=== PATIENT | female | born 1930 | race Caucasian/White ===

== ENCOUNTER 2016-10-01 11:22 | Emergency (ER) | payer MEDICARE, BC ==
[2016-10-01 11:36] VITALS: RESP 16; TEMP 98.3
--- NOTE | 2016-10-01 11:52 | ED ---
General Adult HPI - General Chief complaint: Urogenital Stated complaint: UTI Time Seen by Provider: 10/01/16 11:38 Source: patient, EMS, RN notes reviewed Mode of arrival: EMS Limitations: no limitations - History of Present Illness Initial comments: Patient's an 86-year-old female who presents by EMS from home with a chief complaint of possible UTI. Patient was advised by her family doctor to come to the emergency room for evaluation. Home nurse was at her house earlier this morning. Patient does admit to frequent UTIs. Patient currently denies any complaints or symptoms. History coming from EMS stating that home nurse called the family doctor worried about possible urinary tract infection. They're advised to come to the hospital for evaluation. Patient currently denies any complaints or symptoms.. The patient did have a Valentine catheter that she did pull out 2 days ago. She currently denies any complaints or symptoms. Patient denies any recent fever, chills, shortness of breath, chest pain, back pain, abdominal pain, nausea or vomiting, numbness or tingling, dysuria or hematuria, constipation or diarrhea, headaches or visual changes, or any other complaints. - Related Data Home Medications Medication Instructions Recorded Confirmed Docusate [Colace] 100 mg PO DAILY PRN 02/05/15 03/03/16 Multivitamins, Thera [Multivitamin] 1 tab PO DAILY 02/05/15 03/03/16 Thiamine [Vitamin B-1] 100 mg PO DAILY 02/05/15 03/03/16 Lisinopril-Hctz 10-12.5 mg 1 tab PO BID 03/03/16 03/03/16 [Zestoretic 10-12.5] Nystatin 100,000Unit/gm Cream 1 applic TOPICAL BID 03/03/16 03/03/16 [Mycostatin Cream] Vitamin B Complex 1 cap PO DAILY 03/03/16 03/03/16 Previous Rx's Medication Instructions Recorded Aspirin EC [Ecotrin Low Dose] 81 mg PO DAILY tablet. 12/20/14 Citalopram Hydrobromide [CeleXA] 10 mg PO DAILY #30 tab 02/06/15 Metoprolol Tartrate [Lopressor] 50 mg PO BID #60 tab 02/06/15 Cefdinir 300 mg PO Q12HR #14 cap 03/06/16 Sulfamethox-Tmp 800-160Mg [Bactrim 1 tab PO Q12HR #20 tab 10/01/16 DS 800-160 mg] Allergies Allergy/AdvReac Type Severity Reaction Status Date / Time No Known Allergies Allergy Verified 10/01/16 11:36 Review of Systems ROS Statement: Those systems with pertinent positive or pertinent negative responses have been documented in the HPI. ROS Other: All systems not noted in ROS Statement are negative. Past Medical History Past Medical History: Cancer, Chest Pain / Angina, Dementia, Diabetes Mellitus, Hyperlipidemia, Hypertension, Memory Impairment, Myocardial Infarction ([place]) Additional Past Medical History / Comment(s): ANEMIA BACK ISSUES, 12-16-14 UTI POSITIVE FOR MRSA/SEPSIS. SKIN CA, CHRONIC IDC D/T FRQ UTI'S/SKIN BREAKDOWN, PAST FALLS. Last Myocardial Infarction Date:: 1999 History of Any Multi-Drug Resistant Organisms: MRSA Date of last positivie culture/infection: 12/16/2014 MDRO Source:: Urine Past Surgical History: Appendectomy, Coronary Bypass/CABG, Hysterectomy Additional Past Surgical History / Comment(s): Lumbar, LAMINECTOMY, quadruple bypass done at [facility] by Dr. Garner, resection of skin cancer from her right ear and face Past Anesthesia/Blood Transfusion Reactions: No Reported Reaction Past Psychological History: Anxiety, Depression Smoking Status: Former smoker Past Alcohol Use History: None Reported Additional Past Alcohol Use History / Comment(s): Patient was a smoker and quit many years ago. Patient denies any medical marijuana marijuana or street drug use. No alcohol use. Patient moved from [place] in 3 with her . 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 CURRENTLY LIVING AT [facility] She usually uses a walker for ambulation. Patient lost one son when he was 24 years old from a motorcycle accident and the anniversary. date is on . Patient is also lost a grandchild who was hit by a motor vehicle accident 12 years of age. Past Drug Use History: None Reported - Past Family History Daughter(s) Family Medical History: Cancer Additional Family Medical History / Comment(s): Daughter is under treatment for ovarian cancer Brother(s) Family Medical History: Cancer General Exam - General Exam Comments Initial Comments: General: The patient is awake and alert, in no distress, and does not appear acutely ill. Eye: Pupils are equal, round and reactive to light, extra-ocular movements are intact. No nystagmus. There is normal conjunctiva bilaterally. No signs of icterus. Ears, nose, mouth and throat: There are moist mucous membranes and no oral lesions. Neck: The neck is supple, there is no tenderness or JVD. Cardiovascular: There is a regular rate and rhythm. No murmur, rub or gallop is appreciated. Respiratory: Lungs are clear to auscultation, respirations are non-labored, breath sounds are equal. No wheezes, stridor, rales, or rhonchi. Gastrointestinal: Soft, non-distended, non-tender abdomen without masses or organomegaly noted. There is no rebound or guarding present. No CVA tenderness. Bowel sounds are unremarkable. Musculoskeletal: Normal ROM, no tenderness. Strength 5/5. Sensation intact. Pulses equal bilaterally 2+. Neurological: A&O x 3. CN II-XII intact, There are no obvious motor or sensory deficits. Coordination appears grossly intact. Speech is normal. Skin: Skin is warm and dry and no rashes or lesions are noted. Psychiatric: Cooperative, appropriate mood & affect, normal judgment. Limitations: no limitations Course Vital Signs 10/01/16 11:33 Temperature 98.3 F Pulse Rate 68 Respiratory 16 Rate Blood Pressure 145/66 O2 Sat by Pulse 96 Oximetry Medical Decision Making - Medical Decision Making Patient's urinalysis reviewed and does show evidence for urinary tract infection. Patient will be treated for UTI. Patient vitals are stable. No fever. No sign of sepsis. Patient is alert and oriented 3. Rivet Heater at bedside stating the patient is acting like herself. States she had no further information to know why she was sent here to the hospital today. At this time patient will be discharged home treated for urinary tract infection with antibiotics advised follow-up the family doctor over the next 2 days to have repeat urinalysis. Advised return to emergency room if any symptoms increase or worsen or fail concerns. - Lab Data Lab Results 10/01/16 Range/Units 12:15 Urine Color Dark Yellow Urine Appearance Turbid H (Clear) Urine pH 5.5 (5.0-8.0) Ur Specific [place] 1.030 (1.001-1.035) Urine Protein 2+ H (Negative) Urine Glucose (UA) Negative (Negative) Urine Ketones Negative (Negative) Urine Blood Moderate H (Negative) Urine Nitrate Positive H (Negative) Urine Bilirubin Negative (Negative) Urine Urobilinogen <2.0 (<2.0) mg/dL Ur Leukocyte Esterase Large H (Negative) Urine RBC 38 H (0-5) /hpf Urine WBC >182 H (0-5) /hpf Urine WBC Clumps Many H (None) /hpf Urine Bacteria Moderate H (None) /hpf Disposition Clinical Impression: UTI (urinary tract infection) Disposition: HOME SELF-CARE Condition: Good Instructions: Urinary Tract Infection in Women (ED) Additional Instructions: Please follow the family doctor over the next 2 days to have repeat urinalysis as discussed. Please use antibiotics as prescribed. Please try to emergency room if any symptoms increase worsen or for any other concerns. Prescriptions: Sulfamethox-Tmp 800-160Mg [Bactrim DS 800-160 mg] 1 tab PO Q12HR #20 tab Time of Disposition: 13:25
[2016-10-01 13:10] LABS: Appearance,Urine Turbid (Clear); Bacteria,Urine Moderate /hpf; Bilirubin,Urine Negative (Negative); Glucose,Urine (UA) Negative (Negative); Ketones,Urine Negative (Negative); Leukocyte Esterase,Urine Large (Negative); Nitrite,Urine Positive (Negative); PH, Urine 5.5 (5.0-8.0); Particle Count 41009; Protein,Urine 2+ (Negative); RBC,Urine 38 /hpf (0-5); UA Billing (MACRO vs. MICRO) MICRO; Urobilinogen,Urine <2.0 mg/dL (<2.0); WBC,Urine >182 /hpf (0-5)
[2016-10-01 14:09] VITALS: BP 173/74; PULSE 72
== END 2016-10-01 14:09 | disposition home or self-care (01) ==
LOC: EC 11:22
DX: N39.0 Urinary tract infection, site not specified (principal); Z79.899 Other long term (current) drug therapy; I10 Essential (primary) hypertension; Z79.82 Long term (current) use of aspirin; I25.2 Old myocardial infarction; Z86.14 Personal history of Methicillin resistant Staphylococcus aureus infection; Z95.1 Presence of aortocoronary bypass graft; Z87.891 Personal history of nicotine dependence; Z87.440 Personal history of urinary (tract) infections; F41.9 Anxiety disorder, unspecified; F32.9 Major depressive disorder, single episode, unspecified
CPT/HCPCS: 51798; 81001; 87077; 87086; 87186; 99284

== ENCOUNTER 2016-10-11 09:58 | Inpatient (IN) | payer MEDICARE, BC ==
[2016-10-11] MEDS ORDERED: ACETAMINOPHEN TAB 325 MG TAB PO STA (10:48)
[2016-10-11] MEDS ORDERED: ONDANSETRON 4 MG/2 ML VIAL IVP STA (10:53)
--- NOTE | 2016-10-11 10:53 | ED ---
General Adult HPI - General Chief complaint: Nausea/Vomiting/Diarrhea Stated complaint: Vomiting Time Seen by Provider: 10/11/16 10:42 Source: patient (And garment manufacturer), RN notes reviewed Mode of arrival: EMS Limitations: no limitations - History of Present Illness Initial comments: Patient is a pleasant 86-year-old female presenting to the emergency department with nausea and dry heaves. Onset was during the night. Patient has had several episodes. Patient feels somewhat lightheaded. Patient states nausea is minimal at this time. No abdominal pain. Parking Garage Manager states patient was sweaty during the episodes. She feels the patient may have had a fever however did not check the temperature. Patient recently had antibiotics changed for urinary tract infection. - Related Data Home Medications Medication Instructions Recorded Confirmed Multivitamins, Thera [Multivitamin] 1 tab PO DAILY 02/05/15 10/11/16 Lisinopril-Hctz 10-12.5 mg 1 tab PO BID 03/03/16 10/11/16 [Zestoretic 10-12.5] Vitamin B Complex 1 cap PO DAILY 03/03/16 10/11/16 Ferrous Sulfate [Feosol] 325 mg PO DAILY 10/11/16 10/11/16 Menthol/Zinc Oxide [Calmoseptine 1 applic TOPICAL BID PRN 10/11/16 10/11/16 Ointment] Nitrofurantoin Macrocrystal 100 mg PO DAILY 10/11/16 10/11/16 [Macrodantin] Previous Rx's Medication Instructions Recorded Citalopram Hydrobromide [CeleXA] 10 mg PO DAILY #30 tab 02/06/15 Metoprolol Tartrate [Lopressor] 50 mg PO BID #60 tab 02/06/15 Allergies Allergy/AdvReac Type Severity Reaction Status Date / Time No Known Allergies Allergy Verified 10/11/16 13:06 Review of Systems ROS Statement: Those systems with pertinent positive or pertinent negative responses have been documented in the HPI. ROS Other: All systems not noted in ROS Statement are negative. Constitutional: Reports: fever (Subjective) Eyes: Denies: eye pain ENT: Denies: ear pain Respiratory: Denies: cough Cardiovascular: Denies: chest pain Endocrine: Reports: fatigue Gastrointestinal: Denies: abdominal pain Genitourinary: Denies: dysuria Musculoskeletal: Denies: back pain Skin: Denies: rash Neurological: Denies: headache Past Medical History Past Medical History: Cancer, Chest Pain / Angina, Dementia, Diabetes Mellitus, Hyperlipidemia, Hypertension, Memory Impairment, Myocardial Infarction ([place]) Additional Past Medical History / Comment(s): ANEMIA BACK ISSUES, 12-16-14 UTI POSITIVE FOR MRSA/SEPSIS. SKIN CA, CHRONIC IDC D/T FRQ UTI'S/SKIN BREAKDOWN, PAST FALLS. Last Myocardial Infarction Date:: 1999 History of Any Multi-Drug Resistant Organisms: MRSA Date of last positivie culture/infection: 12/16/2014 MDRO Source:: Urine Past Surgical History: Appendectomy, Coronary Bypass/CABG, Hysterectomy Additional Past Surgical History / Comment(s): Lumbar, LAMINECTOMY, quadruple bypass done at [facility] by Dr. Garner, resection of skin cancer from her right ear and face Past Anesthesia/Blood Transfusion Reactions: No Reported Reaction Past Psychological History: Anxiety, Depression Smoking Status: Former smoker Past Alcohol Use History: None Reported Additional Past Alcohol Use History / Comment(s): Patient was a smoker and quit many years ago. Patient denies any medical marijuana marijuana or street drug use. No alcohol use. Patient moved from [place] in 1952 with her . 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 CURRENTLY LIVING AT [facility] She usually uses a walker for ambulation. Patient lost one son when he was 24 years old from a motorcycle accident and the anniversary. date is on . Patient is also lost a grandchild who was hit by a motor vehicle accident 12 years of age. Past Drug Use History: None Reported - Past Family History Daughter(s) Family Medical History: Cancer Additional Family Medical History / Comment(s): Daughter is under treatment for ovarian cancer Brother(s) Family Medical History: Cancer General Exam Limitations: no limitations General appearance: alert, in no apparent distress Head exam: Present: atraumatic Eye exam: Present: normal appearance, PERRL ENT exam: Present: mucous membranes dry Neck exam: Present: normal inspection Respiratory exam: Present: normal lung sounds bilaterally Cardiovascular Exam: Present: regular rate, normal rhythm GI/Abdominal exam: Present: soft. Absent: distended, tenderness, guarding, rebound, rigid Extremities exam: Present: normal inspection Neurological exam: Present: alert, CN II-XII intact. Absent: motor sensory deficit Psychiatric exam: Present: normal affect, normal mood Skin exam: Absent: rash Course Vital Signs 10/11/16 10:07 Temperature 97.5 F L Pulse Rate 99 Respiratory 18 Rate Blood Pressure 138/65 O2 Sat by Pulse 92 L Oximetry - Reevaluation(s) Reevaluation #1: 10/11/16 10:49 Temperature checked myself 99.8. EKG Findings - EKG Comments: EKG Findings:: Normal sinus rhythm at 86. RI 190. QRS 14. QT 402. QTC 481. Left axis. Left anterior fascicular block. No acute ST change. Medical Decision Making - Medical Decision Making Patient reevaluated and resting comfortably in bed. Patient and garment manufacturer updated on results and plan. Case was discussed in detail with Dr. Hull, who is familiar with this patient and will admit for IV fluids and antibiotics. Recent urine culture reviewed from 10/01 showing E. coli and Citrobacter freundii - Lab Data Result diagrams: 10/11/16 11:00 10/11/16 11:00 Lab Results 10/11/16 10/11/16 10/11/16 Range/Units 11:00 11:00 11:00 WBC 14.7 H (3.8-10.6) k/uL RBC 3.02 L (3.80-5.40) m/uL Hgb 10.3 L (11.4-16.0) gm/dL Hct 31.0 L (34.0-46.0) % MCV 102.7 H (80.0-100.0) fL MCH 34.1 (25.0-35.0) pg MCHC 33.2 (31.0-37.0) g/dL RDW 18.4 H (11.5-15.5) % Plt Count 203 (150-450) k/uL Neutrophils % 92 % Lymphocytes % 4 % Monocytes % 3 % Eosinophils % 1 % Basophils % 0 % Neutrophils # 13.4 H (1.3-7.7) k/uL Lymphocytes # 0.5 L (1.0-4.8) k/uL Monocytes # 0.5 (0-1.0) k/uL Eosinophils # 0.1 (0-0.7) k/uL Basophils # 0.0 (0-0.2) k/uL Anisocytosis Slight Macrocytosis Moderate PT (9.0-12.0) sec INR (<1.1) APTT (22.0-30.0) sec Sodium 141 (137-145) mmol/L Potassium 5.5 H (3.5-5.1) mmol/L Chloride 107 (98-107) mmol/L Carbon Dioxide 20 L (22-30) mmol/L Anion Gap 14 mmol/L BUN 59 H (7-17) mg/dL Creatinine 2.30 H (0.52-1.04) mg/dL Est GFR (MDRD) Af Amer 24 (>60 ml/min/1.73 sqM) Est GFR (MDRD) Non-Af 20 (>60 ml/min/1.73 sqM) Glucose 168 H (74-99) mg/dL Plasma Lactic Acid Cruz 1.3 (0.7-2.0) mmol/L Calcium 9.6 (8.4-10.2) mg/dL Total Bilirubin 0.9 (0.2-1.3) mg/dL AST 26 (14-36) U/L ALT 21 (9-52) U/L Alkaline Phosphatase 66 (38-126) U/L Total Creatine Kinase (30-135) U/L CK-MB (CK-2) (0.0-2.4) ng/mL CK-MB (CK-2) Rel Index Troponin I (0.000-0.034) ng/mL Total Protein 7.6 (6.3-8.2) g/dL Albumin 4.1 (3.5-5.0) g/dL Cortisol 32 ug/dL Urine Color Urine Appearance (Clear) Urine pH (5.0-8.0) Ur Specific [place] (1.001-1.035) Urine Protein (Negative) Urine Glucose (UA) (Negative) Urine Ketones (Negative) Urine Blood (Negative) Urine Nitrate (Negative) Urine Bilirubin (Negative) Urine Urobilinogen (<2.0) mg/dL Ur Leukocyte Esterase (Negative) Urine RBC (0-5) /hpf Urine WBC (0-5) /hpf Ur Squamous Epith Cells (0-4) /hpf Urine Bacteria (None) /hpf Hyaline Casts (0-2) /lpf Urine Mucus (None) /hpf Influenza Type A RNA (Not Detectd) Influenza Type B (PCR) (Not Detectd) 10/11/16 10/11/16 10/11/16 Range/Units 11:00 11:00 11:41 WBC (3.8-10.6) k/uL RBC (3.80-5.40) m/uL Hgb (11.4-16.0) gm/dL Hct (34.0-46.0) % MCV (80.0-100.0) fL MCH (25.0-35.0) pg MCHC (31.0-37.0) g/dL RDW (11.5-15.5) % Plt Count (150-450) k/uL Neutrophils % % Lymphocytes % % Monocytes % % Eosinophils % % Basophils % % Neutrophils # (1.3-7.7) k/uL Lymphocytes # (1.0-4.8) k/uL Monocytes # (0-1.0) k/uL Eosinophils # (0-0.7) k/uL Basophils # (0-0.2) k/uL Anisocytosis Macrocytosis PT 10.9 (9.0-12.0) sec INR 1.1 (<1.1) APTT 18.0 L (22.0-30.0) sec Sodium (137-145) mmol/L Potassium (3.5-5.1) mmol/L Chloride (98-107) mmol/L Carbon Dioxide (22-30) mmol/L Anion Gap mmol/L BUN (7-17) mg/dL Creatinine (0.52-1.04) mg/dL Est GFR (MDRD) Af Amer (>60 ml/min/1.73 sqM) Est GFR (MDRD) Non-Af (>60 ml/min/1.73 sqM) Glucose (74-99) mg/dL Plasma Lactic Acid Cruz (0.7-2.0) mmol/L Calcium (8.4-10.2) mg/dL Total Bilirubin (0.2-1.3) mg/dL AST (14-36) U/L ALT (9-52) U/L Alkaline Phosphatase (38-126) U/L Total Creatine Kinase 28 L (30-135) U/L CK-MB (CK-2) 0.2 (0.0-2.4) ng/mL CK-MB (CK-2) Rel Index 0.7 Troponin I <0.012 (0.000-0.034) ng/mL Total Protein (6.3-8.2) g/dL Albumin (3.5-5.0) g/dL Cortisol ug/dL Urine Color Urine Appearance (Clear) Urine pH (5.0-8.0) Ur Specific [place] (1.001-1.035) Urine Protein (Negative) Urine Glucose (UA) (Negative) Urine Ketones (Negative) Urine Blood (Negative) Urine Nitrate (Negative) Urine Bilirubin (Negative) Urine Urobilinogen (<2.0) mg/dL Ur Leukocyte Esterase (Negative) Urine RBC (0-5) /hpf Urine WBC (0-5) /hpf Ur Squamous Epith Cells (0-4) /hpf Urine Bacteria (None) /hpf Hyaline Casts (0-2) /lpf Urine Mucus (None) /hpf Influenza Type A RNA Not Detected (Not Detectd) Influenza Type B (PCR) Not Detected (Not Detectd) 10/11/16 Range/Units 12:20 WBC (3.8-10.6) k/uL RBC (3.80-5.40) m/uL Hgb (11.4-16.0) gm/dL Hct (34.0-46.0) % MCV (80.0-100.0) fL MCH (25.0-35.0) pg MCHC (31.0-37.0) g/dL RDW (11.5-15.5) % Plt Count (150-450) k/uL Neutrophils % % Lymphocytes % % Monocytes % % Eosinophils % % Basophils % % Neutrophils # (1.3-7.7) k/uL Lymphocytes # (1.0-4.8) k/uL Monocytes # (0-1.0) k/uL Eosinophils # (0-0.7) k/uL Basophils # (0-0.2) k/uL Anisocytosis Macrocytosis PT (9.0-12.0) sec INR (<1.1) APTT (22.0-30.0) sec Sodium (137-145) mmol/L Potassium (3.5-5.1) mmol/L Chloride (98-107) mmol/L Carbon Dioxide (22-30) mmol/L Anion Gap mmol/L BUN (7-17) mg/dL Creatinine (0.52-1.04) mg/dL Est GFR (MDRD) Af Amer (>60 ml/min/1.73 sqM) Est GFR (MDRD) Non-Af (>60 ml/min/1.73 sqM) Glucose (74-99) mg/dL Plasma Lactic Acid [place] (0.7-2.0) mmol/L Calcium (8.4-10.2) mg/dL Total Bilirubin (0.2-1.3) mg/dL AST (14-36) U/L ALT (9-52) U/L Alkaline Phosphatase (38-126) U/L Total Creatine Kinase (30-135) U/L CK-MB (CK-2) (0.0-2.4) ng/mL CK-MB (CK-2) Rel Index Troponin I (0.000-0.034) ng/mL Total Protein (6.3-8.2) g/dL Albumin (3.5-5.0) g/dL Cortisol ug/dL Urine Color Yellow Urine Appearance Clear (Clear) Urine pH 5.5 (5.0-8.0) Ur Specific [place] 1.012 (1.001-1.035) Urine Protein Negative (Negative) Urine Glucose (UA) Negative (Negative) Urine Ketones Negative (Negative) Urine Blood Negative (Negative) Urine Nitrate Negative (Negative) Urine Bilirubin Negative (Negative) Urine Urobilinogen <2.0 (<2.0) mg/dL Ur Leukocyte Esterase Small H (Negative) Urine RBC 1 (0-5) /hpf Urine WBC 6 H (0-5) /hpf Ur Squamous Epith Cells <1 (0-4) /hpf Urine Bacteria Moderate H (None) /hpf Hyaline Casts 5 H (0-2) /lpf Urine Mucus Rare H (None) /hpf Influenza Type A RNA (Not Detectd) Influenza Type B (PCR) (Not Detectd) - Radiology Data Radiology results: image reviewed (Chest x-ray shows some atelectasis.) Disposition Clinical Impression: UTI (urinary tract infection), Dehydration Disposition: ADMITTED IP TO THIS HOSP
[2016-10-11 11:23] LABS: Anisocytosis Slight; Basophils % (A) 0 %; CH 33.7; CHCM 32.9; Eosinophils # (A) 0.1 k/uL (0-0.7); Eosinophils % (A) 1 %; HDW 3.23; HGB 10.3 gm/dL (11.4-16.0); Luc # (Auto) 0.09; Luc % (Auto) 1; Lymphocytes # (A) 0.5 k/uL (1.0-4.8); Lymphocytes % (A) 4 %; MCH 34.1 pg (25.0-35.0); MCHC 33.2 g/dL (31.0-37.0); MCV 102.7 fL (80.0-100.0); Macrocytosis Moderate; Mean Platelet Volume 8.2; Monocytes # (A) 0.5 k/uL (0-1.0); Monocytes % (A) 3 %; Neutrophils # (A) 13.4 k/uL (1.3-7.7); Neutrophils % (A) 92 %; RBC 3.02 m/uL (3.80-5.40); RDW 18.4 % (11.5-15.5); WBC 14.7 k/uL (3.8-10.6); WBC (Perox) 14.86
--- NOTE | 2016-10-11 11:29 | XR ---
EXAMINATION TYPE: XR chest 2V DATE OF EXAM: 10/11/2016 11:24 AM COMPARISON: 03/03/2016 INDICATION: Fever, cough TECHNIQUE: Frontal and lateral views of the chest are obtained. FINDINGS: The heart size is normal. The pulmonary vasculature is normal. Plate atelectasis within the mid left lung. Some minimal atelectasis may be present in the right diap hragm. Sternotomy wires are in the midline. IMPRESSION: 1. Bilateral platelike atelectasis.
[2016-10-11] MEDS: SODIUM CHLORIDE 0.9% 500 ML IV SCH ×2 (11:37→13:49)
[2016-10-11 11:42] LABS: Calcium 9.6 mg/dL (8.4-10.2); Potassium 5.5 mmol/L (3.5-5.1); Total Bilirubin 0.9 mg/dL (0.2-1.3); Total Protein 7.6 g/dL (6.3-8.2)
[2016-10-11 11:58] LABS: Troponin I <0.012 ng/mL (0.000-0.034)
[2016-10-11 12:04] LABS: INR 1.1 (<1.1); Prothrombin Time 10.9 sec (9.0-12.0)
[2016-10-11 12:11] LABS: Creatine Kinase 28 U/L (30-135)
[2016-10-11 12:12] LABS: Creatine Kinase MB 0.2 ng/mL (0.0-2.4)
[2016-10-11 12:31] LABS: Appearance,Urine Clear (Clear); Bacteria,Urine Moderate /hpf; Bilirubin,Urine Negative (Negative); Glucose,Urine (UA) Negative (Negative); Ketones,Urine Negative (Negative); Leukocyte Esterase,Urine Small (Negative); Mucus,Urine Rare /hpf; Nitrite,Urine Negative (Negative); PH, Urine 5.5 (5.0-8.0); Particle Count 5942; Protein,Urine Negative (Negative); RBC,Urine 1 /hpf (0-5); Specific Gravity,Urine 1.012 (1.001-1.035); Squamous Epithelial Cell,Urine <1 /hpf (0-4); UA Billing (MACRO vs. MICRO) MICRO; Urobilinogen,Urine <2.0 mg/dL (<2.0); WBC,Urine 6 /hpf (0-5)
[2016-10-11] MEDS ORDERED: ACETAMINOPHEN TAB 325 MG TAB PO PRN (13:12)
[2016-10-11] MEDS ORDERED: NALOXONE 0.4 MG/ML 1 ML VIAL IV PRN (13:12)
[2016-10-11] MEDS ORDERED: ONDANSETRON 4 MG/2 ML VIAL IVP PRN (13:12)
[2016-10-11] MEDS ORDERED: PIPERACILLIN-TAZOBACTAM 3.375 GM in DEXTROSE/WATER 1 50ML.BAG IVPB STA (13:14)
[2016-10-11] MEDS: SODIUM CHLORIDE 0.9% 1,000 ML IV SCH ×2 (14:31→20:54)
[2016-10-11 15:11] VITALS: BMI 32.1
[2016-10-11 18:00] LABS: Creatine Kinase MB 0.4 ng/mL (0.0-2.4); Troponin I 0.019 ng/mL (0.000-0.034)
[2016-10-11] MEDS: METOPROLOL TARTRATE 50 MG TAB PO SCH (20:53)
[2016-10-11] MEDS ORDERED: FAMOTIDINE 20 MG TAB PO SCH ×2 (21:00)
[2016-10-12] MEDS ORDERED: PIPERACILLIN-TAZOBACTAM 3.375 GM in DEXTROSE/WATER 1 50ML.BAG IVPB SCH
[2016-10-12 00:20] LABS: Creatine Kinase MB 0.5 ng/mL (0.0-2.4); Troponin I 0.022 ng/mL (0.000-0.034)
[2016-10-12] MEDS: PIPERACILLIN-TAZOBACTAM 3.375 GM in DEXTROSE/WATER 1 50ML.BAG IVPB SCH ×2 (05:02→17:15)
[2016-10-12 07:30] LABS: Anisocytosis Slight; Basophils % (A) 0 %; CH 33.5; CHCM 32.1; Eosinophils # (A) 0.3 k/uL (0-0.7); Eosinophils % (A) 3 %; HCT 25.7 % (34.0-46.0); HDW 3.02; Hypochromasia Slight; Luc # (Auto) 0.06; Luc % (Auto) 1; Lymphocytes # (A) 1.4 k/uL (1.0-4.8); Lymphocytes % (A) 16 %; MCHC 31.5 g/dL (31.0-37.0); MCV 104.7 fL (80.0-100.0); Macrocytosis Moderate; Mean Platelet Volume 8.6; Monocytes # (A) 0.3 k/uL (0-1.0); Monocytes % (A) 4 %; Neutrophils # (A) 6.4 k/uL (1.3-7.7); Neutrophils % (A) 76 %; RBC 2.46 m/uL (3.80-5.40); RDW 18.4 % (11.5-15.5); WBC 8.3 k/uL (3.8-10.6); WBC (Perox) 8.56
[2016-10-12 07:45] LABS: HGB 8.1 gm/dL (11.4-16.0)
[2016-10-12 08:01] LABS: Calcium 8.5 mg/dL (8.4-10.2); Potassium 5.1 mmol/L (3.5-5.1)
[2016-10-12] MEDS: CITALOPRAM HYDROBROMIDE 10 MG TAB PO SCH (08:45)
[2016-10-12] MEDS: METOPROLOL TARTRATE 50 MG TAB PO SCH ×2 (08:45→20:19)
--- NOTE | 2016-10-12 12:03 | P.HPIM ---
History of Present Illness H&P Date: 10/12/16 Chief Complaint: Dehydration Janeth is a pleasant 86-year-old white female well-known to the practice. She has been treated for a bladder infection over the past several weeks. She been on Cipro and a repeat urine culture, which she did not improve considerably, showed resistance. She was placed on Macrobid 1-2 days before admission, began experiencing nausea and retching. In the emergency room she was found to have significantly elevated BUN/creatinine, but minimal for any UTI. She is now resting comfortably and is being treated for her dehydration and resistant UTI. Incidental findings on her labs show suppressed TSH rechecked indicates she taken thyroid medications in the remote past, but not been on anything lately. Her CBC also shows significant macrocytosis and anemia. Review of Systems All systems: negative Constitutional: Reports anorexia, Reports lethargy Breasts: right: pain Gastrointestinal: Reports as per HPI Past Medical History Past Medical History: Chest Pain / Angina, Dementia, Hyperlipidemia, Hypertension, Memory Impairment, Myocardial Infarction (OR) Additional Past Medical History / Comment(s): ANEMIA BACK ISSUES, 12-16-14 UTI POSITIVE FOR MRSA/SEPSIS. SKIN CA, CHRONIC IDC D/T FRQ UTI'S/SKIN BREAKDOWN, PAST FALLS. Last Myocardial Infarction Date:: 1999 History of Any Multi-Drug Resistant Organisms: MRSA Date of last positivie culture/infection: 12/16/2014 MDRO Source:: Urine Past Surgical History: Appendectomy, Coronary Bypass/CABG, Hysterectomy Additional Past Surgical History / Comment(s): Lumbar, LAMINECTOMY, quadruple bypass done at [facility] by Dr. Garner, resection of skin cancer from her right ear and face Past Anesthesia/Blood Transfusion Reactions: No Reported Reaction Past Psychological History: Anxiety, Depression Smoking Status: Never smoker Past Alcohol Use History: None Reported Additional Past Alcohol Use History / Comment(s): Patient was a smoker and quit many years ago. Patient denies any medical marijuana marijuana or street drug use. No alcohol use. Patient moved from [place] in 1953 with her . 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 CURRENTLY L[facility]ING AT [facility] She usually uses a walker for ambulation. Patient lost one son when he was 24 years old from a motorcycle accident and the anniversary. date is on . Patient is also lost a grandchild who was hit by a motor vehicle accident 12 years of age. Past Drug Use History: None Reported - Past Family History Daughter(s) Family Medical History: Cancer Additional Family Medical History / Comment(s): Daughter is under treatment for ovarian cancer Brother(s) Family Medical History: Cancer Medications and Allergies Home Medications Medication Instructions Recorded Confirmed Type Multivitamins, Thera [Multivitamin] 1 tab PO DAILY 02/05/15 10/11/16 History Lisinopril-Hctz 10-12.5 mg 1 tab PO BID 03/03/16 10/11/16 History [Zestoretic 10-12.5] Vitamin B Complex 1 cap PO DAILY 03/03/16 10/11/16 History Ferrous Sulfate [Feosol] 325 mg PO DAILY 10/11/16 10/11/16 History Menthol/Zinc Oxide [Calmoseptine 1 applic TOPICAL BID PRN 10/11/16 10/11/16 History Ointment] Nitrofurantoin Macrocrystal 100 mg PO DAILY 10/11/16 10/11/16 History [Macrodantin] Allergies Allergy/AdvReac Type Severity Reaction Status Date / Time No Known Allergies Allergy Verified 10/11/16 13:06 Physical Exam Vitals: Vital Signs Temp Pulse Pulse Pulse Resp BP BP 10/12/16 07:56 75 73 15 10/12/16 07:00 98.4 F 75 15 152/59 10/12/16 03:17 16 10/12/16 02:07 98.2 F 73 16 118/56 10/12/16 00:00 16 10/11/16 20:00 98.0 F 83 16 124/53 10/11/16 16:05 10/11/16 14:00 18 10/11/16 13:32 98.8 F 81 18 118/57 Pulse Ox 10/12/16 07:56 10/12/16 07:00 93 L 10/12/16 03:17 10/12/16 02:07 93 L 10/12/16 00:00 10/11/16 20:00 93 L 10/11/16 16:05 93 L 10/11/16 14:00 10/11/16 13:32 93 L Intake and Output 10/11/16 10/12/16 10/12/16 22:59 06:59 14:59 Intake Total 360 Balance 360 Intake: Oral 360 Other: Voiding Method Diaper Diaper Diaper Incontinent Incontinent Incontinent # Voids 1 1 GENERAL: Fatigued, well-nourished and in no acute distress. HEAD: Atraumatic, normocephalic. EYES: Pupils equal round and reactive to light, extraocular movements intact, sclera anicteric, conjunctiva are normal. ENT:nares patent, oropharynx clear without exudates. Moist mucous membranes. NECK: Normal range of motion, supple without lymphadenopathy or JVD, no thyromegaly LUNGS: Breath sounds coarse to auscultation bilaterally and equal. No wheezes rales or rhonchi. HEART: Regular rate and rhythm without murmurs, rubs or gallops.S1S2 Normal ABDOMEN: Soft, nontender, normoactive bowel sounds. No guarding, no rebound. No masses appreciated. EXTREMITIES: Normal range of motion, no pitting or edema. No clubbing or cyanosis. SCDs are in place. NEUROLOGICAL: Cranial nerves II through XII grossly intact. Normal speech, normal gait. She is awake alert and oriented 2 PSYCH: Normal mood, normal affect. SKIN: Warm, Dry, decreased turgor, no rashes or lesions noted. Results CBC & Chem 7: 10/12/16 06:52 10/12/16 06:52 Labs: Abnormal Lab Results - Last 24 Hours (Table) 10/12/16 10/12/16 Range/Units 06:52 06:52 RBC 2.46 L (3.80-5.40) m/uL Hgb 8.1 L D (11.4-16.0) gm/dL Hct 25.7 L (34.0-46.0) % MCV 104.7 H (80.0-100.0) fL RDW 18.4 H (11.5-15.5) % Chloride 112 H (98-107) mmol/L BUN 48 H (7-17) mg/dL Creatinine 1.81 H (0.52-1.04) mg/dL TSH 0.084 L (0.465-4.680) mIU/L Chest x-ray: report reviewed Thrombosis Risk Factor Assmnt - DVT/VTE Prophylaxis DVT/VTE Prophylaxis: Mechanical Prophylaxis ordered - Choose All That Apply Each Factor Represents 1 point: Acute OR, Age 41-60 years Each Risk Factor Represents 2 Points: Age 61-74 years, Malignancy Each Risk Factor Represents 3 Points: Age 75 years or older, Positive Lupus Anticoagulant Thrombosis Risk Factor Assessment Total Risk Factor Score: 12 Thrombosis Risk Factor Assessment Level: High Risk Assessment and Plan Plan: Urinary tract infection, with partial failure of outpatient treatment: She'll remain on Zosyn at this time. Her repeat ER urine looks improved. Suppressed TSH: We'll repeat laboratory studies and evaluate for occult reasons for hyperthyroidism. Macrocytic anemia: I'll repeat the hemoglobin and check B12 folate and iron studies. We'll start her on a B complex multivitamin. Acute on chronic renal failure, present on admission, improved: We'll continue her gentle IV hydration, I'll decrease the IV fluids from 100 mL an hour to 75 mL an hour. Borderline type 2 diabetes: I'll repeat hemoglobin A1c, the last record of February 2016 showed it to be 6.2: We'll do Accu-Cheks and NovoLog scale. Hypertension: I have held her lisinopril/HCTZ due to her kidney functions. She' ll continue on her metoprolol. I will consider adding amlodipine if needed GI prophylaxis: I will start her on Pepcid at this time. DVT prophylaxis: She remains on SCDs. Medical debility: Believe she uses a walker at home, I'll have physical therapy evaluate her. She'll be reevaluated in the next 24 hours Time with Patient: Greater than 30
[2016-10-12 12:37] LABS: Iron 27 ug/dL (37-170); Phosphorous 3.1 mg/dL (2.5-4.5)
[2016-10-12 12:47] LABS: % Iron Saturation 10.1 % (20-50); Total Iron Binding Capacity 268 ug/dL (265-497)
[2016-10-12 13:02] LABS: Glucose,Whole Blood 99 mg/dL (75-99)
[2016-10-12] MEDS: INSULIN LISPRO (humaLOG) 300 UNIT/3 ML VIAL SQ SCH ×3 (13:06→20:22)
[2016-10-12 13:40] LABS: Hemoglobin A1C 5.8 % (4.2-6.1)
[2016-10-12 13:44] LABS: Vitamin B12 487 pg/mL
[2016-10-12] MEDS: SODIUM CHLORIDE 0.9% 1,000 ML IV SCH ×3 (14:59→20:22)
[2016-10-12] MEDS ORDERED: MENTHOL-ZINC OXIDE OINT 113 GM TUBE TOPICAL PRN (15:01)
[2016-10-12 17:01] LABS: Glucose,Whole Blood 101 mg/dL (75-99)
[2016-10-12] MEDS: FAMOTIDINE 20 MG TAB PO SCH (17:15)
[2016-10-12 18:39] LABS: Anisocytosis Slight; Basophils % (A) 1 %; CH 33.7; Eosinophils # (A) 0.3 k/uL (0-0.7); Eosinophils % (A) 5 %; HDW 3.07; HGB 8.2 gm/dL (11.4-16.0); Hypochromasia Slight; Luc # (Auto) 0.04; Luc % (Auto) 1; Lymphocytes # (A) 1.3 k/uL (1.0-4.8); Lymphocytes % (A) 22 %; MCH 33.1 pg (25.0-35.0); MCHC 31.3 g/dL (31.0-37.0); MCV 105.7 fL (80.0-100.0); Macrocytosis Marked; Mean Platelet Volume 9.1; Monocytes # (A) 0.3 k/uL (0-1.0); Monocytes % (A) 4 %; Neutrophils % (A) 67 %; RBC 2.46 m/uL (3.80-5.40); RDW 18.2 % (11.5-15.5); WBC 5.9 k/uL (3.8-10.6); WBC (Perox) 5.93
[2016-10-12 19:52] LABS: Manual Review Performed
[2016-10-12 19:53] LABS: Large Platelets Present; Ovalocytes Present; Tear Drop Cells Present
[2016-10-12 20:24] LABS: Glucose,Whole Blood 164 mg/dL (75-99)
[2016-10-13] MEDS: PIPERACILLIN-TAZOBACTAM 3.375 GM in DEXTROSE/WATER 1 50ML.BAG IVPB SCH (05:10)
[2016-10-13 06:49] LABS: Glucose,Whole Blood 102 mg/dL (75-99)
[2016-10-13 07:23] LABS: Anisocytosis Slight; Basophils % (A) 1 %; CH 33.1; CHCM 30.6; Eosinophils # (A) 0.3 k/uL (0-0.7); Eosinophils % (A) 5 %; HCT 30.2 % (34.0-46.0); HDW 3.07; HGB 9.3 gm/dL (11.4-16.0); Hypochromasia Moderate; Luc % (Auto) 2; Lymphocytes # (A) 1.3 k/uL (1.0-4.8); Lymphocytes % (A) 24 %; MCH 33.4 pg (25.0-35.0); MCHC 30.9 g/dL (31.0-37.0); MCV 108.4 fL (80.0-100.0); Macrocytosis Marked; Mean Platelet Volume 7.6; Monocytes # (A) 0.2 k/uL (0-1.0); Monocytes % (A) 4 %; Neutrophils # (A) 3.4 k/uL (1.3-7.7); Neutrophils % (A) 65 %; RBC 2.78 m/uL (3.80-5.40); WBC 5.3 k/uL (3.8-10.6); WBC (Perox) 5.39
[2016-10-13] MEDS: INSULIN LISPRO (humaLOG) 300 UNIT/3 ML VIAL SQ SCH ×4 (07:36→20:11)
[2016-10-13] MEDS: CITALOPRAM HYDROBROMIDE 10 MG TAB PO SCH (07:37)
[2016-10-13] MEDS: METOPROLOL TARTRATE 50 MG TAB PO SCH ×2 (07:37→20:09)
[2016-10-13] MEDS: FAMOTIDINE 20 MG TAB PO SCH (07:37)
[2016-10-13] MEDS: B COMPLEX-VIT C-VIT E-ZINC 1 EACH TAB PO SCH (07:38)
[2016-10-13 07:45] LABS: Calcium 8.7 mg/dL (8.4-10.2); Magnesium 2.2 mg/dL (1.6-2.3); Potassium 4.8 mmol/L (3.5-5.1)
[2016-10-13 11:10] LABS: Ovalocytes Present
[2016-10-13 11:12] LABS: Spherocytes Present
[2016-10-13 11:17] LABS: Target Cells Present
[2016-10-13 11:45] LABS: Glucose,Whole Blood 136 mg/dL (75-99)
--- NOTE | 2016-10-13 11:52 | CDI ---
In responding to this query, please exercise your independent professional judgment. The [facility] Coding Staff and Clinical Documentation Specialists appreciate your assistance in clarifying documentation, maintaining compliance with coding guidelines, accurately documenting patients condition and capturing severity of illness. The fact that a question is asked does not imply that any particular answer is desired or expected. Communication forms are a method of clarifying documentation and are not made part of the Legal Health Record. Thank you in advance for your clarification. Last Revision, July 2015 [address] [facility] [place] [address] Documentation Clarification Form Date: 10/13/2016 11:39:00 AM From: Sharan Prince, RN, BSN, CDI Admit Date: 10/11/2016 1:15:00 PM Patient Name: Agata Maya Visit Number: [id number] Dr. Juan Hull: Patient presents with a BUN/CR/GFR of: 59/2.30/20 History/Risk Factors: 86 yo female with a history of CKD, Diabetes and HTN being treated for acute renal failure, UTI and dehydration Patients baseline BUN/CR/GFR: unknown Clinical Indicators: K: 5.5 (on admission), current BUN/Cr: 36/1.36, Hgb: 10.3- 8.1 Treatment: IVF: IVF @100cc/hr (currently @75cc/hr) Other: 1L fluid bolus, Zosyn In order to capture the severity of condition, please clarify if the condition signifies: Acute renal failure Please specify (if known): Cortical, Medullary, or Tubular Necrosis? Acute on chronic renal failure Chronic renal failure, please stage Chronic kidney disease (CKD) and please stage Stage 1 GFR >90 Stage 2 GFR 60-89 Stage 3 GFR 30-59 Stage 4 GFR 15-29 Unable to determine Other, specify Please document in your progress notes and discharge summary in order to capture severity of illness and risk of mortality. Include clinical findings that support your diagnosis. FYI: Press F11 to launch patient chart. ___X__ Place X here if this finding has no clinical significance, is not applicable or if you are not able to provide any additional documentation. MTDD
--- NOTE | 2016-10-13 12:08 | US ---
EXAMINATION TYPE: US thyroid st tissue head/neck DATE OF EXAM: 10/13/2016 11:55 AM COMPARISON: NONE CLINICAL HISTORY: hyperthyroid suspected . GLAND SIZE: Right Lobe: 3.4 x 1.7 x 1.3 cm Overall Parenchyma: heterogenous Left Lobe: 4.8 x 2.1 x 1.8 cm Overall Parenchyma: heterogeneous Isthmus Thickness: 0.8 cm NODULES RIGHT: # of nodules measured on right: 0 LEFT: # of nodules measured on left: 0 ISTHMUS: # of nodules measured in the isthmus: 0 TECHNOLOGIST IMPRESSION: Thyroid sits very inferior, difficult to see inferior portion due to clavic le. IMPRESSION: Thyroid heterogeneity without evidence for distinct nodule at this time.
--- NOTE | 2016-10-13 14:25 | P.PN ---
Subjective Principal diagnosis: Urinary tract infection Janeth is a pleasant 86-year-old white female, patient of Dr. Hull in the outpatient setting. Patient presented to the emergency department with complains of nausea, vomiting, lightheadedness. Patient had recently been treated for urinary tract infection with Cipro, which was changed to Macrobid secondary to urine culture showing resistance to Cipro. Patient was found to have evidence of dehydration, hypothyroidism, anemia, macrocytosis, and acute renal failure. Ultrasound of thyroid with no evidence of right, left, or isthmus nodules. Upon examination, patient is sitting at the side of the bed working with physical therapist. Patient is feeling better. Denies chills, nausea, vomiting , shortness of breath, chest pain, abdominal pain, dysuria, hematuria. Patient complains of urgency. Patient is tolerating diet. Afebrile. WBC 5.3. Hemoglobin 9.3. MCV 108.4. Creatinine improved to 1.36. Final urine culture with evidence of E. coli. Preliminary blood culture with no growth after 48 hours. Objective - Vital Signs Vital signs: Vital Signs Temp 97.9 F 10/13/16 07:00 Pulse 69 10/13/16 07:00 Resp 18 10/13/16 07:00 BP 158/70 10/13/16 07:00 Pulse Ox 92 L 10/13/16 07:00 Intake & Output 10/12/16 10/13/16 10/13/16 18:59 06:59 18:59 Intake Total 500 120 Balance 500 120 Weight 82.1 kg Intake: IV 500 Sodium Chloride 0.9% 1, 500 000 ml @ 100 mls/hr IV . [facility] Rx#:[id number] Oral 120 Other: Voiding Method Diaper Diaper Diaper Incontinent Incontinent Incontinent # Voids 1 - Exam GENERAL: Pt awake and alert, well-appearing, well-nourished, and in no acute distress. HEAD: Atraumatic, normocephalic. EYES: Pupils equal, round, and reactive to light, extraocular movements intact, sclera anicteric, conjunctiva are normal. ENT: Oropharynx clear without exudates. Moist mucous membranes. Tongue smooth, pink, no lesions, protrudes in midline. NECK:Normal range of motion, supple without lymphadenopathy or JVD. No carotid bruits. Thyroid midline, small and firm without palpable masses. LUNGS: Breath sounds clear to auscultation bilaterally. No wheezes, rales, or rhonchi. HEART: Heart S1, S2, no S3 or S4. No murmurs, rubs or gallops. ABDOMEN: Soft, nontender, nondistended, normoactive bowel sounds. No guarding, no rebound. No masses or organomegaly appreciated. EXTREMITIES: 2+ peripheral pulses. No edema, clubbing or cyanosis. No calf tenderness. NEUROLOGICAL: Pt oriented x 3. Cranial nerves II through XII grossly intact. Strength and sensation grossly intact. PSYCH: Normal mood, normal affect. SKIN: Warm, dry, intact. Normal turgor. No rashes or lesions. - Labs CBC & Chem 7: 10/13/16 06:55 10/13/16 06:55 Labs: Abnormal Lab Results - Last 24 Hours (Table) 10/12/16 10/12/16 10/12/16 Range/Units 06:52 16:34 18:27 RBC 2.46 L (3.80-5.40) m/uL Hgb 8.2 L (11.4-16.0) gm/dL Hct 26.0 L (34.0-46.0) % MCV 105.7 H (80.0-100.0) fL MCHC (31.0-37.0) g/dL RDW 18.2 H (11.5-15.5) % Chloride (98-107) mmol/L BUN (7-17) mg/dL Creatinine (0.52-1.04) mg/dL Glucose (74-99) mg/dL POC Glucose (mg/dL) 101 H (75-99) mg/dL Iron 27 L (37-170) ug/dL % Saturation 10.1 L (20-50) % Free T3 pg/mL 2.3 L (2.8-5.3) pg/ml 10/12/16 10/13/16 10/13/16 Range/Units 20:21 06:48 06:55 RBC 2.78 L (3.80-5.40) m/uL Hgb 9.3 L (11.4-16.0) gm/dL Hct 30.2 L (34.0-46.0) % MCV 108.4 H (80.0-100.0) fL MCHC 30.9 L (31.0-37.0) g/dL RDW 18.0 H (11.5-15.5) % Chloride (98-107) mmol/L BUN (7-17) mg/dL Creatinine (0.52-1.04) mg/dL Glucose (74-99) mg/dL POC Glucose (mg/dL) 164 H 102 H (75-99) mg/dL Iron (37-170) ug/dL % Saturation (20-50) % Free T3 pg/mL (2.8-5.3) pg/ml 10/13/16 10/13/16 Range/Units 06:55 11:39 RBC (3.80-5.40) m/uL Hgb (11.4-16.0) gm/dL Hct (34.0-46.0) % MCV (80.0-100.0) fL MCHC (31.0-37.0) g/dL RDW (11.5-15.5) % Chloride 112 H (98-107) mmol/L BUN 36 H (7-17) mg/dL Creatinine 1.36 H (0.52-1.04) mg/dL Glucose 100 H (74-99) mg/dL POC Glucose (mg/dL) 136 H (75-99) mg/dL Iron (37-170) ug/dL % Saturation (20-50) % Free T3 pg/mL (2.8-5.3) pg/ml Assessment and Plan Plan: Impression and plan: 1. Urinary tract infection, with partial failure of outpatient treatment, urine culture positive for E. coli resistant to Bactrim, Levaquin, and Cipro. Will transition patient to Augmentin which is susceptible. 2. Suppressed TSH: Ultrasound of thyroid without evidence of nodules. 3. Macrocytic anemia. Folate and B12 studies within normal limits. Serum ferritin greater than 100. 4. Acute renal failure suspect prerenal in nature dehydration and decreased intravascular volume. Creatinine improved to 1.36 from 1.81 yesterday. Continue IV hydration at 75 mL an hour. 5. Chronic renal failure, stage III. 6. Borderline type 2 diabetes: Hemoglobin A1c 5.8. Continue Accu-Cheks and NovoLog sliding scale. 7. Hypertension: I have held her lisinopril/HCTZ due to her kidney functions. She'll continue on her metoprolol. I will consider adding amlodipine if needed 8. GI prophylaxis: Continue Pepcid. 9. DVT prophylaxis: She remains on SCDs. 10. Medical debility: Believe she uses a walker at home, continue physical therapy. Discharge planning in progress hopefully within next 24-48 hours. We'll repeat blood work in a.m. The above impression and plan have been discussed and directed by Dr. Fields. Sherif JERRY acting as scribe for Dr. Fields.
[2016-10-13 16:29] VITALS: RESP 16
[2016-10-13 17:26] LABS: Glucose,Whole Blood 117 mg/dL (75-99)
[2016-10-13] MEDS: SODIUM CHLORIDE 0.9% 1,000 ML IV SCH ×2 (19:12→20:09)
[2016-10-13] MEDS: AMOXIC-POT CLAV 875-125MG 1 EACH TAB PO SCH (20:09)
[2016-10-13 20:31] LABS: Glucose,Whole Blood 135 mg/dL (75-99)
[2016-10-14 07:25] LABS: Glucose,Whole Blood 116 mg/dL (75-99)
[2016-10-14] MEDS: METOPROLOL TARTRATE 50 MG TAB PO SCH (07:28)
[2016-10-14] MEDS: CITALOPRAM HYDROBROMIDE 10 MG TAB PO SCH (07:28)
[2016-10-14] MEDS: FAMOTIDINE 20 MG TAB PO SCH (07:28)
[2016-10-14] MEDS: AMOXIC-POT CLAV 875-125MG 1 EACH TAB PO SCH (07:28)
[2016-10-14] MEDS: INSULIN LISPRO (humaLOG) 300 UNIT/3 ML VIAL SQ SCH ×2 (07:29→11:52)
[2016-10-14 07:57] VITALS: BP 174/72; PULSE 90; TEMP 98.3
[2016-10-14 09:06] LABS: Calcium 8.4 mg/dL (8.4-10.2); Potassium 4.6 mmol/L (3.5-5.1)
[2016-10-14 09:10] LABS: Anisocytosis Slight; Basophils % (A) 0 %; CH 33.8; CHCM 32.6; Eosinophils # (A) 0.2 k/uL (0-0.7); Eosinophils % (A) 3 %; HCT 27.3 % (34.0-46.0); HDW 3.26; HGB 8.9 gm/dL (11.4-16.0); Hypochromasia Slight; Luc # (Auto) 0.09; Luc % (Auto) 1; Lymphocytes # (A) 1.4 k/uL (1.0-4.8); Lymphocytes % (A) 19 %; MCH 33.8 pg (25.0-35.0); MCHC 32.5 g/dL (31.0-37.0); Macrocytosis Moderate; Mean Platelet Volume 8.5; Monocytes # (A) 0.6 k/uL (0-1.0); Monocytes % (A) 9 %; Neutrophils # (A) 4.7 k/uL (1.3-7.7); Neutrophils % (A) 67 %; RBC 2.63 m/uL (3.80-5.40); WBC (Perox) 7.72
[2016-10-14 09:23] LABS: Large Platelets Present; Manual Review Performed
[2016-10-14] MEDS: B COMPLEX-VIT C-VIT E-ZINC 1 EACH TAB PO SCH (11:49)
[2016-10-14 11:53] LABS: Glucose,Whole Blood 178 mg/dL (75-99)
--- NOTE | 2016-10-14 14:58 | P.DS ---
Providers Date of admission: 10/11/16 13:15 Expected date of discharge: 10/14/16 Attending physician: Juan Hull Primary care physician: [facility] Course: Janeth is a pleasant 86-year-old white female, patient of Dr. Hull in the outpatient setting. Patient presented to the emergency department with complains of nausea, vomiting, lightheadedness. Patient had recently been treated for urinary tract infection with Cipro, which was changed to Macrobid secondary to urine culture showing resistance to Cipro. Patient was found to have evidence of urinary tract infection with urine cultures positive for E. coli dehydration, hyperthyroidism, anemia, macrocytosis, and acute renal failure. Ultrasound of thyroid with no evidence of right, left, or isthmus nodules. Patient improved with IV antibiotics, IV hydration, supportive treatment and pain management. Patient was discharged home on 7 days of Augmentin. Hyperthyroidism and macrocytic anemia to be further worked up in the outpatient setting. Patient was discharged to home with home care. Discharge diagnoses: 1. Urinary tract infection, failed outpatient treatment, urine culture positive for E. coli resistant to Bactrim, Levaquin, and Cipro. Will transition patient to Augmentin which is susceptible. 2. Suppressed TSH: Ultrasound of thyroid without evidence of nodules. 3. Macrocytic anemia. Folate and B12 studies within normal limits. Serum ferritin greater than 100. Further workup in the outpatient setting. 4. Acute renal failure suspect prerenal in nature dehydration and decreased intravascular volume, improved. 5. Chronic renal failure, stage III. 6. Borderline type 2 diabetes: Hemoglobin A1c 5.8. 7. Hypertension 8. Medical debility The above impression and plan have been discussed and directed by Dr. Fields. Sherif JERRY acting as scribe for Dr. Fields. Pertinent Studies: Chest x-ray; EKG; head/neck ultrasound Patient Condition at Discharge: Good Plan - Discharge Summary New Discharge Prescriptions: Amoxic-Pot Clav 875-125Mg [Augmentin 875-125] 1 each PO Q12HR #14 tab Discharge Medication List Multivitamins, Thera [Multivitamin] 1 tab PO DAILY 02/05/15 [History] Citalopram Hydrobromide [CeleXA] 10 mg PO DAILY #30 tab 02/06/15 [Rx] Metoprolol Tartrate [Lopressor] 50 mg PO BID #60 tab 02/06/15 [Rx] Lisinopril-Hctz 10-12.5 mg [Zestoretic 10-12.5] 1 tab PO BID 03/03/16 [History] Vitamin B Complex 1 cap PO DAILY 03/03/16 [History] Ferrous Sulfate [Iron (65 MG Elemental)] 325 mg PO DAILY 10/11/16 [History] Menthol/Zinc Oxide [Calmoseptine Ointment] 1 applic TOPICAL BID PRN 10/11/16 [ History] Amoxic-Pot Clav 875-125Mg [Augmentin 875-125] 1 each PO Q12HR #14 tab 10/14/16 [ Rx] Follow up Appointment(s)/Referral(s): [facility], [NON-STAFF] - Juan Hull MD [Primary Care Provider] - 10/15/16 2:00 pm Patient Instructions/Handouts: Urinary Tract Infection in Women (DC) Discharge Disposition: HOME WITH HOME HEALTH SERVICES
== END 2016-10-14 15:15 | disposition home health service (06) | DRG 683 ==
LOC: EC 09:58 → 3SUR 13:15
PROVIDERS: ADMIT Family Medicine; ATTEND Family Medicine
DX: N17.9 Acute kidney failure, unspecified (principal); N39.0 Urinary tract infection, site not specified; E11.22 Type 2 diabetes mellitus with diabetic chronic kidney disease; F03.90 Unspecified dementia, unspecified severity, without behavioral disturbance, psychotic disturbance, mood disturbance, and anxiety; D53.9 Nutritional anemia, unspecified; E86.0 Dehydration; E05.90 Thyrotoxicosis, unspecified without thyrotoxic crisis or storm; N18.3 Chronic kidney disease, stage 3 (moderate); I12.9 Hypertensive chronic kidney disease with stage 1 through stage 4 chronic kidney disease, or unspecified chronic kidney disease; E78.5 Hyperlipidemia, unspecified; I25.2 Old myocardial infarction; F41.9 Anxiety disorder, unspecified; F32.9 Major depressive disorder, single episode, unspecified; B96.20 Unspecified Escherichia coli [E. coli] as the cause of diseases classified elsewhere; Z16.29 Resistance to other single specified antibiotic; Z16.19 Resistance to other specified beta lactam antibiotics; Z16.23 Resistance to quinolones and fluoroquinolones; Z86.14 Personal history of Methicillin resistant Staphylococcus aureus infection; Z95.1 Presence of aortocoronary bypass graft; Z90.710 Acquired absence of both cervix and uterus; Z85.828 Personal history of other malignant neoplasm of skin; Z87.891 Personal history of nicotine dependence; Z79.899 Other long term (current) drug therapy
CPT/HCPCS: 36415; 71020; 76536; 80048; 80053; 81001; 82533; 82550; 82553; 82607; 82728; 82746; 83036; 83540; 83550; 83605; 83735; 84100; 84439; 84443; 84445; 84481; 84484; 85025; 85610; 85730; 87040; 87077; 87086; 87186; 87502; 93005; 96361; 96374; 99285

== ENCOUNTER 2017-12-11 09:46 | Emergency (ER) | payer MEDICARE, BC ==
[2017-12-11 09:58] VITALS: TEMP 98.4
[2017-12-11] MEDS ORDERED: SODIUM CHLORIDE 0.9% 500 ML IV STA (10:01)
--- NOTE | 2017-12-11 10:04 | ED ---
General Adult HPI - General Chief complaint: Weakness Stated complaint: weakness Time Seen by Provider: 12/11/17 09:46 Source: patient, EMS, RN notes reviewed Mode of arrival: EMS Limitations: no limitations - History of Present Illness Initial comments: This is an 87-year-old female presents emergency department by EMS because she was tired weak and dizzy. According to the patient she is no longer dizzy and she is just tired. Patient denies any pain. Patient denies any headache patient denies any visual disturbance patient denies any chest pain palpitations difficulty breathing or shortness of breath. Patient's history is somewhat suspect because she does have dementia. Patient denies any abdominal pain patient denies nausea vomiting diarrhea. There is no history of any trauma. There is no history of any fever. Currently patient states she feels tired and would like to sleep a little but besides that she feels fine - Related Data Home Medications Medication Instructions Recorded Confirmed Aspirin 81 mg PO DAILY 10/26/17 12/11/17 Bisacodyl 5 mg PO DAILY PRN 10/26/17 12/11/17 Lisinopril-Hctz 10-12.5 mg 1 tab PO BID 10/26/17 12/11/17 [Zestoretic 10-12.5] Multivit-Min/FA/Lycopen/Lutein 1 tab PO DAILY 10/26/17 12/11/17 [Centrum Silver Tablet] Super B Complex 1 cap PO DAILY 10/26/17 12/11/17 Acetaminophen [Tylenol] 650 mg PO Q6H PRN 12/11/17 12/11/17 Menthol/Zinc Oxide [Calmoseptine 1 applic TOPICAL DAILY 12/11/17 12/11/17 Ointment] Miconazole/Cleanser 17 On Wipe 2 suppositor VAGINAL HS 12/11/17 12/11/17 [Miconazole 3 Kit] Mupirocin [Mupirocin 2%] 1 applic TOPICAL TID 12/11/17 12/11/17 Nystatin 100,000Unit/gm Cream 1 applic TOPICAL BID 12/11/17 12/11/17 [Mycostatin Cream] Previous Rx's Medication Instructions Recorded Citalopram Hydrobromide [CeleXA] 10 mg PO DAILY #30 tab 02/06/15 Metoprolol Tartrate [Lopressor] 50 mg PO BID #60 tab 02/06/15 Nitrofurantoin Monohyd/M-Cryst 100 mg PO Q12HR #14 cap 12/11/17 [Macrobid] Allergies Allergy/AdvReac Type Severity Reaction Status Date / Time No Known Allergies Allergy Verified 12/11/17 10:44 Review of Systems ROS Statement: Those systems with pertinent positive or pertinent negative responses have been documented in the HPI. ROS Other: All systems not noted in ROS Statement are negative. Past Medical History Past Medical History: Cancer, Chest Pain / Angina, CVA/TIA, Dementia, Eye Disorder, Hearing Disorder / Deafness, Hyperlipidemia, Hypertension, Memory Impairment, Myocardial Infarction ([place]), Renal Disease, Syncope Additional Past Medical History / Comment(s): Dementia with memory impairment, 2012 TIA, chronic kidney disease stage III, vertigo at times, UTI, occasional back pain. Last Myocardial Infarction Date:: 1999 History of Any Multi-Drug Resistant Organisms: MRSA Date of last positivie culture/infection: 12/16/2014 MDRO Source:: Urine Past Surgical History: Appendectomy, Coronary Bypass/CABG, Heart Catheterization , Hysterectomy Additional Past Surgical History / Comment(s): 1999 CABG 4 vessel, lumbar laminectomy, skin cancer removals, bilateral cataract removals. Past Anesthesia/Blood Transfusion Reactions: No Reported Reaction Past Psychological History: Anxiety, Depression Smoking Status: Former smoker Past Alcohol Use History: None Reported Past Drug Use History: None Reported - Past Family History Father Family Medical History: Diabetes Mellitus Daughter(s) Family Medical History: Cancer Additional Family Medical History / Comment(s): Daughter is under treatment for ovarian cancer Brother(s) Family Medical History: Cancer General Exam - General Exam Comments Initial Comments: GENERAL: Patient is well-developed and well-nourished. Patient is nontoxic and well- hydrated and is in no acute distress. ENT: Neck is soft and supple. No significant lymphadenopathy is noted. Oropharynx is clear. Moist mucous membranes. Neck has full range of motion without eliciting any pain. EYES: The sclera were anicteric and conjunctiva were pink and moist. Extraocular movements were intact and pupils were equal round and reactive to light. Eyelids were unremarkable. PULMONARY: Unlabored respirations. Good breath sounds bilaterally. No audible rales rhonchi or wheezing was noted. CARDIOVASCULAR: There is a regular rate and rhythm without any murmurs gallops or rubs. ABDOMEN: Soft and nontender with normal bowel sounds. No palpable organomegaly was noted. There is no palpable pulsatile mass. SKIN: Skin is clear with no lesions or rashes and otherwise unremarkable. NEUROLOGIC: Patient is alert and oriented 2. Cranial nerves II through XII are grossly intact. Motor and sensory are also intact. Normal speech, volume and content. Symmetrical smile. MUSCULOSKELETAL: Normal extremities with adequate strength and full range of motion. LYMPHATICS: No significant lymphadenopathy is noted PSYCHIATRIC: Normal psychiatric evaluation. Limitations: no limitations Course Vital Signs 12/11/17 12/11/17 09:49 11:21 Temperature 98.4 F Pulse Rate 61 62 Respiratory 18 16 Rate Blood Pressure 189/81 173/74 O2 Sat by Pulse 97 98 Oximetry Medical Decision Making - Medical Decision Making EKG shows a sinus rhythm with an occasional PAC at 61 bpm MT interval is 174 QRS is 102 QT interval 472 QTC is 475. Patient's EKG shows no ST segment elevation or depression or T wave abnormalities are noted. I spoke with Dr. madi Hull felt that the patient could go home and he could follow-up in the office. I spoke with the caregiver and she was in agreement to take the patient home. Patient had no complaints at this time. - Lab Data Result diagrams: 12/11/17 10:15 12/11/17 10:15 Lab Results 12/11/17 12/11/17 12/11/17 Range/Units 10:15 10:15 10:15 WBC 5.5 (3.8-10.6) k/uL RBC 2.99 L (3.80-5.40) m/uL Hgb 9.6 L (11.4-16.0) gm/dL Hct 28.9 L (34.0-46.0) % MCV 96.7 D (80.0-100.0) fL MCH 32.2 (25.0-35.0) pg MCHC 33.3 (31.0-37.0) g/dL RDW 18.1 H (11.5-15.5) % Plt Count 211 (150-450) k/uL Neutrophils % 54 % Lymphocytes % 33 % Monocytes % 7 % Eosinophils % 3 % Basophils % 1 % Neutrophils # 2.9 (1.3-7.7) k/uL Lymphocytes # 1.8 (1.0-4.8) k/uL Monocytes # 0.4 (0-1.0) k/uL Eosinophils # 0.2 (0-0.7) k/uL Basophils # 0.0 (0-0.2) k/uL Anisocytosis Slight Macrocytosis Slight Sodium 146 H (137-145) mmol/L Potassium 4.6 (3.5-5.1) mmol/L Chloride 104 (98-107) mmol/L Carbon Dioxide 28 (22-30) mmol/L Anion Gap 14 mmol/L BUN 34 H (7-17) mg/dL Creatinine 1.12 H (0.52-1.04) mg/dL Est GFR (CKD-EPI)AfAm 51 (>60 ml/min/1.73 sqM) Est GFR (CKD-EPI)NonAf 45 (>60 ml/min/1.73 sqM) Glucose 89 (74-99) mg/dL Calcium 9.7 (8.4-10.2) mg/dL Magnesium 2.1 (1.6-2.3) mg/dL Total Bilirubin 0.6 (0.2-1.3) mg/dL AST 17 (14-36) U/L ALT 24 (9-52) U/L Alkaline Phosphatase 65 (38-126) U/L Total Creatine Kinase <20 L (30-135) U/L CK-MB (CK-2) <0.2 (0.0-2.4) ng/mL CK-MB (CK-2) Rel Index Troponin I 0.017 (0.000-0.034) ng/mL Total Protein 7.2 (6.3-8.2) g/dL Albumin 4.0 (3.5-5.0) g/dL Urine Color Urine Appearance (Clear) Urine pH (5.0-8.0) Ur Specific [place] (1.001-1.035) Urine Protein (Negative) Urine Glucose (UA) (Negative) Urine Ketones (Negative) Urine Blood (Negative) Urine Nitrite (Negative) Urine Bilirubin (Negative) Urine Urobilinogen (<2.0) mg/dL Ur Leukocyte Esterase (Negative) Urine RBC (0-5) /hpf Urine WBC (0-5) /hpf Urine Bacteria (None) /hpf Urine Mucus (None) /hpf 03/23/18 Range/Units 10:40 WBC (3.8-10.6) k/uL RBC (3.80-5.40) m/uL Hgb (11.4-16.0) gm/dL Hct (34.0-46.0) % MCV (80.0-100.0) fL MCH (25.0-35.0) pg MCHC (31.0-37.0) g/dL RDW (11.5-15.5) % Plt Count (150-450) k/uL Neutrophils % % Lymphocytes % % Monocytes % % Eosinophils % % Basophils % % Neutrophils # (1.3-7.7) k/uL Lymphocytes # (1.0-4.8) k/uL Monocytes # (0-1.0) k/uL Eosinophils # (0-0.7) k/uL Basophils # (0-0.2) k/uL Anisocytosis Macrocytosis Sodium (137-145) mmol/L Potassium (3.5-5.1) mmol/L Chloride (98-107) mmol/L Carbon Dioxide (22-30) mmol/L Anion Gap mmol/L BUN (7-17) mg/dL Creatinine (0.52-1.04) mg/dL Est GFR (CKD-EPI)AfAm (>60 ml/min/1.73 sqM) Est GFR (CKD-EPI)NonAf (>60 ml/min/1.73 sqM) Glucose (74-99) mg/dL Calcium (8.4-10.2) mg/dL Magnesium (1.6-2.3) mg/dL Total Bilirubin (0.2-1.3) mg/dL AST (14-36) U/L ALT (9-52) U/L Alkaline Phosphatase (38-126) U/L Total Creatine Kinase (30-135) U/L CK-MB (CK-2) (0.0-2.4) ng/mL CK-MB (CK-2) Rel Index Troponin I (0.000-0.034) ng/mL Total Protein (6.3-8.2) g/dL Albumin (3.5-5.0) g/dL Urine Color Yellow Urine Appearance Cloudy H (Clear) Urine pH 7.5 (5.0-8.0) Ur Specific [place] 1.012 (1.001-1.035) Urine Protein Trace H (Negative) Urine Glucose (UA) Negative (Negative) Urine Ketones Negative (Negative) Urine Blood Negative (Negative) Urine Nitrite Positive H (Negative) Urine Bilirubin Negative (Negative) Urine Urobilinogen <2.0 (<2.0) mg/dL Ur Leukocyte Esterase Large H (Negative) Urine RBC 1 (0-5) /hpf Urine WBC 57 H (0-5) /hpf Urine Bacteria Occasional H (None) /hpf Urine Mucus Rare H (None) /hpf Disposition Clinical Impression: Urinary tract infection Disposition: HOME SELF-CARE Condition: Good Instructions: Urinary Tract Infection in Women (ED) Prescriptions: Nitrofurantoin Monohyd/M-Cryst [Macrobid] 100 mg PO Q12HR #14 cap Referrals: Lalo Fields Jr, DO [Primary Care Provider] - 1-2 days Time of Disposition: 14:08
[2017-12-11 10:47] LABS: Anisocytosis Slight; Basophils % (A) 1 %; Eosinophils # (A) 0.2 k/uL (0-0.7); Eosinophils % (A) 3 %; HCT 28.9 % (34.0-46.0); HGB 9.6 gm/dL (11.4-16.0); Lymphocytes # (A) 1.8 k/uL (1.0-4.8); Lymphocytes % (A) 33 %; MCH 32.2 pg (25.0-35.0); MCHC 33.3 g/dL (31.0-37.0); Macrocytosis Slight; Mean Platelet Volume 8.7; Monocytes # (A) 0.4 k/uL (0-1.0); Monocytes % (A) 7 %; Neutrophils # (A) 2.9 k/uL (1.3-7.7); Neutrophils % (A) 54 %; Platelet Count 211 k/uL (150-450); RBC 2.99 m/uL (3.80-5.40); RDW 18.1 % (11.5-15.5); WBC 5.5 k/uL (3.8-10.6)
[2017-12-11 10:49] LABS: MCV 96.7 fL (80.0-100.0)
[2017-12-11 10:52] LABS: Creatine Kinase <20 U/L (30-135)
[2017-12-11 10:54] LABS: Appearance,Urine Cloudy (Clear); Bacteria,Urine Occasional /hpf; Bilirubin,Urine Negative (Negative); Blood,Urine Negative (Negative); Color,Urine Yellow; Glucose,Urine (UA) Negative (Negative); Ketones,Urine Negative (Negative); Leukocyte Esterase,Urine Large (Negative); Mucus,Urine Rare /hpf; Nitrite,Urine Positive (Negative); PH, Urine 7.5 (5.0-8.0); Protein,Urine Trace (Negative); RBC,Urine 1 /hpf (0-5); Specific Gravity,Urine 1.012 (1.001-1.035); Urobilinogen,Urine <2.0 mg/dL (<2.0); WBC,Urine 57 /hpf (0-5)
[2017-12-11 10:56] LABS: Calcium 9.7 mg/dL (8.4-10.2); Magnesium 2.1 mg/dL (1.6-2.3); Potassium 4.6 mmol/L (3.5-5.1); Total Bilirubin 0.6 mg/dL (0.2-1.3); Total Protein 7.2 g/dL (6.3-8.2)
[2017-12-11 11:04] LABS: Creatine Kinase MB <0.2 ng/mL (0.0-2.4); Troponin I 0.017 ng/mL (0.000-0.034)
[2017-12-11 11:22] VITALS: RESP 16
--- NOTE | 2017-12-11 13:09 | XR ---
EXAMINATION TYPE: XR chest 2V DATE OF EXAM: 12/11/2017 COMPARISON: October 26, 2018 HISTORY: Shortness of breath TECHNIQUE: Frontal and lateral views of the chest are obtained. FINDINGS: Scattered senescent parenchymal changes noted. Hyperinflation compatible with COPD. No evidence for infiltrate. No evidence for atelectasis. Heart size is stable. Mediastinal structures are stable and grossly unremarkable. No evidence for hilar prominence. Degenerative changes dorsal spine. IMPRESSION: 1. No evidence for acute pulmonary disease.
[2017-12-11] MEDS ORDERED: cefTRIAXone IN SWFI 1,000 MG/10 ML SYRINGE IVP STA (13:32)
[2017-12-11 14:25] VITALS: BP 174/79; PULSE 64
[2017-12-12] MEDS ORDERED: cefTRIAXone IN SWFI 1,000 MG/10 ML SYRINGE IVP SCH (09:00)
== END 2017-12-11 15:10 | disposition home or self-care (01) ==
LOC: EC 09:46
DX: N39.0 Urinary tract infection, site not specified (principal); R53.1 Weakness; R42 Dizziness and giddiness; I25.2 Old myocardial infarction; I12.9 Hypertensive chronic kidney disease with stage 1 through stage 4 chronic kidney disease, or unspecified chronic kidney disease; N18.3 Chronic kidney disease, stage 3 (moderate); E78.5 Hyperlipidemia, unspecified; H91.90 Unspecified hearing loss, unspecified ear; Z85.9 Personal history of malignant neoplasm, unspecified; Z86.73 Personal history of transient ischemic attack (TIA), and cerebral infarction without residual deficits; Z86.14 Personal history of Methicillin resistant Staphylococcus aureus infection; Z87.891 Personal history of nicotine dependence; Z79.82 Long term (current) use of aspirin; Z79.899 Other long term (current) drug therapy
CPT/HCPCS: 36415; 93005; 80053; 82550; 82553; 83735; 84484; 85025; 81001; 71046; 99285; 96374; 51702; J0696

== ENCOUNTER 2018-02-17 10:07 | Observation (INO) | payer MEDICARE, BC ==
[2018-02-17] MEDS ORDERED: SODIUM CHLORIDE 0.9% 1,000 ML IV ONE (10:20)
--- NOTE | 2018-02-17 11:34 | CT ---
EXAMINATION TYPE: CT brain mandi carrillo DATE OF EXAM: 02/17/2018 COMPARISON: NONE HISTORY: Patient comlains of dizziness and neck pain. CT DLP: [address] of the brain was performed. The ventricles, basal cisterns and sulci overlying the cerebral convexities demonstrate moderate enla rgement. There is no evidence for intracranial hemorrhage or sulcal effacement. There is decreased attenuatio n about the periventricular white matter and deep white matter of both cerebral hemispheres, compatib le with chronic small vessel ischemia. No mass effects are seen. If symptoms persist consider MRI. Osseous calvarium is intact. IMPRESSION: 1. Age related atrophic and chronic small vessel ischemic change without acute intracranial process seen at this time. CT Cervical Spine: Unenhanced CT of the cervical spine was performed with bone and soft tissue window settings submitted . Coronal and sagittal reconstruction is obtained. There is normal alignment and prevertebral soft tissues. No evidence for acute cervical fracture . Scattered degenerative disc disease and spondylosis. Biapical scarring. IMPRESSION: 1. No evidence for acute fracture or subluxation of the cervical spine.
--- NOTE | 2018-02-17 11:45 | XR ---
EXAMINATION TYPE: XR chest 2V DATE OF EXAM: 02/17/2018 COMPARISON: 12/11/2017 HISTORY: Shortness of breath TECHNIQUE: Frontal and lateral views of the chest are obtained. FINDINGS: Scattered senescent parenchymal changes noted. Hyperinflation compatible with COPD. No evidence for infiltrate. No evidence for atelectasis. Heart size is stable. Mediastinal structures are stable and grossly unremarkable. No evidence for hilar prominence. Degenerative changes dorsal spine. IMPRESSION: 1. No evidence for acute pulmonary disease.
--- NOTE | 2018-02-17 11:46 | XR ---
EXAMINATION TYPE: XR pelvis AP view DATE OF EXAM: 02/17/2018 CLINICAL HISTORY: pain TECHNIQUE: Single view the pelvis is submitted. FINDINGS: No evidence for fracture, dislocation or bony lesion. Joint spaces are mildly to moderate ly narrowed right greater than left.. SI joints appear symmetric. IMPRESSION: 1. No acute fracture or dislocation seen. ICD 10 NO FRACTURE, INITIAL EVALUATION
--- NOTE | 2018-02-17 12:02 | ED ---
Fall HPI - General Chief Complaint: Fall Stated Complaint: Fall Time Seen by Provider: 02/17/18 10:15 Source: patient, RN notes reviewed Mode of arrival: EMS Limitations: no limitations - History of Present Illness Initial Comments: 87-year-old female presents emergency from via EMS for a fall. Patient reportedly was found by visiting nurse on the ground. Patient had complaints of some neck pain. Patient otherwise has is other complaints. She denies any chest pain, shortness breath, headache, dizziness. She does have a history of dementia. Patient denies any nausea, vomiting, diarrhea, constipation, dysuria. - Related Data Home Medications Medication Instructions Recorded Confirmed Aspirin 81 mg PO DAILY 10/26/17 02/17/18 Bisacodyl 5 mg PO DAILY PRN 10/26/17 02/17/18 Lisinopril-Hctz 10-12.5 mg 1 tab PO BID 10/26/17 02/17/18 [Zestoretic 10-12.5] Multivit-Min/FA/Lycopen/Lutein 1 tab PO DAILY 10/26/17 02/17/18 [Centrum Silver Tablet] Super B Complex 1 cap PO DAILY 10/26/17 02/17/18 Acetaminophen [Tylenol] 650 mg PO Q6H PRN 12/11/17 02/17/18 Menthol/Zinc Oxide [Calmoseptine 1 applic TOPICAL DAILY 12/11/17 02/17/18 Ointment] Miconazole/Cleanser 17 On Wipe 2 supp VAGINAL HS 12/11/17 02/17/18 [Miconazole 3 Kit] Mupirocin [Mupirocin 2%] 1 applic TOPICAL TID 12/11/17 02/17/18 Nystatin 100,000Unit/gm Cream 1 applic TOPICAL BID 12/11/17 02/17/18 [Mycostatin Cream] Previous Rx's Medication Instructions Recorded Citalopram Hydrobromide [CeleXA] 10 mg PO DAILY #30 tab 02/06/15 Metoprolol Tartrate [Lopressor] 50 mg PO BID #60 tab 02/06/15 Allergies Allergy/AdvReac Type Severity Reaction Status Date / Time No Known Allergies Allergy Verified 02/17/18 11:22 Review of Systems ROS Statement: Those systems with pertinent positive or pertinent negative responses have been documented in the HPI. ROS Other: All systems not noted in ROS Statement are negative. Past Medical History Past Medical History: Cancer, Chest Pain / Angina, CVA/TIA, Dementia, Eye Disorder, Hearing Disorder / Deafness, Hyperlipidemia, Hypertension, Memory Impairment, Myocardial Infarction ([place]), Renal Disease, Syncope Additional Past Medical History / Comment(s): Dementia with memory impairment, 2013 TIA, chronic kidney disease stage III, vertigo at times, UTI, occasional back pain. Last Myocardial Infarction Date:: 1999 History of Any Multi-Drug Resistant Organisms: MRSA Date of last positivie culture/infection: 12/16/2014 MDRO Source:: Urine Past Surgical History: Appendectomy, Coronary Bypass/CABG, Heart Catheterization , Hysterectomy Additional Past Surgical History / Comment(s): 1999 CABG 4 vessel, lumbar laminectomy, skin cancer removals, bilateral cataract removals. Past Anesthesia/Blood Transfusion Reactions: No Reported Reaction Past Psychological History: Anxiety, Depression Smoking Status: Former smoker Past Alcohol Use History: None Reported Past Drug Use History: None Reported - Past Family History Father Family Medical History: Diabetes Mellitus Daughter(s) Family Medical History: Cancer Additional Family Medical History / Comment(s): Daughter is under treatment for ovarian cancer Brother(s) Family Medical History: Cancer General Exam Limitations: altered mental status General appearance: alert, in no apparent distress Head exam: Present: atraumatic, normocephalic, normal inspection Eye exam: Present: normal appearance, PERRL, EOMI. Absent: scleral icterus, conjunctival injection, periorbital swelling ENT exam: Present: normal exam, normal oropharynx, mucous membranes moist Neck exam: Present: normal inspection, full ROM. Absent: tenderness, meningismus, lymphadenopathy Respiratory exam: Present: normal lung sounds bilaterally, other (There is an area of ecchymosis over the right anterior chest wall). Absent: respiratory distress, wheezes, rales, rhonchi, stridor, chest wall tenderness Cardiovascular Exam: Present: regular rate, normal rhythm, normal heart sounds. Absent: systolic murmur, diastolic murmur, rubs, gallop, clicks GI/Abdominal exam: Present: soft, normal bowel sounds. Absent: distended, tenderness, guarding, rebound, rigid Extremities exam: Present: normal inspection, full ROM, normal capillary refill. Absent: tenderness, pedal edema, joint swelling, calf tenderness Back exam: Present: full ROM. Absent: tenderness Neurological exam: Present: alert, oriented X3, CN II-XII intact, reflexes normal. Absent: motor sensory deficit Skin exam: Present: warm, dry, intact, normal color. Absent: rash Course Vital Signs 02/17/18 02/17/18 02/17/18 10:08 12:35 13:27 Temperature 98.3 F Pulse Rate 58 L 59 L Respiratory 18 20 Rate Blood Pressure 161/75 213/90 219/84 O2 Sat by Pulse 99 100 Oximetry 02/17/18 13:40 Temperature Pulse Rate 73 Respiratory 18 Rate Blood Pressure 158/72 O2 Sat by Pulse 100 Oximetry Medical Decision Making - Medical Decision Making 87-year-old female presents for a fall. Patient has a history of dementia though she is altered and I do not know her baseline. She does have evidence of urinary tract infection which may be contrary to her altered mental status. She is found to be dehydrated. Patient will be admitted for IV antibiotics and hydration. - Lab Data Result diagrams: 02/17/18 12:05 02/17/18 12:05 Lab Results 02/17/18 02/17/18 02/17/18 Range/Units 12:05 12:05 12:05 WBC 8.2 (3.8-10.6) k/uL RBC 2.85 L (3.80-5.40) m/uL Hgb 9.9 L (11.4-16.0) gm/dL Hct 29.5 L (34.0-46.0) % MCV 103.5 H (80.0-100.0) fL MCH 34.7 (25.0-35.0) pg MCHC 33.5 (31.0-37.0) g/dL RDW 17.3 H (11.5-15.5) % Plt Count 270 (150-450) k/uL Neutrophils % 76 % Lymphocytes % 16 % Monocytes % 4 % Eosinophils % 2 % Basophils % 1 % Neutrophils # 6.2 (1.3-7.7) k/uL Lymphocytes # 1.3 (1.0-4.8) k/uL Monocytes # 0.4 (0-1.0) k/uL Eosinophils # 0.1 (0-0.7) k/uL Basophils # 0.0 (0-0.2) k/uL Anisocytosis Slight Macrocytosis Moderate Sodium 143 (137-145) mmol/L Potassium 4.1 (3.5-5.1) mmol/L Chloride 104 (98-107) mmol/L Carbon Dioxide 25 (22-30) mmol/L Anion Gap 14 mmol/L BUN 48 H (7-17) mg/dL Creatinine 1.17 H (0.52-1.04) mg/dL Est GFR (CKD-EPI)AfAm 49 (>60 ml/min/1.73 sqM) Est GFR (CKD-EPI)NonAf 42 (>60 ml/min/1.73 sqM) Glucose 101 H (74-99) mg/dL Calcium 9.8 (8.4-10.2) mg/dL Total Bilirubin 0.9 (0.2-1.3) mg/dL AST 24 (14-36) U/L ALT 31 (9-52) U/L Alkaline Phosphatase 66 (38-126) U/L Total Creatine Kinase 24 L (30-135) U/L CK-MB (CK-2) 0.3 (0.0-2.4) ng/mL CK-MB (CK-2) Rel Index 1.3 Troponin I <0.012 (0.000-0.034) ng/mL Total Protein 7.5 (6.3-8.2) g/dL Albumin 4.4 (3.5-5.0) g/dL Urine Color Urine Appearance (Clear) Urine pH (5.0-8.0) Ur Specific [place] (1.001-1.035) Urine Protein (Negative) Urine Glucose (UA) (Negative) Urine Ketones (Negative) Urine Blood (Negative) Urine Nitrite (Negative) Urine Bilirubin (Negative) Urine Urobilinogen (<2.0) mg/dL Ur Leukocyte Esterase (Negative) Urine WBC (0-5) /hpf Urine Bacteria (None) /hpf 02/17/18 Range/Units 13:36 WBC (3.8-10.6) k/uL RBC (3.80-5.40) m/uL Hgb (11.4-16.0) gm/dL Hct (34.0-46.0) % MCV (80.0-100.0) fL MCH (25.0-35.0) pg MCHC (31.0-37.0) g/dL RDW (11.5-15.5) % Plt Count (150-450) k/uL Neutrophils % % Lymphocytes % % Monocytes % % Eosinophils % % Basophils % % Neutrophils # (1.3-7.7) k/uL Lymphocytes # (1.0-4.8) k/uL Monocytes # (0-1.0) k/uL Eosinophils # (0-0.7) k/uL Basophils # (0-0.2) k/uL Anisocytosis Macrocytosis Sodium (137-145) mmol/L Potassium (3.5-5.1) mmol/L Chloride (98-107) mmol/L Carbon Dioxide (22-30) mmol/L Anion Gap mmol/L BUN (7-17) mg/dL Creatinine (0.52-1.04) mg/dL Est GFR (CKD-EPI)AfAm (>60 ml/min/1.73 sqM) Est GFR (CKD-EPI)NonAf (>60 ml/min/1.73 sqM) Glucose (74-99) mg/dL Calcium (8.4-10.2) mg/dL Total Bilirubin (0.2-1.3) mg/dL AST (14-36) U/L ALT (9-52) U/L Alkaline Phosphatase (38-126) U/L Total Creatine Kinase (30-135) U/L CK-MB (CK-2) (0.0-2.4) ng/mL CK-MB (CK-2) Rel Index Troponin I (0.000-0.034) ng/mL Total Protein (6.3-8.2) g/dL Albumin (3.5-5.0) g/dL Urine Color Yellow Urine Appearance Clear (Clear) Urine pH 7.5 (5.0-8.0) Ur Specific [place] 1.011 (1.001-1.035) Urine Protein Trace H (Negative) Urine Glucose (UA) Negative (Negative) Urine Ketones Negative (Negative) Urine Blood Negative (Negative) Urine Nitrite Negative (Negative) Urine Bilirubin Negative (Negative) Urine Urobilinogen <2.0 (<2.0) mg/dL Ur Leukocyte Esterase Large H (Negative) Urine WBC 19 H (0-5) /hpf Urine Bacteria Moderate H (None) /hpf - EKG Data EKG Comments: EKG performed at 11:04 sinus bradycardia with sinus arrhythmia left anterior fascicular block with a rate of 59. [place] 172 QRS 102 QT/QTC 468/463 Disposition Clinical Impression: Fall, Altered mental status, Dehydration, UTI (urinary tract infection) Disposition: ADMITTED IP TO THIS HOSP Condition: Fair Referrals: Juan Hull MD [Primary Care Provider] - 1-2 days
[2018-02-17 12:22] LABS: Anisocytosis Slight; Basophils % (A) 1 %; Eosinophils # (A) 0.1 k/uL (0-0.7); Eosinophils % (A) 2 %; HCT 29.5 % (34.0-46.0); HGB 9.9 gm/dL (11.4-16.0); Lymphocytes # (A) 1.3 k/uL (1.0-4.8); Lymphocytes % (A) 16 %; MCH 34.7 pg (25.0-35.0); MCHC 33.5 g/dL (31.0-37.0); MCV 103.5 fL (80.0-100.0); Macrocytosis Moderate; Mean Platelet Volume 8.1; Monocytes # (A) 0.4 k/uL (0-1.0); Monocytes % (A) 4 %; Neutrophils # (A) 6.2 k/uL (1.3-7.7); Neutrophils % (A) 76 %; Platelet Count 270 k/uL (150-450); RBC 2.85 m/uL (3.80-5.40); RDW 17.3 % (11.5-15.5); WBC 8.2 k/uL (3.8-10.6)
[2018-02-17 12:34] LABS: Albumin 4.4 g/dL (3.5-5.0); Calcium 9.8 mg/dL (8.4-10.2); Potassium 4.1 mmol/L (3.5-5.1); Total Bilirubin 0.9 mg/dL (0.2-1.3); Total Protein 7.5 g/dL (6.3-8.2)
[2018-02-17] MEDS ORDERED: hydrALAZINE HCL 20 MG/ML 1 ML VIAL IVP STA (12:35)
[2018-02-17 12:48] LABS: Creatine Kinase 24 U/L (30-135)
[2018-02-17 13:01] LABS: Creatine Kinase MB 0.3 ng/mL (0.0-2.4); Troponin I <0.012 ng/mL (0.000-0.034)
[2018-02-17 13:47] LABS: Appearance,Urine Clear (Clear); Bacteria,Urine Moderate /hpf; Bilirubin,Urine Negative (Negative); Blood,Urine Negative (Negative); Color,Urine Yellow; Glucose,Urine (UA) Negative (Negative); Ketones,Urine Negative (Negative); Leukocyte Esterase,Urine Large (Negative); Nitrite,Urine Negative (Negative); PH, Urine 7.5 (5.0-8.0); Protein,Urine Trace (Negative); Specific Gravity,Urine 1.011 (1.001-1.035); Urobilinogen,Urine <2.0 mg/dL (<2.0); WBC,Urine 19 /hpf (0-5)
[2018-02-17] MEDS ORDERED: LORazepam 2 MG/ML INJ IV PRN (14:04)
[2018-02-17] MEDS ORDERED: ACETAMINOPHEN TAB 325 MG TAB PO PRN (14:05)
[2018-02-17] MEDS ORDERED: BISACODYL 5 MG TABLET.DR PO PRN (14:05)
[2018-02-17] MEDS ORDERED: cefTRIAXone IN SWFI 1,000 MG/10 ML SYRINGE IVP STA (14:08)
[2018-02-17] MEDS: SODIUM CHLORIDE 0.9% 1,000 ML IV SCH (15:40)
[2018-02-17] MEDS ORDERED: [UNRECOGNIZED DRUG - OTHER] VAGINAL SCH (21:00)
[2018-02-17] MEDS: cefTRIAXone IN SWFI 1,000 MG/10 ML SYRINGE IVP SCH (21:29)
[2018-02-17] MEDS: LISINOPRIL-HCTZ 10-12.5 MG 1 EACH TAB PO SCH (21:30)
[2018-02-17] MEDS: METOPROLOL TARTRATE 50 MG TAB PO SCH (21:30)
[2018-02-18] MEDS: SODIUM CHLORIDE 0.9% 1,000 ML IV SCH ×2 (06:24→16:07)
[2018-02-18] MEDS: LISINOPRIL-HCTZ 10-12.5 MG 1 EACH TAB PO SCH ×2 (07:57→20:55)
[2018-02-18] MEDS: ASPIRIN 81 MG PO SCH (07:57)
[2018-02-18] MEDS: METOPROLOL TARTRATE 50 MG TAB PO SCH ×2 (07:57→20:55)
[2018-02-18] MEDS: CITALOPRAM HYDROBROMIDE 10 MG TAB PO SCH (07:57)
[2018-02-18] MEDS: MULTIVITAMINS, THERA 1 EACH TAB PO SCH (07:57)
[2018-02-18] MEDS: cefTRIAXone IN SWFI 1,000 MG/10 ML SYRINGE IVP SCH ×2 (08:16→20:55)
[2018-02-18] MEDS: MENTHOL-ZINC OXIDE OINT 113 GM TUBE TOPICAL SCH (08:17)
--- NOTE | 2018-02-18 10:41 | P.HPIM ---
History of Present Illness H&P Date: 02/18/18 Chief Complaint: s/p fall 87-year-old female who presented to the emergency room via EMS after she was found by a visiting nurse on the ground according to ER records. Patient has dementia and is a poor historian. She is unable to recall any events from yesterday. At this time she states she is feeling well and has no complaints. The patient has a history of dementia, anemia, urinary tract infections, MRSA, myocardial infarction, hyperlipidemia, hypertension, anxiety, depression, and CABG 4 in 1999, chronic kidney disease, and TIA. The patient was admitted to the hospital in October 2017 for atypical pneumonia and urinary tract infection positive for enterococcus faecalis. At that time the patient was discharged to [facility] on the [place] for rehab. Pelvic x-ray: Negative for fracture or dislocation Chest x-ray: Negative for an acute pulmonary process. Hyperinflation compatible with COPD. No evidence of infiltrates or atelectasis. CT brain and cervical spine: Age related atrophic and chronic small vessel ischemic changes without acute intracranial process. No evidence for acute fracture subluxation of the cervical spine. Laboratory data: WBC 8.2. Hemoglobin 9.9. Platelet count 270. Sodium 143. Potassium 4.1. BUN 48. Creatinine 1.17. Glucose 101. Troponin negative 1 Urinalysis reveals: Clear yellow urine, trace proteinuria, large leukocyte esterase, WBC 19, moderate bacteria. The patient was admitted to the hospital under the care of Dr. Fields. Review of Systems GENERAL: Patient denies fever. Denies chills. EYES: Denies blurred vision. Denies vision changes. Denies eye pain. EARS, NOSE, MOUTH, & THROAT: Denies headache. Denies sore throat. Denies ear pain. RESPIRATORY: Denies cough. Denies shortness of breath. Denies sputum production. Denies hemoptysis. CARDIOVASCULAR: Denies chest pain or pressure. Denies palpitations. Denies arrhythmias. GASTROINTESTINAL: Denies abdominal pain. Denies diarrhea. Denies constipation. Denies nausea. Denies vomiting. Denies heartburn. Denies blood in the stool. GENITOURINARY: Denies urinary frequency. Denies burning. Denies dysuria. Denies cloudy urine. Denies blood in the urine. MUSCULOSKELETAL: Denies myalgias. Denies joint swelling. Denies decreased range of motion beyond patients baseline. INTEGUMENTARY: Denies pruitis. Denies rash. PSYCHIATRIC: Denies suicidal or homicial ideations. ENDOCRINE: Denies weight change. Denies polydipsia. Denies polyuria. HEMATOLOGIC: Denies bleeding disorders. Past Medical History Past Medical History: Cancer, Chest Pain / Angina, CVA/TIA, Dementia, Eye Disorder, Hearing Disorder / Deafness, Hyperlipidemia, Hypertension, Memory Impairment, Myocardial Infarction (DE), Renal Disease, Syncope Additional Past Medical History / Comment(s): Dementia with memory impairment, 2012 TIA, chronic kidney disease stage III, vertigo at times, UTI, occasional back pain. Last Myocardial Infarction Date:: 1999 History of Any Multi-Drug Resistant Organisms: MRSA Date of last positivie culture/infection: 12/16/2014 MDRO Source:: Urine Past Surgical History: Appendectomy, Coronary Bypass/CABG, Heart Catheterization , Hysterectomy Additional Past Surgical History / Comment(s): 1999 CABG 4 vessel, lumbar laminectomy, skin cancer removals, bilateral cataract removals. Past Anesthesia/Blood Transfusion Reactions: No Reported Reaction Past Psychological History: Anxiety, Depression Additional Psychological History / Comment(s): Pt resides with her spouse. She has caregivers to assist her. She ambulates with a walker. Smoking Status: Former smoker Past Alcohol Use History: None Reported Additional Past Alcohol Use History / Comment(s): Patient was a smoker for 2 yeares and quit many years ago. Patient denies any medical marijuana or street drug use. No alcohol use. Patient moved from [place] in 1952 with her . 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 CURRENTLY L[facility]ING AT [facility] She usually uses a walker for ambulation. Pt lost one son in a MVA and the anniversary date is on . Patient is also lost a grandchild who was hit by a motor vehicle accident 12 years of age. Past Drug Use History: None Reported - Past Family History Father Family Medical History: Diabetes Mellitus Daughter(s) Family Medical History: Cancer Additional Family Medical History / Comment(s): Daughter is under treatment for ovarian cancer Brother(s) Family Medical History: Cancer Medications and Allergies Home Medications Medication Instructions Recorded Confirmed Type Citalopram Hydrobromide [CeleXA] 10 mg PO DAILY #30 tab 02/06/02/17/18 Rx Metoprolol Tartrate [Lopressor] 50 mg PO BID #60 tab 02/06/15 02/17/18 Rx Aspirin 81 mg PO DAILY 10/26/17 02/17/18 History Bisacodyl 5 mg PO DAILY PRN 10/26/17 02/17/18 History Lisinopril-Hctz 10-12.5 mg 1 tab PO BID 10/26/17 02/17/18 History [Zestoretic 10-12.5] Multivit-Min/FA/Lycopen/Lutein 1 tab PO DAILY 10/26/17 02/17/18 History [Centrum Silver Tablet] Super B Complex 1 cap PO DAILY 10/26/17 02/17/18 History Acetaminophen [Tylenol] 650 mg PO Q6H PRN 12/11/17 02/17/18 History Menthol/Zinc Oxide [Calmoseptine 1 applic TOPICAL DAILY 12/11/17 02/17/18 History Ointment] Miconazole/Cleanser 17 On Wipe 2 supp VAGINAL HS 12/11/17 02/17/18 History [Miconazole 3 Kit] Mupirocin [Mupirocin 2%] 1 applic TOPICAL TID 12/11/17 02/17/18 History Nystatin 100,000Unit/gm Cream 1 applic TOPICAL BID 12/11/17 02/17/18 History [Mycostatin Cream] Allergies Allergy/AdvReac Type Severity Reaction Status Date / Time No Known Allergies Allergy Verified 02/17/18 11:22 Physical Exam Vitals: Vital Signs Temp Pulse Pulse Resp BP BP BP 02/18/18 05:30 97.9 F 69 16 136/65 02/17/18 22:45 97.6 F 61 16 116/51 02/17/18 16:49 98.0 F 69 17 146/83 02/17/18 15:37 98.5 F 71 18 163/69 02/17/18 14:24 66 18 144/65 02/17/18 13:40 73 18 158/72 02/17/18 13:27 219/84 02/17/18 12:35 59 L 20 213/90 Pulse Ox 02/18/18 05:30 96 02/17/18 22:45 98 02/17/18 16:49 99 02/17/18 15:37 02/17/18 14:24 100 02/17/18 13:40 100 02/17/18 13:27 02/17/18 12:35 100 Intake and Output 02/17/18 02/18/18 02/18/18 22:59 06:59 14:59 Other: Voiding Method Diaper Diaper Incontinent Incontinent # Voids 1 3 # Bowel Movements 1 GENERAL: This is a 87-year-old female in no apparent distress at the time of examination. Pleasant and cooperative. HEENT: Head is atraumatic, normocephalic. Pupils are equal, round, and reactive to light. Sclerae anicteric. Conjunctivae are clear. Mucus membranes of the mouth are moist. Neck is supple. RESPIRATORY: Clear to ausculation. No wheezes, rales, or rhonchi. No use of accessory muscles. Patient maintaining oxygen saturation greater than 92%. No chest wall tenderness is noted on palpation or with deep breathing. CARDIOVASCULAR: Regular rate and rhythm. S1 and S2 noted. No systolic or diastolic murmur auscultated. No JVD noted. No S3 or S4 noted. GASTROINTESTINAL: No distention noted. Abdomen soft and round. Normal active bowel sounds auscultated x 4 quadrants. No pain or tenderness noted upon palpation. INTEGUMENTARY: No cyanosis. No jaundice. No rashes noted. No cellulitis noted. EXTREMITIES: 2+ peripheral pulses. No evidence of peripheral edema. No calf tenderness noted. NEUROLOGIC: Cranial nerves II-XII intact. PSYCHIATRIC: Awake and alert. Pleasant and confused. Patient oriented 1-2. Patient able to state her name. Patient stated she was in [place], but did not know she was in the hospital. Patient stated the year was 1935. Results CBC & Chem 7: 02/17/18 12:05 02/17/18 12:05 Labs: Abnormal Lab Results - Last 24 Hours (Table) 02/17/18 02/17/18 02/17/18 Range/Units 12:05 12:05 12:05 RBC 2.85 L (3.80-5.40) m/uL Hgb 9.9 L (11.4-16.0) gm/dL Hct 29.5 L (34.0-46.0) % MCV 103.5 H (80.0-100.0) fL RDW 17.3 H (11.5-15.5) % BUN 48 H (7-17) mg/dL Creatinine 1.17 H (0.52-1.04) mg/dL Glucose 101 H (74-99) mg/dL Total Creatine Kinase 24 L (30-135) U/L Urine Protein (Negative) Ur Leukocyte Esterase (Negative) Urine WBC (0-5) /hpf Urine Bacteria (None) /hpf 02/17/18 Range/Units 13:36 RBC (3.80-5.40) m/uL Hgb (11.4-16.0) gm/dL Hct (34.0-46.0) % MCV (80.0-100.0) fL RDW (11.5-15.5) % BUN (7-17) mg/dL Creatinine (0.52-1.04) mg/dL Glucose (74-99) mg/dL Total Creatine Kinase (30-135) U/L Urine Protein Trace H (Negative) Ur Leukocyte Esterase Large H (Negative) Urine WBC 19 H (0-5) /hpf Urine Bacteria Moderate H (None) /hpf Microbiology - Last 24 Hours (Table) 02/17/18 13:36 Urine Culture - Preliminary Urine,Voided Thrombosis Risk Factor Assmnt - Choose All That Apply Each Risk Factor Represents 3 Points: Age 75 years or older Thrombosis Risk Factor Assessment Total Risk Factor Score: 3 Thrombosis Risk Factor Assessment Level: Moderate Risk Assessment and Plan Plan: ASSESSMENT: Fall from standing, imaging negative for fractures or acute abnormality Urinary tract infection, present on admission, urine culture pending Hospitalization in October 2017 for pneumonia and urinary tract infection positive for enterococcus faecalis Dementia History of coronary artery disease with previous myocardial infarction History of CABG 4 in 1999 Essential hypertension Hyperlipidemia History of TIA Chronic kidney disease, stage III, GFR 42 on admission PLAN: Continue Rocephin 1 g IV every 12 hours Await results of urine culture Home meds as appropriate Monitor labs GI prophylaxis: Protonix 40 mg PO Daily DVT prophylaxis: Heparin 5000 units subcu every 8 hours Monitor vital signs and address as appropriate Consult PT/OT Patient currently lives at home with . Per emergency room physician, they were unable to reach all day yesterday. Were only able to speak with a daughter that lives in [place]. Patient may require [facility] at the time of discharge. Will discuss with case management regarding discharge planning. Further recommendations pending patient's course Nurse practitioner note has been reviewed by physician. Signing provider agrees with the documented findings, assessment, and plan of care.
[2018-02-18] MEDS: HEPARIN SODIUM,PORCINE 5,000 UNIT/ML 1 ML VIAL SQ SCH (16:07)
[2018-02-19] MEDS: HEPARIN SODIUM,PORCINE 5,000 UNIT/ML 1 ML VIAL SQ SCH ×4 (00:15→23:14)
[2018-02-19] MEDS: SODIUM CHLORIDE 0.9% 1,000 ML IV SCH (06:46)
[2018-02-19] MEDS: METOPROLOL TARTRATE 50 MG TAB PO SCH ×2 (08:03→21:15)
[2018-02-19] MEDS: PANTOPRAZOLE 40 MG TABLET PO SCH (08:03)
[2018-02-19] MEDS: LISINOPRIL-HCTZ 10-12.5 MG 1 EACH TAB PO SCH ×2 (08:03→21:15)
[2018-02-19] MEDS: CITALOPRAM HYDROBROMIDE 10 MG TAB PO SCH (08:03)
[2018-02-19] MEDS: ASPIRIN 81 MG PO SCH (08:03)
--- NOTE | 2018-02-19 09:15 | P.PN ---
<Laura Ramos - Last Filed: 02/19/18 09:06> Subjective Progress Note Date: 02/19/18 87-year-old female who presented to the emergency room via EMS after she was found by a visiting nurse on the ground according to ER records. Patient has dementia and is a poor historian. She is unable to recall any events from yesterday. At this time she states she is feeling well and has no complaints. The patient has a history of dementia, anemia, urinary tract infections, MRSA, myocardial infarction, hyperlipidemia, hypertension, anxiety, depression, and CABG 4 in 1999, chronic kidney disease, and TIA. The patient was admitted to the hospital in October 2017 for atypical pneumonia and urinary tract infection positive for enterococcus faecalis. At that time the patient was discharged to [facility] [place] for rehab. Pelvic x-ray: Negative for fracture or dislocation Chest x-ray: Negative for an acute pulmonary process. Hyperinflation compatible with COPD. No evidence of infiltrates or atelectasis. CT brain and cervical spine: Age related atrophic and chronic small vessel ischemic changes without acute intracranial process. No evidence for acute fracture subluxation of the cervical spine. Laboratory data: WBC 8.2. Hemoglobin 9.9. Platelet count 270. Sodium 143. Potassium 4.1. BUN 48. Creatinine 1.17. Glucose 101. Troponin negative 1 Urinalysis reveals: Clear yellow urine, trace proteinuria, large leukocyte esterase, WBC 19, moderate bacteria. The patient was admitted to the hospital under the care of Dr. Fields. 02/19/2018 Patient seen and examined at the bedside. She is awake and alert. She is denying complaints at this time. Patient remains pleasantly confused. Urine culture is positive for strep agalactie (group b). Sensitivity is currently pending. The patient remains on ceftriaxone. She remains hemodynamically stable. PT and OT were consulted to evaluate patient and at this time patient does not meet criteria for subacute rehab. Case management has been trying to get a hold of family to discuss discharge planning. Objective - Vital Signs Vital signs: Vital Signs Temp 98.7 F 02/19/18 06:00 Pulse 72 02/19/18 06:00 Resp 20 02/19/18 06:00 BP 145/84 02/19/18 06:00 Pulse Ox 98 02/19/18 06:00 Intake & Output 0502/19/18 02/19/18 18:59 06:59 18:59 Other: Voiding Method Diaper Incontinent # Voids 1 5 # Bowel Movements 0 0 - Constitutional General appearance: Present: average body habitus, cooperative, no acute distress - EENT Eyes: Present: EOMI, PERRLA, normal appearance ENT: Present: hearing grossly normal. Absent: hard of hearing, thrush - Neck Neck: Present: normal ROM - Respiratory Respiratory: bilateral: CTA, negative: rales, rhonchi, wheezing - Cardiovascular Rhythm: regular Heart sounds: normal: S1, S2 Abnormal Heart Sounds: Absent: systolic murmur, diastolic murmur - Gastrointestinal General gastrointestinal: Present: normal bowel sounds - Integumentary Integumentary: Present: normal, normal turgor. Absent: cellulitis, cyanotic, flushed, jaundiced, rash - Neurologic Neurologic: Present: CNII-XII intact - Psychiatric Psychiatric Comment(s): Patient alert and oriented x 2: Self and location. Patient states the year is 1918. She is able to correctly state her name. She reports that she is at [facility]. - Labs CBC & Chem 7: 02/17/18 12:05 02/17/18 12:05 Labs: Microbiology - Last 24 Hours (Table) 02/17/18 13:36 Urine Culture - Final Urine,Voided Strep agalactiae - (group b) Assessment and Plan Plan: ASSESSMENT: Fall from standing, imaging negative for fractures or acute abnormality Urinary tract infection, present on admission, urine culture positive for strep agalactiae Hospitalization in October 2017 for pneumonia and urinary tract infection positive for enterococcus faecalis Dementia History of coronary artery disease with previous myocardial infarction History of CABG 4 in 1999 Essential hypertension Hyperlipidemia History of TIA Chronic kidney disease, stage III, GFR 42 on admission PLAN: Continue Rocephin 1 g IV every 12 hours Await sensitivity results of urine culture Home meds as appropriate Monitor labs GI prophylaxis: Protonix 40 mg PO Daily DVT prophylaxis: Heparin 5000 units subcu every 8 hours Monitor vital signs and address as appropriate Further recommendations pending patient's course Discharge planning remains in progress. Case management unable to reach patient 's yesterday, who she lives with. Case management also left a message with patient's daughter who lives in [place] and is awaiting a call back. Nurse practitioner note has been reviewed by physician. Signing provider agrees with the documented findings, assessment, and plan of care. <Lalo Fields Jr - Last Filed: 02/20/18 07:47> Objective - Vital Signs Vital signs: Vital Signs Temp 97.7 F 02/19/18 23:00 Pulse 76 02/19/18 23:00 Resp 20 02/19/18 23:00 BP 143/61 02/19/18 23:00 Pulse Ox 22 L 02/19/18 23:00 Intake & Output 02/19/18 02/20/18 02/20/18 18:59 06:59 18:59 Intake Total 0 300 Output Total 1 Balance 0 299 Weight 68.039 kg Intake: Intake, IV Titration 0 Amount Sodium Chloride 0.9% 1, 0 000 ml @ 75 mls/hr IV . [id number] [facility] Rx#:[id number] Oral 300 Output: Urine/Stool Mix 1 Other: Voiding Method Diaper Diaper Incontinent Incontinent # Voids 4 2 # Bowel Movements 1 - Labs CBC & Chem 7: 02/17/18 12:05 02/17/18 12:05
[2018-02-19] MEDS: MENTHOL-ZINC OXIDE OINT 113 GM TUBE TOPICAL SCH (13:07)
[2018-02-19] MEDS: MULTIVITAMINS, THERA 1 EACH TAB PO SCH (13:07)
[2018-02-19] MEDS: cefTRIAXone IN SWFI 1,000 MG/10 ML SYRINGE IVP SCH (14:47)
[2018-02-19] MEDS ORDERED: AMOXICILLIN 500 MG CAP PO SCH (16:00)
[2018-02-19] MEDS: AMOXICILLIN 500 MG CAP PO SCH (17:58)
[2018-02-20] MEDS: PANTOPRAZOLE 40 MG TABLET PO SCH (07:49)
[2018-02-20] MEDS: LISINOPRIL-HCTZ 10-12.5 MG 1 EACH TAB PO SCH ×2 (07:49→20:05)
[2018-02-20] MEDS: MULTIVITAMINS, THERA 1 EACH TAB PO SCH (07:49)
[2018-02-20] MEDS: AMOXICILLIN 500 MG CAP PO SCH ×2 (07:49→20:06)
[2018-02-20] MEDS: METOPROLOL TARTRATE 50 MG TAB PO SCH ×2 (07:49→20:06)
[2018-02-20] MEDS: CITALOPRAM HYDROBROMIDE 10 MG TAB PO SCH (07:49)
[2018-02-20] MEDS: ASPIRIN 81 MG PO SCH (07:49)
[2018-02-20] MEDS: HEPARIN SODIUM,PORCINE 5,000 UNIT/ML 1 ML VIAL SQ SCH ×3 (07:50→23:02)
[2018-02-20] MEDS: MENTHOL-ZINC OXIDE OINT 113 GM TUBE TOPICAL SCH (07:50)
--- NOTE | 2018-02-20 07:54 | P.PN ---
Subjective Progress Note Date: 02/20/18 Principal diagnosis: Mental status change, dementia, UTI Patient's awake alert oriented 2, is actually doing quite well. Patient's living situation is currently less than desirable she lives with her who is a heavy drinker, and at this point in time I don't think they're capable of caring for each other I suspect they need to be in the assisted living type situation. They're only living relative lives in [place]. This is not conducive for safety Objective - Vital Signs Vital signs: Vital Signs Temp 97.7 F 02/19/18 23:00 Pulse 76 02/19/18 23:00 Resp 20 02/19/18 23:00 BP 143/61 02/19/18 23:00 Pulse Ox 22 L 02/19/18 23:00 Intake & Output 02/19/18 02/20/18 02/20/18 18:59 06:59 18:59 Intake Total 0 300 Output Total 1 Balance 0 299 Weight 68.039 kg Intake: Intake, IV Titration 0 Amount Sodium Chloride 0.9% 1, 0 000 ml @ 75 mls/hr IV . [id number] [facility] Rx#:[id number] Oral 300 Output: Urine/Stool Mix 1 Other: Voiding Method Diaper Diaper Incontinent Incontinent # Voids 4 2 # Bowel Movements 1 - Exam General: [Patient awake, alert and oriented times 2. Patient in no acute distress.] HEENT: [PERRL. EOMI. No pharyngeal erythema or exudate.] Neck: [No adenopathy.] Cardiac: [Heart regular in rate and rhythm. No S3. No S4. No clicks, rubs. No murmur.] Lungs: [Clear to auscultation bilaterally.] Abdomen: [No mass. No organomegaly. Bowel sounds presnt and normoactive in all 4 quadrants.] Extremes: [No edema no cyanosis no claudication normal pulses] : [] Musculoskeletal: [No joint erythema, edema or tenderness.] Skin: [No rash.] Neurologic: [No lateralizing deficits. CN II - XII grossly intact.] Lymphatic: [No adenopathy.] - Labs CBC & Chem 7: 02/17/18 12:05 02/17/18 12:05 Assessment and Plan (1) Altered mental status Current Visit: Yes Status: Acute Code(s): R41.82 - ALTERED MENTAL STATUS, UNSPECIFIED SNOMED Code(s): 226704399 (2) Dehydration Current Visit: Yes Status: Acute Code(s): E86.0 - DEHYDRATION SNOMED Code( s): 06503793 (3) UTI (urinary tract infection) Current Visit: Yes Status: Acute Code(s): N39.0 - URINARY TRACT INFECTION, SITE NOT SPECIFIED SNOMED Code(s): 64338080 Plan: Patient's altered mental state is progressive and permanent Dehydration resolved Urinary tract infection patient is currently on IV Rocephin will change to cefuroxime axitil Recommend social work to arrange for rehab placement possibly assisted living situation for both her and her Time with Patient: Greater than 30
[2018-02-21 07:37] VITALS: BP 123/68; PULSE 54; RESP 18; TEMP 98.2
[2018-02-21] MEDS: LISINOPRIL-HCTZ 10-12.5 MG 1 EACH TAB PO SCH (07:47)
[2018-02-21] MEDS: MULTIVITAMINS, THERA 1 EACH TAB PO SCH (07:48)
[2018-02-21] MEDS: PANTOPRAZOLE 40 MG TABLET PO SCH (07:48)
[2018-02-21] MEDS: METOPROLOL TARTRATE 50 MG TAB PO SCH (07:48)
[2018-02-21] MEDS: CITALOPRAM HYDROBROMIDE 10 MG TAB PO SCH (07:48)
[2018-02-21] MEDS: MENTHOL-ZINC OXIDE OINT 113 GM TUBE TOPICAL SCH (07:48)
[2018-02-21] MEDS: AMOXICILLIN 500 MG CAP PO SCH (07:48)
[2018-02-21] MEDS: HEPARIN SODIUM,PORCINE 5,000 UNIT/ML 1 ML VIAL SQ SCH (07:48)
[2018-02-21] MEDS: ASPIRIN 81 MG PO SCH (07:48)
--- NOTE | 2018-02-21 10:38 | P.PN ---
Subjective Progress Note Date: 02/21/18 Principal diagnosis: Mental status change, dementia, UTI Patient's awake alert oriented 2, is actually doing quite well. Patient's living situation is currently less than desirable she lives with her who is a heavy drinker, and at this point in time I don't think they're capable of caring for each other I suspect they need to be in the assisted living type situation. They're only living relative lives in [place]. This is not conducive for safety Objective - Vital Signs Vital signs: Vital Signs Temp 98.2 F 02/21/18 07:07 Pulse 54 L 02/21/18 07:07 Resp 18 02/21/18 07:07 BP 123/68 02/21/18 07:07 Pulse Ox 97 02/21/18 07:07 Intake & Output 02/20/18 02/21/18 02/21/18 18:59 06:59 18:59 Intake Total 240 500 Balance 240 500 Weight 68.039 kg Intake: Oral 240 500 Other: Voiding Method Diaper Diaper Diaper Incontinent Incontinent Incontinent # Voids 1 2 - Exam General: [Patient awake, alert and oriented times 2. Patient in no acute distress.] HEENT: [PERRL. EOMI. No pharyngeal erythema or exudate.] Neck: [No adenopathy.] Cardiac: [Heart regular in rate and rhythm. No S3. No S4. No clicks, rubs. No murmur.] Lungs: [Clear to auscultation bilaterally.] Abdomen: [No mass. No organomegaly. Bowel sounds presnt and normoactive in all 4 quadrants.] Extremes: [No edema no cyanosis no claudication normal pulses] : [] Musculoskeletal: [No joint erythema, edema or tenderness.] Skin: [No rash.] Neurologic: [No lateralizing deficits. CN II - XII grossly intact.] Lymphatic: [No adenopathy.] - Labs CBC & Chem 7: 02/17/18 12:05 02/17/18 12:05 Assessment and Plan (1) Altered mental status Current Visit: Yes Status: Acute Code(s): R41.82 - ALTERED MENTAL STATUS, UNSPECIFIED SNOMED Code(s): 760866441 (2) Dehydration Current Visit: Yes Status: Acute Code(s): E86.0 - DEHYDRATION SNOMED Code( s): 66022957 (3) UTI (urinary tract infection) Narrative/Plan: Change patient from IV antibiotics to oral cefuroxime axitil 250 mg twice daily 4 days Current Visit: Yes Status: Acute Code(s): N39.0 - URINARY TRACT INFECTION, SITE NOT SPECIFIED SNOMED Code(s): 99556941 Plan: Patient's altered mental state is progressive and permanent Dehydration resolved Urinary tract infection patient is currently on IV Rocephin will change to cefuroxime axitil Recommend social work to arrange for rehab placement possibly assisted living situation for both her and her Time with Patient: Greater than 30
--- NOTE | 2018-02-21 10:53 | P.DS ---
Providers Date of admission: 02/17/18 15:11 Expected date of discharge: 02/21/18 Attending physician: Juan Hull Primary care physician: Juan Hull - Discharge Diagnosis(es) (1) Altered mental status Current Visit: Yes Status: Acute (2) Dehydration Current Visit: Yes Status: Acute (3) UTI (urinary tract infection) Patient currently on amoxicillin 500 twice daily can complete this for a total of 7 days as outpatient Current Visit: Yes Status: Acute Patient Condition at Discharge: Fair Plan - Discharge Summary Discharge Rx Participant: No New Discharge Prescriptions: No Action Citalopram Hydrobromide [CeleXA] 10 mg PO DAILY #30 tab Metoprolol Tartrate [Lopressor] 50 mg PO BID #60 tab Multivit-Min/FA/Lycopen/Lutein [Centrum Silver Tablet] 1 tab PO DAILY Lisinopril-Hctz 10-12.5 mg [Zestoretic 10-12.5] 1 tab PO BID Bisacodyl 5 mg PO DAILY PRN PRN Reason: Constipation Aspirin 81 mg PO DAILY Super B Complex 1 cap PO DAILY Nystatin 100,000Unit/gm Cream [Mycostatin Cream] 1 applic TOPICAL BID Mupirocin [Mupirocin 2%] 1 applic TOPICAL TID Miconazole/Cleanser 17 On Wipe [Miconazole 3 Kit] 2 supp VAGINAL HS Menthol/Zinc Oxide [Calmoseptine Ointment] 1 applic TOPICAL DAILY Acetaminophen [Tylenol] 650 mg PO Q6H PRN PRN Reason: Pain Discharge Medication List Citalopram Hydrobromide [CeleXA] 10 mg PO DAILY #30 tab 02/06/15 [Rx] Metoprolol Tartrate [Lopressor] 50 mg PO BID #60 tab 02/06/15 [Rx] Aspirin 81 mg PO DAILY 10/26/17 [History] Bisacodyl 5 mg PO DAILY PRN 10/26/17 [History] Lisinopril-Hctz 10-12.5 mg [Zestoretic 10-12.5] 1 tab PO BID 10/26/17 [History] Multivit-Min/FA/Lycopen/Lutein [Centrum Silver Tablet] 1 tab PO DAILY 10/26/17 [ History] Super B Complex 1 cap PO DAILY 10/26/17 [History] Acetaminophen [Tylenol] 650 mg PO Q6H PRN 12/11/17 [History] Menthol/Zinc Oxide [Calmoseptine Ointment] 1 applic TOPICAL DAILY 12/11/17 [ History] Miconazole/Cleanser 17 On Wipe [Miconazole 3 Kit] 2 supp VAGINAL HS 12/11/17 [ History] Mupirocin [Mupirocin 2%] 1 applic TOPICAL TID 12/11/17 [History] Nystatin 100,000Unit/gm Cream [Mycostatin Cream] 1 applic TOPICAL BID 12/11/17 [ History] Follow up Appointment(s)/Referral(s): Juan Hull MD [Primary Care Provider] - 1 Week Patient Instructions/Handouts: Urinary Tract Infection in Women (DC) Activity/Diet/Wound Care/Special Instructions: Daughter Aixa is requesting to be notified when patient is discharged and agreeable to cost of a [employer] to transport home. Cardiac diet. Activity as tolerated. Fall precautions.
[2018-02-21] MEDS ORDERED: MUPIROCIN 2% OINT 22 GM TUBE TOPICAL SCH (16:00)
[2018-02-21] MEDS ORDERED: NYSTATIN 100,000UNIT/GM CREAM 30 GM TUBE TOPICAL SCH (21:00)
== END 2018-02-21 13:24 | disposition home or self-care (01) ==
LOC: EC 10:07 → 4MS4W 15:11
PROVIDERS: ADMIT Family Medicine; ATTEND Family Medicine
DX: R41.82 Altered mental status, unspecified (principal); N39.0 Urinary tract infection, site not specified; E86.0 Dehydration; B95.1 Streptococcus, group B, as the cause of diseases classified elsewhere; F03.90 Unspecified dementia, unspecified severity, without behavioral disturbance, psychotic disturbance, mood disturbance, and anxiety; I12.9 Hypertensive chronic kidney disease with stage 1 through stage 4 chronic kidney disease, or unspecified chronic kidney disease; N18.3 Chronic kidney disease, stage 3 (moderate); F41.9 Anxiety disorder, unspecified; F32.9 Major depressive disorder, single episode, unspecified; D64.9 Anemia, unspecified; E78.5 Hyperlipidemia, unspecified; M54.2 Cervicalgia; W19.XXXA Unspecified fall, initial encounter; Y92.099 Unspecified place in other non-institutional residence as the place of occurrence of the external cause; H91.90 Unspecified hearing loss, unspecified ear; Z79.82 Long term (current) use of aspirin; Z79.899 Other long term (current) drug therapy; Z95.1 Presence of aortocoronary bypass graft; I25.2 Old myocardial infarction; Z90.49 Acquired absence of other specified parts of digestive tract; Z86.73 Personal history of transient ischemic attack (TIA), and cerebral infarction without residual deficits; Z87.01 Personal history of pneumonia (recurrent); Z85.828 Personal history of other malignant neoplasm of skin; Z86.14 Personal history of Methicillin resistant Staphylococcus aureus infection; Z87.891 Personal history of nicotine dependence; Z83.3 Family history of diabetes mellitus; Z80.41 Family history of malignant neoplasm of ovary
CPT/HCPCS: 96361 ×5; 96374 ×2; 96375 ×2; 99285 ×2; 96376 ×2; 96372 ×4; 36415; 93005; 97162; 97535; 97166; 80053; 82550; 82553; 84484; 85025; 81001; 87086; 72170; 71046; 72125; 70450; G0378 ×5; J0360; J1644 ×4; J0696 ×2

== ENCOUNTER 2018-04-26 10:59 | Emergency (ER) | payer BC, MEDICARE ==
--- NOTE | 2018-04-26 11:21 | ED ---
General Adult HPI - General Stated complaint: vaginal bleeding Time Seen by Provider: 04/26/18 11:08 Source: EMS, RN notes reviewed - History of Present Illness Initial comments: 87-year-old female with a history of dementia presents to the emergency department by EMS for possible vaginal bleeding. EMS states they were called by home health care for a "grapefruit size" spot of blood on the bed sheets. Apparently patient has been itching at her vaginal area. EMS states no other complaints. Patient denies this when speaking with her. Patient denies any abdominal pain. Patient denies any nausea or vomiting. Patient has no other complaints at this time including shortness of breath, chest pain, abdominal pain, nausea or vomiting, headache, or visual changes. - Related Data Home Medications Medication Instructions Recorded Confirmed Aspirin 81 mg PO DAILY 10/26/17 04/26/18 Bisacodyl 5 mg PO DAILY PRN 10/26/17 04/26/18 Lisinopril-Hctz 10-12.5 mg 1 tab PO BID 10/26/17 04/26/18 [Zestoretic 10-12.5] Multivit-Min/FA/Lycopen/Lutein 1 tab PO DAILY 10/26/17 04/26/18 [Centrum Silver Tablet] Super B Complex 1 cap PO DAILY 10/26/17 04/26/18 Acetaminophen [Tylenol] 650 mg PO Q6H PRN 12/11/17 04/26/18 Menthol/Zinc Oxide [Calmoseptine 1 applic TOPICAL DAILY 12/11/17 04/26/18 Ointment] Miconazole/Cleanser 17 On Wipe 2 supp VAGINAL HS 12/11/17 04/26/18 [Miconazole 3 Kit] Mupirocin [Mupirocin 2%] 1 applic TOPICAL TID 12/11/17 04/26/18 Nystatin 100,000Unit/gm Cream 1 applic TOPICAL BID 12/11/17 04/26/18 [Mycostatin Cream] Previous Rx's Medication Instructions Recorded Citalopram Hydrobromide [CeleXA] 10 mg PO DAILY #30 tab 02/06/15 Metoprolol Tartrate [Lopressor] 50 mg PO BID #60 tab 02/06/15 Cephalexin [Keflex] 500 mg PO TID 10 Days capsule 04/26/18 Nystatin 100,000Unit/gm Cream 1 applic TOPICAL TID 14 Days #50 gm 04/26/18 [Mycostatin Cream] Allergies Allergy/AdvReac Type Severity Reaction Status Date / Time No Known Allergies Allergy Verified 02/17/18 11:22 Review of Systems ROS Statement: Those systems with pertinent positive or pertinent negative responses have been documented in the HPI. ROS Other: All systems not noted in ROS Statement are negative. Past Medical History Past Medical History: Cancer, Chest Pain / Angina, CVA/TIA, Dementia, Eye Disorder, Hearing Disorder / Deafness, Hyperlipidemia, Hypertension, Memory Impairment, Myocardial Infarction ([place]), Renal Disease, Syncope Additional Past Medical History / Comment(s): Dementia with memory impairment, 2012 TIA, chronic kidney disease stage III, vertigo at times, UTI, occasional back pain. Last Myocardial Infarction Date:: 1999 History of Any Multi-Drug Resistant Organisms: MRSA Date of last positivie culture/infection: 12/16/2014 MDRO Source:: Urine Past Surgical History: Appendectomy, Coronary Bypass/CABG, Heart Catheterization , Hysterectomy Additional Past Surgical History / Comment(s): 1999 CABG 4 vessel, lumbar laminectomy, skin cancer removals, bilateral cataract removals. Past Anesthesia/Blood Transfusion Reactions: No Reported Reaction Past Psychological History: Anxiety, Depression Additional Psychological History / Comment(s): Pt resides with her spouse. She has caregivers to assist her. She ambulates with a walker. Smoking Status: Former smoker Past Alcohol Use History: None Reported Additional Past Alcohol Use History / Comment(s): Patient was a smoker for 2 yeares and quit many years ago. Patient denies any medical marijuana or street drug use. No alcohol use. Patient moved from [place] in 3 with her . 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 CURRENTLY LIVING AT [facility] She usually uses a walker for ambulation. Pt lost one son in a MVA and the anniversary date is on . Patient is also lost a grandchild who was hit by a motor vehicle accident 12 years of age. Past Drug Use History: None Reported - Past Family History Father Family Medical History: Diabetes Mellitus Daughter(s) Family Medical History: Cancer Additional Family Medical History / Comment(s): Daughter is under treatment for ovarian cancer Brother(s) Family Medical History: Cancer General Exam General appearance: alert, in no apparent distress Head exam: Present: atraumatic, normocephalic, normal inspection Eye exam: Present: normal appearance. Absent: scleral icterus, conjunctival injection ENT exam: Present: normal exam, mucous membranes moist Neck exam: Present: normal inspection, full ROM. Absent: tenderness, meningismus, lymphadenopathy Respiratory exam: Present: normal lung sounds bilaterally. Absent: respiratory distress, wheezes, rales, rhonchi, stridor Cardiovascular Exam: Present: regular rate, normal rhythm, normal heart sounds. Absent: systolic murmur, diastolic murmur, rubs, gallop, clicks GI/Abdominal exam: Present: soft, normal bowel sounds. Absent: distended, tenderness (No tenderness to deep palpation of the abdomen), guarding, rebound, rigid External exam: Present: erythema (erythema in the labial area consistent with yeast infection, excoriations present with superficial bleeding). Absent: normal external exam, ecchymosis Speculum exam: Present: normal speculum exam. Absent: erythema, vaginal discharge, cervical discharge, vaginal bleeding (no bleeding noted in the vaginal vault) Psychiatric exam: Present: normal affect, normal mood, other (patient has dementia and is at baseline accordng to family member at bedside) Skin exam: Present: warm, dry, intact, normal color. Absent: rash Course Vital Signs 04/26/18 11:26 Temperature 97.5 F L Pulse Rate 60 Respiratory 18 Rate Blood Pressure 155/93 O2 Sat by Pulse 98 Oximetry Medical Decision Making - Medical Decision Making 87-year-old female presents to the emergency department for a chief complaint of bleeding from the vaginal area. Patient was brought in by EMS after home health care contact them for the bleed. No other complaints the patient. On exam no abdominal tenderness. Patient does have erythema noted of the genital area consistent with a candidial infection. Patient has excoriations noted that are bleeding on the skin surface. Speculum exam demonstrated no bleeding from the vaginal vault. No signs of a cellulitic infection at this time. According to family at bedside patient is at baseline mentally and has h/o dementia. Patient does have a mild urinary tract infection and will be cultured. However patient does have a history of chronic urinary tract infections and will be treated with Keflex. She was given nystatin in the emergency department as well as a prescription. Instructed to keep dry and clean and apply nystatin 3 times a day. Aware to return to the emergency department if patient has any worsening symptoms or fevers. - Lab Data Lab Results 04/26/18 Range/Units 14:02 Urine Color Yellow Urine Appearance Clear (Clear) Urine pH 6.5 (5.0-8.0) Ur Specific [place] 1.013 (1.001-1.035) Urine Protein Trace H (Negative) Urine Glucose (UA) Negative (Negative) Urine Ketones Negative (Negative) Urine Blood Negative (Negative) Urine Nitrite Negative (Negative) Urine Bilirubin Negative (Negative) Urine Urobilinogen <2.0 (<2.0) mg/dL Ur Leukocyte Esterase Large H (Negative) Urine WBC 17 H (0-5) /hpf Urine Mucus Rare H (None) /hpf Disposition Clinical Impression: Skin yeast infection, Urinary tract infection Disposition: HOME SELF-CARE Condition: Good Instructions: Vulvovaginal Candidiasis (ED) Additional Instructions: Please keep the area clean and dry. Please apply nystatin cream as directed. Take antibiotic as directed. Follow up with primary care in 1-2 days. Prescriptions: Cephalexin [Keflex] 500 mg PO TID 10 Days capsule Nystatin 100,000Unit/gm Cream [Mycostatin Cream] 1 applic TOPICAL TID 14 Days # 50 gm Is patient prescribed a controlled substance at d/c from ED?: No Referrals: Juan Hull MD [Primary Care Provider] - 1-2 days Time of Disposition: 15:13
[2018-04-26 11:30] VITALS: BP 155/93; PULSE 60; RESP 18; TEMP 97.5
[2018-04-26] MEDS ORDERED: NYSTATIN 100,000UNIT/GM CREAM 30 GM TUBE TOPICAL STA (11:58)
[2018-04-26 14:54] LABS: Appearance,Urine Clear (Clear); Bilirubin,Urine Negative (Negative); Blood,Urine Negative (Negative); Color,Urine Yellow; Glucose,Urine (UA) Negative (Negative); Ketones,Urine Negative (Negative); Leukocyte Esterase,Urine Large (Negative); Mucus,Urine Rare /hpf; Nitrite,Urine Negative (Negative); PH, Urine 6.5 (5.0-8.0); Protein,Urine Trace (Negative); Specific Gravity,Urine 1.013 (1.001-1.035); Urobilinogen,Urine <2.0 mg/dL (<2.0); WBC,Urine 17 /hpf (0-5)
== END 2018-04-26 15:40 | disposition home or self-care (01) ==
LOC: EC 10:59
DX: N39.0 Urinary tract infection, site not specified (principal); B37.2 Candidiasis of skin and nail; I12.9 Hypertensive chronic kidney disease with stage 1 through stage 4 chronic kidney disease, or unspecified chronic kidney disease; N18.3 Chronic kidney disease, stage 3 (moderate); I25.2 Old myocardial infarction; Z86.14 Personal history of Methicillin resistant Staphylococcus aureus infection; Z86.73 Personal history of transient ischemic attack (TIA), and cerebral infarction without residual deficits; Z95.1 Presence of aortocoronary bypass graft; Z95.818 Presence of other cardiac implants and grafts; Z90.710 Acquired absence of both cervix and uterus; Z85.828 Personal history of other malignant neoplasm of skin; Z87.891 Personal history of nicotine dependence; Z79.82 Long term (current) use of aspirin; Z79.899 Other long term (current) drug therapy
CPT/HCPCS: 51702; 81001; 99284

== ENCOUNTER 2018-08-19 14:19 | Emergency (ER) | payer MEDICARE ==
[2018-08-19 14:33] VITALS: RESP 18; TEMP 98.3
[2018-08-19] MEDS ORDERED: SODIUM CHLORIDE 0.9% 500 ML 500 ML IV STA (14:54)
--- NOTE | 2018-08-19 14:57 | ED ---
General Adult HPI - General Chief complaint: Weakness Stated complaint: fall/dizziness Time Seen by Provider: 08/19/18 14:30 Source: patient, EMS, RN notes reviewed Mode of arrival: EMS - History of Present Illness Initial comments: This is a 87-year-old female presents emergency Department because she was weak according to family. Patient tried to get up from the couch and was too weak to stand and fell back down the couch there was no injury. Patient's family also thought she might be slightly altered to her baseline is alert and oriented times one. Patient herself has no complaints but she has a very poor historian. Family is not here with the patient at this time. Patient denies any pain. Patient denies any fever chills. Patient denies any chest pain patient denies any shortness of breath or difficulty breathing. Patient denies any fever or chills. Patient denies any abdominal pain. Patient denies nausea vomiting diarrhea. - Related Data Home Medications Medication Instructions Recorded Confirmed Aspirin 81 mg PO DAILY 10/26/17 08/19/18 Bisacodyl 5 mg PO DAILY 10/26/17 08/19/18 Lisinopril-Hctz 10-12.5 mg 1 tab PO BID 10/26/17 08/19/18 [Zestoretic 10-12.5] Multivit-Min/FA/Lycopen/Lutein 1 tab PO DAILY 10/26/17 08/19/18 [Centrum Silver Tablet] Super B Complex 1 cap PO DAILY 10/26/17 08/19/18 Menthol/Zinc Oxide [Calmoseptine 1 applic TOPICAL DAILY 12/11/17 08/19/18 Ointment] Nystatin [Nystop] 1 applic TOPICAL BID 08/19/18 08/19/18 Previous Rx's Medication Instructions Recorded Citalopram Hydrobromide [CeleXA] 10 mg PO DAILY #30 tab 02/06/15 Metoprolol Tartrate [Lopressor] 50 mg PO BID #60 tab 02/06/15 Sulfamethox-Tmp 800-160Mg [Bactrim 1 each PO Q12HR #14 tab 08/19/18 DS 800-160 mg] Allergies Allergy/AdvReac Type Severity Reaction Status Date / Time No Known Allergies Allergy Verified 08/19/18 16:06 Review of Systems ROS Statement: Those systems with pertinent positive or pertinent negative responses have been documented in the HPI. ROS Other: All systems not noted in ROS Statement are negative. Past Medical History Past Medical History: Cancer, Chest Pain / Angina, CVA/TIA, Dementia, Eye Disorder, Hearing Disorder / Deafness, Hyperlipidemia, Hypertension, Memory Impairment, Myocardial Infarction ([place]), Renal Disease, Syncope Additional Past Medical History / Comment(s): Dementia with memory impairment, 2013 TIA, chronic kidney disease stage III, vertigo at times, UTI, occasional back pain. Last Myocardial Infarction Date:: 1999 History of Any Multi-Drug Resistant Organisms: MRSA Date of last positivie culture/infection: 12/16/2014 MDRO Source:: Urine Past Surgical History: Appendectomy, Coronary Bypass/CABG, Heart Catheterization , Hysterectomy Additional Past Surgical History / Comment(s): 1999 CABG 4 vessel, lumbar laminectomy, skin cancer removals, bilateral cataract removals. Past Anesthesia/Blood Transfusion Reactions: No Reported Reaction Past Psychological History: Anxiety, Depression Smoking Status: Former smoker Past Alcohol Use History: None Reported Past Drug Use History: None Reported - Past Family History Father Family Medical History: Diabetes Mellitus Daughter(s) Family Medical History: Cancer Additional Family Medical History / Comment(s): Daughter is under treatment for ovarian cancer Brother(s) Family Medical History: Cancer General Exam - General Exam Comments Initial Comments: GENERAL: Patient is well-developed and well-nourished. Patient is nontoxic and well- hydrated and is in no acute distress. ENT: Neck is soft and supple. No significant lymphadenopathy is noted. Oropharynx is clear. Moist mucous membranes. Neck has full range of motion without eliciting any pain. EYES: The sclera were anicteric and conjunctiva were pink and moist. Extraocular movements were intact and pupils were equal round and reactive to light. Eyelids were unremarkable. PULMONARY: Unlabored respirations. Good breath sounds bilaterally. No audible rales rhonchi or wheezing was noted. CARDIOVASCULAR: There is a regular rate and rhythm without any murmurs gallops or rubs. ABDOMEN: Soft and nontender with normal bowel sounds. No palpable organomegaly was noted. There is no palpable pulsatile mass. SKIN: Skin is clear with no lesions or rashes and otherwise unremarkable. NEUROLOGIC: Patient is alert and oriented 1. Cranial nerves II through XII are grossly intact. Motor and sensory are also intact. Normal speech, volume and content. Symmetrical smile. MUSCULOSKELETAL: Normal extremities with adequate strength and full range of motion. LYMPHATICS: No significant lymphadenopathy is noted PSYCHIATRIC: Normal psychiatric evaluation. Course Vital Signs 08/19/18 14:29 Temperature 98.3 F Pulse Rate 67 Respiratory 18 Rate Blood Pressure 128/45 O2 Sat by Pulse 94 L Oximetry Medical Decision Making - Medical Decision Making EKG shows normal sinus rhythm at 70 bpm TX interval 280 QRS is under QT intervals 48 QTC is 518. Patient's EKG shows no ST segment elevation or depression or T wave abnormalities are noted. Patient was able to ambulate in the emergency department with a walker without problem. Patient is not short of breath and she did not appear weak. - Lab Data Result diagrams: 08/19/18 15:13 08/19/18 15:13 Lab Results 08/19/18 08/19/18 08/19/18 Range/Units 15:13 15:13 15:13 WBC 7.2 (3.8-10.6) k/uL RBC 2.83 L (3.80-5.40) m/uL Hgb 9.3 L (11.4-16.0) gm/dL Hct 28.1 L (34.0-46.0) % MCV 99.5 (80.0-100.0) fL MCH 32.7 (25.0-35.0) pg MCHC 32.9 (31.0-37.0) g/dL RDW 18.9 H (11.5-15.5) % Plt Count 181 (150-450) k/uL Neutrophils % 66 % Lymphocytes % 23 % Monocytes % 6 % Eosinophils % 3 % Basophils % 1 % Neutrophils # 4.7 (1.3-7.7) k/uL Lymphocytes # 1.6 (1.0-4.8) k/uL Monocytes # 0.4 (0-1.0) k/uL Eosinophils # 0.2 (0-0.7) k/uL Basophils # 0.0 (0-0.2) k/uL Anisocytosis Slight Macrocytosis Slight PT (9.0-12.0) sec INR (<1.2) APTT (22.0-30.0) sec Sodium 145 (137-145) mmol/L Potassium 4.7 (3.5-5.1) mmol/L Chloride 111 H (98-107) mmol/L Carbon Dioxide 27 (22-30) mmol/L Anion Gap 7 mmol/L BUN 50 H (7-17) mg/dL Creatinine 1.20 H (0.52-1.04) mg/dL Est GFR (CKD-EPI)AfAm 47 (>60 ml/min/1.73 sqM) Est GFR (CKD-EPI)NonAf 41 (>60 ml/min/1.73 sqM) Glucose 104 H (74-99) mg/dL Plasma Lactic Acid Cruz (0.7-2.0) mmol/L Calcium 9.6 (8.4-10.2) mg/dL Magnesium 2.2 (1.6-2.3) mg/dL Total Bilirubin 0.6 (0.2-1.3) mg/dL AST 23 (14-36) U/L ALT 26 (9-52) U/L Alkaline Phosphatase 63 (38-126) U/L Total Creatine Kinase 30 (30-135) U/L CK-MB (CK-2) 0.4 (0.0-2.4) ng/mL CK-MB (CK-2) Rel Index 1.3 Troponin I <0.012 (0.000-0.034) ng/mL Total Protein 7.6 (6.3-8.2) g/dL Albumin 4.0 (3.5-5.0) g/dL Urine Color Urine Appearance (Clear) Urine pH (5.0-8.0) Ur Specific [place] (1.001-1.035) Urine Protein (Negative) Urine Glucose (UA) (Negative) Urine Ketones (Negative) Urine Blood (Negative) Urine Nitrite (Negative) Urine Bilirubin (Negative) Urine Urobilinogen (<2.0) mg/dL Ur Leukocyte Esterase (Negative) Urine WBC (0-5) /hpf Urine Bacteria (None) /hpf Urine Yeast (Budding) (None) /hpf 08/19/18 08/19/18 08/19/18 Range/Units 15:13 15:13 15:41 WBC (3.8-10.6) k/uL RBC (3.80-5.40) m/uL Hgb (11.4-16.0) gm/dL Hct (34.0-46.0) % MCV (80.0-100.0) fL MCH (25.0-35.0) pg MCHC (31.0-37.0) g/dL RDW (11.5-15.5) % Plt Count (150-450) k/uL Neutrophils % % Lymphocytes % % Monocytes % % Eosinophils % % Basophils % % Neutrophils # (1.3-7.7) k/uL Lymphocytes # (1.0-4.8) k/uL Monocytes # (0-1.0) k/uL Eosinophils # (0-0.7) k/uL Basophils # (0-0.2) k/uL Anisocytosis Macrocytosis PT 10.4 (9.0-12.0) sec INR 1.1 (<1.2) APTT 22.6 (22.0-30.0) sec Sodium (137-145) mmol/L Potassium (3.5-5.1) mmol/L Chloride (98-107) mmol/L Carbon Dioxide (22-30) mmol/L Anion Gap mmol/L BUN (7-17) mg/dL Creatinine (0.52-1.04) mg/dL Est GFR (CKD-EPI)AfAm (>60 ml/min/1.73 sqM) Est GFR (CKD-EPI)NonAf (>60 ml/min/1.73 sqM) Glucose (74-99) mg/dL Plasma Lactic Acid Cruz 1.2 (0.7-2.0) mmol/L Calcium (8.4-10.2) mg/dL Magnesium (1.6-2.3) mg/dL Total Bilirubin (0.2-1.3) mg/dL AST (14-36) U/L ALT (9-52) U/L Alkaline Phosphatase (38-126) U/L Total Creatine Kinase (30-135) U/L CK-MB (CK-2) (0.0-2.4) ng/mL CK-MB (CK-2) Rel Index Troponin I (0.000-0.034) ng/mL Total Protein (6.3-8.2) g/dL Albumin (3.5-5.0) g/dL Urine Color Light Yellow Urine Appearance Cloudy H (Clear) Urine pH 6.0 (5.0-8.0) Ur Specific [place] 1.011 (1.001-1.035) Urine Protein Trace H (Negative) Urine Glucose (UA) Negative (Negative) Urine Ketones Negative (Negative) Urine Blood Negative (Negative) Urine Nitrite Negative (Negative) Urine Bilirubin Negative (Negative) Urine Urobilinogen <2.0 (<2.0) mg/dL Ur Leukocyte Esterase Large H (Negative) Urine WBC 46 H (0-5) /hpf Urine Bacteria Occasional H (None) /hpf Urine Yeast (Budding) Moderate H (None) /hpf Disposition Clinical Impression: UTI (urinary tract infection) Disposition: HOME SELF-CARE Instructions: Urinary Tract Infection in Women (ED) Prescriptions: Sulfamethox-Tmp 800-160Mg [Bactrim DS 800-160 mg] 1 each PO Q12HR #14 tab Is patient prescribed a controlled substance at d/c from ED?: No Referrals: Juan Hull MD [Primary Care Provider] - 1-2 days Time of Disposition: 17:45
[2018-08-19 15:40] LABS: Anisocytosis Slight; Basophils % (A) 1 %; Eosinophils # (A) 0.2 k/uL (0-0.7); Eosinophils % (A) 3 %; HCT 28.1 % (34.0-46.0); HGB 9.3 gm/dL (11.4-16.0); Lymphocytes # (A) 1.6 k/uL (1.0-4.8); Lymphocytes % (A) 23 %; MCH 32.7 pg (25.0-35.0); MCHC 32.9 g/dL (31.0-37.0); MCV 99.5 fL (80.0-100.0); Macrocytosis Slight; Mean Platelet Volume 9.1; Monocytes # (A) 0.4 k/uL (0-1.0); Monocytes % (A) 6 %; Neutrophils # (A) 4.7 k/uL (1.3-7.7); Neutrophils % (A) 66 %; Platelet Count 181 k/uL (150-450); RBC 2.83 m/uL (3.80-5.40); RDW 18.9 % (11.5-15.5); WBC 7.2 k/uL (3.8-10.6)
[2018-08-19 15:48] LABS: Calcium 9.6 mg/dL (8.4-10.2); INR 1.1 (<1.2); Magnesium 2.2 mg/dL (1.6-2.3); Partial Thromboplastin Time 22.6 sec (22.0-30.0); Potassium 4.7 mmol/L (3.5-5.1); Prothrombin Time 10.4 sec (9.0-12.0); Total Bilirubin 0.6 mg/dL (0.2-1.3); Total Protein 7.6 g/dL (6.3-8.2)
[2018-08-19 15:56] LABS: Creatine Kinase 30 U/L (30-135)
--- NOTE | 2018-08-19 15:58 | XR ---
EXAMINATION TYPE: XR chest 2V DATE OF EXAM: 08/19/2018 COMPARISON: 02/17/2018 TECHNIQUE: PA and lateral views submitted. HISTORY: Weakness FINDINGS: The lungs are clear and there is no pneumothorax, pleural effusion, or focal pneumonia. Hyperinflat ion suggests COPD and there is postsurgical change involving the mediastinum. Atherosclerotic change aorta. Arthropathy of the left shoulder and diffuse osteopenia. No pneumothorax or interstitial edema . Subsegmental changes at the left lung base. Hypertrophic and degenerative change spine. IMPRESSION: 1. No acute process. Correlate for COPD.
[2018-08-19 15:59] LABS: Appearance,Urine Cloudy (Clear); Bacteria,Urine Occasional /hpf; Bilirubin,Urine Negative (Negative); Blood,Urine Negative (Negative); Budding Yeast,Urine Moderate /hpf; Color,Urine Light Yellow; Glucose,Urine (UA) Negative (Negative); Ketones,Urine Negative (Negative); Leukocyte Esterase,Urine Large (Negative); Nitrite,Urine Negative (Negative); Protein,Urine Trace (Negative); Specific Gravity,Urine 1.011 (1.001-1.035); Urobilinogen,Urine <2.0 mg/dL (<2.0); WBC,Urine 46 /hpf (0-5)
[2018-08-19 16:10] LABS: Creatine Kinase MB 0.4 ng/mL (0.0-2.4); Troponin I <0.012 ng/mL (0.000-0.034)
[2018-08-19 18:17] VITALS: BP 165/67; PULSE 70
== END 2018-08-19 18:18 | disposition home or self-care (01) ==
LOC: EC 14:19
DX: N39.0 Urinary tract infection, site not specified (principal); F03.90 Unspecified dementia, unspecified severity, without behavioral disturbance, psychotic disturbance, mood disturbance, and anxiety; E78.5 Hyperlipidemia, unspecified; I25.2 Old myocardial infarction; I12.9 Hypertensive chronic kidney disease with stage 1 through stage 4 chronic kidney disease, or unspecified chronic kidney disease; N18.3 Chronic kidney disease, stage 3 (moderate); F32.9 Major depressive disorder, single episode, unspecified; F41.9 Anxiety disorder, unspecified; Z86.73 Personal history of transient ischemic attack (TIA), and cerebral infarction without residual deficits; Z87.891 Personal history of nicotine dependence; Z79.82 Long term (current) use of aspirin; Z79.899 Other long term (current) drug therapy; Z95.1 Presence of aortocoronary bypass graft; Z95.818 Presence of other cardiac implants and grafts
CPT/HCPCS: 36415; 93005; 80053; 82550; 82553; 83605; 83735; 84484; 85025; 85610; 85730; 81001; 87040; 87086; 87077; 87186; 71046; 99285; 96365; 96361 ×2; J0696

== ENCOUNTER 2018-11-18 18:51 | Inpatient (IN) | payer MEDICARE ==
[2018-11-18] MEDS ORDERED: SODIUM CHLORIDE 0.9% 1,000 ML IV STA (19:21)
--- NOTE | 2018-11-18 19:24 | ED ---
General Adult HPI - General Source: patient, EMS, RN notes reviewed Mode of arrival: EMS Limitations: no limitations <Channing Forrest - Last Filed: 11/18/18 20:07> <Sukhdev Saavedra - Last Filed: 11/18/18 22:04> - General Chief complaint: Weakness Stated complaint: weakness Time Seen by Provider: 11/18/18 19:05 - History of Present Illness Initial comments: Patient is a pleasant 88-year-old female presenting to the emergency department with complaints of generalized weakness. Patient states symptoms are mild. Symptoms have occurred the past couple of days. Patient states it is somewhat more difficult than normal given around. Patient does live on her own however does have caretakers that come check on her. Patient denies any significant confusion. Patient denies any isolated area of weakness. Patient denies any pain. Patient reportedly has had similar symptoms previously associated with urinary tract infections. (Channing Forrest) - Related Data Home Medications Medication Instructions Recorded Confirmed Aspirin 81 mg PO DAILY 10/26/17 08/19/18 Bisacodyl 5 mg PO DAILY 10/26/17 08/19/18 Lisinopril-Hctz 10-12.5 mg 1 tab PO BID 10/26/17 08/19/18 [Zestoretic 10-12.5] Multivit-Min/FA/Lycopen/Lutein 1 tab PO DAILY 10/26/17 08/19/18 [Centrum Silver Tablet] Super B Complex 1 cap PO DAILY 10/26/17 08/19/18 Menthol/Zinc Oxide [Calmoseptine 1 applic TOPICAL DAILY 12/11/17 08/19/18 Ointment] Nystatin [Nystop] 1 applic TOPICAL BID 08/19/18 08/19/18 Previous Rx's Medication Instructions Recorded Citalopram Hydrobromide [CeleXA] 10 mg PO DAILY #30 tab 02/06/15 Metoprolol Tartrate [Lopressor] 50 mg PO BID #60 tab 02/06/15 Sulfamethox-Tmp 800-160Mg [Bactrim 1 each PO Q12HR #14 tab 08/19/18 DS 800-160 mg] Allergies Allergy/AdvReac Type Severity Reaction Status Date / Time No Known Allergies Allergy Verified 11/18/18 19:03 Review of Systems ROS Other: All systems not noted in ROS Statement are negative. Constitutional: Denies: fever Eyes: Denies: eye pain ENT: Denies: ear pain Respiratory: Denies: cough Cardiovascular: Denies: chest pain Endocrine: Denies: fatigue Gastrointestinal: Denies: abdominal pain Genitourinary: Denies: dysuria Musculoskeletal: Denies: back pain Skin: Denies: rash Neurological: Denies: headache <ForrestChanning - Last Filed: 11/18/18 20:07> ROS Other: All systems not noted in ROS Statement are negative. <Sukhdev Saavedra - Last Filed: 11/18/18 22:04> ROS Statement: Those systems with pertinent positive or pertinent negative responses have been documented in the HPI. Past Medical History Past Medical History: Cancer, Chest Pain / Angina, CVA/TIA, Dementia, Eye Disorder, Hearing Disorder / Deafness, Hyperlipidemia, Hypertension, Memory Impairment, Myocardial Infarction ([place]), Renal Disease, Syncope Additional Past Medical History / Comment(s): Dementia with memory impairment, 2013 TIA, chronic kidney disease stage III, vertigo at times, UTI, occasional back pain. Last Myocardial Infarction Date:: 1999 History of Any Multi-Drug Resistant Organisms: MRSA Date of last positivie culture/infection: 12/16/2014 MDRO Source:: Urine Past Surgical History: Appendectomy, Coronary Bypass/CABG, Heart Catheterization , Hysterectomy Additional Past Surgical History / Comment(s): 1999 CABG 4 vessel, lumbar laminectomy, skin cancer removals, bilateral cataract removals. Past Anesthesia/Blood Transfusion Reactions: No Reported Reaction Past Psychological History: Anxiety, Depression Smoking Status: Former smoker Past Alcohol Use History: None Reported Past Drug Use History: None Reported - Past Family History Father Family Medical History: Diabetes Mellitus Daughter(s) Family Medical History: Cancer Additional Family Medical History / Comment(s): Daughter is under treatment for ovarian cancer Brother(s) Family Medical History: Cancer <Channing Forrest - Last Filed: 11/18/18 20:07> General Exam Limitations: no limitations General appearance: alert, in no apparent distress Head exam: Present: atraumatic Eye exam: Present: normal appearance, PERRL, EOMI. Absent: nystagmus ENT exam: Present: normal oropharynx Neck exam: Present: normal inspection Respiratory exam: Present: normal lung sounds bilaterally Cardiovascular Exam: Present: regular rate, normal rhythm GI/Abdominal exam: Present: soft. Absent: tenderness Extremities exam: Present: pedal edema (Trace bilateral). Absent: calf tenderness Neurological exam: Present: alert, CN II-XII intact. Absent: motor sensory deficit Expanded Neurological exam: Present: protecting the airway Patient oriented to: Present: person, place. Absent: time Speech: Present: fluid speech Cranial nerves: EOM's Intact: Normal Sensory exam: Upper Extremity Light Touch: Normal, Lower Extremity Light Touch: Normal Motor strength exam: RUE: 5, LUE: 5, RLE: 5, LLE: 5 Eye Response: (4) open spontaneously Motor Response: (6) obeys commands Verbal Response: (4) confused conversation Psychiatric exam: Present: normal affect, normal mood Skin exam: Present: normal color <Channing Forrest - Last Filed: 11/18/18 20:07> General appearance: alert, in no apparent distress Head exam: Present: atraumatic, normocephalic, normal inspection Eye exam: Present: normal appearance, PERRL, EOMI. Absent: scleral icterus, conjunctival injection, periorbital swelling ENT exam: Present: normal exam, mucous membranes moist Neck exam: Present: normal inspection. Absent: tenderness, meningismus, lymphadenopathy Respiratory exam: Present: normal lung sounds bilaterally. Absent: respiratory distress, wheezes, rales, rhonchi, stridor Cardiovascular Exam: Present: regular rate, normal rhythm, normal heart sounds. Absent: systolic murmur, diastolic murmur, rubs, gallop, clicks GI/Abdominal exam: Present: soft, normal bowel sounds. Absent: distended, tenderness, guarding, rebound, rigid Extremities exam: Present: normal inspection, full ROM, normal capillary refill. Absent: tenderness, pedal edema, joint swelling, calf tenderness Back exam: Present: normal inspection Neurological exam: Present: alert, oriented X3, CN II-XII intact Psychiatric exam: Present: normal affect, normal mood Skin exam: Present: warm, dry, intact, normal color. Absent: rash <Sukhdev Saavedra - Last Filed: 11/18/18 22:04> Course <Channing Forrest - Last Filed: 11/18/18 20:07> <Sukhdev Saavedra - Last Filed: 11/18/18 22:04> Vital Signs 11/18/18 18:53 Temperature 98.2 F Pulse Rate 60 Respiratory 18 Rate Blood Pressure 201/80 O2 Sat by Pulse 98 Oximetry - Reevaluation(s) Reevaluation #1: 11/18/18 22:04 Patient is mildly improved mental status with hydration (Sukhdev Saavedra) - Consultations Consultation #1: Spoke with Dr. Hull who is okay for admission (Sukhdev Saavedra) EKG Findings - EKG Comments: EKG Findings:: Normal sinus rhythm 68. FL 194. QRS 104. QT 460. QTC 489. Normal axis. Left anterior fascicular block. No acute ST change. <Channing Forrest - Last Filed: 11/18/18 20:07> Medical Decision Making - Lab Data Result diagrams: 11/18/18 19:34 11/18/18 19:34 <Channing Forrest - Last Filed: 11/18/18 20:07> - Lab Data Result diagrams: 11/18/18 19:34 11/18/18 19:34 - Radiology Data Radiology results: report reviewed (CT brain is negative for acute disease), image reviewed <Sukhdev Saavedra - Last Filed: 11/18/18 22:04> - Medical Decision Making 88 female the ER for evaluation. Patient came in for evaluation I also mental status. Patient has a positive urinary tract infection will admit for IV antibiotics and cultures. Rehydration. (Sukhdev Saavedra) - Lab Data Lab Results 11/18/18 11/18/18 11/18/18 Range/Units 19:34 19:34 19:34 WBC 5.5 (3.8-10.6) k/uL RBC 2.52 L (3.80-5.40) m/uL Hgb 8.4 L (11.4-16.0) gm/dL Hct 26.1 L (34.0-46.0) % MCV 103.7 H (80.0-100.0) fL MCH 33.5 (25.0-35.0) pg MCHC 32.3 (31.0-37.0) g/dL RDW 17.6 H (11.5-15.5) % Plt Count 179 (150-450) k/uL Neutrophils % 51 % Lymphocytes % 33 % Monocytes % 7 % Eosinophils % 5 % Basophils % 1 % Neutrophils # 2.8 (1.3-7.7) k/uL Lymphocytes # 1.8 (1.0-4.8) k/uL Monocytes # 0.4 (0-1.0) k/uL Eosinophils # 0.3 (0-0.7) k/uL Basophils # 0.0 (0-0.2) k/uL Hypochromasia Slight Anisocytosis Slight Macrocytosis Moderate PT (9.0-12.0) sec INR (<1.2) APTT (22.0-30.0) sec Sodium 142 (137-145) mmol/L Potassium 4.5 (3.5-5.1) mmol/L Chloride 109 H (98-107) mmol/L Carbon Dioxide 28 (22-30) mmol/L Anion Gap 5 mmol/L BUN 55 H (7-17) mg/dL Creatinine 1.17 H (0.52-1.04) mg/dL Est GFR (CKD-EPI)AfAm 48 (>60 ml/min/1.73 sqM) Est GFR (CKD-EPI)NonAf 42 (>60 ml/min/1.73 sqM) Glucose 102 H (74-99) mg/dL Plasma Lactic Acid Cruz (0.7-2.0) mmol/L Calcium 9.0 (8.4-10.2) mg/dL Magnesium 1.9 (1.6-2.3) mg/dL Total Bilirubin 0.4 (0.2-1.3) mg/dL AST 15 (14-36) U/L ALT 25 (9-52) U/L Alkaline Phosphatase 60 (38-126) U/L Creatine Kinase 22 L (30-135) U/L CK-MB (CK-2) 0.3 (0.0-2.4) ng/mL Troponin I <0.012 (0.000-0.034) ng/mL Total Protein 6.5 (6.3-8.2) g/dL Albumin 3.4 L (3.5-5.0) g/dL TSH 0.253 L (0.465-4.680) mIU/L Free T4 1.21 (0.78-2.19) ng/dL Free T3 pg/mL 2.5 L (2.8-5.3) pg/ml Urine Color Urine Appearance (Clear) Urine pH (5.0-8.0) Ur Specific [place] (1.001-1.035) Urine Protein (Negative) Urine Glucose (UA) (Negative) Urine Ketones (Negative) Urine Blood (Negative) Urine Nitrite (Negative) Urine Bilirubin (Negative) Urine Urobilinogen (<2.0) mg/dL Ur Leukocyte Esterase (Negative) Urine RBC (0-5) /hpf Urine WBC (0-5) /hpf Urine WBC Clumps (None) /hpf Ur Squamous Epith Cells (0-4) /hpf Urine Mucus (None) /hpf 11/18/18 11/18/18 11/18/18 Range/Units 19:34 19:34 20:53 WBC (3.8-10.6) k/uL RBC (3.80-5.40) m/uL Hgb (11.4-16.0) gm/dL Hct (34.0-46.0) % MCV (80.0-100.0) fL MCH (25.0-35.0) pg MCHC (31.0-37.0) g/dL RDW (11.5-15.5) % Plt Count (150-450) k/uL Neutrophils % % Lymphocytes % % Monocytes % % Eosinophils % % Basophils % % Neutrophils # (1.3-7.7) k/uL Lymphocytes # (1.0-4.8) k/uL Monocytes # (0-1.0) k/uL Eosinophils # (0-0.7) k/uL Basophils # (0-0.2) k/uL Hypochromasia Anisocytosis Macrocytosis PT 10.2 (9.0-12.0) sec INR 0.9 (<1.2) APTT 22.1 (22.0-30.0) sec Sodium (137-145) mmol/L Potassium (3.5-5.1) mmol/L Chloride (98-107) mmol/L Carbon Dioxide (22-30) mmol/L Anion Gap mmol/L BUN (7-17) mg/dL Creatinine (0.52-1.04) mg/dL Est GFR (CKD-EPI)AfAm (>60 ml/min/1.73 sqM) Est GFR (CKD-EPI)NonAf (>60 ml/min/1.73 sqM) Glucose (74-99) mg/dL Plasma Lactic Acid Cruz 0.9 (0.7-2.0) mmol/L Calcium (8.4-10.2) mg/dL Magnesium (1.6-2.3) mg/dL Total Bilirubin (0.2-1.3) mg/dL AST (14-36) U/L ALT (9-52) U/L Alkaline Phosphatase (38-126) U/L Creatine Kinase (30-135) U/L CK-MB (CK-2) (0.0-2.4) ng/mL Troponin I (0.000-0.034) ng/mL Total Protein (6.3-8.2) g/dL Albumin (3.5-5.0) g/dL TSH (0.465-4.680) mIU/L Free T4 (0.78-2.19) ng/dL Free T3 pg/mL (2.8-5.3) pg/ml Urine Color Light Yellow Urine Appearance Cloudy H (Clear) Urine pH 6.0 (5.0-8.0) Ur Specific [place] 1.013 (1.001-1.035) Urine Protein Trace H (Negative) Urine Glucose (UA) Negative (Negative) Urine Ketones Negative (Negative) Urine Blood Small H (Negative) Urine Nitrite Negative (Negative) Urine Bilirubin Negative (Negative) Urine Urobilinogen <2.0 (<2.0) mg/dL Ur Leukocyte Esterase Large H (Negative) Urine RBC 31 H (0-5) /hpf Urine WBC >182 H (0-5) /hpf Urine WBC Clumps Moderate H (None) /hpf Ur Squamous Epith Cells 1 (0-4) /hpf Urine Mucus Rare H (None) /hpf Disposition <Channing Forrest - Last Filed: 11/18/18 20:07> Is patient prescribed a controlled substance at d/c from ED?: No <Sukhdev Saavedra - Last Filed: 11/18/18 22:04> Clinical Impression: Altered mental status, UTI (urinary tract infection), Dehydration, Chronic kidney disease, Generalized weakness Disposition: ADMITTED IP TO THIS HOSP Condition: Fair Referrals: Juan Hull MD [Primary Care Provider] - 1-2 days
[2018-11-18 19:43] LABS: Anisocytosis Slight; Basophils % (A) 1 %; Eosinophils # (A) 0.3 k/uL (0-0.7); Eosinophils % (A) 5 %; HCT 26.1 % (34.0-46.0); HGB 8.4 gm/dL (11.4-16.0); Hypochromasia Slight; Lymphocytes # (A) 1.8 k/uL (1.0-4.8); Lymphocytes % (A) 33 %; MCH 33.5 pg (25.0-35.0); MCHC 32.3 g/dL (31.0-37.0); MCV 103.7 fL (80.0-100.0); Macrocytosis Moderate; Mean Platelet Volume 8.5; Monocytes # (A) 0.4 k/uL (0-1.0); Monocytes % (A) 7 %; Neutrophils # (A) 2.8 k/uL (1.3-7.7); Neutrophils % (A) 51 %; Platelet Count 179 k/uL (150-450); RBC 2.52 m/uL (3.80-5.40); RDW 17.6 % (11.5-15.5); WBC 5.5 k/uL (3.8-10.6)
[2018-11-18 19:57] LABS: Albumin 3.4 g/dL (3.5-5.0); Magnesium 1.9 mg/dL (1.6-2.3); Potassium 4.5 mmol/L (3.5-5.1); Total Bilirubin 0.4 mg/dL (0.2-1.3); Total Protein 6.5 g/dL (6.3-8.2)
[2018-11-18 19:59] LABS: INR 0.9 (<1.2); Partial Thromboplastin Time 22.1 sec (22.0-30.0); Prothrombin Time 10.2 sec (9.0-12.0)
[2018-11-18 20:13] LABS: T4, Free (Free Thyroxine) 1.21 ng/dL (0.78-2.19)
[2018-11-18 20:32] LABS: Creatine Kinase MB 0.3 ng/mL (0.0-2.4); Troponin I <0.012 ng/mL (0.000-0.034)
--- NOTE | 2018-11-18 20:51 | XR ---
EXAMINATION TYPE: XR chest 2V DATE OF EXAM: 11/18/2018 COMPARISON: 08/19/2018 HISTORY: Weakness TECHNIQUE: Frontal and lateral views of the chest are obtained. FINDINGS: There is no heart failure nor confluent pneumonic infiltrate. Thoracic aorta is atheromato us. There are sternal wires. There is some spurring in the thoracic spine. Costophrenic angles are cl ear. IMPRESSION: No active cardiopulmonary disease. No change compared to old exam.
--- NOTE | 2018-11-18 20:52 | CT ---
EXAMINATION TYPE: CT brain wo con DATE OF EXAM: 11/18/2018 COMPARISON: 02/17/2018 HISTORY: Altered mental status CT DLP: mGycm Automated exposure control for dose reduction was used. FINDINGS: There is extensive hypodensity in the periventricular white matter. There is cerebral cortical atroph y. There is no mass effect nor midline shift. There is no sign of intracranial hemorrhage. The calvar ium is intact. 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 NO ACUTE ABNORMALITY. NO CHANGE COMPARE D TO OLD EXAM.
[2018-11-18 21:04] LABS: Appearance,Urine Cloudy (Clear); Bilirubin,Urine Negative (Negative); Blood,Urine Small (Negative); Color,Urine Light Yellow; Glucose,Urine (UA) Negative (Negative); Ketones,Urine Negative (Negative); Leukocyte Esterase,Urine Large (Negative); Mucus,Urine Rare /hpf; Nitrite,Urine Negative (Negative); Protein,Urine Trace (Negative); RBC,Urine 31 /hpf (0-5); Specific Gravity,Urine 1.013 (1.001-1.035); Squamous Epithelial Cell,Urine 1 /hpf (0-4); Urobilinogen,Urine <2.0 mg/dL (<2.0); WBC,Urine >182 /hpf (0-5)
[2018-11-18] MEDS ORDERED: SODIUM CHLORIDE 0.9% 1,000 ML IV ONE (22:02)
[2018-11-19] MEDS ORDERED: METOPROLOL TARTRATE 50 MG TAB PO STA (00:46)
[2018-11-19] MEDS ORDERED: LISINOPRIL-HCTZ 10-12.5 MG 1 EACH TAB PO STA (00:47)
[2018-11-19] MEDS: ENOXAPARIN 30 MG/0.3 ML SYRINGE SQ SCH (10:19)
--- NOTE | 2018-11-19 14:23 | P.HPIM ---
History of Present Illness H&P Date: 11/19/18 Chief Complaint: Worsening confusion This is an 88-year-old white female well-known to me. She has some mild dementia. She lives with her son. Apparently over the past several days she's been having increasing confusion and weakness. She was on the bedside commode meeting a 2 person assist this morning. She denies any chest pains, pressure, shortness breath, nausea or vomiting. Per the emergency room, her family indicates her confusion is getting quite a bit worse over the past several months Review of Systems All systems: negative Past Medical History Past Medical History: Cancer, Chest Pain / Angina, CVA/TIA, Dementia (Alzheimer' s), Eye Disorder, Hearing Disorder / Deafness, Hyperlipidemia, Hypertension, Memory Impairment, Myocardial Infarction ([place]), Renal Disease, Syncope Additional Past Medical History / Comment(s): Dementia with memory impairment, 2013 TIA, chronic kidney disease stage III, vertigo at times, UTI, occasional back pain. Last Myocardial Infarction Date:: 1999 History of Any Multi-Drug Resistant Organisms: MRSA Date of last positivie culture/infection: 12/16/2014 MDRO Source:: Urine Past Surgical History: Appendectomy, Coronary Bypass/CABG, Heart Catheterization , Hysterectomy Additional Past Surgical History / Comment(s): 1999 CABG 4 vessel, lumbar laminectomy, skin cancer removals, bilateral cataract removals. Past Anesthesia/Blood Transfusion Reactions: No Reported Reaction Smoking Status: Former smoker - Past Family History Father Family Medical History: Diabetes Mellitus Daughter(s) Family Medical History: Cancer Additional Family Medical History / Comment(s): Daughter is under treatment for ovarian cancer Brother(s) Family Medical History: Cancer Medications and Allergies Home Medications Medication Instructions Recorded Confirmed Type Citalopram Hydrobromide [CeleXA] 10 mg PO DAILY #30 tab 02/06/15 11/19/18 Rx Aspirin 81 mg PO DAILY 10/26/17 11/19/18 History Bisacodyl 5 mg PO DAILY 10/26/17 11/19/18 History Lisinopril-Hctz 10-12.5 mg 1 tab PO BID 10/26/17 11/19/18 History [Zestoretic 10-12.5] Multivit-Min/FA/Lycopen/Lutein 1 tab PO DAILY 10/26/17 11/19/18 History [Centrum Silver Tablet] Super B Complex 1 cap PO DAILY 10/26/17 11/19/18 History Menthol/Zinc Oxide [Calmoseptine 1 applic TOPICAL DAILY 12/11/17 11/19/18 History Ointment] Metoprolol Tartrate [Lopressor] 25 mg PO BID 11/19/18 11/19/18 History Allergies Allergy/AdvReac Type Severity Reaction Status Date / Time No Known Allergies Allergy Verified 11/19/18 09:27 Physical Exam Vitals: Vital Signs Temp Pulse Pulse Resp BP BP Pulse Ox 11/19/18 07:50 63 18 11/19/18 07:00 98.0 F 63 18 164/75 95 11/19/18 04:30 169/68 11/18/18 23:56 97.6 F 69 15 190/73 97 11/18/18 23:19 65 16 169/66 98 11/18/18 22:00 97.9 F 63 16 163/60 96 11/18/18 18:53 98.2 F 60 18 201/80 98 Intake and Output 11/18/18 11/19/18 11/19/18 22:59 06:59 14:59 Intake Total 800 Balance 800 Intake: Intake, IV Titration 800 Amount Sodium Chloride 0.9% 1, 800 000 ml @ 100 mls/hr IV . Q10H ONE Rx#:[id number] Other: Voiding Method Bedside Commode Bedside Commode Weight 63.503 kg GENERAL: Fatigued-appearing elderly white female on the bedside commode. She looks her stated age. HEAD: Atraumatic, normocephalic. EYES: Pupils equal round and reactive to light, extraocular movements intact, sclera anicteric, conjunctiva are normal. ENT:nares patent, oropharynx clear without exudates. Moist mucous membranes. NECK: Normal range of motion, supple without lymphadenopathy or JVD, no thyromegaly LUNGS: Breath sounds clear to auscultation bilaterally and equal. No wheezes rales or rhonchi. HEART: Regular rate and rhythm without murmurs, rubs or gallops.S1S2 Normal ABDOMEN: Soft, nontender, normoactive bowel sounds. No guarding, no rebound. No masses appreciated. EXTREMITIES: Normal range of motion, no pitting or edema. No clubbing or cyanosis. NEUROLOGICAL: Cranial nerves II through XII grossly intact. Normal speech, gait seems antalgic. She is awake alert and oriented 1 to self only. PSYCH: Normal mood, normal affect. SKIN: Warm, Dry, normal turgor, no rashes or lesions noted. Results CBC & Chem 7: 11/18/18 19:34 11/18/18 19:34 Labs: Abnormal Lab Results - Last 24 Hours (Table) 11/18/18 11/18/18 11/18/18 Range/Units 19:34 19:34 20:53 RBC 2.52 L (3.80-5.40) m/uL Hgb 8.4 L (11.4-16.0) gm/dL Hct 26.1 L (34.0-46.0) % MCV 103.7 H (80.0-100.0) fL RDW 17.6 H (11.5-15.5) % Chloride 109 H (98-107) mmol/L BUN 55 H (7-17) mg/dL Creatinine 1.17 H (0.52-1.04) mg/dL Glucose 102 H (74-99) mg/dL Creatine Kinase 22 L (30-135) U/L Albumin 3.4 L (3.5-5.0) g/dL TSH 0.253 L (0.465-4.680) mIU/L Free T3 pg/mL 2.5 L (2.8-5.3) pg/ml Urine Appearance Cloudy H (Clear) Urine Protein Trace H (Negative) Urine Blood Small H (Negative) Ur Leukocyte Esterase Large H (Negative) Urine RBC 31 H (0-5) /hpf Urine WBC >182 H (0-5) /hpf Urine WBC Clumps Moderate H (None) /hpf Urine Mucus Rare H (None) /hpf Chest x-ray: report reviewed CT scan - chest: report reviewed Thrombosis Risk Factor Assmnt - DVT/VTE Prophylaxis DVT/VTE Prophylaxis: Mechanical Prophylaxis ordered - Choose All That Apply Any of the Below Risk Factors Present?: Yes Each Risk Factor Represents 3 Points: Age 75 years or older Thrombosis Risk Factor Assessment Total Risk Factor Score: 3 Thrombosis Risk Factor Assessment Level: Moderate Risk Assessment and Plan (1) Acute metabolic encephalopathy Current Visit: Yes Status: Acute Code(s): G93.41 - METABOLIC ENCEPHALOPATHY SNOMED Code(s): 32568078 (2) UTI (urinary tract infection) Current Visit: Yes Status: Acute Code(s): N39.0 - URINARY TRACT INFECTION, SITE NOT SPECIFIED SNOMED Code(s): 32964418 (3) Abnormal thyroid function test Current Visit: Yes Status: Acute Code(s): R94.6 - ABNORMAL RESULTS OF THYROID FUNCTION STUDIES SNOMED Code(s): 131226572 (4) Altered mental status Current Visit: Yes Status: Acute Code(s): R41.82 - ALTERED MENTAL STATUS, UNSPECIFIED SNOMED Code(s): 632737675 (5) Chronic kidney disease Current Visit: Yes Status: Acute Code(s): N18.9 - CHRONIC KIDNEY DISEASE, UNSPECIFIED SNOMED Code(s): 581071404 (6) Generalized weakness Current Visit: Yes Status: Acute Code(s): R53.1 - WEAKNESS SNOMED Code(s) : 82528981 (7) Hypertension Current Visit: Yes Status: Acute Code(s): I10 - ESSENTIAL (PRIMARY) HYPERTENSION SNOMED Code(s): 17518659 Plan: She'll continue on Rocephin for the UTI. She'll continue on Lovenox were the DVT prophylaxis. We'll add Pepcid for GI prophylaxis. She can restart her metoprolol and lisinopril HCT. We'll continue to monitor chronic kidney function should they worsen plan consult with nephrology. We will evaluate placement for her. PT OT evaluate and treat. Repeat labs in a.m. She'll be reevaluated next 24 hours.
[2018-11-19] MEDS ORDERED: SUPER B COMPLEX PO SCH (14:30)
[2018-11-19] MEDS ORDERED: CITALOPRAM HYDROBROMIDE 10 MG TAB PO SCH (14:30)
[2018-11-19] MEDS: ASPIRIN 81 MG PO SCH (15:29)
[2018-11-19] MEDS: FAMOTIDINE 20 MG TAB PO SCH (15:30)
[2018-11-19] MEDS: SERTRALINE 25 MG TAB PO SCH (15:30)
[2018-11-19] MEDS: DONEPEZIL 5 MG TAB PO SCH (20:30)
[2018-11-19] MEDS: METOPROLOL TARTRATE 25 MG TAB PO SCH (20:30)
[2018-11-19] MEDS: LISINOPRIL-HCTZ 10-12.5 MG 1 EACH TAB PO SCH (20:30)
[2018-11-20 08:14] LABS: Albumin 3.4 g/dL (3.5-5.0); Calcium 8.5 mg/dL (8.4-10.2); Magnesium 1.9 mg/dL (1.6-2.3); Potassium 4.6 mmol/L (3.5-5.1); Total Bilirubin 0.8 mg/dL (0.2-1.3); Total Protein 6.6 g/dL (6.3-8.2)
[2018-11-20] MEDS: ENOXAPARIN 30 MG/0.3 ML SYRINGE SQ SCH (08:27)
[2018-11-20] MEDS: SERTRALINE 25 MG TAB PO SCH (08:27)
[2018-11-20] MEDS: ASPIRIN 81 MG PO SCH (08:27)
[2018-11-20] MEDS: FAMOTIDINE 20 MG TAB PO SCH (08:27)
[2018-11-20] MEDS: LISINOPRIL-HCTZ 10-12.5 MG 1 EACH TAB PO SCH ×2 (08:27→19:52)
[2018-11-20] MEDS: METOPROLOL TARTRATE 25 MG TAB PO SCH ×2 (08:27→19:52)
--- NOTE | 2018-11-20 13:03 | P.PN ---
Subjective this is an 88-year-old white female well-known to me. She has some mild dementia. She lives with her son. Apparently over the past several days she's been having increasing confusion and weakness. She was on the bedside commode meeting a 2 person assist this morning. She denies any chest pains, pressure, shortness breath, nausea or vomiting. Per the emergency room, her family indicates her confusion is getting quite a bit worse over the past several months 11/20/2018: Patient appears much more alert and awake today. She was found resting comfortably in her bed. She is pleasantly confused. She is awake alert and oriented 1 to self only. She was started on Aricept yesterday, and remains on antibiotics of ceftriaxone. Her antidepressant, Celexa, was changed to Zoloft of this chain time due to drug drug interactions. She has on Lovenox for DVT prophylaxis. She denies any chest pains pressures or shortness of breath this time. When questioned, she does confabulate most responses. Her dementia is obviously worse compared to my occasional office visits with her. Encephalopathy, however has seemed to resolve. Objective - Vital Signs Vital signs: Vital Signs Temp 99.1 F 11/20/18 09:04 Pulse 86 11/20/18 09:04 Resp 18 11/20/18 09:04 BP 160/60 11/20/18 09:04 Pulse Ox 97 11/20/18 09:04 Intake & Output 11/19/18 11/20/18 11/20/18 18:59 06:59 18:59 Intake Total 480 590 590 Balance 480 590 590 Intake: Oral 480 590 590 Other: Voiding Method Bedside Commode Diaper Diaper # Voids 3 1 # Bowel Movements 0 - Exam GENERAL: Fatigued-appearing elderly white female on the bedside commode. She looks her stated age. She has poor dentition NECK: Normal range of motion, supple without lymphadenopathy or JVD, no thyromegaly LUNGS: Breath sounds clear to auscultation bilaterally and equal. No wheezes rales or rhonchi. HEART: Regular rate and rhythm without murmurs, rubs or gallops.S1S2 Normal ABDOMEN: Soft, nontender, normoactive bowel sounds. No guarding, no rebound. No masses appreciated. EXTREMITIES: Normal range of motion, no pitting or edema. No clubbing or cyanosis. NEUROLOGICAL: Cranial nerves II through XII grossly intact. Normal speech, gait seems antalgic. She is awake alert and oriented 1 to self only. PSYCH: Normal mood, normal affect. SKIN: Warm, Dry, normal turgor, no rashes or lesions noted. - Labs CBC & Chem 7: 11/18/18 19:34 11/20/18 06:43 Labs: Abnormal Lab Results - Last 24 Hours (Table) 11/20/18 Range/Units 06:43 Chloride 114 H (98-107) mmol/L BUN 36 H (7-17) mg/dL Glucose 101 H (74-99) mg/dL Albumin 3.4 L (3.5-5.0) g/dL Microbiology - Last 24 Hours (Table) 11/18/18 22:53 Blood Culture - Preliminary Blood No Growth after 24 hours Assessment and Plan (1) Acute metabolic encephalopathy Current Visit: Yes Status: Acute Code(s): G93.41 - METABOLIC ENCEPHALOPATHY SNOMED Code(s): 61222336 (2) UTI (urinary tract infection) Current Visit: Yes Status: Acute Code(s): N39.0 - URINARY TRACT INFECTION, SITE NOT SPECIFIED SNOMED Code(s): 10857429 (3) Abnormal thyroid function test Current Visit: Yes Status: Acute Code(s): R94.6 - ABNORMAL RESULTS OF THYROID FUNCTION STUDIES SNOMED Code(s): 586017233 (4) Altered mental status Current Visit: Yes Status: Acute Code(s): R41.82 - ALTERED MENTAL STATUS, UNSPECIFIED SNOMED Code(s): 917702853 (5) Chronic kidney disease Current Visit: Yes Status: Acute Code(s): N18.9 - CHRONIC KIDNEY DISEASE, UNSPECIFIED SNOMED Code(s): 221591428 (6) Generalized weakness Current Visit: Yes Status: Acute Code(s): R53.1 - WEAKNESS SNOMED Code(s) : 42490047 (7) Hypertension Current Visit: Yes Status: Acute Code(s): I10 - ESSENTIAL (PRIMARY) HYPERTENSION SNOMED Code(s): 74080420 (8) Dementia Current Visit: Yes Status: Acute Code(s): F03.90 - UNSPECIFIED DEMENTIA WITHOUT BEHAVIORAL DISTURBANCE SNOMED Code(s): 95458400 (9) Macrocytic anemia Current Visit: Yes Status: Acute Code(s): D53.9 - NUTRITIONAL ANEMIA, UNSPECIFIED SNOMED Code(s): 07927012 Plan: She'll continue on Rocephin for the UTI. She'll continue on Lovenox for the DVT prophylaxis. Pepcid for GI prophylaxis. 11-year-old medications of metoprolol and lisinopril/HCTZ for hypertension control He functions are improved today. We will evaluate placement for her. monitor her macrocytic anemia. Her thyroid functions are inconsistent and we'll repeat those in 4 weeks for further evaluation. I'll check B12 folic acid and add those to her treatment PT OT evaluate and treat. Repeat labs in a.m. She'll be reevaluated next 24 hours. We'll plan on ECF placement for her for rehabilitation on discharge.
[2018-11-20] MEDS: DONEPEZIL 5 MG TAB PO SCH (19:52)
[2018-11-20 22:48] LABS: Iron Saturation 7.77 (12.00-45.00)
[2018-11-20 22:59] LABS: Folate, Serum >24.0 ng/mL
[2018-11-21] MEDS: CYANOCOBALAMIN 500 MCG TAB PO SCH (07:14)
[2018-11-21] MEDS: SERTRALINE 25 MG TAB PO SCH (07:15)
[2018-11-21] MEDS: ENOXAPARIN 30 MG/0.3 ML SYRINGE SQ SCH (07:15)
[2018-11-21] MEDS: LISINOPRIL-HCTZ 10-12.5 MG 1 EACH TAB PO SCH ×2 (07:15→20:34)
[2018-11-21] MEDS: FAMOTIDINE 20 MG TAB PO SCH (07:15)
[2018-11-21] MEDS: METOPROLOL TARTRATE 25 MG TAB PO SCH ×2 (07:15→20:34)
[2018-11-21] MEDS: ASPIRIN 81 MG PO SCH (07:15)
[2018-11-21 08:24] LABS: Anisocytosis Slight; Basophils # (A) 0.1 k/uL (0-0.2); Basophils % (A) 1 %; Eosinophils # (A) 0.2 k/uL (0-0.7); Eosinophils % (A) 2 %; HCT 28.2 % (34.0-46.0); HGB 8.9 gm/dL (11.4-16.0); Hypochromasia Moderate; Lymphocytes # (A) 1.1 k/uL (1.0-4.8); Lymphocytes % (A) 14 %; MCHC 31.5 g/dL (31.0-37.0); MCV 104.8 fL (80.0-100.0); Macrocytosis Moderate; Mean Platelet Volume 8.4; Monocytes # (A) 0.4 k/uL (0-1.0); Monocytes % (A) 6 %; Neutrophils # (A) 6.1 k/uL (1.3-7.7); Neutrophils % (A) 76 %; Platelet Count 174 k/uL (150-450); RBC 2.69 m/uL (3.80-5.40); RDW 17.2 % (11.5-15.5)
[2018-11-21 08:37] LABS: Calcium 8.9 mg/dL (8.4-10.2); Potassium 4.4 mmol/L (3.5-5.1)
--- NOTE | 2018-11-21 12:27 | P.PN ---
Subjective this is an 88-year-old white female well-known to me. She has some mild dementia. She lives with her son. Apparently over the past several days she's been having increasing confusion and weakness. She was on the bedside commode meeting a 2 person assist this morning. She denies any chest pains, pressure, shortness breath, nausea or vomiting. Per the emergency room, her family indicates her confusion is getting quite a bit worse over the past several months 11/20/2018: Patient appears much more alert and awake today. She was found resting comfortably in her bed. She is pleasantly confused. She is awake alert and oriented 1 to self only. She was started on Aricept yesterday, and remains on antibiotics of ceftriaxone. Her antidepressant, Celexa, was changed to Zoloft of this chain time due to drug drug interactions. She has on Lovenox for DVT prophylaxis. She denies any chest pains pressures or shortness of breath this time. When questioned, she does confabulate most responses. Her dementia is obviously worse compared to my occasional office visits with her. Encephalopathy, however has seemed to resolve. 11/21/2018: Patient is resting comfortably in bed. He remains on Zoloft for antidepressant, which is new, and Aricept for dementia. She has Lovenox for DVT prophylaxis.She denies any chest pains pressures or shortness of breath this time. When questioned, she does confabulate most responses. We're planning at [facility] discharge for tomorrow for rehabilitation and possible long- term placement. Objective - Vital Signs Vital signs: Vital Signs Temp 98.0 F 11/21/18 07:20 Pulse 87 11/21/18 07:20 Resp 16 11/21/18 07:20 BP 150/82 11/21/18 07:20 Pulse Ox 99 11/21/18 07:20 Intake & Output 11/20/18 11/21/18 11/21/18 18:59 06:59 18:59 Intake Total 1530 200 Balance 1530 200 Intake: Intake, IV Titration 50 Amount cefTRIAXone 1 gm In 50 Sodium Chloride 0.9% 50 ml @ 100 mls/hr IVPB Q24H [facility] Rx#:[id number] Oral 1180 150 Other 350 Other: Voiding Method Diaper Diaper Diaper # Voids 3 2 # Bowel Movements 1 - Exam GENERAL: Fatigued-appearing elderly white female on the bedside commode. She looks her stated age. She has poor dentition NECK: Normal range of motion, supple without lymphadenopathy or JVD, no thyromegaly LUNGS: Breath sounds clear to auscultation bilaterally and equal. No wheezes rales or rhonchi. HEART: Regular rate and rhythm without murmurs, rubs or gallops.S1S2 Normal ABDOMEN: Soft, nontender, normoactive bowel sounds. No guarding, no rebound. No masses appreciated. EXTREMITIES: Normal range of motion, no pitting or edema. No clubbing or cyanosis. NEUROLOGICAL: Cranial nerves II through XII grossly intact. Normal speech, gait seems antalgic. She is awake alert and oriented 1 to self only. PSYCH: Normal mood, normal affect. SKIN: Warm, Dry, normal turgor, no rashes or lesions noted. - Labs CBC & Chem 7: 11/21/18 07:12 11/21/18 07:12 Labs: Abnormal Lab Results - Last 24 Hours (Table) 11/20/18 11/21/18 11/21/18 Range/Units 12:43 07:12 07:12 RBC 2.69 L (3.80-5.40) m/uL Hgb 8.9 L (11.4-16.0) gm/dL Hct 28.2 L (34.0-46.0) % MCV 104.8 H (80.0-100.0) fL RDW 17.2 H (11.5-15.5) % BUN 27 H (7-17) mg/dL Creatinine 1.08 H (0.52-1.04) mg/dL Glucose 110 H (74-99) mg/dL Iron 22 L (50-170) ug/dL Iron Saturation 7.77 L (12.00-45.00) Microbiology - Last 24 Hours (Table) 11/18/18 22:53 Blood Culture - Preliminary Blood No Growth after 48 hours Assessment and Plan (1) Acute metabolic encephalopathy Current Visit: Yes Status: Acute Code(s): G93.41 - METABOLIC ENCEPHALOPATHY SNOMED Code(s): 94310474 (2) UTI (urinary tract infection) Current Visit: Yes Status: Acute Code(s): N39.0 - URINARY TRACT INFECTION, SITE NOT SPECIFIED SNOMED Code(s): 66193044 (3) Abnormal thyroid function test Current Visit: Yes Status: Acute Code(s): R94.6 - ABNORMAL RESULTS OF THYROID FUNCTION STUDIES SNOMED Code(s): 349580777 (4) Altered mental status Current Visit: Yes Status: Acute Code(s): R41.82 - ALTERED MENTAL STATUS, UNSPECIFIED SNOMED Code(s): 459778327 (5) Chronic kidney disease Current Visit: Yes Status: Acute Code(s): N18.9 - CHRONIC KIDNEY DISEASE, UNSPECIFIED SNOMED Code(s): 581110665 (6) Generalized weakness Current Visit: Yes Status: Acute Code(s): R53.1 - WEAKNESS SNOMED Code(s) : 76072518 (7) Hypertension Current Visit: Yes Status: Acute Code(s): I10 - ESSENTIAL (PRIMARY) HYPERTENSION SNOMED Code(s): 66850125 (8) Dementia Current Visit: Yes Status: Acute Code(s): F03.90 - UNSPECIFIED DEMENTIA WITHOUT BEHAVIORAL DISTURBANCE SNOMED Code(s): 62956326 (9) Macrocytic anemia Current Visit: Yes Status: Acute Code(s): D53.9 - NUTRITIONAL ANEMIA, UNSPECIFIED SNOMED Code(s): 85944221 Plan: She'll continue on Rocephin for the UTI. She'll continue on Lovenox for the DVT prophylaxis. Pepcid for GI prophylaxis. medications of metoprolol and lisinopril/HCTZ for hypertension control Multivitamin and B12 for her macrocytic anemia. 12 folic acid levels were actually normal. Her thyroid functions are inconsistent and we'll repeat those in 4 weeks for further evaluation. PT OT evaluate and treat. Repeat labs in a.m. She'll be reevaluated next 24 hours. We'll plan on ECF placement for her for rehabilitation on discharge.
[2018-11-21] MEDS: MULTIVITAMINS, THERA LIQUID 237 ML BOTTLE PO SCH (12:28)
[2018-11-21] MEDS: DONEPEZIL 5 MG TAB PO SCH (20:34)
[2018-11-22] MEDS: SERTRALINE 25 MG TAB PO SCH (07:25)
[2018-11-22] MEDS: ENOXAPARIN 30 MG/0.3 ML SYRINGE SQ SCH (07:25)
[2018-11-22] MEDS: ASPIRIN 81 MG PO SCH (07:25)
[2018-11-22] MEDS: LISINOPRIL-HCTZ 10-12.5 MG 1 EACH TAB PO SCH ×2 (07:25→21:05)
[2018-11-22] MEDS: METOPROLOL TARTRATE 25 MG TAB PO SCH ×2 (07:25→21:05)
[2018-11-22] MEDS: FAMOTIDINE 20 MG TAB PO SCH (07:25)
[2018-11-22] MEDS: CYANOCOBALAMIN 500 MCG TAB PO SCH (07:27)
[2018-11-22 09:33] LABS: Potassium 4.1 mmol/L (3.5-5.1)
[2018-11-22] MEDS: MULTIVITAMINS, THERA LIQUID 237 ML BOTTLE PO SCH (12:53)
--- NOTE | 2018-11-22 17:43 | P.DS ---
Providers Date of admission: 11/18/18 22:04 Expected date of discharge: 11/22/18 Attending physician: Juan Hull Primary care physician: Juan Hull - Discharge Diagnosis(es) (1) Abnormal thyroid function test Current Visit: Yes Status: Acute (2) Acute metabolic encephalopathy Current Visit: Yes Status: Acute (3) Altered mental status Current Visit: Yes Status: Acute (4) Chronic kidney disease Current Visit: Yes Status: Acute (5) Dehydration Current Visit: Yes Status: Acute (6) Dementia Current Visit: Yes Status: Acute (7) Generalized weakness Current Visit: Yes Status: Acute (8) Hypertension Current Visit: Yes Status: Acute Hospital Course: General: [Patient awake, alert and oriented times 3. Patient in no acute distress.] Dementia noted HEENT: [PERRL. EOMI. No pharyngeal erythema or exudate.] Neck: [No adenopathy.] Cardiac: [Heart regular in rate and rhythm. No S3. No S4. No clicks, rubs. No murmur.] Lungs: [Clear to auscultation bilaterally.] Abdomen: [No mass. No organomegaly. Bowel sounds presnt and normoactive in all 4 quadrants.] Extremes: [No edema no cyanosis no claudication normal pulses] : Normal female genitalia Musculoskeletal: [No joint erythema, edema or tenderness.] Skin: [No rash.] Neurologic: [No lateralizing deficits. CN II - XII grossly intact.] Lymphatic: [No adenopathy.] Patient Condition at Discharge: Fair Plan - Discharge Summary Discharge Rx Participant: No New Discharge Prescriptions: No Action Citalopram Hydrobromide [CeleXA] 10 mg PO DAILY #30 tab Multivit-Min/FA/Lycopen/Lutein [Centrum Silver Tablet] 1 tab PO DAILY Lisinopril-Hctz 10-12.5 mg [Zestoretic 10-12.5] 1 tab PO BID Bisacodyl 5 mg PO DAILY Aspirin 81 mg PO DAILY Super B Complex 1 cap PO DAILY Menthol/Zinc Oxide [Calmoseptine Ointment] 1 applic TOPICAL DAILY Metoprolol Tartrate [Lopressor] 25 mg PO BID Discharge Medication List Citalopram Hydrobromide [CeleXA] 10 mg PO DAILY #30 tab 02/06/15 [Rx] Aspirin 81 mg PO DAILY 10/26/17 [History] Bisacodyl 5 mg PO DAILY 10/26/17 [History] Lisinopril-Hctz 10-12.5 mg [Zestoretic 10-12.5] 1 tab PO BID 10/26/17 [History] Multivit-Min/FA/Lycopen/Lutein [Centrum Silver Tablet] 1 tab PO DAILY 10/26/17 [ History] Super B Complex 1 cap PO DAILY 10/26/17 [History] Menthol/Zinc Oxide [Calmoseptine Ointment] 1 applic TOPICAL DAILY 12/11/17 [ History] Metoprolol Tartrate [Lopressor] 25 mg PO BID 11/19/18 [History] Follow up Appointment(s)/Referral(s): Belén López, [NON-STAFF] - As Needed Juan Hull MD [Primary Care Provider] - 1-2 days
[2018-11-22] MEDS: DONEPEZIL 5 MG TAB PO SCH (21:05)
[2018-11-23] MEDS: ENOXAPARIN 30 MG/0.3 ML SYRINGE SQ SCH (07:15)
[2018-11-23] MEDS: FAMOTIDINE 20 MG TAB PO SCH (07:15)
[2018-11-23] MEDS: ASPIRIN 81 MG PO SCH (07:15)
[2018-11-23] MEDS: METOPROLOL TARTRATE 25 MG TAB PO SCH (07:16)
[2018-11-23] MEDS: SERTRALINE 25 MG TAB PO SCH (07:16)
[2018-11-23] MEDS: LISINOPRIL-HCTZ 10-12.5 MG 1 EACH TAB PO SCH (07:16)
[2018-11-23 07:28] VITALS: BP 176/78; PULSE 70; RESP 16; TEMP 98.1
[2018-11-23] MEDS: MULTIVITAMINS, THERA LIQUID 237 ML BOTTLE PO SCH (11:26)
[2018-11-23] MEDS: CYANOCOBALAMIN 500 MCG TAB PO SCH (11:26)
[2018-11-24] MEDS ORDERED: ENOXAPARIN 40 MG/0.4 ML SYRINGE SQ SCH (09:00)
== END 2018-11-23 16:06 | DRG 689 ==
LOC: EC 18:51 → 4SSUR 22:04
PROVIDERS: ADMIT Family Medicine; ATTEND Family Medicine
DX: N39.0 Urinary tract infection, site not specified (principal); G93.41 Metabolic encephalopathy; E86.0 Dehydration; D53.9 Nutritional anemia, unspecified; G30.9 Alzheimer's disease, unspecified; F02.80 Dementia in other diseases classified elsewhere, unspecified severity, without behavioral disturbance, psychotic disturbance, mood disturbance, and anxiety; N18.3 Chronic kidney disease, stage 3 (moderate); I12.9 Hypertensive chronic kidney disease with stage 1 through stage 4 chronic kidney disease, or unspecified chronic kidney disease; E78.5 Hyperlipidemia, unspecified; I25.2 Old myocardial infarction; F32.9 Major depressive disorder, single episode, unspecified; F41.9 Anxiety disorder, unspecified; M54.9 Dorsalgia, unspecified; H91.90 Unspecified hearing loss, unspecified ear; Z86.14 Personal history of Methicillin resistant Staphylococcus aureus infection; Z79.82 Long term (current) use of aspirin; Z79.899 Other long term (current) drug therapy; Z86.73 Personal history of transient ischemic attack (TIA), and cerebral infarction without residual deficits; Z90.710 Acquired absence of both cervix and uterus; Z95.1 Presence of aortocoronary bypass graft; Z90.49 Acquired absence of other specified parts of digestive tract; Z87.891 Personal history of nicotine dependence; Z85.828 Personal history of other malignant neoplasm of skin; Z98.42 Cataract extraction status, left eye; Z98.41 Cataract extraction status, right eye; Z83.3 Family history of diabetes mellitus; Z80.41 Family history of malignant neoplasm of ovary
CPT/HCPCS: 36415; 70450; 71046; 80048; 80053; 81001; 82550; 82553; 82607; 82728; 82746; 83540; 83550; 83605; 83735; 84134; 84439; 84443; 84481; 84484; 85025; 85610; 85730; 87040; 93005; 96361; 96365; 99285

== ENCOUNTER 2018-12-01 05:17 | Inpatient (IN) | payer MEDICARE ==
[2018-12-01] MEDS ORDERED: ACETAMINOPHEN IV (For NPO) 1,000 MG in EMPTY BAG 1 BAG IVPB STA (05:22)
--- NOTE | 2018-12-01 05:32 | ED ---
General Adult HPI - General Chief complaint: Shortness of Breath Stated complaint: Difficulty Breathing Time Seen by Provider: 12/01/18 05:21 Source: patient, EMS Mode of arrival: EMS - History of Present Illness Initial comments: Patient is a pleasantly demented 88-year-old female presenting to the ED from [facility], [place] for evaluation of fever, vomiting and hypoxia. Per caregivers at the facility when they did their check at 4:20 AM they noted the patient seemed to have vomited and aspirated she was noted to be febrile and hypoxic. She is placed on 4 L via nasal cannula supplemental oxygen EMS arrived and the patient still hypoxic they placed her on a nonrebreather mask at 15 L and transported her to the emergency department. She is alert and oriented to self, she denies pain but answers questions inappropriately. - Related Data Home Medications Medication Instructions Recorded Confirmed Aspirin 81 mg PO DAILY@1700 10/26/17 12/01/18 Bisacodyl 5 mg PO DAILY@0800 10/26/17 12/01/18 Lisinopril-Hctz 10-12.5 mg 1 tab PO BID@0800,169910/26/17 12/01/18 [Zestoretic 10-12.5] Multivit-Min/FA/Lycopen/Lutein 1 tab PO DAILY@0 10/26/17 12/01/18 [Centrum Silver Tablet] Super B Complex 1 cap PO DAILY@0 10/26/17 12/01/18 Bisacodyl [Dulcolax] 10 mg RECTAL DAILY PRN 12/01/18 12/01/18 Cyanocobalamin [Vitamin B-12] 1,000 mcg PO DAILY@169912/01/18 12/01/18 Donepezil [Aricept] 5 mg PO HS@2100 12/01/18 12/01/18 Ferrous Sulfate [Feosol] 325 mg PO DAILY@0 12/01/18 12/01/18 Magnesium Hydroxide [Milk of 2,400 mg PO DAILY PRN 12/01/18 12/01/18 Magnesia] Metoprolol Tartrate [Lopressor] 25 mg PO BID@0800,1700 12/01/18 12/01/18 Na Phos,M-B/Na Phos,Di-Ba [Fleet 133 ml RECTAL DAILY PRN 12/01/18 12/01/18 Adult] Sertraline [Zoloft] 25 mg PO DAILY@0800 12/01/18 12/01/18 Allergies Allergy/AdvReac Type Severity Reaction Status Date / Time No Known Allergies Allergy Verified 12/01/18 06:47 Review of Systems ROS Statement: Those systems with pertinent positive or pertinent negative responses have been documented in the HPI. ROS Other: All systems not noted in ROS Statement are negative. Limitations: ROS unobtainable due to patients medical condition (Dementia) Past Medical History Past Medical History: Cancer, Chest Pain / Angina, CVA/TIA, Dementia, Eye Disorder, Hearing Disorder / Deafness, Hyperlipidemia, Hypertension, Memory Impairment, Myocardial Infarction (IA), Renal Disease, Syncope Additional Past Medical History / Comment(s): Dementia with memory impairment, 2012 TIA, chronic kidney disease stage III, vertigo at times, UTI, occasional back pain. Last Myocardial Infarction Date:: 1999 History of Any Multi-Drug Resistant Organisms: MRSA Date of last positivie culture/infection: 12/16/2014 MDRO Source:: Urine Past Surgical History: Appendectomy, Coronary Bypass/CABG, Heart Catheterization, Hysterectomy Additional Past Surgical History / Comment(s): 1999 CABG 4 vessel, lumbar laminectomy, skin cancer removals, bilateral cataract removals. Past Anesthesia/Blood Transfusion Reactions: No Reported Reaction Past Psychological History: Anxiety, Depression Smoking Status: Former smoker - Past Family History Father Family Medical History: Diabetes Mellitus Daughter(s) Family Medical History: Cancer Additional Family Medical History / Comment(s): Daughter is under treatment for ovarian cancer Brother(s) Family Medical History: Cancer General Exam - General Exam Comments Initial Comments: Physical Exam GENERAL: Chronically ill appearing elderly female requiring supplemental oxygenation HENT: Normocephalic, Atraumatic. Edentulous EYES: PERRL, EOMI PULMONARY: Tachypnea with congested breath sounds in all lung alejo Wet cough CARDIOVASCULAR: Tachycardic, regular ABDOMEN: Soft and nontender with normal bowel sounds. SKIN: Pale, hot to the touch : Deferred NEUROLOGIC: Alert and oriented to self Moving all extremities MUSCULOSKELETAL: Normal extremities with adequate strength and full range of motion. No lower extremity swelling or edema. No calf tenderness. PSYCHIATRIC: Dementia Limitations: no limitations Course Vital Signs 12/01/18 12/01/18 12/01/18 05:18 05:41 05:50 Temperature 101.0 F H Pulse Rate 105 H 97 93 Respiratory 15 27 H 27 H Rate Blood Pressure 145/77 128/49 O2 Sat by Pulse 97 100 Oximetry 12/01/18 12/01/18 12/01/18 06:10 07:00 07:15 Temperature 98.3 F Pulse Rate 85 85 Respiratory 27 H 27 H Rate Blood Pressure 134/58 121/49 O2 Sat by Pulse 100 98 Oximetry 12/01/18 07:30 Temperature Pulse Rate 84 Respiratory 25 H Rate Blood Pressure 127/50 O2 Sat by Pulse 99 Oximetry EKG Findings - EKG Comments: EKG Findings:: EKG obtained at 5:22 AM, rate is 107 there is a P-wave before each QRS, rhythm is sinus tachycardia. There is leftward deviation. ID is 170, QRS 102, QTc is 509. There is no acute ST elevations or depressions there is no evidence of acute ischemia or infarction. Medical Decision Making - Medical Decision Making Patient care was discussed with transferring facility prior to transfer, 88-year-old female found to have vomited and aspirated noted to be febrile tachycardic and hypoxic prior to transfer Patient arrived on 15 L via nonrebreather she is noted to be tachycardic, febrile tachypnea, with adequate oxygen saturations Sepsis workup was initiated Test x-rays concerning for pneumonia Given the patient likely has aspiration and lives in a nursing facility Zosyn and vancomycin were ordered Patient's oxygen requirements improving she's down to 2 L per mask Labs do reveal mildly elevated troponin we will trend this Dr Diamond escoto for admission Admission orders placed - Lab Data Result diagrams: 12/01/18 05:27 12/01/18 05:27 Lab Results 12/01/18 12/01/18 12/01/18 Range/Units 05:27 05:27 05:27 WBC 10.9 H (3.8-10.6) k/uL RBC 2.89 L (3.80-5.40) m/uL Hgb 9.4 L (11.4-16.0) gm/dL Hct 29.2 L (34.0-46.0) % MCV 101.0 H (80.0-100.0) fL MCH 32.7 (25.0-35.0) pg MCHC 32.3 (31.0-37.0) g/dL RDW 17.6 H (11.5-15.5) % Plt Count 258 (150-450) k/uL Neutrophils % 89 % Lymphocytes % 6 % Monocytes % 4 % Eosinophils % 1 % Basophils % 0 % Neutrophils # 9.6 H (1.3-7.7) k/uL Lymphocytes # 0.6 L (1.0-4.8) k/uL Monocytes # 0.5 (0-1.0) k/uL Eosinophils # 0.1 (0-0.7) k/uL Basophils # 0.0 (0-0.2) k/uL Hypochromasia Moderate Poikilocytosis Slight Anisocytosis Slight Macrocytosis Slight PT (9.0-12.0) sec INR (<1.2) APTT (22.0-30.0) sec Sodium 138 (137-145) mmol/L Potassium 4.2 (3.5-5.1) mmol/L Chloride 103 (98-107) mmol/L Carbon Dioxide 25 (22-30) mmol/L Anion Gap 10 mmol/L BUN 25 H (7-17) mg/dL Creatinine 0.94 (0.52-1.04) mg/dL Est GFR (CKD-EPI)AfAm 63 (>60 ml/min/1.73 sqM) Est GFR (CKD-EPI)NonAf 55 (>60 ml/min/1.73 sqM) Glucose 169 H (74-99) mg/dL Plasma Lactic Acid Cruz (0.7-2.0) mmol/L Calcium 9.2 (8.4-10.2) mg/dL Total Bilirubin 0.8 (0.2-1.3) mg/dL AST 23 (14-36) U/L ALT 25 (9-52) U/L Alkaline Phosphatase 69 (38-126) U/L Troponin I (0.000-0.034) ng/mL Total Protein 7.4 (6.3-8.2) g/dL Albumin 3.9 (3.5-5.0) g/dL Urine Color Urine Appearance (Clear) Urine pH (5.0-8.0) Ur Specific [place] (1.001-1.035) Urine Protein (Negative) Urine Glucose (UA) (Negative) Urine Ketones (Negative) Urine Blood (Negative) Urine Nitrite (Negative) Urine Bilirubin (Negative) Urine Urobilinogen (<2.0) mg/dL Ur Leukocyte Esterase (Negative) Urine RBC (0-5) /hpf Urine WBC (0-5) /hpf Ur Squamous Epith Cells (0-4) /hpf Amorphous Sediment (None) /hpf Urine Bacteria (None) /hpf Hyaline Casts (0-2) /lpf Influenza Type A RNA Not Detected (Not Detectd) Influenza Type B (PCR) Not Detected (Not Detectd) 12/01/18 12/01/18 12/01/18 Range/Units 05:27 05:27 05:27 WBC (3.8-10.6) k/uL RBC (3.80-5.40) m/uL Hgb (11.4-16.0) gm/dL Hct (34.0-46.0) % MCV (80.0-100.0) fL MCH (25.0-35.0) pg MCHC (31.0-37.0) g/dL RDW (11.5-15.5) % Plt Count (150-450) k/uL Neutrophils % % Lymphocytes % % Monocytes % % Eosinophils % % Basophils % % Neutrophils # (1.3-7.7) k/uL Lymphocytes # (1.0-4.8) k/uL Monocytes # (0-1.0) k/uL Eosinophils # (0-0.7) k/uL Basophils # (0-0.2) k/uL Hypochromasia Poikilocytosis Anisocytosis Macrocytosis PT 11.2 (9.0-12.0) sec INR 1.1 (<1.2) APTT 22.1 (22.0-30.0) sec Sodium (137-145) mmol/L Potassium (3.5-5.1) mmol/L Chloride (98-107) mmol/L Carbon Dioxide (22-30) mmol/L Anion Gap mmol/L BUN (7-17) mg/dL Creatinine (0.52-1.04) mg/dL Est GFR (CKD-EPI)AfAm (>60 ml/min/1.73 sqM) Est GFR (CKD-EPI)NonAf (>60 ml/min/1.73 sqM) Glucose (74-99) mg/dL Plasma Lactic Acid Cruz 1.0 (0.7-2.0) mmol/L Calcium (8.4-10.2) mg/dL Total Bilirubin (0.2-1.3) mg/dL AST (14-36) U/L ALT (9-52) U/L Alkaline Phosphatase (38-126) U/L Troponin I 0.059 H* (0.000-0.034) ng/mL Total Protein (6.3-8.2) g/dL Albumin (3.5-5.0) g/dL Urine Color Urine Appearance (Clear) Urine pH (5.0-8.0) Ur Specific [place] (1.001-1.035) Urine Protein (Negative) Urine Glucose (UA) (Negative) Urine Ketones (Negative) Urine Blood (Negative) Urine Nitrite (Negative) Urine Bilirubin (Negative) Urine Urobilinogen (<2.0) mg/dL Ur Leukocyte Esterase (Negative) Urine RBC (0-5) /hpf Urine WBC (0-5) /hpf Ur Squamous Epith Cells (0-4) /hpf Amorphous Sediment (None) /hpf Urine Bacteria (None) /hpf Hyaline Casts (0-2) /lpf Influenza Type A RNA (Not Detectd) Influenza Type B (PCR) (Not Detectd) 12/01/18 Range/Units 05:50 WBC (3.8-10.6) k/uL RBC (3.80-5.40) m/uL Hgb (11.4-16.0) gm/dL Hct (34.0-46.0) % MCV (80.0-100.0) fL MCH (25.0-35.0) pg MCHC (31.0-37.0) g/dL RDW (11.5-15.5) % Plt Count (150-450) k/uL Neutrophils % % Lymphocytes % % Monocytes % % Eosinophils % % Basophils % % Neutrophils # (1.3-7.7) k/uL Lymphocytes # (1.0-4.8) k/uL Monocytes # (0-1.0) k/uL Eosinophils # (0-0.7) k/uL Basophils # (0-0.2) k/uL Hypochromasia Poikilocytosis Anisocytosis Macrocytosis PT (9.0-12.0) sec INR (<1.2) APTT (22.0-30.0) sec Sodium (137-145) mmol/L Potassium (3.5-5.1) mmol/L Chloride (98-107) mmol/L Carbon Dioxide (22-30) mmol/L Anion Gap mmol/L BUN (7-17) mg/dL Creatinine (0.52-1.04) mg/dL Est GFR (CKD-EPI)AfAm (>60 ml/min/1.73 sqM) Est GFR (CKD-EPI)NonAf (>60 ml/min/1.73 sqM) Glucose (74-99) mg/dL Plasma Lactic Acid Cruz (0.7-2.0) mmol/L Calcium (8.4-10.2) mg/dL Total Bilirubin (0.2-1.3) mg/dL AST (14-36) U/L ALT (9-52) U/L Alkaline Phosphatase (38-126) U/L Troponin I (0.000-0.034) ng/mL Total Protein (6.3-8.2) g/dL Albumin (3.5-5.0) g/dL Urine Color Light Yellow Urine Appearance Clear (Clear) Urine pH 6.5 (5.0-8.0) Ur Specific [place] 1.008 (1.001-1.035) Urine Protein 1+ H (Negative) Urine Glucose (UA) Negative (Negative) Urine Ketones Negative (Negative) Urine Blood Negative (Negative) Urine Nitrite Negative (Negative) Urine Bilirubin Negative (Negative) Urine Urobilinogen <2.0 (<2.0) mg/dL Ur Leukocyte Esterase Negative (Negative) Urine RBC 1 (0-5) /hpf Urine WBC 1 (0-5) /hpf Ur Squamous Epith Cells 1 (0-4) /hpf Amorphous Sediment Rare H (None) /hpf Urine Bacteria Rare H (None) /hpf Hyaline Casts 3 H (0-2) /lpf Influenza Type A RNA (Not Detectd) Influenza Type B (PCR) (Not Detectd) Disposition Clinical Impression: Altered mental status, Aspiration pneumonia Disposition: ADMITTED IP TO THIS HOSP Condition: Serious Is patient prescribed a controlled substance at d/c from ED?: No
[2018-12-01] MEDS: SODIUM CHLORIDE 0.9% 500 ML 500 ML IV SCH ×2 (05:35→06:26)
[2018-12-01 05:50] LABS: Albumin 3.9 g/dL (3.5-5.0); Calcium 9.2 mg/dL (8.4-10.2); Potassium 4.2 mmol/L (3.5-5.1); Total Bilirubin 0.8 mg/dL (0.2-1.3); Total Protein 7.4 g/dL (6.3-8.2)
[2018-12-01] MEDS ORDERED: VANCOMYCIN IV PER PHARMACY 1 EACH MISC MISCELLANE PRN (05:59)
[2018-12-01 06:04] LABS: INR 1.1 (<1.2); Partial Thromboplastin Time 22.1 sec (22.0-30.0); Prothrombin Time 11.2 sec (9.0-12.0)
[2018-12-01 06:07] LABS: Anisocytosis Slight; Basophils % (A) 0 %; Eosinophils # (A) 0.1 k/uL (0-0.7); Eosinophils % (A) 1 %; HCT 29.2 % (34.0-46.0); HGB 9.4 gm/dL (11.4-16.0); Hypochromasia Moderate; Lymphocytes # (A) 0.6 k/uL (1.0-4.8); Lymphocytes % (A) 6 %; MCH 32.7 pg (25.0-35.0); MCHC 32.3 g/dL (31.0-37.0); Macrocytosis Slight; Mean Platelet Volume 7.8; Monocytes # (A) 0.5 k/uL (0-1.0); Monocytes % (A) 4 %; Neutrophils # (A) 9.6 k/uL (1.3-7.7); Neutrophils % (A) 89 %; Platelet Count 258 k/uL (150-450); Poikilocytosis Slight; RBC 2.89 m/uL (3.80-5.40); RDW 17.6 % (11.5-15.5); WBC 10.9 k/uL (3.8-10.6)
--- NOTE | 2018-12-01 06:11 | XR ---
EXAM: XR Chest, 1 View CLINICAL HISTORY: ITS.REASON XR Reason: Fever, hypoxia TECHNIQUE: Frontal view of the chest. COMPARISON: 11/18/18 FINDINGS: Increasing right basilar opacity compared to the previous. May represent infiltrate and/or aspirate. No other significant changes allowing for differences in technique. Postop changes and other unchanged findings. IMPRESSION: Increasing right basilar opacity compared to the previous. May represent infiltrate and/or aspirate.
[2018-12-01] MEDS ORDERED: VANCOMYCIN 1,500 MG in SODIUM CHLORIDE 0.9% 250 ML IVPB SCH (06:15)
[2018-12-01 06:27] LABS: Amorphous Sediment,Urine Rare /hpf; Appearance,Urine Clear (Clear); Bacteria,Urine Rare /hpf; Bilirubin,Urine Negative (Negative); Blood,Urine Negative (Negative); Color,Urine Light Yellow; Glucose,Urine (UA) Negative (Negative); Hyaline Casts,Urine 3 /lpf (0-2); Ketones,Urine Negative (Negative); Leukocyte Esterase,Urine Negative (Negative); Nitrite,Urine Negative (Negative); PH, Urine 6.5 (5.0-8.0); Protein,Urine 1+ (Negative); RBC,Urine 1 /hpf (0-5); Specific Gravity,Urine 1.008 (1.001-1.035); Squamous Epithelial Cell,Urine 1 /hpf (0-4); Urobilinogen,Urine <2.0 mg/dL (<2.0); WBC,Urine 1 /hpf (0-5)
[2018-12-01] MEDS ORDERED: PNEUMONIA PROTOCOL UTILIZED 1 EACH MISC PO PRN (06:59)
[2018-12-01] MEDS ORDERED: IPRATROPIUM-ALBUTEROL 3 ML NEB INHALATION PRN (06:59)
[2018-12-01] MEDS ORDERED: LEVOFLOXACIN 750MG-D5W PMX 750 MG in DEXTROSE/WATER 1 150ML.BAG IVPB SCH (09:00)
[2018-12-01] MEDS: SODIUM CHLORIDE 0.9% 1,000 ML IV SCH ×3 (09:05→20:10)
[2018-12-01] MEDS: PIPERACILLIN-TAZOBACTAM 3.375 GM in SODIUM CHLORIDE 0.9% 100 ML IVPB SCH ×2 (11:06→19:18)
--- NOTE | 2018-12-01 13:53 | P.HPIM ---
History of Present Illness H&P Date: 12/01/18 Chief Complaint: Short of breath This is a very pleasantly demented 88-year-old female who would present to the emergency room after the long term facility where she was staying called me and told me that she had vomited aspirated and now was wheezing and becoming hypoxic. I instructed them to take her to learn emergency room where she was evaluated and found to be febrile and hypoxic patient was placed on 2 L nasal cannula to maintain her sats above 92% when evaluating patient in the room she was completely asleep and mouth breathing. However she was easily arousable patient is hard of hearing and is pleasantly demented. At the time of evaluation there was no family members in attendance with her Review of Systems Constitutional: Reports as per HPI, Reports fatigue, Reports weakness Ears, nose, mouth and throat: Reports as per HPI Cardiovascular: Reports as per HPI Respiratory: Reports congestion, Reports cough, Reports cough with sputum (Right-sided opacity on x-ray consistent with history of aspiration) Gastrointestinal: Reports as per HPI Genitourinary: Reports as per HPI Menstruation: Reports as per HPI Musculoskeletal: Reports as per HPI Integumentary: Reports as per HPI Neurological: Reports as per HPI Psychiatric: Reports as per HPI Past Medical History Past Medical History: Coronary Artery Disease (CAD), Cancer, Chest Pain / Angina, CVA/TIA, Dementia, Eye Disorder, Hearing Disorder / Deafness, Hyperlipid emia, Hypertension, Memory Impairment, Myocardial Infarction ([place]), Renal Disease, Syncope Additional Past Medical History / Comment(s): Pt recently admitted to [facility] on 11/18/18 with AMS, acutemetabolic encephalitis, dehydration, weakness, abdnormal thyroid function test. Other hx: Dementia with memory impairment, 2013 TIA, chronic kidney disease stage III, vertigo at times, UTI, past dasilva d/t skin issues, occasional back pain, skin cancer with removals, limited viosion in R eye, LUMBEE bilaterally, constipation. Last Myocardial Infarction Date:: 1999 History of Any Multi-Drug Resistant Organisms: MRSA Date of last positivie culture/infection: 12/16/2014 MDRO Source:: Urine Past Surgical History: Appendectomy, Coronary Bypass/CABG, Heart Cath eterization, Hysterectomy Additional Past Surgical History / Comment(s): 1999 CABG 4 vessel, lumbar laminectomy, skin cancer removals, bilateral cataract removals. Past Anesthesia/Blood Transfusion Reactions: No Reported Reaction Smoking Status: Former smoker - Past Family History Father Family Medical History: Diabetes Mellitus Daughter(s) Family Medical History: Cancer Additional Family Medical History / Comment(s): Daughter is under treatment for ovarian cancer Brother(s) Family Medical History: Cancer Medications and Allergies Home Medications Medication Instructions Recorded Confirmed Type Aspirin 81 mg PO DAILY@1700 10/26/17 12/01/18 History Bisacodyl 5 mg PO DAILY@0800 10/26/17 12/01/18 History Lisinopril-Hctz 10-12.5 mg 1 tab PO BID@0800,1700 10/26/17 12/01/18 History [Zestoretic 10-12.5] Multivit-Min/FA/Lycopen/Lutein 1 tab PO DAILY@1700 10/26/17 12/01/18 History [Centrum Silver Tablet] Super B Complex 1 cap PO DAILY@1700 10/26/17 12/01/18 History Bisacodyl [Dulcolax] 10 mg RECTAL DAILY PRN 12/01/18 12/01/18 History Cyanocobalamin [Vitamin B-12] 1,000 mcg PO DAILY@1700 12/01/18 12/01/18 History Donepezil [Aricept] 5 mg PO HS@2100 12/01/18 12/01/18 History Ferrous Sulfate [Feosol] 325 mg PO DAILY@1700 12/01/18 12/01/18 History Magnesium Hydroxide [Milk of 2,400 mg PO DAILY PRN 12/01/18 12/01/18 History Magnesia] Metoprolol Tartrate [Lopressor] 25 mg PO BID@0800,1700 12/01/18 12/01/18 History Na Phos,M-B/Na Phos,Di-Ba [Fleet 133 ml RECTAL DAILY PRN 12/01/18 12/01/18 History Adult] Sertraline [Zoloft] 25 mg PO DAILY@0800 12/01/18 12/01/18 History Allergies Allergy/AdvReac Type Severity Reaction Status Date / Time No Known Allergies Allergy Verified 12/01/18 06:47 Physical Exam Osteopathic Statement: *. No significant issues noted on an osteopathic structural exam other than those noted in the History and Physical/Consult. Vitals: Vital Signs Temp Pulse Pulse Resp BP BP Pulse Ox 12/01/18 11:00 98.3 F 79 20 113/67 96 12/01/18 10:00 82 24 125/48 98 12/01/18 09:30 85 25 H 110/41 97 12/01/18 09:00 81 23 120/42 95 12/01/18 08:30 84 22 129/48 96 12/01/18 08:00 84 24 120/52 97 12/01/18 07:30 84 25 H 127/50 99 12/01/18 07:15 98.3 F 12/01/18 07:00 85 27 H 121/49 98 12/01/18 06:10 85 27 H 134/58 100 12/01/18 05:50 93 27 H 128/49 100 12/01/18 05:41 97 27 H 12/01/18 05:18 101.0 F H 105 H 15 145/77 97 Intake and Output 11/30/18 12/01/18 12/01/18 22:59 06:59 14:59 Other: Voiding Method Diaper Weight 83.915 kg General: [Patient awake, alert and oriented times 1 to person Patient has poor dentition very few teeth in the upper and lower HEENT: [PERRL. EOMI. No pharyngeal erythema or exudate.] Neck: [No adenopathy.] Cardiac: [Heart regular in rate and rhythm. No S3. No S4. No clicks, rubs. No murmur.] Lungs: Breath sounds are shallow and mild consolidation on the right Abdomen: [No mass. No organomegaly. Bowel sounds presnt and normoactive in all 4 quadrants.] Extremes: [No edema no cyanosis no claudication normal pulses] : [] Musculoskeletal: [No joint erythema, edema or tenderness.] Skin: [No rash.] Neurologic: [No lateralizing deficits. CN II - XII grossly intact.] Lymphatic: [No adenopathy.] Results CBC & Chem 7: 12/01/18 05:27 12/01/18 05:27 Labs: Abnormal Lab Results - Last 24 Hours (Table) 12/01/18 12/01/18 12/01/18 Range/Units 05:27 05:27 05:27 WBC 10.9 H (3.8-10.6) k/uL RBC 2.89 L (3.80-5.40) m/uL Hgb 9.4 L (11.4-16.0) gm/dL Hct 29.2 L (34.0-46.0) % MCV 101.0 H (80.0-100.0) fL RDW 17.6 H (11.5-15.5) % Neutrophils # 9.6 H (1.3-7.7) k/uL Lymphocytes # 0.6 L (1.0-4.8) k/uL BUN 25 H (7-17) mg/dL Glucose 169 H (74-99) mg/dL Troponin I 0.059 H* (0.000-0.034) ng/mL Urine Protein (Negative) Amorphous Sediment (None) /hpf Urine Bacteria (None) /hpf Hyaline Casts (0-2) /lpf 12/01/18 12/01/18 Range/Units 05:50 10:54 WBC (3.8-10.6) k/uL RBC (3.80-5.40) m/uL Hgb (11.4-16.0) gm/dL Hct (34.0-46.0) % MCV (80.0-100.0) fL RDW (11.5-15.5) % Neutrophils # (1.3-7.7) k/uL Lymphocytes # (1.0-4.8) k/uL BUN (7-17) mg/dL Glucose (74-99) mg/dL Troponin I 0.104 H* (0.000-0.034) ng/mL Urine Protein 1+ H (Negative) Amorphous Sediment Rare H (None) /hpf Urine Bacteria Rare H (None) /hpf Hyaline Casts 3 H (0-2) /lpf Microbiology - Last 24 Hours (Table) 12/01/18 05:50 Urine Culture - Preliminary Urine,Clean Catch Thrombosis Risk Factor Assmnt - Choose All That Apply Any of the Below Risk Factors Present?: Yes Each Factor Represents 1 point: Medical pt on bed rest, Obesity (BMI >25), Serious lung disease incl. pneumonia (< 1month) Other Risk Factors: Yes Each Risk Factor Represents 2 Points: Patient confined to bed, Malignancy Each Risk Factor Represents 3 Points: Age 75 years or older Other congenital or acquired thrombophilia - If yes, enter type in comment: No Thrombosis Risk Factor Assessment Total Risk Factor Score: 10 Thrombosis Risk Factor Assessment Level: High Risk Assessment and Plan (1) Altered mental status Current Visit: Yes Status: Acute Code(s): R41.82 - ALTERED MENTAL STATUS, UNSPECIFIED SNOMED Code(s): 083756096 (2) Aspiration pneumonia Current Visit: Yes Status: Acute Code(s): J69.0 - PNEUMONITIS DUE TO INHALATION OF FOOD AND VOMIT SNOMED Code(s): 385017693 (3) Dehydration Current Visit: No Status: Acute Code(s): E86.0 - DEHYDRATION SNOMED Code(s): 76143820 Plan: Patient is asleep but arousable Did participate with physical therapy Low-grade fever noted patient is currently on Zosyn and vancomycin IV for possible aspiration pneumonia
--- NOTE | 2018-12-01 14:58 | P.CRDCN ---
History of Present Illness Consult date: 12/01/18 History of present illness: This is a 88-year-old female was recently discharged from the hospital after she was treated for altered mental status and also kidney failure, was brought back to the hospital with complaints of suspected aspiration pneumonia, fever and chills. Patient was found to be hypoxic and wheezing. Patient has history of previous coronary artery disease, CVA, dementia, deafness, hyperlipidemia, hypertension, kidney disease and previous myocardial infarctions. By the time of my examination patient is on the floor. Doesn't appear to be in acute distress. Denies any chest pain or shortness of breath. Lungs show some scattered rhonchi but no significant wheezing at this time. Heart is regular. Her flap telemetry showed a mildly elevated troponin. We're going to get all 3 of troponin to see the trend, but so far doesn't appear to be suggestive of acute myocardial infarction. EKG did not reveal any acute changes. We'll get an echocardiogram. Meanwhile, continue current medical therapy Review of Systems Not obtained Past Medical History Past Medical History: Coronary Artery Disease (CAD), Cancer, Chest Pain / Angina, CVA/TIA, Dementia, Eye Disorder, Hearing Disorder / Deafness, Hyperlipidemia, Hypertension, Memory Impairment, Myocardial Infarction ([place]), Lorenzo al Disease, Syncope Additional Past Medical History / Comment(s): Pt recently admitted to [facility] on 11/18/18 with AMS, acutemetabolic encephalitis, dehydration, weakness, abdnormal thyroid function test. Other hx: Dementia with memory impairment, 2013 TIA, chronic kidney disease stage III, vertigo at times, UTI, past dasilva d/t skin issues, occasional back pain, skin cancer with removals, limited viosion in R eye, KNIK bilaterally, constipation. Last Myocardial Infarction Date:: 1999 History of Any Multi-Drug Resistant Organisms: MRSA Date of last positivie culture/infection: 12/16/2014 MDRO Source:: Urine Past Surgical History: Appendectomy, Coronary Bypass/CABG, Heart Catheterization, Hysterectomy Additional Past Surgical History / Comment(s): 1999 CABG 4 vessel, lumbar laminectomy, skin cancer removals, bilateral cataract removals. Past Anesthesia/Blood Transfusion Reactions: No Reported Reaction Smoking Status: Former smoker - Past Family History Father Family Medical History: Diabetes Mellitus Daughter(s) Family Medical History: Cancer Additional Family Medical History / Comment(s): Daughter is under treatment for ovarian cancer Brother(s) Family Medical History: Cancer Medications and Allergies Home Medications Medication Instructions Recorded Confirmed Type Aspirin 81 mg PO DAILY@1700 10/26/17 12/01/18 History Bisacodyl 5 mg PO DAILY@0800 10/26/17 12/01/18 History Lisinopril-Hctz 10-12.5 mg 1 tab PO BID@0800,1700 10/26/17 12/01/18 History [Zestoretic 10-12.5] Multivit-Min/FA/Lycopen/Lutein 1 tab PO DAILY@1700 10/26/17 12/01/18 History [Centrum Silver Tablet] Super B Complex 1 cap PO DAILY@1700 10/26/17 12/01/18 History Bisacodyl [Dulcolax] 10 mg RECTAL DAILY PRN 12/01/18 12/01/18 History Cyanocobalamin [Vitamin B-12] 1,000 mcg PO DAILY@1700 12/01/18 12/01/18 History Donepezil [Aricept] 5 mg PO HS@2100 12/01/18 12/01/18 History Ferrous Sulfate [Feosol] 325 mg PO DAILY@1700 12/01/18 12/01/18 History Magnesium Hydroxide [Milk of 2,400 mg PO DAILY PRN 12/01/18 12/01/18 History Magnesia] Metoprolol Tartrate [Lopressor] 25 mg PO BID@0800,1700 12/01/18 12/01/18 History Na Phos,M-B/Na Phos,Di-Ba [Fleet 133 ml RECTAL DAILY PRN 12/01/18 12/01/18 History Adult] Sertraline [Zoloft] 25 mg PO DAILY@0800 12/01/18 12/01/18 History Allergies Allergy/AdvReac Type Severity Reaction Status Date / Time No Known Allergies Allergy Verified 12/01/18 06:47 Physical Exam Vitals: Vital Signs Temp Pulse Pulse Resp BP BP Pulse Ox 12/01/18 11:00 98.3 F 79 20 113/67 96 12/01/18 10:00 82 24 125/48 98 12/01/18 09:30 85 25 H 110/41 97 12/01/18 09:00 81 23 120/42 95 12/01/18 08:30 84 22 129/48 96 12/01/18 08:00 84 24 120/52 97 12/01/18 07:30 84 25 H 127/50 99 12/01/18 07:15 98.3 F 12/01/18 07:00 85 27 H 121/49 98 12/01/18 06:10 85 27 H 134/58 100 12/01/18 05:50 93 27 H 128/49 100 12/01/18 05:41 97 27 H 12/01/18 05:18 101.0 F H 105 H 15 145/77 97 Intake and Output 11/30/18 12/01/18 12/01/18 22:59 06:59 14:59 Other: Voiding Method Diaper # Voids 1 Weight 83.915 kg 83.915 kg Results 12/01/18 05:27 12/01/18 05:27 Cardiac Enzymes 12/01/18 12/01/18 12/01/18 Range/Units 05:27 05:27 10:54 AST 23 (14-36) U/L Troponin I 0.059 H* 0.104 H* (0.000-0.034) ng/mL Coagulation 12/01/18 Range/Units 05:27 PT 11.2 (9.0-12.0) sec APTT 22.1 (22.0-30.0) sec CBC 12/01/18 Range/Units 05:27 WBC 10.9 H (3.8-10.6) k/uL RBC 2.89 L (3.80-5.40) m/uL Hgb 9.4 L (11.4-16.0) gm/dL Hct 29.2 L (34.0-46.0) % Plt Count 258 (150-450) k/uL Comprehensive Metabolic Panel 12/01/18 Range/Units 05:27 Sodium 138 (137-145) mmol/L Potassium 4.2 (3.5-5.1) mmol/L Chloride 103 (98-107) mmol/L Carbon Dioxide 25 (22-30) mmol/L BUN 25 H (7-17) mg/dL Creatinine 0.94 (0.52-1.04) mg/dL Glucose 169 H (74-99) mg/dL Calcium 9.2 (8.4-10.2) mg/dL AST 23 (14-36) U/L ALT 25 (9-52) U/L Alkaline Phosphatase 69 (38-126) U/L Total Protein 7.4 (6.3-8.2) g/dL Albumin 3.9 (3.5-5.0) g/dL Current Medications Generic Name Dose Route Start Last Admin Trade Name Freq PRN Reason Stop Dose Admin Albuterol/Ipratropium 3 ml 12/01/18 06:59 Duoneb 0.5 Mg-3 Mg/3 Ml Soln INHALATION RT-Q4H PRN shortness of breath Piperacillin Sod/Tazobactam 100 mls @ 25 mls/hr 12/01/18 09:00 12/01/18 11:06 Sod 3.375 gm/ Sodium Chloride IVPB 25 mls/hr Q8H SARAH Administration Sodium Chloride 1,000 mls @ 100 mls/hr 12/01/18 07:00 12/01/18 09:05 Saline 0.9% IV 100 mls/hr .Q10H SARAH Administration Vancomycin HCl 1,500 mg/ 250 mls @ 125 mls/hr 12/02/18 06:00 Sodium Chloride IVPB Q24H SARAH Levofloxacin 750 mg/ IV 150 mls @ 100 mls/hr 12/01/18 09:00 12/01/18 09:05 Solution IVPB 100 mls/hr Q48H SARAH Administration Miscellaneous Information 1 each 12/01/18 06:59 Pneumonia Protocol Utilized PO ONCE PRN Per Protocol Intake and Output 11/30/18 12/01/18 12/01/18 22:59 06:59 14:59 Other: Voiding Method Diaper # Voids 1 Weight 83.915 kg 83.915 kg Patient Weight 12/02/18 06:59 Weight 83.915 kg 12/01/18 05:27 12/01/18 05:27 EKG Interpretations (text) Sinus rhythm Assessment and Plan (1) History of coronary artery disease Current Visit: Yes Status: Acute Code(s): Z86.79 - PERSONAL HISTORY OF OTHER DISEASES OF THE CIRCULATORY SYSTEM SNOMED Code(s): 956046676 (2) Aspiration pneumonia Current Visit: Yes Status: Acute Code(s): J69.0 - PNEUMONITIS DUE TO INHALATION OF FOOD AND VOMIT SNOMED Code(s): 830091129 (3) Chronic kidney disease Current Visit: No Status: Acute Code(s): N18.9 - CHRONIC KIDNEY DISEASE, UNSPECIFIED SNOMED Code(s): 310979324 (4) Dementia Current Visit: No Status: Acute Code(s): F03.90 - UNSPECIFIED DEMENTIA WITHOUT BEHAVIORAL DISTURBANCE SNOMED Code(s): 00910252 (5) Hypertension Current Visit: No Status: Acute Code(s): I10 - ESSENTIAL (PRIMARY) HYPERTENSION SNOMED Code(s): 63541513 (6) Sepsis Current Visit: No Status: Acute Code(s): A41.9 - SEPSIS, UNSPECIFIED ORGANISM SNOMED Code(s): 09443953 Plan: Continue current medical therapy. I doubt we are dealing with acute myocardial infarction. We will get an echocardiogram done. Further recommendations depend upon clinical course
--- NOTE | 2018-12-01 15:49 | FL ---
EXAMINATION TYPE: FL barium swallow w video DATE OF EXAM: 12/01/2018 MODIFIED SWALLOW / DEGLUTITION STUDY CLINICAL HISTORY: Dysphagia TECHNIQUE: Deglutition study is performed utilizing thin liquid barium, honey and nectar thick liqui d barium, barium thick applesauce, and barium coated cracker. 2 minutes and 36 seconds of fluoroscopy time was utilized during the examination. 0 fluoroscopic images were saved as the exam was video rec orded. COMPARISON: None. FINDINGS: The oral and pharyngeal phases show satisfactory initiation and propagation with all modali ties tested. Normal mastication is seen with solid modalities tested. Silent aspiration is seen repe atedly with the thin liquid consistency. This does not improve with the chin tuck maneuver. When util izing thicker consistencies such as the honey thick and nectar consistencies there is deep laryngeal penetration without aspiration. Throughout the exam there is poor bladder closure. Mild significant p haryngeal residue was appreciated. IMPRESSION: 1. Silent aspiration with the thin liquid consistency. 2. Poor epiglottic closure throughout the examination. 3. Deep laryngeal penetration with the honey thick and nectar thick consistencies. Please refer to [facility] therapist notes for further details if necessary.
[2018-12-01] MEDS: ASPIRIN 81 MG PO SCH (17:39)
[2018-12-01] MEDS: METOPROLOL TARTRATE 25 MG TAB PO SCH (17:39)
[2018-12-01] MEDS: CYANOCOBALAMIN 500 MCG TAB PO SCH (17:39)
[2018-12-01] MEDS: MULTIVITAMINS, THERA 1 EACH TAB PO SCH (17:39)
[2018-12-01] MEDS: LISINOPRIL-HCTZ 10-12.5 MG 1 EACH TAB PO SCH (17:39)
[2018-12-01] MEDS: FERROUS SULFATE 325 MG TAB PO SCH (17:39)
[2018-12-01] MEDS: DONEPEZIL 5 MG TAB PO SCH (20:10)
[2018-12-02] MEDS: PIPERACILLIN-TAZOBACTAM 3.375 GM in SODIUM CHLORIDE 0.9% 100 ML IVPB SCH ×4 (00:29→23:45)
[2018-12-02] MEDS: VANCOMYCIN 1,500 MG in SODIUM CHLORIDE 0.9% 250 ML IVPB SCH (07:16)
--- NOTE | 2018-12-02 08:12 | XR ---
EXAMINATION TYPE: XR chest 2V DATE OF EXAM: 12/02/2018 COMPARISON: 12/01/2018 HISTORY: 88-year-old female with pneumonia, follow-up TECHNIQUE: AP and lateral views FINDINGS: Heart mildly enlarged. Atherosclerotic calcifications throughout the aorta. Median sternotomy wires a nd post-CABG clips. Hyperinflation with flattening of the hemidiaphragms. No sizable pleural effusion . Patchy opacities persist and has slightly increased in the right mid and lower lungs. IMPRESSION: 1. Stable cardiomegaly and COPD. 2. Continued patchy infiltrate right mid and lower lung which may represent pneumonia. Infiltrate has slightly increased in the interval.
[2018-12-02] MEDS: SODIUM CHLORIDE 0.9% 1,000 ML IV SCH (09:25)
[2018-12-02] MEDS: LISINOPRIL-HCTZ 10-12.5 MG 1 EACH TAB PO SCH ×2 (09:26→16:09)
[2018-12-02] MEDS: BISACODYL 5 MG TABLET.DR PO SCH (09:26)
[2018-12-02] MEDS: METOPROLOL TARTRATE 25 MG TAB PO SCH ×2 (09:26→16:09)
[2018-12-02] MEDS: SERTRALINE 25 MG TAB PO SCH (09:26)
[2018-12-02] MEDS: FUROSEMIDE 10 MG/ML 4 ML VIAL IV STA ×2 (12:11→13:24)
[2018-12-02 12:28] LABS: Glucose,Whole Blood 219 mg/dL (75-99)
--- NOTE | 2018-12-02 12:57 | XR ---
EXAMINATION TYPE: XR chest 1V portable DATE OF EXAM: 12/02/2018 Comparison: 12/02/2018 Clinical History: 88-year-old female shortness of breath Findings: Median sternotomy wires are present. Heart mildly enlarged. Redemonstrated diffuse interstitial densi ties and patchy densities greatest in the right mid and lower lung. Overall similar to slightly incre ased. Possible trace right effusion now. Impression: Cardiomegaly with diffuse interstitial densities and slightly increasing patchy airspace disease thro ughout the right lung. Correlate for worsening moderate CHF.
--- NOTE | 2018-12-02 15:14 | PN ---
PROGRESS NOTE Mrs. Maya is an 88-year-old female who was brought to the hospital with complaints of fever, chills, and shortness of breath. The patient was found to be hypoxic and wheezing. A chest x-ray was taken for possible aspiration pneumonia. The patient has been getting IV fluids. Patient developed increasing shortness of breath and diffuse expiratory wheezes and rhonchi. Seemed to be in acute respiratory distress. The patient was given IV Lasix 20 mg and a stat chest x-ray is requested. A pulmonary consult is also requested. LAB VALUES: From yesterday showed hemoglobin 9.4. Chest. x-ray this morning showed possible aspiration pneumonia. A repeat chest x-ray showed cardiomegaly with diffuse interstitial densities and slightly increasing patchy airspace disease throughout the right lung. Correlate for worsening moderate CHF. I also requested a pulmonary consult. Further recommendations depend upon the clinical course. IMPRESSION: 1. Worsening shortness of breath, could be secondary to combination of congestive heart failure and aspiration pneumonia. 2. Dementia. 3. Chronic kidney disease. 4. Hypertensive cardiovascular disease. PLAN: Will continue with IV Lasix and cut back IV fluids. Continue the antibiotics. Pulmonary consult. Further recommendations depend upon the clinical course. MMODL / IJN: [id number] /
[2018-12-02] MEDS ORDERED: IPRATROPIUM-ALBUTEROL 3 ML NEB INHALATION PRN (15:15)
--- NOTE | 2018-12-02 15:27 | P.CNPUL ---
History of Present Illness Consult date: 12/02/18 Requesting physician: Lalo Fields Jr Reason for consult: dyspnea, hypoxemia, pneumonia, abnormal CXR/CT Chief complaint: hypoxemic respiratory failure History of present illness: This 88-year-old white female patient of Dr. Hull, who resides at [facility], past medical history of CVA/TIA, dysphagia, dementia, hypertension, hyperlipidemia, myocardial infarction, chronic kidney disease stage III, MRSA infection in the urine, chronic artery disease with previous bypass grafting, who was brought into the hospital on 12/01/2018, for evaluation of fever, family, and hypoxia. Patient was suspected to have aspirated when she vomited, was febrile, and hypoxic, she was placed on supplemental oxygen 4 L, she is currently on 100% nonrebreather mask. Chest x-ray was completed which showed increasing right basilar opacity could represent infiltrate. Lab work showed WBC of 10.9, hemoglobin of 9.4, coagulation profile was within normal limits, electrolytes were normal, B1 is 25 creatinine 0.94, troponins were elevated to 0.059, 0.104, 0.068, 50s within normal limits, plasma lactic acid was 1.0, fluids and screen was negative, urinalysis was negative for any signs of infection. She was started on a combination of Zosyn, Levaquin and vancomycin for healthcare acquired pneumonia versus aspiration pneumonia. On today's follow-up chest x-ray stable cardiomegaly and COPD was normal, and persistent patchy infiltrate in the right mid and lower lung, and the chest x-ra y was done during the today, and showed diffuse interstitial densities and slightly increased patchy airspace disease throughout the right lung, suspicious for worsening CHF with right mid and lower lobe pneumonia. Addition patient went into A. fib RVR, patient is quite tachypneic, and is in moderate degree of respiratory distress. Status is DO NOT RESUSCITATE, but in view of hypoxemia, CHF, underlying aspiration pneumonia, and respiratory distress patient will be transferred to the intensive care unit for further management Review of Systems All systems: negative Constitutional: Denies chills, Denies fever Eyes: denies blurred vision, denies pain Ears, nose, mouth and throat: Denies headache, Denies sore throat Cardiovascular: Denies chest pain, Denies shortness of breath Respiratory: Reports congestion, Reports dyspnea, Denies cough Gastrointestinal: Denies abdominal pain, Denies diarrhea, Denies nausea, Denies vomiting Genitourinary: Denies dysuria, Denies hematuria Musculoskeletal: Denies myalgias Integumentary: Denies pruritus, Denies rash Neurological: Denies numbness, Denies weakness Psychiatric: Denies anxiety, Denies depression Endocrine: Denies fatigue, Denies weight change Past Medical History Past Medical History: Coronary Artery Disease (CAD), Cancer, Chest Pain / Angina, CVA/TIA, Dementia, Eye Disorder, Hearing Disorder / Deafness, Hyperlipidemia, Hypertension, Memory Impairment, Myocardial Infarction ([place]), Renal Disease, Syncope Additional Past Medical History / Comment(s): Pt recently admitted to [facility] on 11/18/18 with AMS, acutemetabolic encephalitis, dehydration, weakness, abdnormal thyroid function test. Other hx: Dementia with memory impairment, 2013 TIA, chronic kidney disease stage III, vertigo at times, UTI, past dasilva d/t skin issues, occasional back pain, skin cancer with removals, limited viosion in R eye, SELDOVIA bilaterally, constipation. Last Myocardial Infarction Date:: 1999 History of Any Multi-Drug Resistant Organisms: MRSA Date of last positivie culture/infection: 12/16/2014 MDRO Source:: Urine Past Surgical History: Appendectomy, Coronary Bypass/CABG, Heart Catheterization, Hysterectomy Additional Past Surgical History / Comment(s): 1999 CABG 4 vessel, lumbar laminectomy, skin cancer removals, bilateral cataract removals. Past Anesthesia/Blood Transfusion Reactions: No Reported Reaction Smoking Status: Former smoker - Past Family History Father Family Medical History: Diabetes Mellitus Daughter(s) Family Medical History: Cancer Additional Family Medical History / Comment(s): Daughter is under treatment for ovarian cancer Brother(s) Family Medical History: Cancer Medications and Allergies Home Medications Medication Instructions Recorded Confirmed Type Aspirin 81 mg PO DAILY@1700 10/26/17 12/01/18 History Bisacodyl 5 mg PO DAILY@0800 10/26/17 12/01/18 History Lisinopril-Hctz 10-12.5 mg 1 tab PO BID@0800,1700 10/26/17 12/01/18 History [Zestoretic 10-12.5] Multivit-Min/FA/Lycopen/Lutein 1 tab PO DAILY@1700 10/26/17 12/01/18 History [Centrum Silver Tablet] Super B Complex 1 cap PO DAILY@1700 10/26/17 12/01/18 History Bisacodyl [Dulcolax] 10 mg RECTAL DAILY PRN 12/01/18 12/01/18 History Cyanocobalamin [Vitamin B-12] 1,000 mcg PO DAILY@1700 12/01/18 12/01/18 History Donepezil [Aricept] 5 mg PO HS@2100 12/01/18 12/01/18 History Ferrous Sulfate [Feosol] 325 mg PO DAILY@1700 12/01/18 12/01/18 History Magnesium Hydroxide [Milk of 2,400 mg PO DAILY PRN 12/01/18 12/01/18 History Magnesia] Metoprolol Tartrate [Lopressor] 25 mg PO BID@0800,1700 12/01/18 12/01/18 History Na Phos,M-B/Na Phos,Di-Ba [Fleet 133 ml RECTAL DAILY PRN 12/01/18 12/01/18 History Adult] Sertraline [Zoloft] 25 mg PO DAILY@0800 12/01/18 12/01/18 History Allergies Allergy/AdvReac Type Severity Reaction Status Date / Time No Known Allergies Allergy Verified 12/01/18 06:47 Physical Exam Vitals: Vital Signs Temp Pulse Pulse Resp BP Pulse Ox 12/02/18 13:00 91 L 12/02/18 12:35 122 H 12/02/18 12:23 118 H 12/02/18 08:00 98.5 F 103 H 135/116 92 L 12/02/18 04:00 96 20 132/65 96 12/02/18 03:43 20 12/02/18 00:00 20 12/01/18 23:25 99.1 F 75 20 136/67 96 12/01/18 20:00 99.2 F 72 20 108/54 95 12/01/18 19:35 98.2 F 67 20 125/56 97 12/01/18 16:43 98.8 F 76 20 122/60 99 12/01/18 16:00 76 20 Intake and Output 12/01/18 12/02/18 12/02/18 22:59 06:59 14:59 Intake Total 240 100 Balance 240 100 Intake: Oral 240 100 Other: Voiding Method Diaper Diaper # Voids 1 1 2 # Bowel Movements 2 1 1 Weight 66 kg GENERAL EXAM: Alert, 88-year-old white female, on 100% nonrebreather mask, tachypneic, and moderate amount of respiratory distress, diaphoretic, satting 91% HEAD: Normocephalic/atraumatic. EYES: Normal reaction of pupils, equal size. Conjunctiva pink, sclera white. NOSE: Clear with pink turbinates. THROAT: No erythema or exudates. NECK: No masses, no JVD, no thyroid enlargement, no adenopathy. CHEST: No chest wall deformity. Symmetrical expansion. LUNGS: Equal air entry with audible congestion, diffuse rhonchi or rales CVS: Irregular rate and rhythm, normal S1 and S2, no gallops, no murmurs, no rubs ABDOMEN: Soft, nontender. No hepatosplenomegaly, normal bowel sounds, no guarding or rigidity. EXTREMITIES: No clubbing, no edema, no cyanosis, 2+ pulses and upper and lower extremities. MUSCULOSKELETAL: Muscle strength and tone normal. SPINE: No scoliosis or deformity SKIN: No rashes CENTRAL NERVOUS SYSTEM: Alert and oriented -3. No focal deficits, tone is normal in all 4 extremities. PSYCHIATRIC: Alert and oriented -3. Appropriate affect. Intact judgment and insight. Results - Laboratory Findings CBC and BMP: 12/01/18 05:27 12/01/18 05:27 PT/INR, D-dimer PT 11.2 sec (9.0-12.0) 12/01/18 05:27 INR 1.1 (<1.2) 12/01/18 05:27 Abnormal lab findings: Abnormal Labs 12/01/18 12/01/18 12/01/18 05:27 05:27 05:27 WBC 10.9 H RBC 2.89 L Hgb 9.4 L Hct 29.2 L MCV 101.0 H RDW 17.6 H Neutrophils # 9.6 H Lymphocytes # 0.6 L BUN 25 H Glucose 169 H POC Glucose (mg/dL) Troponin I 0.059 H* Urine Protein Amorphous Sediment Urine Bacteria Hyaline Casts 12/01/18 12/01/18 12/01/18 05:50 10:54 17:50 WBC RBC Hgb Hct MCV RDW Neutrophils # Lymphocytes # BUN Glucose POC Glucose (mg/dL) Troponin I 0.104 H* 0.068 H* Urine Protein 1+ H Amorphous Sediment Rare H Urine Bacteria Rare H Hyaline Casts 3 H 12/02/18 12:14 WBC RBC Hgb Hct MCV RDW Neutrophils # Lymphocytes # BUN Glucose POC Glucose (mg/dL) 219 H Troponin I Urine Protein Amorphous Sediment Urine Bacteria Hyaline Casts - Diagnostic Findings Chest x-ray: report reviewed, image reviewed Additional studies: Modified barium swallow results, EKG reviewed Assessment and Plan Plan: Assessment: #1. Acute hypoxemic respiratory failure secondary to acute aspiration pneumonia, and acute exacerbation of congestive heart failure with previously documented systolic dysfunction #2. A. fib RVR #3. Elevated troponins, rule out non-ST elevated [place] #4. Dysphagia, modified barium swallow showed deep laryngeal penetration with honey thick and nectar thick consistencies, and some aspiration with thin liquid consistency #5. History Of CVA/TIA #6. Dementia #7. Hypertension, hyperlipidemia #8. Myocardial infarction #9. Chronic kidney disease, stage III #10. Coronary artery disease with previous history of bypass grafting #11. Resident of a intermediate Plan: Continue current antibiotic coverage, patient will be moved to the intensive care unit, and placed on BiPAP support, her CODE STATUS is DO NOT RESUSCITATE, she is in [id number] amount of respiratory distress, we will continue IV diuretics, 40 mg daily 8 hours, GI and DVT prophylaxis. We'll start small dose of IV Cardizem 5 mg per hour, for rate control, consult cardiology. Modified barium swallow results were noted, and patient will remain nothing by mouth for now. I performed a history & physical examination of the patient and discussed their management with my nurse practitioner, Jacqueline Peters. I reviewed the nurse practitioner's note and agree with the documented findings and plan of care. Lung sounds are positive for diffuse rhonchi and rales. The findings and the impression was discussed with the patient. I attest to the documentation by the nurse practitioner. Time with Patient: Greater than 30
[2018-12-02 15:28] LABS: Glucose,Whole Blood 220 mg/dL (75-99)
[2018-12-02] MEDS ORDERED: ACETAMINOPHEN IV (For NPO) 1,000 MG in EMPTY BAG 1 BAG IVPB STA (15:33)
[2018-12-02] MEDS ORDERED: NALOXONE 0.4 MG/ML 1 ML VIAL IV PRN (15:34)
[2018-12-02] MEDS ORDERED: niCARdipine 20 MG in SODIUM CHLORIDE 0.9% 192 ML IV ONE (15:45)
[2018-12-02] MEDS: IPRATROPIUM-ALBUTEROL 3 ML NEB INHALATION SCH ×2 (15:50→20:01)
[2018-12-02 16:02] LABS: Anisocytosis Slight; Basophils % (A) 0 %; Eosinophils # (A) 0.1 k/uL (0-0.7); Eosinophils % (A) 1 %; HCT 31.6 % (34.0-46.0); HGB 9.4 gm/dL (11.4-16.0); Hypochromasia Marked; Lymphocytes # (A) 0.4 k/uL (1.0-4.8); Lymphocytes % (A) 3 %; MCH 30.8 pg (25.0-35.0); MCHC 29.8 g/dL (31.0-37.0); MCV 103.6 fL (80.0-100.0); Macrocytosis Moderate; Mean Platelet Volume 8.2; Monocytes # (A) 0.3 k/uL (0-1.0); Monocytes % (A) 2 %; Neutrophils # (A) 13.8 k/uL (1.3-7.7); Neutrophils % (A) 93 %; Platelet Count 316 k/uL (150-450); Poikilocytosis Slight; RBC 3.05 m/uL (3.80-5.40); RDW 17.6 % (11.5-15.5); WBC 14.8 k/uL (3.8-10.6)
[2018-12-02] MEDS: FERROUS SULFATE 325 MG TAB PO SCH (16:09)
[2018-12-02] MEDS: CYANOCOBALAMIN 500 MCG TAB PO SCH (16:09)
[2018-12-02] MEDS: MULTIVITAMINS, THERA 1 EACH TAB PO SCH (16:09)
[2018-12-02] MEDS: ASPIRIN 81 MG PO SCH (16:09)
[2018-12-02 16:12] LABS: Albumin 3.5 g/dL (3.5-5.0); Calcium 8.8 mg/dL (8.4-10.2); Magnesium 1.6 mg/dL (1.6-2.3); Phosphorus 4.9 mg/dL (2.5-4.5); Total Protein 6.8 g/dL (6.3-8.2)
[2018-12-02] MEDS: FUROSEMIDE 10 MG/ML 4 ML VIAL IV SCH ×2 (18:04→23:45)
[2018-12-02 18:13] LABS: Glucose,Whole Blood 194 mg/dL (75-99)
[2018-12-02] MEDS: INSULIN ASPART (NovoLOG) 100 UNIT/ML VIAL SQ SCH ×2 (18:15→23:45)
[2018-12-02] MEDS ORDERED: Magnesium Replacement Protocol 1 EACH MISC MISCELLANE PRN (18:17)
--- NOTE | 2018-12-02 18:17 | P.PN ---
Subjective Progress Note Date: 12/02/18 Principal diagnosis: Respiratory failure, probable aspiration A 8-year-old white female patient Dr. Hull's resides at [facility], was readmitted to the hospital with possible aspiration pneumonia past medical history of CVA TIA despite. 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, chronic arterial disease with previous bypass grafting was brought in with fever and hypoxia via the emergency room started on antibiotics including Zosyn and vancomycin for hospital-acquired pneumonia, patient has persistent patchy infiltrate x-ray versus aspiration pneumonia patient worsened over the evening and was transferred to the intensive care unit last night, patient is currently a DO NOT RESUSCITATE by the hypoxemia CHF and underlying aspiration pneumonia and patient's worsening state cause for patient to be moved to the intensive care unit Objective - Vital Signs Vital signs: Vital Signs Temp 100.8 F H 12/02/18 16:00 Pulse 105 H 12/02/18 17:00 Resp 28 H 12/02/18 17:00 BP 101/56 12/02/18 17:00 Pulse Ox 99 12/02/18 17:00 Intake & Output 12/01/18 12/02/18 12/02/18 18:59 06:59 18:59 Intake Total 240 220 Output Total 200 Balance 240 20 Weight 83.915 kg 66 kg Intake: IV 120 ACETAMINOPHEN IV (For NPO 100 ) 1,000 mg In Empty Bag 1 bag @ 400 mls/hr IVPB ONCE STA Rx#:[id number] KVO 20 Oral 240 100 Output: Urine 200 Other: Voiding Method Diaper Diaper Incontinent # Voids 1 1 2 # Bowel Movements 2 1 1 - Exam General: [Patient awake, alert and oriented times 3. Patient mild respiratory distress HEENT: [PERRL. EOMI. No pharyngeal erythema or exudate.] Neck: [No adenopathy.] Cardiac: [Heart regular in rate and rhythm. No S3. No S4. No clicks, rubs. No murmur.] Lungs: Coarse breath sounds although diminished audible congestion diffuse rhonchi throughout Abdomen: [No mass. No organomegaly. Bowel sounds presnt and normoactive in all 4 quadrants.] Extremes: [No edema no cyanosis no claudication normal pulses] : [] Musculoskeletal: [No joint erythema, edema or tenderness.] Skin: [No rash.] Neurologic: [No lateralizing deficits. CN II - XII grossly intact.] Lymphatic: [No adenopathy.] - Labs CBC & Chem 7: 12/02/18 15:41 12/02/18 15:41 Labs: Abnormal Lab Results - Last 24 Hours (Table) 12/01/18 12/02/18 12/02/18 Range/Units 17:50 12:14 15:23 WBC (3.8-10.6) k/uL RBC (3.80-5.40) m/uL Hgb (11.4-16.0) gm/dL Hct (34.0-46.0) % MCV (80.0-100.0) fL MCHC (31.0-37.0) g/dL RDW (11.5-15.5) % Neutrophils # (1.3-7.7) k/uL Lymphocytes # (1.0-4.8) k/uL Chloride (98-107) mmol/L Carbon Dioxide (22-30) mmol/L BUN (7-17) mg/dL Creatinine (0.52-1.04) mg/dL Glucose (74-99) mg/dL POC Glucose (mg/dL) 219 H 220 H (75-99) mg/dL Phosphorus (2.5-4.5) mg/dL AST (14-36) U/L ALT (9-52) U/L Troponin I 0.068 H* (0.000-0.034) ng/mL 12/02/18 12/02/18 Range/Units 15:41 15:41 WBC 14.8 H (3.8-10.6) k/uL RBC 3.05 L (3.80-5.40) m/uL Hgb 9.4 L (11.4-16.0) gm/dL Hct 31.6 L (34.0-46.0) % MCV 103.6 H (80.0-100.0) fL MCHC 29.8 L (31.0-37.0) g/dL RDW 17.6 H (11.5-15.5) % Neutrophils # 13.8 H (1.3-7.7) k/uL Lymphocytes # 0.4 L (1.0-4.8) k/uL Chloride 109 H (98-107) mmol/L Carbon Dioxide 20 L (22-30) mmol/L BUN 29 H (7-17) mg/dL Creatinine 1.35 H (0.52-1.04) mg/dL Glucose 197 H (74-99) mg/dL POC Glucose (mg/dL) (75-99) mg/dL Phosphorus 4.9 H (2.5-4.5) mg/dL AST 258 H (14-36) U/L ALT 168 H (9-52) U/L Troponin I (0.000-0.034) ng/mL Microbiology - Last 24 Hours (Table) 12/01/18 05:50 Urine Culture - Final Urine,Clean Catch 12/01/18 05:37 Blood Culture - Preliminary Blood No Growth after 24 hours 12/01/18 05:27 Blood Culture - Preliminary Blood No Growth after 24 hours Assessment and Plan (1) Altered mental status Current Visit: Yes Status: Acute Code(s): R41.82 - ALTERED MENTAL STATUS, UNSPECIFIED SNOMED Code(s): 634401113 (2) Aspiration pneumonia Current Visit: Yes Status: Acute Code(s): J69.0 - PNEUMONITIS DUE TO INHALATION OF FOOD AND VOMIT SNOMED Code(s): 266048630 (3) Dehydration Current Visit: No Status: Acute Code(s): E86.0 - DEHYDRATION SNOMED Code(s): 64942996 Plan: Patient is asleep but arousable Low-grade fever noted patient is currently on Zosyn and vancomycin IV for possible aspiration pneumonia Hypoxemic respiratory failure secondary to acute aspiration pneumonia A. fib with RVR Elevated troponins Discharge modified barium enema performed yesterday showed deep laryngeal penetration with honey thick nectar thick thick consistencies some aspiration with thin liquid consistency CVA TIA by history Dementia by history Hypertension hyperlipidemia by history Old myocardial infarction by history Chronic kidney disease stage III by history Recent usp resident by history Plan at this time continue current antibiotic coverage patient was moved to the intensive care unit placed on BiPAP DO NOT RESUSCITATE code was kept in place we'll continue IV diuretics GI and DVT prophylaxis will start small dose of IV Cardizem 5 per hour for rate control per intensive care unit personnel Time with Patient: Greater than 30
[2018-12-02] MEDS: MAGNESIUM SULFATE-D5W PMX 1 GM in DEXTROSE/WATER 1 100ML.BAG IVPB SCH ×2 (18:32→19:52)
[2018-12-02] MEDS: DONEPEZIL 5 MG TAB PO SCH (19:54)
[2018-12-02 23:42] LABS: Glucose,Whole Blood 200 mg/dL (75-99)
[2018-12-03] MEDS: IPRATROPIUM-ALBUTEROL 3 ML NEB INHALATION SCH ×6 (00:15→19:19)
[2018-12-03 04:29] LABS: Anisocytosis Slight; Basophils % (A) 0 %; Eosinophils # (A) 0.1 k/uL (0-0.7); Eosinophils % (A) 0 %; HCT 31.9 % (34.0-46.0); HGB 9.7 gm/dL (11.4-16.0); Hypochromasia Moderate; Lymphocytes # (A) 0.6 k/uL (1.0-4.8); Lymphocytes % (A) 3 %; MCH 30.8 pg (25.0-35.0); MCHC 30.2 g/dL (31.0-37.0); Macrocytosis Moderate; Mean Platelet Volume 8.7; Monocytes # (A) 0.4 k/uL (0-1.0); Monocytes % (A) 2 %; Neutrophils # (A) 15.8 k/uL (1.3-7.7); Neutrophils % (A) 94 %; Platelet Count 262 k/uL (150-450); Poikilocytosis Slight; RBC 3.13 m/uL (3.80-5.40); RDW 18.1 % (11.5-15.5); WBC 16.9 k/uL (3.8-10.6)
[2018-12-03 04:39] LABS: Albumin 3.7 g/dL (3.5-5.0); Calcium 9.3 mg/dL (8.4-10.2); Magnesium 2.1 mg/dL (1.6-2.3); Phosphorus 3.7 mg/dL (2.5-4.5); Potassium 3.7 mmol/L (3.5-5.1); Total Bilirubin 0.9 mg/dL (0.2-1.3); Total Protein 7.4 g/dL (6.3-8.2)
[2018-12-03] MEDS ORDERED: ACETAMINOPHEN IV (For NPO) 1,000 MG in EMPTY BAG 1 BAG IVPB ONE (05:05)
[2018-12-03] MEDS: VANCOMYCIN 1,500 MG in SODIUM CHLORIDE 0.9% 250 ML IVPB SCH (05:32)
[2018-12-03 06:01] LABS: Glucose,Whole Blood 157 mg/dL (75-99)
[2018-12-03] MEDS ORDERED: Potassium Replacement Protocol 1 EACH MISC MISCELLANE PRN (06:07)
[2018-12-03] MEDS: INSULIN ASPART (NovoLOG) 100 UNIT/ML VIAL SQ SCH ×3 (06:14→18:23)
[2018-12-03] MEDS: POTASSIUM CHLORIDE 10 MEQ in WATER FOR INJECTION 1 100ML.BAG IVPB SCH ×2 (06:14→07:34)
[2018-12-03] MEDS: FUROSEMIDE 10 MG/ML 4 ML VIAL IV SCH ×2 (07:34→20:26)
[2018-12-03] MEDS ORDERED: LEVOFLOXACIN 750 MG TAB PO SCH (09:00)
[2018-12-03] MEDS: BISACODYL 5 MG TABLET.DR PO SCH (09:05)
[2018-12-03] MEDS: SERTRALINE 25 MG TAB PO SCH (09:05)
[2018-12-03] MEDS: LISINOPRIL-HCTZ 10-12.5 MG 1 EACH TAB PO SCH ×2 (09:05→17:03)
[2018-12-03] MEDS: METOPROLOL TARTRATE 25 MG TAB PO SCH ×2 (09:05→17:03)
[2018-12-03] MEDS: PIPERACILLIN-TAZOBACTAM 3.375 GM in SODIUM CHLORIDE 0.9% 100 ML IVPB SCH ×2 (09:16→17:44)
[2018-12-03] MEDS: PANTOPRAZOLE 40 MG/10 ML VIAL IV SCH (09:16)
--- NOTE | 2018-12-03 09:47 | XR ---
EXAMINATION TYPE: XR chest 1V DATE OF EXAM: 12/03/2018 COMPARISON: 12/02/2018 HISTORY: Shortness of breath TECHNIQUE: Single frontal view of the chest is obtained. FINDINGS: There is a right basilar opacity with small layering right pleural effusion. Cardia medias tinal silhouette is enlarged with postoperative changes the chest. No sizable pneumothorax. Osseous s tructures display generalized demineralization. Extensive left humeral arthropathy is noted. IMPRESSION: Right basilar airspace disease suspicious for pneumonia with a small right parapneumonic effusion. Alternatively this could relate to confluent pulmonary edema as recent findings of congest [place]onna heart failure were seen.
--- NOTE | 2018-12-03 10:12 | P.PN ---
Subjective Progress Note Date: 12/03/18 Principal diagnosis: Hypoxemic arrest or failure, pneumonia, CHF This 88-year-old white female patient of Dr. Hlul, who resides at [facility] and rehab, past medical history of CVA/TIA, dysphagia, dementia, hypertension, hyperlipidemia, myocardial infarction, chronic kidney disease stage III, MRSA infection in the urine, chronic artery disease with previous bypass grafting, who was brought into the hospital on 12/01/2018, for evaluation of fever, family, and hypoxia. Patient was suspected to have aspirated when she vomited, was febrile, and hypoxic, she was placed on supplemental oxygen 4 L, she is currently on 100% nonrebreather mask. Chest x-ray was completed which showed increasing right basilar opacity could represent infiltrate. Lab work showed WBC of 10.9, hemoglobin of 9.4, coagulation profile was within normal limits, electrolytes were normal, B1 is 25 creatinine 0.94, troponins were elevated to 0.059, 0.104, 0.068, 50s within normal limits, plasma lactic acid was 1.0, fluids and screen was negative, urinalysis was negative for any signs of infection. She was started on a combination of Zosyn, Levaquin and vancomycin for healthcare acquired pneumonia versus aspiration pneumonia. On today's follow-up chest x-ray stable cardiomegaly and COPD was normal, and persistent patchy infiltrate in the right mid and lower lung, and the chest x-ra y was done during the today, and showed diffuse interstitial densities and slightly increased patchy airspace disease throughout the right lung, suspicious for worsening CHF with right mid and lower lobe pneumonia. Addition patient went into A. fib RVR, patient is quite tachypneic, and is in moderate degree of respiratory distress. Status is DO NOT RESUSCITATE, but in view of hypoxemia, CHF, underlying aspiration pneumonia, and respiratory distress patient will be transferred to the intensive care unit for further management On 2018 patient seen in follow-up in the intensive care unit, she is much less dyspneic today, she is remains on BiPAP with pressures of 12 and 5, and FiO2 of 60%, with a pulse ox of 98%, afebrile. States the mask is uncomfortable, and would like to be given a trial of nasal cannula, no use of accessory muscles of breathing, she is a lot more comfortable today, today's lab work has been reviewed, shows white blood cell, 16.9, hemoglobin of 9.7, fluctu ance of within normal limits, BUN is 35 creatinine is 1.76, plasma lactic acid is 2.4, patient is hemodynamically stable, skin is dry and warm. Mentation has improved, patient of underlying dementia, but is able to make her needs known. We'll to produce a sputum specimen for culture, but blood and urine cultures showed no growth, currently on antibiotic coverage including Zosyn, Levaquin and vancomycin. 6 her has been reviewed with Dr. Tijerina, and shows improvement in the appearance of right mid and lower lobe infiltrates, and interstitial changes. Patient is on IV Lasix, she is in -725 mL fluid balance. Lung sounds reveal bronchial breath sounds and some crackles over right mid and lower lobe, no significant wheezing. Objective - Vital Signs Vital signs: Vital Signs Temp 97.4 F L 12/03/18 08:00 Pulse 106 H 12/03/18 09:00 Resp 30 H 12/03/18 09:00 BP 120/56 12/03/18 09:00 Pulse Ox 98 12/03/18 09:00 Intake & Output 12/02/18 12/03/18 12/03/18 18:59 06:59 18:59 Intake Total 240 660 230 Output Total 255 1370 245 Balance -15 - -15 Weight 66 kg Intake: IV 140 660 230 ACETAMINOPHEN IV (For NPO 100 100 ) 1,000 mg In Empty Bag 1 bag @ 400 mls/hr IVPB ONCE [facility] Rx#:[id number] KVO 40 110 30 Magnesium Sulfate-D5w Pmx 100 1 gm In Dextrose/Water 1 100ml.bag @ 100 mls/hr IVPB Q1H [facility] Rx#: [id number] Piperacillin-Tazobactam 3 100 .375 gm In Sodium Chloride 0.9% 100 ml @ 25 mls/hr IVPB Q8H [facility] Rx#: [id number] Potassium Chloride 10 meq 200 In Water For Injection 1 100ml.bag @ 100 mls/hr IVPB Q1H [facility] Rx#: [id number] Vancomycin 1,500 mg In 250 Sodium Chloride 0.9% 250 ml @ 125 mls/hr IVPB Q24H [facility] Rx#:[id number] Oral 100 Output: Urine 255 1370 245 Other: Voiding Method Incontinent Indwelling Catheter Indwelling Catheter # Voids 2 # Bowel Movements 1 - Exam GENERAL EXAM: Alert, 88-year-old white female, BiPAP, with pressures of 12 and 5, and FiO2 of 60%, with pulse ox of 98%,, comfortable,of accessory muscles of breathing, requesting to have the BiPAP mask to be removed HEAD: Normocephalic/atraumatic. EYES: Normal reaction of pupils, equal size. Conjunctiva pink, sclera white. NOSE: Clear with pink turbinates. THROAT: No erythema or exudates. NECK: No masses, no JVD, no thyroid enlargement, no adenopathy. CHEST: No chest wall deformity. Symmetrical expansion. LUNGS: Equal air entry with coarse crackles, bronchial sounds over right lung CVS: Irregular rate and rhythm, normal S1 and S2, no gallops, no murmurs, no rubs ABDOMEN: Soft, nontender. No hepatosplenomegaly, normal bowel sounds, no guarding or rigidity. EXTREMITIES: No clubbing, no edema, no cyanosis, 2+ pulses and upper and lower extremities. MUSCULOSKELETAL: Muscle strength and tone normal. SPINE: No scoliosis or deformity SKIN: No rashes CENTRAL NERVOUS SYSTEM: Alert and oriented -3. No focal deficits, tone is normal in all 4 extremities. PSYCHIATRIC: Alert and oriented -3. Appropriate affect. Intact judgment and insight. - Labs CBC & Chem 7: 12/03/18 04:13 12/03/18 04:13 Labs: Abnormal Lab Results - Last 24 Hours (Table) 12/02/18 12/02/18 12/02/18 Range/Units 12:14 15:23 15:41 WBC 14.8 H (3.8-10.6) k/uL RBC 3.05 L (3.80-5.40) m/uL Hgb 9.4 L (11.4-16.0) gm/dL Hct 31.6 L (34.0-46.0) % MCV 103.6 H (80.0-100.0) fL MCHC 29.8 L (31.0-37.0) g/dL RDW 17.6 H (11.5-15.5) % Neutrophils # 13.8 H (1.3-7.7) k/uL Lymphocytes # 0.4 L (1.0-4.8) k/uL Chloride (98-107) mmol/L Carbon Dioxide (22-30) mmol/L BUN (7-17) mg/dL Creatinine (0.52-1.04) mg/dL Glucose (74-99) mg/dL POC Glucose (mg/dL) 219 H 220 H (75-99) mg/dL Plasma Lactic Acid Cruz (0.7-2.0) mmol/L Phosphorus (2.5-4.5) mg/dL AST (14-36) U/L ALT (9-52) U/L 12/02/18 12/02/18 12/02/18 Range/Units 15:41 18:10 23:39 WBC (3.8-10.6) k/uL RBC (3.80-5.40) m/uL Hgb (11.4-16.0) gm/dL Hct (34.0-46.0) % MCV (80.0-100.0) fL MCHC (31.0-37.0) g/dL RDW (11.5-15.5) % Neutrophils # (1.3-7.7) k/uL Lymphocytes # (1.0-4.8) k/uL Chloride 109 H (98-107) mmol/L Carbon Dioxide 20 L (22-30) mmol/L BUN 29 H (7-17) mg/dL Creatinine 1.35 H (0.52-1.04) mg/dL Glucose 197 H (74-99) mg/dL POC Glucose (mg/dL) 194 H 200 H (75-99) mg/dL Plasma Lactic Acid Cruz (0.7-2.0) mmol/L Phosphorus 4.9 H (2.5-4.5) mg/dL AST 258 H (14-36) U/L ALT 168 H (9-52) U/L 12/03/18 12/03/18 12/03/18 Range/Units 04:13 04:13 04:13 WBC 16.9 H (3.8-10.6) k/uL RBC 3.13 L (3.80-5.40) m/uL Hgb 9.7 L (11.4-16.0) gm/dL Hct 31.9 L (34.0-46.0) % MCV 102.0 H (80.0-100.0) fL MCHC 30.2 L (31.0-37.0) g/dL RDW 18.1 H (11.5-15.5) % Neutrophils # 15.8 H (1.3-7.7) k/uL Lymphocytes # 0.6 L (1.0-4.8) k/uL Chloride (98-107) mmol/L Carbon Dioxide (22-30) mmol/L BUN 35 H (7-17) mg/dL Creatinine 1.76 H (0.52-1.04) mg/dL Glucose 133 H (74-99) mg/dL POC Glucose (mg/dL) (75-99) mg/dL Plasma Lactic Acid Cruz 2.4 H* (0.7-2.0) mmol/L Phosphorus (2.5-4.5) mg/dL AST 167 H (14-36) U/L ALT 164 H (9-52) U/L 12/03/18 Range/Units 05:59 WBC (3.8-10.6) k/uL RBC (3.80-5.40) m/uL Hgb (11.4-16.0) gm/dL Hct (34.0-46.0) % MCV (80.0-100.0) fL MCHC (31.0-37.0) g/dL RDW (11.5-15.5) % Neutrophils # (1.3-7.7) k/uL Lymphocytes # (1.0-4.8) k/uL Chloride (98-107) mmol/L Carbon Dioxide (22-30) mmol/L BUN (7-17) mg/dL Creatinine (0.52-1.04) mg/dL Glucose (74-99) mg/dL POC Glucose (mg/dL) 157 H (75-99) mg/dL Plasma Lactic Acid Cruz (0.7-2.0) mmol/L Phosphorus (2.5-4.5) mg/dL AST (14-36) U/L ALT (9-52) U/L Microbiology - Last 24 Hours (Table) 12/01/18 05:37 Blood Culture - Preliminary Blood No Growth after 48 hours 12/01/18 05:27 Blood Culture - Preliminary Blood No Growth after 48 hours 12/01/18 05:50 Urine Culture - Final Urine,Clean Catch Assessment and Plan Plan: Assessment: #1. Acute hypoxemic respiratory failure secondary to acute aspiration pneumonia, and acute exacerbation of congestive heart failure with previously documented systolic dysfunction #2. A. fib RVR, currently in sinus rhythm with PACs, and Cardizem drip never had to be started #3. Elevated troponins, rule out non-ST elevated PA #4. Dysphagia, modified barium swallow showed deep laryngeal penetration with honey thick and nectar thick consistencies, and some aspiration with thin liquid consistency #5. History Of CVA/TIA #6. Dementia #7. Hypertension, hyperlipidemia #8. Myocardial infarction #9. Chronic kidney disease, stage III #10. Coronary artery disease with previous history of bypass grafting #11. Resident of a prison #12. Mild elevation of lactic acid, no evidence of hypoperfusion, hemodynamically patient is stable, mentation has actually improved compared to yesterday, skin is warm and dry, cap refill is less than 3 seconds. Plan: Given the patient a trial of nasal cannula, she is in negative fluid balance, today's chest x-ray shows improvement in the appearance of right lung airspace disease, and interstitial edema. No fever or chills, we'll discontinue vancomycin and Levaquin, continue with Zosyn for antibiotic coverage, senna sputum specimen if able to collect. Hemodynamically patient is stable, nonoliguric. We will have to speak to the family in regards to patient's dysphagia, and failing of the modified barium swallow. Will ask for their guidance in terms of PEG tube placement. Continue with nothing by mouth status for now. I performed a history & physical examination of the patient and discussed their management with my nurse practitioner, Jacqueline Peters. I reviewed the nurse practitioner's note and agree with the documented findings and plan of care. Lung sounds are positive for diffuse rhonchi and rales. The findings and the impression was discussed with the patient. I attest to the documentation by the nurse practitioner. Time with Patient: Less than 30
[2018-12-03 12:08] LABS: Glucose,Whole Blood 143 mg/dL (75-99)
--- NOTE | 2018-12-03 12:20 | P.PN ---
Subjective Progress Note Date: 12/03/18 This 85-year-old female was admitted to the hospital with respiratory difficulties and possible aspiration pneumonia. Patient was getting IV fluids. Yesterday afternoon. Patient developed worsening of her this patient is status. Patient was transferred to intensive care unit. Her IV fluids were cut off and patient was given IV Lasix. Patient was also put on antibiotics and BiPAP. Patient is looking much better today. Chest x-ray shows improvement in the right middle lobe infiltrate. Most part. Patient had combination of CHF and also aspiration pneumonia. Patient is clinically looking better. We'll continue current medical therapy. Her creatinine has gone up to 1.76. We'll continue to monitor kidney function closely Objective - Vital Signs Vital signs: Vital Signs Temp 97.4 F L 12/03/18 08:00 Pulse 98 12/03/18 11:39 Resp 20 12/03/18 11:00 BP 125/47 12/03/18 11:00 Pulse Ox 97 12/03/18 11:00 Intake & Output 12/02/18 12/03/18 12/03/18 18:59 06:59 18:59 Intake Total 240 660 265 Output Total 255 1370 480 Balance -15 -710 -215 Weight 66 kg 66 kg Intake: IV 140 660 265 ACETAMINOPHEN IV (For NPO 100 100 ) 1,000 mg In Empty Bag 1 bag @ 400 mls/hr IVPB ONCE [facility] Rx#:[id number] KVO 40 110 40 Magnesium Sulfate-D5w Pmx 100 1 gm In Dextrose/Water 1 100ml.bag @ 100 mls/hr IVPB Q1H [facility] Rx#: [id number] Piperacillin-Tazobactam 3 100 25 .375 gm In Sodium Chloride 0.9% 100 ml @ 25 mls/hr IVPB Q8H [facility] Rx#: [id number] Potassium Chloride 10 meq 200 In Water For Injection 1 100ml.bag @ 100 mls/hr IVPB Q1H [facility] Rx#: [id number] Vancomycin 1,500 mg In 250 Sodium Chloride 0.9% 250 ml @ 125 mls/hr IVPB Q24H [facility] Rx#:[id number] Oral 100 Output: Urine 255 1370 480 Other: Voiding Method Incontinent Indwelling Catheter Indwelling Catheter # Voids 2 # Bowel Movements 1 - Exam GENERAL EXAM: Patient is alert and oriented and doesn't appear to be in any acute distress HEENT: Normocephalic. Normal reaction of pupils, equal size, normal range of extraocular motion. No erythema or exudates in the throat. NECK: No masses, no nuchal rigidity. CHEST: No chest wall deformity. LUNGS: Bronchial breath sounds on the right side HEART: S1 and S2 normal with no audible mumurs or gallops. Regular rhythm, femorals equal on both sides.. ABDOMEN: No hepatosplenomegaly, normal bowel sounds, no guarding or rigidity. SKIN: No rashes CENTRAL NERVOUS SYSTEM: No focal deficits. EXTREMITIES: No cyanosis, clubbing or edema. - Labs CBC & Chem 7: 12/03/18 04:13 12/03/18 04:13 Labs: Abnormal Lab Results - Last 24 Hours (Table) 12/02/18 12/02/18 12/02/18 Range/Units 12:14 15:23 15:41 WBC 14.8 H (3.8-10.6) k/uL RBC 3.05 L (3.80-5.40) m/uL Hgb 9.4 L (11.4-16.0) gm/dL Hct 31.6 L (34.0-46.0) % MCV 103.6 H (80.0-100.0) fL MCHC 29.8 L (31.0-37.0) g/dL RDW 17.6 H (11.5-15.5) % Neutrophils # 13.8 H (1.3-7.7) k/uL Lymphocytes # 0.4 L (1.0-4.8) k/uL Chloride (98-107) mmol/L Carbon Dioxide (22-30) mmol/L BUN (7-17) mg/dL Creatinine (0.52-1.04) mg/dL Glucose (74-99) mg/dL POC Glucose (mg/dL) 219 H 220 H (75-99) mg/dL Plasma Lactic Acid Cruz (0.7-2.0) mmol/L Phosphorus (2.5-4.5) mg/dL AST (14-36) U/L ALT (9-52) U/L 12/02/18 12/02/18 12/02/18 Range/Units 15:41 18:10 23:39 WBC (3.8-10.6) k/uL RBC (3.80-5.40) m/uL Hgb (11.4-16.0) gm/dL Hct (34.0-46.0) % MCV (80.0-100.0) fL MCHC (31.0-37.0) g/dL RDW (11.5-15.5) % Neutrophils # (1.3-7.7) k/uL Lymphocytes # (1.0-4.8) k/uL Chloride 109 H (98-107) mmol/L Carbon Dioxide 20 L (22-30) mmol/L BUN 29 H (7-17) mg/dL Creatinine 1.35 H (0.52-1.04) mg/dL Glucose 197 H (74-99) mg/dL POC Glucose (mg/dL) 194 H 200 H (75-99) mg/dL Plasma Lactic Acid Cruz (0.7-2.0) mmol/L Phosphorus 4.9 H (2.5-4.5) mg/dL AST 258 H (14-36) U/L ALT 168 H (9-52) U/L 12/03/18 12/03/18 12/03/18 Range/Units 04:13 04:13 04:13 WBC 16.9 H (3.8-10.6) k/uL RBC 3.13 L (3.80-5.40) m/uL Hgb 9.7 L (11.4-16.0) gm/dL Hct 31.9 L (34.0-46.0) % MCV 102.0 H (80.0-100.0) fL MCHC 30.2 L (31.0-37.0) g/dL RDW 18.1 H (11.5-15.5) % Neutrophils # 15.8 H (1.3-7.7) k/uL Lymphocytes # 0.6 L (1.0-4.8) k/uL Chloride (98-107) mmol/L Carbon Dioxide (22-30) mmol/L BUN 35 H (7-17) mg/dL Creatinine 1.76 H (0.52-1.04) mg/dL Glucose 133 H (74-99) mg/dL POC Glucose (mg/dL) (75-99) mg/dL Plasma Lactic Acid Cruz 2.4 H* (0.7-2.0) mmol/L Phosphorus (2.5-4.5) mg/dL AST 167 H (14-36) U/L ALT 164 H (9-52) U/L 12/03/18 12/03/18 Range/Units 05:59 12:04 WBC (3.8-10.6) k/uL RBC (3.80-5.40) m/uL Hgb (11.4-16.0) gm/dL Hct (34.0-46.0) % MCV (80.0-100.0) fL MCHC (31.0-37.0) g/dL RDW (11.5-15.5) % Neutrophils # (1.3-7.7) k/uL Lymphocytes # (1.0-4.8) k/uL Chloride (98-107) mmol/L Carbon Dioxide (22-30) mmol/L BUN (7-17) mg/dL Creatinine (0.52-1.04) mg/dL Glucose (74-99) mg/dL POC Glucose (mg/dL) 157 H 143 H (75-99) mg/dL Plasma Lactic Acid Cruz (0.7-2.0) mmol/L Phosphorus (2.5-4.5) mg/dL AST (14-36) U/L ALT (9-52) U/L Microbiology - Last 24 Hours (Table) 12/01/18 05:37 Blood Culture - Preliminary Blood No Growth after 48 hours 12/01/18 05:27 Blood Culture - Preliminary Blood No Growth after 48 hours 12/01/18 05:50 Urine Culture - Final Urine,Clean Catch Assessment and Plan (1) History of coronary artery disease Current Visit: Yes Status: Acute Code(s): Z86.79 - PERSONAL HISTORY OF OTHER DISEASES OF THE CIRCULATORY SYSTEM SNOMED Code(s): 476828256 (2) Aspiration pneumonia Current Visit: Yes Status: Acute Code(s): J69.0 - PNEUMONITIS DUE TO INHALATION OF FOOD AND VOMIT SNOMED Code(s): 583900155 (3) Chronic kidney disease Current Visit: No Status: Acute Code(s): N18.9 - CHRONIC KIDNEY DISEASE, UNSPECIFIED SNOMED Code(s): 878138394 (4) Dementia Current Visit: No Status: Acute Code(s): F03.90 - UNSPECIFIED DEMENTIA WITHOUT BEHAVIORAL DISTURBANCE SNOMED Code(s): 82400902 (5) Hypertension Current Visit: No Status: Acute Code(s): I10 - ESSENTIAL (PRIMARY) HYPERTENSION SNOMED Code(s): 87004318 (6) Sepsis Current Visit: No Status: Acute Code(s): A41.9 - SEPSIS, UNSPECIFIED ORGANISM SNOMED Code(s): 52008398 Plan: Continue current medical therapy. I doubt we are dealing with acute myocardial infarction. We will get an echocardiogram done. Further recommendations depend upon clinical course. 12/03/2018: Patient is looking much better today. No acute distress. Continue current management. Cut back the dose of diuretics. Further recommendations depend upon clinical course
[2018-12-03] MEDS ORDERED: DILTIAZEM 125 MG in SODIUM CHLORIDE 0.9% 100 ML IV SCH (12:45)
--- NOTE | 2018-12-03 14:59 | CDI ---
Documentation Clarification Form Date: 12/06/2018 2:48:53 PM From: Corinne Mayes RN CCDS Admit Date: 12/01/2018 7:00:00 AM Patient Name: Agata Maya Visit Number: [id number] Discharge Date: ATTENTION: The Clinical Documentation Specialists (CDI) and [facility] Coding Staff appreciate your assistance in clarifying documentation. Please respond to the clarification below the line at the bottom and electronically sign. The CDI & [facility] Coding staff will review the response and follow-up if needed. Please note: Queries are made part of the Legal Health Record. If you have any questions, please contact the author of this message via ITS. Dr. Lalo Fields A pressure ulcer was documented in the Nursing Notes. History/Risk Factors: 88 year old female presents to the ED via EMS from [facility] for evaluation of a fever. Clinical Indicators: POA Location: Buttock Wound description: Stage II, Pressure Injury, Dry intact with Maceration Treatment: Hydrocolloid Elements for accurate and compliant documentation of an ulcer: *The location/laterality of the ulcer *Etiology (decubitus/pressure, diabetic, PVD) *Stage I-IV, Unstageable, Suspected Deep Tissue Injury (To the deepest stage) *If the ulcer was present at admission (POA) or occurred after admission In your professional opinion, can you please clarify the diagnosis, location, laterality and whether present on admission (POA): * Stage 2 Buttock Pressure Ulcer poa (Partial thickness, loss of dermis, pink wound bed) * Other condition, please specify * Unable to determine Please indicate etiology of pressure ulcer (if known). (Last Revision: June 2017) MTDD
--- NOTE | 2018-12-03 15:21 | CDI ---
Documentation Clarification Form Date: 12/03/2018 3:02:34 PM From: Corinne Mayes RN CCDS Admit Date: 12/01/2018 7:00:00 AM Patient Name: Agata Maya Visit Number: [id number] Discharge Date: ATTENTION: The Clinical Documentation Specialists (CDI) and [facility] Coding Staff appreciate your assistance in clarifying documentation. Please respond to the clarification below the line at the bottom and electronically sign. The CDI & [facility] Coding staff will review the response and follow-up if needed. Please note: Queries are made part of the Legal Health Record. If you have any questions, please contact the author of this message via ITS. Dr. Lalo Fields 88 y/o female presents to the ED via EMS from [facility] for evaluation of fever vomiting and Hypoxia History/Risk Factors: Medical Hx CAD, Cancer; Dementia; Htn , Renal disease Clinical Indicators: Cardiology Impression Sepsis. ED report as Sepsis Work up WBC 10.9 Lactic acid: 1.0 Vitals signs on admission: 145/77 105 101.0 15 97% non rebreather Other Clinical Indicators: Stage 2 pressure ulcer Treatment: Antibiotics: Vancomycin and Zosyn IV Bolus: 2L 0.9ns ivfl Other: In your professional opinion, please clarify if these findings signify one of the following conditions, whether the condition is POA, and cause, if known: Condition * Sepsis ruled out * Sepsis POA * Sepsis not POA * Other, please specify * Unable to determine Identify the (suspected) organism SIRS Criteria (2 or more of the following may indicate SIRS): -Temperature < 96.8F (36C) or > 101.0F (38.3C) -Heart Rate > 90 bpm -Respiratory Rate > 20 breaths/min or PaCO2 < 32 mmHg -White Blood Cell Count > 12,000 or < 4,000 cells/mm3 or > 10% bands -Lactate >2.0 mmol/L (>4.0 is equivalent to septic shock) (Last Revision: December 2017) MTDD
--- NOTE | 2018-12-03 15:46 | CDI ---
Documentation Clarification Form Date: 12/03/2018 3:22:45 PM From: Corinne Mayes RN CCDS Admit Date: 12/01/2018 7:00:00 AM Patient Name: Agata Maya Visit Number: [id number] Discharge Date: ATTENTION: The Clinical Documentation Specialists (CDI) and [facility] Coding Staff appreciate your assistance in clarifying documentation. Please respond to the clarification below the line at the bottom and electronically sign. The CDI & [facility] Coding staff will review the response and follow-up if needed. Please note: Queries are made part of the Legal Health Record. If you have any questions, please contact the author of this message via ITS. Dr. Lalo Fields Altered Mental Status was documented in the ED Report, H & P and Progress Notes History/Risk Factors: 88 year old female presents to the ED via EMS from [facility] for Fever, vomiting and Hypoxia . Medical hx Dementia , CVA/ TIA , Htn , [place] , Memory impairment Clinical Indicators: Per the ED note she is alert and oriented to self she denies pain but answers questions inappropriately Labs: Wbc 10.9 , hgb 9.4 Bun 25 CXR : Stable cardiomegaly and COPD #2 continued patchy infiltrate right mid and lower lung which may represent pneumonia. Infiltrate has slightly increased in the interval Treatment: Neurological Assessment per protocol In your professional opinion, please clarify the etiology of the Altered Mental Status, if known. * Metabolic Encephalopathy (specify Type and Underlying Medical Illness) * Dementia (if know, specify Type and if with/without Behavioral Disturbance) * Other condition (please specify) * Unable to determine (Last Revision: December 2017) MTDD
--- NOTE | 2018-12-03 16:03 | CDI ---
Patient had combined acute on chronic CHF Documentation Clarification Form Date: 12/03/2018 3:49:02 PM From: Corinne Mayes RN CCDS Admit Date: 12/01/2018 7:00:00 AM Patient Name: Agata Maya Visit Number: [id number] Discharge Date: ATTENTION: The Clinical Documentation Specialists (CDI) and [facility] Coding Staff appreciate your assistance in clarifying documentation. Please respond to the clarification below the line at the bottom and electronically sign. The CDI & [facility] Coding staff will review the response and follow-up if needed. Please note: Queries are made part of the Legal Health Record. If you have any questions, please contact the author of this message via ITS. Dr. Jakub Gross CHF is documented in your progress noted dated 12/02/2018. Worsening shortness of breath, could be secondary to combination of congestive heart failure and Aspiration Pneumonia. History/Risk Factors:88 y/o female presents to ED via EMS from [facility] for Fever and Hypoxia. Medical hx CVA/Tia, HTN, Renal disease Clinical Indicators: VS/Pulse OX: 105/63 108 100.8 36 98% Bipap BNP: 7040 Chest X Ray: Cardiomegaly with diffuse interstitial densities and slightly increasing patchy airspace disease throughout the right lung. Correlate for worsening moderate CHF Treatment: Lasix ivp In your professional opinion, can you please clarify the acuity and type of CHF if known? * Systolic Heart Failure: * Acute * Chronic * Acute on Chronic * Diastolic Heart Failure: * Acute * Chronic * Acute on Chronic * Systolic & Diastolic Heart Failure: * Acute * Chronic * Acute on Chronic Heart Failure * Unable to Determine * Other, please specify (Last Revision: December 2017) MTDD
[2018-12-03] MEDS: MULTIVITAMINS, THERA 1 EACH TAB PO SCH (17:03)
[2018-12-03] MEDS: ASPIRIN 81 MG PO SCH (17:03)
[2018-12-03] MEDS: CYANOCOBALAMIN 500 MCG TAB PO SCH (17:03)
[2018-12-03] MEDS: FERROUS SULFATE 325 MG TAB PO SCH (17:03)
[2018-12-03] MEDS ORDERED: ACETAMINOPHEN IV (For NPO) 1,000 MG in EMPTY BAG 1 BAG IVPB STA (18:08)
--- NOTE | 2018-12-03 18:23 | ECHOF ---
Referral Reason:Chest pain and cardiomyopathy MEASUREMENTS -------- HEIGHT: 165.1 cm WEIGHT: 65.8 kg BP: 132/65 RVIDd: 3.4 cm (< 3.3) IVSd: 1.5 cm (0.6 - 1.1) LVIDd: 4.0 cm (3.9 - 5.3) LVPWd: 1.5 cm (0.6 - 1.1) IVSs: 1.7 cm LVIDs: 3.5 cm LVPWs: 1.7 cm LAESV Index (A-L): 39.12 ml/m Ao Diam: 3.6 cm (2.0 - 3.7) AV Cusp: 1.3 cm (1.5 - 2.6) LA Diam: 3.2 cm (2.7 - 3.8) EPSS: 0.7 cm MV E Yemi: 2.25 m/s MV DecT: 213 ms MV A Yemi: 1.60 m/s MV E/A Ratio: 1.41 AV maxP.00 mmHg AV meanP.85 mmHg RAP: 15.00 mmHg RVSP: 94.54 mmHg MV EF SLOPE: 44.03 mm/s (70 - 150) MV EXCURSION: 1.27 cm (> 18.000) FINDINGS -------- Sinus rhythm. Resting tachycardia (HR>100bpm). This was a technically adequate study. The left ventricular size is normal. There is moderate concentric left ventricular hypertrophy. T here is mild global hypokinesis of LV . Overall left ventricular systolic function is mildly impair ed with, an EF between 45 - 50 %. The right ventricle is mildly enlarged. LA is moderately dilated 34-39 ml/m2 The right atrium is markedly enlarged. Aortic valve is trileaflet and is mildly thickened. There is mild aortic regurgitation. There is mild aortic stenosis present. Peak/mean gradient across the Aortic Valve is 16.00mmHg / 8.85mmHg. A ortic valve v elocity and gradients under-represented. The mitral valve leaflets are severely thickened. Severe mitral annular calcification present. Mo derate mitral regurgitation is present. The peak and mean MV gradients are 33.25mmHg 12.36mmHg as measured by doppler. Severe mitral stenosis. Severe tricuspid regurgitation present. There is severe pulmonary hypertension. The right ventric ular systolic pressure, as measured by Doppler, is 94.54mmHg. Trace/mild (physiologic) pulmonic regurgitation. The aortic root size is normal. Normal inferior vena cava with less than 50% inspiratory collapse consistent with estimated right atr ial pressure of 15 mmHg. There is no pericardial effusion. CONCLUSIONS -------- 1. Sinus rhythm. 2. Resting tachycardia (HR>100bpm). 3. This was a technically adequate study. 4. The left ventricular size is normal. 5. There is moderate concentric left ventricular hypertrophy. 6. There is mild global hypokinesis of LV . 7. Overall left ventricular systolic function is mildly impaired with, an EF between 45 - 50 %. 8. The right ventricle is mildly enlarged. 9. LA is moderately dilated 34-39 ml/m2 10. The right atrium is markedly enlarged. 11. Aortic valve is trileaflet and is mildly thickened. 12. There is mild aortic regurgitation. 13. There is mild aortic stenosis present. 14. Peak/mean gradient across the Aortic Valve is 16.00mmHg / 8.85mmHg. 15. Aortic valve velocity and gradients under-represented. 16. The mitral valve leaflets are severely thickened. 17. Severe mitral annular calcification present. 18. Moderate mitral regurgitation is present. 19. The peak and mean MV gradients are 33.25mmHg 12.36mmHg as measured by doppler. 20. Severe mitral stenosis. 21. Severe tricuspid regurgitation present. 22. There is severe pulmonary hypertension. 23. Trace/mild (physiologic) pulmonic regurgitation. 24. The aortic root size is normal. 25. Normal inferior vena cava with less than 50% inspiratory collapse consistent with estimated right atrial pressure of 15 mmHg. 26. There is no pericardial effusion. COMMUNICATION EQUIPMENT MECHANIC: Salinas Shrestha RDCS
[2018-12-03 18:28] LABS: Glucose,Whole Blood 168 mg/dL (75-99)
[2018-12-03] MEDS: DONEPEZIL 5 MG TAB PO SCH (20:29)
[2018-12-04] MEDS: IPRATROPIUM-ALBUTEROL 3 ML NEB INHALATION SCH ×6 (00:07→18:48)
[2018-12-04] MEDS: INSULIN ASPART (NovoLOG) 100 UNIT/ML VIAL SQ SCH ×4 (00:09→16:34)
[2018-12-04 00:11] LABS: Glucose,Whole Blood 124 mg/dL (75-99)
[2018-12-04] MEDS: PIPERACILLIN-TAZOBACTAM 3.375 GM in SODIUM CHLORIDE 0.9% 100 ML IVPB SCH ×3 (01:43→17:32)
[2018-12-04 04:55] LABS: Anisocytosis Slight; Basophils % (A) 0 %; Eosinophils # (A) 0.1 k/uL (0-0.7); Eosinophils % (A) 1 %; HCT 29.3 % (34.0-46.0); HGB 8.8 gm/dL (11.4-16.0); Hypochromasia Marked; Lymphocytes % (A) 10 %; MCH 31.6 pg (25.0-35.0); MCHC 30.1 g/dL (31.0-37.0); Mean Platelet Volume 8.6; Monocytes # (A) 0.2 k/uL (0-1.0); Monocytes % (A) 2 %; Neutrophils # (A) 8.7 k/uL (1.3-7.7); Neutrophils % (A) 86 %; Platelet Count 248 k/uL (150-450); Poikilocytosis Slight; RBC 2.79 m/uL (3.80-5.40); RDW 18.1 % (11.5-15.5); WBC 10.2 k/uL (3.8-10.6)
[2018-12-04 05:05] LABS: Calcium 8.9 mg/dL (8.4-10.2); Potassium 3.4 mmol/L (3.5-5.1)
[2018-12-04 05:44] LABS: Macrocytosis Marked; Target Cells Present
[2018-12-04 05:45] LABS: Large Platelets Present; Ovalocytes Present
[2018-12-04 06:12] LABS: Glucose,Whole Blood 133 mg/dL (75-99)
--- NOTE | 2018-12-04 06:29 | XR ---
EXAMINATION TYPE: XR chest 1V DATE OF EXAM: 12/04/2018 HISTORY: sob. REFERENCE: Previous study dated 12/03/2018. FINDINGS: There has been a previous midline sternotomy. The lungs are overinflated. Heart size upper limits of normal. There is improved aeration at the righ t lung base. There is a small right-sided effusion. This has improved. IMPRESSION: 1. COPD. 2. BORDERLINE CARDIOMEGALY. 3. IMPROVED AERATION, RIGHT LUNG BASE.
[2018-12-04] MEDS ORDERED: POTASSIUM CHLORIDE 20 MEQ in WATER FOR INJECTION 1 100ML.BAG IVPB STA (07:05)
[2018-12-04] MEDS: HEPARIN SODIUM,PORCINE 5,000 UNIT/ML 1 ML VIAL SQ SCH ×2 (08:44→21:40)
[2018-12-04] MEDS: PANTOPRAZOLE 40 MG/10 ML VIAL IV SCH (08:44)
[2018-12-04] MEDS: BISACODYL 5 MG TABLET.DR PO SCH (08:45)
[2018-12-04] MEDS: LISINOPRIL-HCTZ 10-12.5 MG 1 EACH TAB PO SCH ×2 (08:45→16:40)
[2018-12-04] MEDS: METOPROLOL TARTRATE 25 MG TAB PO SCH ×3 (08:45→21:41)
[2018-12-04] MEDS: SERTRALINE 25 MG TAB PO SCH (08:45)
[2018-12-04] MEDS ORDERED: FUROSEMIDE 10 MG/ML 4 ML VIAL IV SCH (10:00)
[2018-12-04 11:59] LABS: Glucose,Whole Blood 180 mg/dL (75-99)
--- NOTE | 2018-12-04 12:20 | P.PN ---
Subjective Progress Note Date: 12/04/18 Principal diagnosis: Hypoxemic arrest or failure, pneumonia, CHF This 88-year-old white female patient of Dr. Hull, who resides at [facility] and rehab, past medical history of CVA/TIA, dysphagia, dementia, hypertension, hyperlipidemia, myocardial infarction, chronic kidney disease stage III, MRSA infection in the urine, chronic artery disease with previous bypass grafting, who was brought into the hospital on 12/01/2018, for evaluation of fever, family, and hypoxia. Patient was suspected to have aspirated when she vomited, was febrile, and hypoxic, she was placed on supplemental oxygen 4 L, she is currently on 100% nonrebreather mask. Chest x-ray was completed which showed increasing right basilar opacity could represent infiltrate. Lab work showed WBC of 10.9, hemoglobin of 9.4, coagulation profile was within normal limits, electrolytes were normal, B1 is 25 creatinine 0.94, troponins were elevated to 0.059, 0.104, 0.068, 50s within normal limits, plasma lactic acid was 1.0, fluids and screen was negative, urinalysis was negative for any signs of infection. She was started on a combination of Zosyn, Levaquin and vancomycin for healthcare acquired pneumonia versus aspiration pneumonia. On today's follow-up chest x-ray stable cardiomegaly and COPD was normal, and persistent patchy infiltrate in the right mid and lower lung, and the chest x-r ay was done during the today, and showed diffuse interstitial densities and slightly increased patchy airspace disease throughout the right lung, suspicious for worsening CHF with right mid and lower lobe pneumonia. Addition patient went into A. fib RVR, patient is quite tachypneic, and is in moderate degree of respiratory distress. Status is DO NOT RESUSCITATE, but in view of hypoxemia, CHF, underlying aspiration pneumonia, and respiratory distress patient will be transferred to the intensive care unit for further management On 2018 patient seen in follow-up in the intensive care unit, she is much less dyspneic today, she is remains on BiPAP with pressures of 12 and 5, and FiO2 of 60%, with a pulse ox of 98%, afebrile. States the mask is uncomfortable, and would like to be given a trial of nasal cannula, no use of accessory muscles of breathing, she is a lot more comfortable today, today's lab work has been reviewed, shows white blood cell, 16.9, hemoglobin of 9.7, fluct uance of within normal limits, BUN is 35 creatinine is 1.76, plasma lactic acid is 2.4, patient is hemodynamically stable, skin is dry and warm. Mentation has improved, patient of underlying dementia, but is able to make her needs known. We'll to produce a sputum specimen for culture, but blood and urine cultures showed no growth, currently on antibiotic coverage including Zosyn, Levaquin and vancomycin. 6 her has been reviewed with Dr. Tijerina, and shows improvement in the appearance of right mid and lower lobe infiltrates, and interstitial changes. Patient is on IV Lasix, she is in -725 mL fluid balance. Lung sounds reveal bronchial breath sounds and some crackles over right mid and lower lobe, no significant wheezing. The patient is seen today 12/04/2018 in follow-up in the intensive care unit. She is awake and alert currently. She is in no acute respiratory distress. She is maintaining O2 saturations in the 90s on 6 L/m per nasal cannula. Her IV is to have all. She remains in atrial fibrillation alternating with sinus rhythm. Her current heart rate in the 80s her blood pressure stable. Afebrile. Blood and urine cultures reveal no growth. White count 10.2. Hemoglobin 8.8. Creatinine 2.42. She is currently on bronchodilators, IV diuretics, Zosyn. Objective - Vital Signs Vital signs: Vital Signs Temp 98.5 F 12/04/18 12:00 Pulse 89 12/04/18 12:00 Resp 27 H 12/04/18 12:00 BP 125/61 12/04/18 12:00 Pulse Ox 96 12/04/18 12:00 Intake & Output 12/03/18 12/04/18 12/04/18 18:59 06:59 18:59 Intake Total 367.917 320 274 Output Total 1385 136 126 Balance -1017.083 184 148 Weight 66 kg Intake: IV 335 320 55 KVO 110 120 30 Piperacillin-Tazobactam 3 25 200 25 .375 gm In Sodium Chloride 0.9% 100 ml @ 25 mls/hr IVPB Q8H [facility] Rx#: [id number] Potassium Chloride 10 meq 200 In Water For Injection 1 100ml.bag @ 100 mls/hr IVPB Q1H [facility] Rx#: [id number] Intake, IV Titration 32.917 99 Amount Diltiazem 125 mg In 32.917 Sodium Chloride 0.9% 100 ml @ 5 MG/HR 5 mls/hr IV .Q24H [facility] Rx#:[id number] Potassium Chloride 20 meq 99 In Water For Injection 1 100ml.bag @ 33 mls/hr IVPB ONCE [facility] Rx#: [id number] Oral 120 Output: Urine 1385 136 126 Other: Voiding Method Indwelling Catheter Indwelling Catheter Indwelling Catheter - Exam GENERAL EXAM: Alert, 88-year-old female, currently on 6 L with pulse ox of 98% HEAD: Normocephalic/atraumatic. EYES: Normal reaction of pupils, equal size. Conjunctiva pink, sclera white. NOSE: Clear with pink turbinates. THROAT: No erythema or exudates. NECK: No masses, no JVD, no thyroid enlargement, no adenopathy. CHEST: No chest wall deformity. Symmetrical expansion. LUNGS: Equal air entry with coarse crackles, bronchial sounds over right lung CVS: Irregular rate and rhythm, normal S1 and S2, no gallops, no murmurs, no rubs ABDOMEN: Soft, nontender. No hepatosplenomegaly, normal bowel sounds, no gua rding or rigidity. EXTREMITIES: No clubbing, no edema, no cyanosis, 2+ pulses and upper and lower extremities. MUSCULOSKELETAL: Muscle strength and tone normal. SPINE: No scoliosis or deformity SKIN: No rashes CENTRAL NERVOUS SYSTEM: Alert and oriented -3. No focal deficits, tone is normal in all 4 extremities. PSYCHIATRIC: Alert and oriented -3. Appropriate affect. Intact judgment and insight. - Labs CBC & Chem 7: 12/04/18 04:22 12/04/18 04:32 Labs: Abnormal Lab Results - Last 24 Hours (Table) 12/03/18 12/04/18 12/04/18 Range/Units 18:16 00:00 04:22 RBC 2.79 L (3.80-5.40) m/uL Hgb 8.8 L (11.4-16.0) gm/dL Hct 29.3 L (34.0-46.0) % MCV 105.0 H (80.0-100.0) fL MCHC 30.1 L (31.0-37.0) g/dL RDW 18.1 H (11.5-15.5) % Neutrophils # 8.7 H (1.3-7.7) k/uL Sodium (137-145) mmol/L Potassium (3.5-5.1) mmol/L Chloride (98-107) mmol/L BUN (7-17) mg/dL Creatinine (0.52-1.04) mg/dL Glucose (74-99) mg/dL POC Glucose (mg/dL) 168 H 124 H (75-99) mg/dL 12/04/18 12/04/18 12/04/18 Range/Units 04:32 06:00 11:47 RBC (3.80-5.40) m/uL Hgb (11.4-16.0) gm/dL Hct (34.0-46.0) % MCV (80.0-100.0) fL MCHC (31.0-37.0) g/dL RDW (11.5-15.5) % Neutrophils # (1.3-7.7) k/uL Sodium 146 H (137-145) mmol/L Potassium 3.4 L (3.5-5.1) mmol/L Chloride 109 H (98-107) mmol/L BUN 51 H (7-17) mg/dL Creatinine 2.42 H (0.52-1.04) mg/dL Glucose 125 H (74-99) mg/dL POC Glucose (mg/dL) 133 H 180 H (75-99) mg/dL Microbiology - Last 24 Hours (Table) 12/01/18 05:37 Blood Culture - Preliminary Blood No Growth after 72 hours 12/01/18 05:27 Blood Culture - Preliminary Blood No Growth after 72 hours Assessment and Plan Assessment: Assessment: #1. Acute hypoxemic respiratory failure secondary to acute aspiration pneumonia, and acute exacerbation of congestive heart failure with previously documented systolic dysfunction #2. A. fib RVR, currently in sinus rhythm with PACs, and Cardizem drip never had to be started #3. Elevated troponins, rule out non-ST elevated [place] #4. Dysphagia, modified barium swallow showed deep laryngeal penetration with honey thick and nectar thick consistencies, and some aspiration with thin liquid consistency #5. History Of CVA/TIA #6. Dementia #7. Hypertension, hyperlipidemia #8. Myocardial infarction #9. Chronic kidney disease, stage III #10. Coronary artery disease with previous history of bypass grafting #11. Resident of a [facility] #12. Mild elevation of lactic acid, no evidence of hypoperfusion, hemodynamically patient is stable, mentation has actually improved compared to yesterday, skin is warm and dry, cap refill is less than 3 seconds. Plan: The patient was seen and evaluated by Dr. Tijerina. She is improved today as compared to yesterday. Currently on 6 L/m per nasal cannula. Her x-ray and labs reviewed. She is improved clinically and radiographically. Decrease the Lasix. She could be transferred out of the intensive care unit today. We'll continue to follow. I, the cosigning physician, performed a history & physical examination of the patient. Lungs sounds with bilateral scattered rhonchi, crackles in the bases. Maintaining good O2 saturations in the 90s on 6 liters per minute per nasal cannula. I discussed the assessment and plan of care with my nurse practitioner, Vicky Box. I attest to the above note as dictated by her.
[2018-12-04] MEDS: CYANOCOBALAMIN 500 MCG TAB PO SCH (16:40)
[2018-12-04] MEDS: MULTIVITAMINS, THERA 1 EACH TAB PO SCH (16:40)
[2018-12-04] MEDS: FERROUS SULFATE 325 MG TAB PO SCH (16:40)
[2018-12-04] MEDS: ASPIRIN 81 MG PO SCH (16:40)
[2018-12-04 17:37] LABS: Glucose,Whole Blood 171 mg/dL (75-99)
[2018-12-04] MEDS: FUROSEMIDE 10 MG/ML 4 ML VIAL IV SCH (17:55)
--- NOTE | 2018-12-04 18:20 | PN ---
PROGRESS NOTE Mrs. Maya is a lady with paroxysmal atrial fibrillation, who went into atrial fibrillation and was initiated on a Cardizem drip. She is in sinus this morning. She seems to be resting comfortably. Apparently around 4:00 pm yesterday she went into atrial fib with a rapid rate. Cardizem drip was initiated, but this morning she is in sinus rhythm. She has multiple comorbid conditions including a history of dementia, hypertension, hyperlipidemia, and also has some multiple respiratory issues as well. However her oxygen saturation appears to be fairly decent. She is looking and feeling better. We will discontinue the Cardizem drip today. I will initiate her on subcutaneous heparin 5000 q.12 hours. I am not sure how good of a candidate she is for anticoagulation at this time. Her potassium is also low. We will supplement the potassium. Vital signs are stable. S1, S2 heard normally. There is a systolic murmur audible at the base with preserved 2nd heart sound. Lungs reveal improved air entry. Abdomen and lower extremity exam is unchanged. MMODL / IJN: [id number] /
[2018-12-04 21:28] LABS: Glucose,Whole Blood 152 mg/dL (75-99)
[2018-12-04] MEDS: DONEPEZIL 5 MG TAB PO SCH (21:41)
[2018-12-05] MEDS: PIPERACILLIN-TAZOBACTAM 3.375 GM in SODIUM CHLORIDE 0.9% 100 ML IVPB SCH ×3 (01:28→21:05)
[2018-12-05 06:47] LABS: Glucose,Whole Blood 121 mg/dL (75-99)
[2018-12-05 06:50] LABS: Anisocytosis Slight; HGB 8.5 gm/dL (11.4-16.0); Hypochromasia Marked; MCH 32.2 pg (25.0-35.0); MCHC 30.4 g/dL (31.0-37.0); MCV 105.8 fL (80.0-100.0); Macrocytosis Marked; Platelet Count 238 k/uL (150-450); Poikilocytosis Slight; RBC 2.65 m/uL (3.80-5.40); RDW 18.3 % (11.5-15.5); WBC 5.7 k/uL (3.8-10.6)
[2018-12-05 07:03] LABS: Calcium 9.1 mg/dL (8.4-10.2); Potassium 3.4 mmol/L (3.5-5.1)
[2018-12-05 07:15] LABS: Band Neutrophils % 4 %; Eosinophils # (M) 0.11 k/uL (0-0.7); Lymphocytes # (M) 0.91 k/uL (1.0-4.8); Monocytes # (M) 0.34 k/uL (0-1.0); Neutrophils % (M) 72 %; Nucleated Red Blood Cells 0 /100 WBC (0-0); Total Cells Counted 100
[2018-12-05] MEDS ORDERED: POTASSIUM CHLORIDE ER 20 MEQ TAB.ER PO STA (08:22)
[2018-12-05] MEDS: HEPARIN SODIUM,PORCINE 5,000 UNIT/ML 1 ML VIAL SQ SCH ×2 (08:26→21:01)
[2018-12-05] MEDS: PANTOPRAZOLE 40 MG/10 ML VIAL IV SCH (08:26)
[2018-12-05] MEDS: IPRATROPIUM-ALBUTEROL 3 ML NEB INHALATION SCH ×4 (08:26→20:55)
[2018-12-05] MEDS: LISINOPRIL-HCTZ 10-12.5 MG 1 EACH TAB PO SCH ×2 (08:27→17:57)
[2018-12-05] MEDS: SERTRALINE 25 MG TAB PO SCH (08:27)
[2018-12-05] MEDS: BISACODYL 5 MG TABLET.DR PO SCH (08:27)
[2018-12-05] MEDS: METOPROLOL TARTRATE 25 MG TAB PO SCH ×3 (08:27→23:49)
[2018-12-05] MEDS: APIXABAN 2.5 MG TABLET PO SCH ×2 (08:31→21:05)
[2018-12-05] MEDS ORDERED: FUROSEMIDE 40 MG TAB PO SCH (09:00)
--- NOTE | 2018-12-05 11:18 | PN ---
PROGRESS NOTE This is an 88-year-old lady with paroxysmal atrial fibrillation and was transferred from ICU. I am recommending that we will discontinue aspirin, initiate her on Eliquis 2.5 mg b.i.d. Her potassium is low. We will supplement this. She is in sinus rhythm at the time of my evaluation. There are bilateral rhonchi. Heart exam reveals S1, S2 with a short systolic murmur. Lungs reveal scattered rhonchi. Abdomen and lower extremity exam unchanged. Plan is to continue breathing treatments. LV function is well preserved, Eliquis 2.5 mg b.i.d., discontinue aspirin and see how she does. MMODL / IJN: [id number] /
[2018-12-05 12:28] LABS: Glucose,Whole Blood 130 mg/dL (75-99)
--- NOTE | 2018-12-05 12:48 | P.PN ---
Subjective Progress Note Date: 12/05/18 Principal diagnosis: Hypoxemic arrest or failure, pneumonia, CHF This 88-year-old white female patient of Dr. Hull, who resides at [facility] and rehab, past medical history of CVA/TIA, dysphagia, dementia, hypertension, hyperlipidemia, myocardial infarction, chronic kidney disease stage III, MRSA infection in the urine, chronic artery disease with previous bypass grafting, who was brought into the hospital on 12/01/2018, for evaluation of fever, family, and hypoxia. Patient was suspected to have aspirated when she vomited, was febrile, and hypoxic, she was placed on supplemental oxygen 4 L, she is currently on 100% nonrebreather mask. Chest x-ray was completed which showed increasing right basilar opacity could represent infiltrate. Lab work showed WBC of 10.9, hemoglobin of 9.4, coagulation profile was within normal limits, electrolytes were normal, B1 is 25 creatinine 0.94, troponins were elevated to 0.059, 0.104, 0.068, 50s within normal limits, plasma lactic acid was 1.0, fluids and screen was negative, urinalysis was negative for any signs of infection. She was started on a combination of Zosyn, Levaquin and vancomycin for healthcare acquired pneumonia versus aspiration pneumonia. On today's follow-up chest x-ray stable cardiomegaly and COPD was normal, and persistent patchy infiltrate in the right mid and lower lung, and the chest x-ra y was done during the today, and showed diffuse interstitial densities and slightly increased patchy airspace disease throughout the right lung, suspicious for worsening CHF with right mid and lower lobe pneumonia. Addition patient went into A. fib RVR, patient is quite tachypneic, and is in moderate degree of respiratory distress. Status is DO NOT RESUSCITATE, but in view of hypoxemia, CHF, underlying aspiration pneumonia, and respiratory distress patient will be transferred to the intensive care unit for further management On 12/03/2018 patient seen in follow-up in the intensive care unit, she is much less dyspneic today, she is remains on BiPAP with pressures of 12 and 5, and FiO2 of 60%, with a pulse ox of 98%, afebrile. States the mask is uncomfortable, and would like to be given a trial of nasal cannula, no use of accessory muscles of breathing, she is a lot more comfortable today, today's lab work has been reviewed, shows white blood cell, 16.9, hemoglobin of 9.7, fluctuance of within normal limits, BUN is 35 creatinine is 1.76, plasma lactic acid is 2.4, patient is hemodynamically stable, skin is dry and warm. Mentation has improved, patient of underlying dementia, but is able to make her needs known. We'll to produce a sputum specimen for culture, but blood and urine cultures showed no growth, currently on antibiotic coverage including Zosyn, Levaquin and vancomycin. 6 her has been reviewed with Dr. Tijerina, and shows improvement in the appearance of right mid and lower lobe infiltrates, and interstitial changes. Patient is on IV Lasix, she is in -725 mL fluid balance. Lung sounds reveal bronchial breath sounds and some crackles over right mid and lower lobe, no significant wheezing. On 12/05/2018 patient seen in follow-up selective care unit, she is awake and alert, in no acute distress, she states she still mildly dyspneic, but in no distress, lung sounds reveal scattered wheezes and rhonchi, patient does have a congested cough, nasal 4 L per nasal cannula and a pulse ox is 97%, no fever or chills, hemodynamically stable. Labs have been reviewed, white blood cell count is 5.7, hemoglobin is 8.5, sodium is 148, potassium is 3.4, chloride is 112, BUN is 70 creatinine is 3.13. Patient's Lasix has been transitioned to oral Lasix per cardiology. She is on oral anticoagulation in the form of Eliquis at 2.5 mg twice daily. Patient has been off the BiPAP support, currently just on nasal cannula, no acute distress. Denies any chest pain, culture data has been reviewed, blood culture showed no growth, urine culture has been negative. Patient is having some diarrhea. May need some gentle hydration or increase of oral fluids. Objective - Vital Signs Vital signs: Vital Signs Temp 97.5 F L 12/05/18 11:56 Pulse 82 12/05/18 11:56 Resp 18 12/05/18 11:56 BP 118/62 12/05/18 11:56 Pulse Ox 97 12/05/18 11:56 Intake & Output 12/04/18 12/05/18 12/05/18 18:59 06:59 18:59 Intake Total 349 Output Total 196 400 Balance 153 -400 Weight 61 kg Intake: IV 130 KVO 30 Piperacillin-Tazobactam 3 100 .375 gm In Sodium Chloride 0.9% 100 ml @ 25 mls/hr IVPB Q8H [facility] Rx#: [id number] Intake, IV Titration 99 Amount Potassium Chloride 20 meq 99 In Water For Injection 1 100ml.bag @ 33 mls/hr IVPB ONCE STA Rx#: [id number] Oral 120 Output: Urine 196 400 Other: Voiding Method Indwelling Catheter Indwelling Catheter Indwelling Catheter # Bowel Movements 1 - Exam GENERAL EXAM: Alert, 88-year-old white female, on 4 L per nasal cannula HEAD: Normocephalic/atraumatic. EYES: Normal reaction of pupils, equal size. Conjunctiva pink, sclera white. NOSE: Clear with pink turbinates. THROAT: No erythema or exudates. NECK: No masses, no JVD, no thyroid enlargement, no adenopathy. CHEST: No chest wall deformity. Symmetrical expansion. LUNGS: Equal air entry with coarse crackles, bronchial sounds over right lung, and wheezes CVS: Irregular rate and rhythm, normal S1 and S2, no gallops, no murmurs, no rubs ABDOMEN: Soft, nontender. No hepatosplenomegaly, normal bowel sounds, no guarding or rigidity. EXTREMITIES: No clubbing, no edema, no cyanosis, 2+ pulses and upper and lower extremities. MUSCULOSKELETAL: Muscle strength and tone normal. SPINE: No scoliosis or deformity SKIN: No rashes CENTRAL NERVOUS SYSTEM: Alert and oriented -3. No focal deficits, tone is no rmal in all 4 extremities. PSYCHIATRIC: Alert and oriented -3. Appropriate affect. Intact judgment and insight. - Labs CBC & Chem 7: 12/05/18 06:05 12/05/18 06:05 Labs: Abnormal Lab Results - Last 24 Hours (Table) 12/04/18 12/04/18 12/05/18 Range/Units 17:08 21:16 06:05 RBC 2.65 L (3.80-5.40) m/uL Hgb 8.5 L (11.4-16.0) gm/dL Hct 28.0 L (34.0-46.0) % MCV 105.8 H (80.0-100.0) fL MCHC 30.4 L (31.0-37.0) g/dL RDW 18.3 H (11.5-15.5) % Lymphocytes # (Manual) 0.91 L (1.0-4.8) k/uL APTT (22.0-30.0) sec Sodium (137-145) mmol/L Potassium (3.5-5.1) mmol/L Chloride (98-107) mmol/L BUN (7-17) mg/dL Creatinine (0.52-1.04) mg/dL Glucose (74-99) mg/dL POC Glucose (mg/dL) 171 H 152 H (75-99) mg/dL 12/05/18 12/05/18 12/05/18 Range/Units 06:05 06:05 06:11 RBC (3.80-5.40) m/uL Hgb (11.4-16.0) gm/dL Hct (34.0-46.0) % MCV (80.0-100.0) fL MCHC (31.0-37.0) g/dL RDW (11.5-15.5) % Lymphocytes # (Manual) (1.0-4.8) k/uL APTT 31.4 H (22.0-30.0) sec Sodium 148 H (137-145) mmol/L Potassium 3.4 L (3.5-5.1) mmol/L Chloride 112 H (98-107) mmol/L BUN 70 H (7-17) mg/dL Creatinine 3.13 H (0.52-1.04) mg/dL Glucose 111 H (74-99) mg/dL POC Glucose (mg/dL) 121 H (75-99) mg/dL 12/05/18 Range/Units 12:25 RBC (3.80-5.40) m/uL Hgb (11.4-16.0) gm/dL Hct (34.0-46.0) % MCV (80.0-100.0) fL MCHC (31.0-37.0) g/dL RDW (11.5-15.5) % Lymphocytes # (Manual) (1.0-4.8) k/uL APTT (22.0-30.0) sec Sodium (137-145) mmol/L Potassium (3.5-5.1) mmol/L Chloride (98-107) mmol/L BUN (7-17) mg/dL Creatinine (0.52-1.04) mg/dL Glucose (74-99) mg/dL POC Glucose (mg/dL) 130 H (75-99) mg/dL Microbiology - Last 24 Hours (Table) 12/01/18 05:37 Blood Culture - Preliminary Blood No Growth after 96 hours 12/01/18 05:27 Blood Culture - Preliminary Blood No Growth after 96 hours Assessment and Plan Plan: Assessment: #1. Acute hypoxemic respiratory failure secondary to acute aspiration pneumonia, and acute exacerbation of congestive heart failure with previously documented systolic dysfunction #2. A. fib RVR, currently in sinus rhythm with PACs, and Cardizem drip never had to be started #3. Elevated troponins, rule out non-ST elevated [place] #4. Dysphagia, modified barium swallow showed deep laryngeal penetration with honey thick and nectar thick consistencies, and some aspiration with thin liquid consistency #5. History Of CVA/TIA #6. Dementia #7. Hypertension, hyperlipidemia #8. Myocardial infarction #9. Chronic kidney disease, stage III #10. Coronary artery disease with previous history of bypass grafting #11. Resident of a [facility] #12. Mild elevation of lactic acid, no evidence of hypoperfusion, hemodynamically patient is stable, mentation has actually improved compared to yesterday, skin is warm and dry, cap refill is less than 3 seconds. #13. Hypernatremia, hemodynamically related to diuresis Plan: Patient is stable, in no acute distress, did not require BiPAP support last night, she is on supplemental oxygen at 4 L, still has the noisy breath sounds, wheezes and rhonchi. No fever or chills, culture data remains negative, hemodynamically patient is stable, IV Lasix has been transitioned to oral, may need to give the patient gentle IV hydration. I performed a history & physical examination of the patient and discussed their management with my nurse practitioner, Jacqueline Peters. I reviewed the nurse practitioner's note and agree with the documented findings and plan of care. Lung sounds are positive for diffuse rhonchi and rales. The findings and the impression was discussed with the patient. I attest to the documentation by the nurse practitioner. Time with Patient: Less than 30
--- NOTE | 2018-12-05 14:32 | P.PN ---
Subjective Progress Note Date: 12/05/18 Principal diagnosis: Respiratory failure, probable aspiration A 8-year-old white female patient Dr. Hull's resides at [facility] [place], was readmitted to the hospital with possible aspiration pneumonia past medical history of CVA TIA despite. 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, chronic arterial disease with previous bypass grafting was brought in with fever and hypoxia via the emergency room started on antibiotics including Zosyn and vancomycin for hospital-acquired pneumonia, patient has persistent patchy infiltrate x-ray versus aspiration pneumonia patient worsened over the evening and was transferred to the intensive care unit last night, patient is currently a DO NOT RESUSCITATE by the hypoxemia CHF and underlying aspiration pneumonia and patient's worsening state cause for patient to be moved to the intensive care unit Objective - Vital Signs Vital signs: Vital Signs Temp 97.5 F L 12/05/18 11:56 Pulse 88 12/05/18 13:26 Resp 18 12/05/18 12:00 BP 118/62 12/05/18 11:56 Pulse Ox 97 12/05/18 11:56 Intake & Output 12/04/18 12/05/18 12/05/18 18:59 06:59 18:59 Intake Total 349 Output Total 196 400 Balance 153 -400 Weight 61 kg Intake: IV 130 KVO 30 Piperacillin-Tazobactam 3 100 .375 gm In Sodium Chloride 0.9% 100 ml @ 25 mls/hr IVPB Q[facility]H [facility] Rx#: [id number] Intake, IV Titration 99 Amount Potassium Chloride 20 meq 99 In Water For Injection 1 100ml.bag @ 33 mls/hr IVPB ONCE STA Rx#: [id number] Oral 120 Output: Urine 196 400 Other: Voiding Method Indwelling Catheter Indwelling Catheter Indwelling Catheter # Bowel Movements 1 - Exam General: [Patient awake, alert and oriented times 3. Patient mild respiratory distress HEENT: [PERRL. EOMI. No pharyngeal erythema or exudate.] Neck: [No adenopathy.] Cardiac: [Heart regular in rate and rhythm. No S3. No S4. No clicks, rubs. No murmur.] Lungs: Coarse breath sounds although diminished audible congestion diffuse rhonchi throughout Abdomen: [No mass. No organomegaly. Bowel sounds presnt and normoactive in all 4 quadrants.] Extremes: [No edema no cyanosis no claudication normal pulses] : [] Musculoskeletal: [No joint erythema, edema or tenderness.] Skin: [No rash.] Neurologic: [No lateralizing deficits. CN II - XII grossly intact.] Lymphatic: [No adenopathy.] - Labs CBC & Chem 7: 12/05/18 06:05 12/05/18 06:05 Labs: Abnormal Lab Results - Last 24 Hours (Table) 12/04/18 12/04/18 12/05/18 Range/Units 17:08 21:16 06:05 RBC 2.65 L (3.80-5.40) m/uL Hgb 8.5 L (11.4-16.0) gm/dL Hct 28.0 L (34.0-46.0) % MCV 105.8 H (80.0-100.0) fL MCHC 30.4 L (31.0-37.0) g/dL RDW 18.3 H (11.5-15.5) % Lymphocytes # (Manual) 0.91 L (1.0-4.8) k/uL APTT (22.0-30.0) sec Sodium (137-145) mmol/L Potassium (3.5-5.1) mmol/L Chloride (98-107) mmol/L BUN (7-17) mg/dL Creatinine (0.52-1.04) mg/dL Glucose (74-99) mg/dL POC Glucose (mg/dL) 171 H 152 H (75-99) mg/dL 12/05/18 12/05/18 12/05/18 Range/Units 06:05 06:05 06:11 RBC (3.80-5.40) m/uL Hgb (11.4-16.0) gm/dL Hct (34.0-46.0) % MCV (80.0-100.0) fL MCHC (31.0-37.0) g/dL RDW (11.5-15.5) % Lymphocytes # (Manual) (1.0-4.8) k/uL APTT 31.4 H (22.0-30.0) sec Sodium 148 H (137-145) mmol/L Potassium 3.4 L (3.5-5.1) mmol/L Chloride 112 H (98-107) mmol/L BUN 70 H (7-17) mg/dL Creatinine 3.13 H (0.52-1.04) mg/dL Glucose 111 H (74-99) mg/dL POC Glucose (mg/dL) 121 H (75-99) mg/dL 12/05/18 Range/Units 12:25 RBC (3.80-5.40) m/uL Hgb (11.4-16.0) gm/dL Hct (34.0-46.0) % MCV (80.0-100.0) fL MCHC (31.0-37.0) g/dL RDW (11.5-15.5) % Lymphocytes # (Manual) (1.0-4.8) k/uL APTT (22.0-30.0) sec Sodium (137-145) mmol/L Potassium (3.5-5.1) mmol/L Chloride (98-107) mmol/L BUN (7-17) mg/dL Creatinine (0.52-1.04) mg/dL Glucose (74-99) mg/dL POC Glucose (mg/dL) 130 H (75-99) mg/dL Microbiology - Last 24 Hours (Table) 12/01/18 05:37 Blood Culture - Preliminary Blood No Growth after 96 hours 12/01/18 05:27 Blood Culture - Preliminary Blood No Growth after 96 hours Assessment and Plan (1) Altered mental status Current Visit: Yes Status: Acute Code(s): R41.82 - ALTERED MENTAL STATUS, UNSPECIFIED SNOMED Code(s): 911197214 (2) Aspiration pneumonia Current Visit: Yes Status: Acute Code(s): J69.0 - PNEUMONITIS DUE TO INHALATION OF FOOD AND VOMIT SNOMED Code(s): 135669867 (3) Dehydration Current Visit: No Status: Acute Code(s): E86.0 - DEHYDRATION SNOMED Code(s): 31682423 Plan: Patient is asleep but arousable Low-grade fever noted patient is currently on Zosyn and vancomycin IV for possible aspiration pneumonia Hypoxemic respiratory failure secondary to acute aspiration pneumonia A. fib with RVR Elevated troponins Discharge modified barium enema performed yesterday showed deep laryngeal penetration with honey thick nectar thick thick consistencies some aspiration with thin liquid consistency CVA TIA by history Dementia by history Hypertension hyperlipidemia by history Old myocardial infarction by history Chronic kidney disease stage III by history Recent [facility] resident by history Patient transferred back to [facility] stable currently using BiPAP as needed Time with Patient: Greater than 30
[2018-12-05] MEDS: DEXTROSE 5% IN WATER 1,000 ML IV SCH (14:54)
[2018-12-05 17:18] LABS: Glucose,Whole Blood 135 mg/dL (75-99)
[2018-12-05] MEDS: CYANOCOBALAMIN 500 MCG TAB PO SCH (17:58)
[2018-12-05] MEDS: FERROUS SULFATE 325 MG TAB PO SCH (17:58)
[2018-12-05] MEDS: MULTIVITAMINS, THERA 1 EACH TAB PO SCH (17:58)
[2018-12-05 20:41] LABS: Glucose,Whole Blood 201 mg/dL (75-99)
[2018-12-05] MEDS: DONEPEZIL 5 MG TAB PO SCH (21:05)
[2018-12-06] MEDS: DEXTROSE 5% IN WATER 1,000 ML IV SCH (03:20)
[2018-12-06 06:06] LABS: Glucose,Whole Blood 133 mg/dL (75-99)
[2018-12-06 07:11] LABS: Anisocytosis Slight; Basophils % (A) 1 %; Eosinophils # (A) 0.3 k/uL (0-0.7); Eosinophils % (A) 6 %; HCT 27.1 % (34.0-46.0); HGB 8.6 gm/dL (11.4-16.0); Hypochromasia Marked; Lymphocytes # (A) 1.3 k/uL (1.0-4.8); Lymphocytes % (A) 31 %; MCH 32.2 pg (25.0-35.0); MCHC 31.6 g/dL (31.0-37.0); Macrocytosis Moderate; Mean Platelet Volume 9.4; Monocytes # (A) 0.2 k/uL (0-1.0); Monocytes % (A) 4 %; Neutrophils # (A) 2.2 k/uL (1.3-7.7); Neutrophils % (A) 54 %; Platelet Count 230 k/uL (150-450); Poikilocytosis Slight; RBC 2.66 m/uL (3.80-5.40); WBC 4.2 k/uL (3.8-10.6)
[2018-12-06] MEDS: PANTOPRAZOLE 40 MG/10 ML VIAL IV SCH (08:33)
[2018-12-06] MEDS: HEPARIN SODIUM,PORCINE 5,000 UNIT/ML 1 ML VIAL SQ SCH ×2 (08:33→21:57)
[2018-12-06] MEDS: BISACODYL 5 MG TABLET.DR PO SCH (08:33)
[2018-12-06] MEDS: SERTRALINE 25 MG TAB PO SCH (08:33)
[2018-12-06] MEDS: METOPROLOL TARTRATE 25 MG TAB PO SCH ×3 (08:34→22:05)
[2018-12-06] MEDS: PIPERACILLIN-TAZOBACTAM 3.375 GM in SODIUM CHLORIDE 0.9% 100 ML IVPB SCH ×2 (08:34→22:05)
[2018-12-06] MEDS: APIXABAN 2.5 MG TABLET PO SCH ×2 (08:35→22:05)
[2018-12-06] MEDS: LISINOPRIL-HCTZ 10-12.5 MG 1 EACH TAB PO SCH (08:35)
[2018-12-06] MEDS: IPRATROPIUM-ALBUTEROL 3 ML NEB INHALATION SCH ×4 (09:20→21:05)
[2018-12-06] MEDS ORDERED: SODIUM CHLORIDE 0.9% 1,000 ML IV SCH (10:15)
[2018-12-06 10:30] LABS: Calcium 9.2 mg/dL (8.4-10.2); Potassium 3.4 mmol/L (3.5-5.1)
[2018-12-06] MEDS ORDERED: POTASSIUM CHLORIDE ER 20 MEQ TAB.ER PO STA (10:36)
--- NOTE | 2018-12-06 10:41 | P.NPCON ---
History of Present Illness - Reason for Consult acute renal failure - History of Present Illness Reason for consultation: Acute kidney injury History of present illness: Patient is a 88-year-old female seen in renal consultation for acute kidney injury. Her baseline creatinine is near 1. Renal function has been worsening over the last few days with creatinine up to 3.4 today. Patient presented to the hospital with fever as well as vomiting. There was concern for aspiration pneumonia. She was also receiving IV diuretics which were done transitioned over to oral diuretics. Due to worsening renal function Lasix was discontinued yesterday. Her sodium level is up to 150. She remains hypokalemic. Oral intake is poor. She does have systolic CHF with ejection fraction of 45-50% with severe mitral stenosis and tricuspid regurgitation. She also has moderate mitral regurgitation. She is maintained on antibiotics for pneumonia. She was started on normal saline at 100 mL an hour this morning. Vital signs are stable. General: Laying in bed. HEENT: Head exam is unremarkable. Neck is without jugular venous distension. LUNGS: Scattered rhonchi. Breath sounds decreased. HEART: Rate and Rhythm are regular. First and second heart sounds normal. No murmurs, rubs or gallops. ABDOMEN: Abdominal exam reveals normal bowel sounds. Non-tender and non- distended. No evidence of peritonitis. EXTREMITITES: No clubbing, cyanosis, or edema. Past Medical History Past Medical History: Coronary Artery Disease (CAD), Cancer, Chest Pain / Angina, CVA/TIA, Dementia, Eye Disorder, Hearing Disorder / Deafness, Hyperlipidemia, Hypertension, Memory Impairment, Myocardial Infarction (PR), Renal Disease, Syncope Additional Past Medical History / Comment(s): Pt recently admitted to [facility] on 11/18/18 with AMS, acutemetabolic encephalitis, dehydration, weakness, abdnormal thyroid function test. Other hx: Dementia with memory impairment, 2013 TIA, chronic kidney disease stage III, vertigo at times, UTI, past dasilva d/t skin issues, occasional back pain, skin cancer with removals, limited viosion in R eye, NIKOLAI bilaterally, constipation. Last Myocardial Infarction Date:: 1999 History of Any Multi-Drug Resistant Organisms: MRSA Date of last positivie culture/infection: 12/16/2014 MDRO Source:: Urine Past Surgical History: Appendectomy, Coronary Bypass/CABG, Heart Catheterization, Hysterectomy Additional Past Surgical History / Comment(s): 1999 CABG 4 vessel, lumbar laminectomy, skin cancer removals, bilateral cataract removals. Past Anesthesia/Blood Transfusion Reactions: No Reported Reaction Smoking Status: Former smoker - Past Family History Father Family Medical History: Diabetes Mellitus Daughter(s) Family Medical History: Cancer Additional Family Medical History / Comment(s): Daughter is under treatment for ovarian cancer Brother(s) Family Medical History: Cancer Medications and Allergies Home Medications Medication Instructions Recorded Confirmed Type Aspirin 81 mg PO DAILY@1700 10/26/17 12/01/18 History Bisacodyl 5 mg PO DAILY@0800 10/26/17 12/01/18 History Lisinopril-Hctz 10-12.5 mg 1 tab PO BID@0800,1700 10/26/17 12/01/18 History [Zestoretic 10-12.5] Multivit-Min/FA/Lycopen/Lutein 1 tab PO DAILY@1700 10/26/17 12/01/18 History [Centrum Silver Tablet] Super B Complex 1 cap PO DAILY@1700 10/26/17 12/01/18 History Bisacodyl [Dulcolax] 10 mg RECTAL DAILY PRN 12/01/18 12/01/18 History Cyanocobalamin [Vitamin B-12] 1,000 mcg PO DAILY@1700 12/01/18 12/01/18 History Donepezil [Aricept] 5 mg PO HS@2100 12/01/18 12/01/18 History Ferrous Sulfate [Feosol] 325 mg PO DAILY@1700 12/01/18 12/01/18 History Magnesium Hydroxide [Milk of 2,400 mg PO DAILY PRN 12/01/18 12/01/18 History Magnesia] Metoprolol Tartrate [Lopressor] 25 mg PO BID@0800,1700 12/01/18 12/01/18 History Na Phos,M-B/Na Phos,Di-Ba [Fleet 133 ml RECTAL DAILY PRN 12/01/18 12/01/18 History Adult] Sertraline [Zoloft] 25 mg PO DAILY@0800 12/01/18 12/01/18 History Allergies Allergy/AdvReac Type Severity Reaction Status Date / Time No Known Allergies Allergy Verified 12/01/18 06:47 Physical Exam Vitals: Vital Signs Temp Pulse Pulse Resp BP Pulse Ox 12/06/18 09:32 72 12/06/18 09:20 68 12/06/18 08:39 97.7 F 67 18 114/51 98 12/06/18 03:21 98.0 F 81 17 116/56 95 12/05/18 23:40 97.6 F 71 18 119/56 98 12/05/18 21:04 80 12/05/18 20:55 76 12/05/18 20:53 98.0 F 70 18 118/47 98 12/05/18 17:28 94 12/05/18 17:20 90 12/05/18 16:00 97.6 F 73 18 114/73 96 12/05/18 13:26 88 12/05/18 13:15 90 12/05/18 12:00 82 18 12/05/18 11:56 97.5 F L 82 18 118/62 97 Intake and Output 12/05/18 12/06/18 12/06/18 22:59 06:59 14:59 Intake Total 200 Output Total 1400 Balance -1400 200 Intake: IV 200 KVO 100 Piperacillin-Tazobactam 3 100 .375 gm In Sodium Chloride 0.9% 100 ml @ 25 mls/hr IVPB Q8H [facility] Rx#: [id number] Output: Urine 1400 Other: Voiding Method Indwelling Catheter Indwelling Catheter # Bowel Movements 1 Weight 60 kg Results - Lab Results Most recent lab results Calcium 9.2 mg/dL (8.4-10.2) 12/06/18 05:49 Phosphorus 3.7 mg/dL (2.5-4.5) 12/03/18 04:13 Magnesium 2.0 mg/dL (1.6-2.3) 12/04/18 04:32 12/06/18 05:49 12/06/18 05:49 Assessment and Plan Plan: Assessment: 1. Acute kidney injury secondary to ATN secondary to diuresis. Creatinine up to 3.4 today. Baseline creatinine near 1. 2. Hypernatremia secondary to free water deficit due to lack of oral water intake. 3. Hypokalemia secondary to diuresis. Rule out magnesium deficiency. 4. Aspiration pneumonia maintained on antibiotics. 5. Systolic CHF with ejection fraction of 45-50% with severe mitral stenosis, tricuspid regurgitation and pulmonary hypertension; moderate mitral regurgitation. 6. Acute hypoxic respiratory failure secondary to pneumonia. Plan: I will change IV fluids to half-normal saline to be run at 100 mL an hour. Hold diuretics. Replace potassium. 40 meq today. Check renal ultrasound. Avoid nephrotoxins. Encourage oral intake, including free water. Repeat electrolytes in the morning. Thank you for the consultation. I will continue to follow the patient with you during her hospital stay.
[2018-12-06] MEDS: SODIUM CHLORIDE 0.45% 1,000 ML IV SCH ×2 (11:38→21:57)
[2018-12-06 11:42] LABS: Glucose,Whole Blood 134 mg/dL (75-99)
--- NOTE | 2018-12-06 12:46 | PN ---
PROGRESS NOTE Mrs. Agata Maya is admitted with an episode with what seems to be a pneumonia and also paroxysmal atrial fibrillation. She is in sinus rhythm today. Her oxygenation is fair. However, she has developed a component of acute renal failure with worsening creatinine which has gone up to 3.1. She is resting comfortably. Denies any chest discomfort. Her breathing is better. Vital signs are stable. There is no JVD. S1, S2 heard normally, short systolic murmur noted. Rhythm is regular. Lungs reveal diminished air entry over both bases. Abdomen is soft. Lower extremities reveal diminished pulses. Central nervous system is normal. IMPRESSION: 1. Paroxysmal atrial fibrillation. 2. History of pneumonia. 3. Unclear as to the source of sepsis. 4. Acute renal failure on top of mild chronic kidney disease. RECOMMENDATIONS: I am recommending that we discontinue lisinopril, hydrate her with normal saline 100 mL/hour and seek Nephrology input and also we will give her a breathing treatment because of some wheezing earlier today. MMODL / IJN: [id number] /
--- NOTE | 2018-12-06 13:06 | US ---
EXAMINATION TYPE: US kidneys/renal and bladder DATE OF EXAM: 12/06/2018 COMPARISON: NONE CLINICAL HISTORY: honey. Poor historian. Patient was scanned in chair, limited mobility. EXAM MEASUREMENTS: Right Kidney: 9.2 x 3.6 x 4.4 cm Left Kidney: 8.5 x 3.9 x 4.1 cm Right Kidney: Appears small in size. Cortical thinning. Left Kidney: No hydronephrosis or masses seen. Suboptimal visualization of lower pole due to overlyi ng bowel gas Bladder: not visualized due to dasilva Bilateral Jets seen: Not visualized due to dasilva Incidental fining- shadowing echogenic foci seen in gallbladder There is no evidence for hydronephrosis at this point in time. No nephrolithiasis is seen. No gianfranco s are identified. IMPRESSION: Sonographic sequela of medical renal disease. No hydronephrosis or nephrolithiasis. Incidentally note d cholelithiasis.
--- NOTE | 2018-12-06 13:13 | P.PN ---
Subjective Respiratory failure, probable aspiration A 8-year-old white female patient Dr. Hull's [facility], was readmitted to the hospital with possible aspiration pneumonia past medical history of CVA TIA despite. 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 Lalo Fields December 06, 2018: Patient was seen and examined today. She is awake alert oriented 2 to self and location. She appears to be at her baseline mentation. There is a noted wound but, most likely the BiPAP to her right Gabriela. She denies any chest pains, pressures, or shortness of breath this time. Labs showed a creatinine significantly elevated yesterday. She's been on diuretics for acute CHF and has had poor intake. Her baseline creatinine is around 1.0. Currently she is improved from her admission. She was seen at [facility] by myself on November 30 and was found at that point to be of much improved mentation and other normal functions. Objective - Vital Signs Vital signs: Vital Signs Temp 97.6 F 12/06/18 12:17 Pulse 65 12/06/18 12:17 Resp 18 12/06/18 12:17 BP 132/75 12/06/18 12:17 Pulse Ox 94 L 12/06/18 12:17 Intake & Output 12/05/18 12/06/18 12/06/18 18:59 06:59 18:59 Intake Total 200 Output Total 1400 Balance -1400 200 Weight 60 kg 60 kg Intake: IV 200 KVO 100 Piperacillin-Tazobactam 3 100 .375 gm In Sodium Chloride 0.9% 100 ml @ 25 mls/hr IVPB Q8H [facility] Rx#: [id number] Output: Urine 1400 Other: Voiding Method Indwelling Catheter Indwelling Catheter Indwelling Catheter # Bowel Movements 1 1 - Exam General: The patient is awake and alert, in no distress, She responds to my questions Neck: The neck is supple, there is no thyromegaly, lymphadenopathy, tenderness or JVD. Cardiovascular: S1S2 is normal, There is a regular rate and rhythm. 1/6 sysytolic murmur heard best at the LSB inferior, no rub or gallop is appreciated. Respiratory: Lungs are coarse to auscultation bilaterally, respirations are non-labored, breath sounds are equal. Gastrointestinal: Soft, non-distended, non-tender abdomen without masses or organomegaly noted. There is no rebound or guarding present. Bowel sounds are unremarkable. Musculoskeletal: Normal ROM, no tenderness, There is no pedal edema. There is no calf tenderness or swelling. No cords were appreciated. Neurological: CN II-XII intact, there are no obvious motor or sensory deficits. Coordination appears grossly intact. Speech is normal. Skin: Skin is warm and dry and no rashesHowever there is a wound to her Right Nare probably from a BiPAP - Labs CBC & Chem 7: 12/06/18 05:49 12/06/18 05:49 Labs: Abnormal Lab Results - Last 24 Hours (Table) 12/05/18 12/05/18 12/06/18 Range/Units 17:06 20:34 05:49 RBC 2.66 L (3.80-5.40) m/uL Hgb 8.6 L (11.4-16.0) gm/dL Hct 27.1 L (34.0-46.0) % MCV 102.0 H (80.0-100.0) fL RDW 18.0 H (11.5-15.5) % Sodium (137-145) mmol/L Potassium (3.5-5.1) mmol/L Chloride (98-107) mmol/L BUN (7-17) mg/dL Creatinine (0.52-1.04) mg/dL Glucose (74-99) mg/dL POC Glucose (mg/dL) 135 H 201 H (75-99) mg/dL 12/06/18 12/06/18 12/06/18 Range/Units 05:49 06:04 11:41 RBC (3.80-5.40) m/uL Hgb (11.4-16.0) gm/dL Hct (34.0-46.0) % MCV (80.0-100.0) fL RDW (11.5-15.5) % Sodium 150 H (137-145) mmol/L Potassium 3.4 L (3.5-5.1) mmol/L Chloride 113 H (98-107) mmol/L BUN 76 H (7-17) mg/dL Creatinine 3.40 H (0.52-1.04) mg/dL Glucose 111 H (74-99) mg/dL POC Glucose (mg/dL) 133 H 134 H (75-99) mg/dL Microbiology - Last 24 Hours (Table) 12/01/18 05:37 Blood Culture - Preliminary Blood No Growth after 120 hours 12/01/18 05:27 Blood Culture - Preliminary Blood No Growth after 120 hours - Imaging and Cardiology Chest x-ray: report reviewed (From December 04) Assessment and Plan (1) Acute renal failure Current Visit: Yes Status: Acute Code(s): N17.9 - ACUTE KIDNEY FAILURE, UNSPECIFIED SNOMED Code(s): 31650903 (2) Acute on chronic systolic (congestive) heart failure Current Visit: Yes Status: Acute Code(s): I50.23 - ACUTE ON CHRONIC SYSTOLIC (CONGESTIVE) HEART FAILURE SNOMED Code(s): 260737360 (3) Hypernatremia Current Visit: Yes Status: Acute Code(s): E87.0 - HYPEROSMOLALITY AND HYPERNATREMIA SNOMED Code(s): 305989275 (4) Hypokalemia Current Visit: Yes Status: Acute Code(s): E87.6 - HYPOKALEMIA SNOMED Code(s): 31813643 (5) Aspiration pneumonia Current Visit: Yes Status: Acute Code(s): J69.0 - PNEUMONITIS DUE TO INHALATION OF FOOD AND VOMIT SNOMED Code(s): 151481986 (6) History of coronary artery disease Current Visit: Yes Status: Acute Code(s): Z86.79 - PERSONAL HISTORY OF OTHER DISEASES OF THE CIRCULATORY SYSTEM SNOMED Code(s): 048574780 (7) Dehydration Current Visit: No Status: Acute Code(s): E86.0 - DEHYDRATION SNOMED Code(s): 40325773 (8) Dementia Current Visit: No Status: Acute Code(s): F03.90 - UNSPECIFIED DEMENTIA WITHOUT BEHAVIORAL DISTURBANCE SNOMED Code(s): 08918719 (9) High risk for readmission Current Visit: No Status: Acute Code(s): Z91.89 - OTH PERSONAL RISK FACTORS, NOT ELSEWHERE CLASSIFIED SNOMED Code(s): 524408603 (10) Macrocytic anemia Current Visit: No Status: Acute Code(s): D53.9 - NUTRITIONAL ANEMIA, UNSP ECIFIED SNOMED Code(s): 84223767 (11) Pneumonia Current Visit: No Status: Acute Code(s): J18.9 - PNEUMONIA, UNSPECIFIED ORGANISM SNOMED Code(s): 043851129 (12) Mitral stenosis Current Visit: Yes Status: Acute Code(s): I05.0 - RHEUMATIC MITRAL STENOSIS SNOMED Code(s): 52590780 (13) Mitral regurgitation Current Visit: Yes Status: Acute Code(s): I34.0 - NONRHEUMATIC MITRAL (VALVE) INSUFFICIENCY SNOMED Code(s): 89090573 Plan: Consul nephrology regarding her acute renal failure. Her baseline is around 1.0. now 3.1 Cardiology has already switched her from IV Lasix to oral Lasix. I'll await further recommendations from Cardiology and pulmonology. PT/OT to continue treating. We'll plan on her going to [facility] one she is more stable. BMP stat for today further recommendations based on this Addendum: Nephrology consultation was reviewed. She is now on IV fluids. Potassium and sodium will be corrected. I will reevaluate her in the next 24 hours. Repeat labs in a.m.
[2018-12-06] MEDS: MULTIVITAMINS, THERA 1 EACH TAB PO SCH (16:37)
[2018-12-06] MEDS: FERROUS SULFATE 325 MG TAB PO SCH (16:38)
[2018-12-06] MEDS: CYANOCOBALAMIN 500 MCG TAB PO SCH (16:38)
--- NOTE | 2018-12-06 18:54 | P.PN ---
Subjective Progress Note Date: 12/06/18 Principal diagnosis: Hypoxemic arrest or failure, pneumonia, CHF This 88-year-old white female patient of Dr. Hull, who resides at [facility] and rehab, past medical history of CVA/TIA, dysphagia, dementia, hypertension, hyperlipidemia, myocardial infarction, chronic kidney disease stage III, MRSA infection in the urine, chronic artery disease with previous bypass grafting, who was brought into the hospital on 12/01/2018, for evaluation of fever, family, and hypoxia. Patient was suspected to have aspirated when she vomited, was febrile, and hypoxic, she was placed on supplemental oxygen 4 L, she is currently on 100% nonrebreather mask. Chest x-ray was completed which showed increasing right basilar opacity could represent infiltrate. Lab work showed WBC of 10.9, hemoglobin of 9.4, coagulation profile was within normal limits, electrolytes were normal, B1 is 25 creatinine 0.94, troponins were elevated to 0.059, 0.104, 0.068, 50s within normal limits, plasma lactic acid was 1.0, fluids and screen was negative, urinalysis was negative for any signs of infection. She was started on a combination of Zosyn, Levaquin and vancomycin for healthcare acquired pneumonia versus aspiration pneumonia. On today's follow-up chest x-ray stable cardiomegaly and COPD was normal, and persistent patchy infiltrate in the right mid and lower lung, and the chest x-ra y was done during the today, and showed diffuse interstitial densities and slightly increased patchy airspace disease throughout the right lung, suspicious for worsening CHF with right mid and lower lobe pneumonia. Addition patient went into A. fib RVR, patient is quite tachypneic, and is in moderate degree of respiratory distress. Status is DO NOT RESUSCITATE, but in view of hypoxemia, CHF, underlying aspiration pneumonia, and respiratory distress patient will be transferred to the intensive care unit for further management On 12/03/2018 patient seen in follow-up in the intensive care unit, she is much less dyspneic today, she is remains on BiPAP with pressures of 12 and 5, and FiO2 of 60%, with a pulse ox of 98%, afebrile. States the mask is uncomfortable, and would like to be given a trial of nasal cannula, no use of accessory muscles of breathing, she is a lot more comfortable today, today's lab work has been reviewed, shows white blood cell, 16.9, hemoglobin of 9.7, fluctuance of within normal limits, BUN is 35 creatinine is 1.76, plasma lactic acid is 2.4, patient is hemodynamically stable, skin is dry and warm. Mentation has improved, patient of underlying dementia, but is able to make her needs known. We'll to produce a sputum specimen for culture, but blood and urine cultures showed no growth, currently on antibiotic coverage including Zosyn, Levaquin and vancomycin. 6 her has been reviewed with Dr. Tijerina, and shows improvement in the appearance of right mid and lower lobe infiltrates, and interstitial changes. Patient is on IV Lasix, she is in -725 mL fluid balance. Lung sounds reveal bronchial breath sounds and some crackles over right mid and lower lobe, no significant wheezing. On 12/05/2018 patient seen in follow-up selective care unit, she is awake and alert, in no acute distress, she states she still mildly dyspneic, but in no distress, lung sounds reveal scattered wheezes and rhonchi, patient does have a congested cough, nasal 4 L per nasal cannula and a pulse ox is 97%, no fever or chills, hemodynamically stable. Labs have been reviewed, white blood cell count is 5.7, hemoglobin is 8.5, sodium is 148, potassium is 3.4, chloride is 112, BUN is 70 creatinine is 3.13. Patient's Lasix has been transitioned to oral Lasix per cardiology. She is on oral anticoagulation in the form of Eliquis at 2.5 mg twice daily. Patient has been off the BiPAP support, currently just on nasal cannula, no acute distress. Denies any chest pain, culture data has been reviewed, blood culture showed no growth, urine culture has been negative. Patient is having some diarrhea. May need some gentle hydration or increase of oral fluids. On 12/06/2018 patient seen in follow-up on selective care unit, she is awake and alert, in no acute distress, is up in the recliner, currently on 2 L per nasal cannula and her pulse ox is 97%, afebrile, lung sounds reveal coarse breath sounds bilaterally, but respirations are nonlabored, no venous of respiratory distress. No fever or chills, today's labs have been reviewed, white blood cell count is 4.2, hemoglobin is 8.6, serum sodium is 150, potassium is 3.4, chloride is 113, B1 is 76 and creatinine is 3.4. Nephrology is following, patient has been started on half-normal saline at a rate of 100 ML per hour. We stopped the Lasix yesterday of worsening hyponatremia, urine, and blood cultures show no growth. She still has indwelling catheter in place for acute urine output monitoring, and she is nonoliguric. Objective - Vital Signs Vital signs: Vital Signs Temp 97.8 F 12/06/18 16:00 Pulse 75 12/06/18 16:15 Resp 18 12/06/18 16:00 BP 151/63 12/06/18 16:00 Pulse Ox 97 12/06/18 16:00 Intake & Output 12/05/18 12/06/18 12/06/18 18:59 06:59 18:59 Intake Total 200 712 Output Total 1400 1200 Balance -1400 200 -488 Weight 60 kg 60 kg Intake: IV 200 KVO 100 Piperacillin-Tazobactam 3 100 .375 gm In Sodium Chloride 0.9% 100 ml @ 25 mls/hr IVPB Q8H [facility] Rx#: [id number] Oral 712 Output: Urine 1400 1200 Other: Voiding Method Indwelling Catheter Indwelling Catheter Indwelling Catheter # Voids 0 # Bowel Movements 1 1 - Exam GENERAL EXAM: Alert, 88-year-old white female, on 2 L per nasal cannula HEAD: Normocephalic/atraumatic. EYES: Normal reaction of pupils, equal size. Conjunctiva pink, sclera white. NOSE: Clear with pink turbinates. THROAT: No erythema or exudates. NECK: No masses, no JVD, no thyroid enlargement, no adenopathy. CHEST: No chest wall deformity. Symmetrical expansion. LUNGS: Equal air entry with coarse breath sounds, but no wheezes, or rales CVS: Irregular rate and rhythm, normal S1 and S2, no gallops, no murmurs, no rubs ABDOMEN: Soft, nontender. No hepatosplenomegaly, normal bowel sounds, no guarding or rigidity. EXTREMITIES: No clubbing, no edema, no cyanosis, 2+ pulses and upper and lower extremities. MUSCULOSKELETAL: Muscle strength and tone normal. SPINE: No scoliosis or deformity SKIN: No rashes CENTRAL NERVOUS SYSTEM: Alert and oriented -3. No focal deficits, tone is normal in all 4 extremities. PSYCHIATRIC: Alert and oriented -3. Appropriate affect. Intact judgment and insight. - Labs CBC & Chem 7: 12/06/18 05:49 12/06/18 05:49 Labs: Abnormal Lab Results - Last 24 Hours (Table) 12/05/18 12/06/18 12/06/18 Range/Units 20:34 05:49 05:49 RBC 2.66 L (3.80-5.40) m/uL Hgb 8.6 L (11.4-16.0) gm/dL Hct 27.1 L (34.0-46.0) % MCV 102.0 H (80.0-100.0) fL RDW 18.0 H (11.5-15.5) % Sodium 150 H (137-145) mmol/L Potassium 3.4 L (3.5-5.1) mmol/L Chloride 113 H (98-107) mmol/L BUN 76 H (7-17) mg/dL Creatinine 3.40 H (0.52-1.04) mg/dL Glucose 111 H (74-99) mg/dL POC Glucose (mg/dL) 201 H (75-99) mg/dL 12/06/18 12/06/18 Range/Units 06:04 11:41 RBC (3.80-5.40) m/uL Hgb (11.4-16.0) gm/dL Hct (34.0-46.0) % MCV (80.0-100.0) fL RDW (11.5-15.5) % Sodium (137-145) mmol/L Potassium (3.5-5.1) mmol/L Chloride (98-107) mmol/L BUN (7-17) mg/dL Creatinine (0.52-1.04) mg/dL Glucose (74-99) mg/dL POC Glucose (mg/dL) 133 H 134 H (75-99) mg/dL Microbiology - Last 24 Hours (Table) 12/01/18 05:37 Blood Culture - Preliminary Blood No Growth after 120 hours 12/01/18 05:27 Blood Culture - Preliminary Blood No Growth after 120 hours Assessment and Plan Plan: Assessment: #1. Acute hypoxemic respiratory failure secondary to acute aspiration pneumonia, and acute exacerbation of congestive heart failure with previously documented systolic dysfunction #2. A. fib RVR, currently in sinus rhythm with PACs, and Cardizem drip never had to be started #3. Elevated troponins, rule out non-ST elevated AK #4. Dysphagia, modified barium swallow showed deep laryngeal penetration with honey thick and nectar thick consistencies, and some aspiration with thin liquid consistency #5. History Of CVA/TIA #6. Dementia #7. Hypertension, hyperlipidemia #8. Myocardial infarction #9. Chronic kidney disease, stage III #10. Coronary artery disease with previous history of bypass grafting #11. Resident of a usp #12. Mild elevation of lactic acid, no evidence of hypoperfusion, he modynamically patient is stable, mentation has actually improved compared to yesterday, skin is warm and dry, cap refill is less than 3 seconds. #13. Hypernatremia, related to diuresis Plan: Patient is in no acute distress, FiO2 is being weaned down, no fever or chills, culture data is negative thus far. No fever or chills, patient is receiving IV hydration, Lasix is on hold, nephrology is following. Oral anticoagulation has been started, sent and denies any shortness of breath, or chest pain. She is on a modified diet, continue with aspiration precautions and supervision with meals. Continue with daily lab monitoring, patient is stable from pulmonary perspective. I performed a history & physical examination of the patient and discussed their management with my nurse practitioner, Jacqueline Peters. I reviewed the nurse practitioner's note and agree with the documented findings and plan of care. Lung sounds are positive for diffuse rhonchi and rales. The findings and the impression was discussed with the patient. I attest to the documentation by the nurse practitioner. Time with Patient: Less than 30
[2018-12-06] MEDS: DONEPEZIL 5 MG TAB PO SCH (22:06)
[2018-12-07] MEDS: IPRATROPIUM-ALBUTEROL 3 ML NEB INHALATION SCH ×4 (07:03→19:56)
[2018-12-07 07:21] LABS: Anisocytosis Slight; Basophils % (A) 1 %; Eosinophils # (A) 0.3 k/uL (0-0.7); Eosinophils % (A) 6 %; HCT 26.3 % (34.0-46.0); HGB 8.3 gm/dL (11.4-16.0); Hypochromasia Marked; Lymphocytes # (A) 1.4 k/uL (1.0-4.8); Lymphocytes % (A) 33 %; MCHC 31.6 g/dL (31.0-37.0); MCV 104.5 fL (80.0-100.0); Macrocytosis Moderate; Mean Platelet Volume 8.2; Monocytes # (A) 0.2 k/uL (0-1.0); Monocytes % (A) 4 %; Neutrophils # (A) 2.1 k/uL (1.3-7.7); Neutrophils % (A) 52 %; Platelet Count 203 k/uL (150-450); Poikilocytosis Slight; RBC 2.51 m/uL (3.80-5.40); RDW 18.3 % (11.5-15.5); WBC 4.1 k/uL (3.8-10.6)
[2018-12-07 07:38] LABS: Potassium 3.5 mmol/L (3.5-5.1)
[2018-12-07] MEDS: SODIUM CHLORIDE 0.45% 1,000 ML IV SCH (07:48)
[2018-12-07] MEDS: PANTOPRAZOLE 40 MG/10 ML VIAL IV SCH (07:55)
[2018-12-07] MEDS: SERTRALINE 25 MG TAB PO SCH (07:56)
[2018-12-07] MEDS: BISACODYL 5 MG TABLET.DR PO SCH (07:56)
[2018-12-07] MEDS: PIPERACILLIN-TAZOBACTAM 3.375 GM in SODIUM CHLORIDE 0.9% 100 ML IVPB SCH ×2 (07:56→21:36)
[2018-12-07] MEDS: APIXABAN 2.5 MG TABLET PO SCH ×2 (07:56→21:36)
[2018-12-07] MEDS: METOPROLOL TARTRATE 25 MG TAB PO SCH ×3 (07:56→21:36)
[2018-12-07] MEDS: HEPARIN SODIUM,PORCINE 5,000 UNIT/ML 1 ML VIAL SQ SCH ×2 (07:57→21:12)
[2018-12-07] MEDS ORDERED: POTASSIUM CHLORIDE ER 20 MEQ TAB.ER PO STA (10:20)
--- NOTE | 2018-12-07 10:21 | P.PN ---
Subjective Patient is seen in follow-up for acute kidney injury. Her baseline creatinine is near 1 and peaked at 3.4 this admission. Today is 2.75. Diuretics are held. Sodium level is up to 151. She is currently maintained on half normal saline. Denies chest pain or shortness of breath. Vital signs are stable. General: The patient appeared well nourished and normally developed. HEENT: Head exam is unremarkable. Neck is without jugular venous distension. LUNGS: Breath sounds decreased. HEART: Rate and Rhythm are regular. First and second heart sounds normal. No murmurs, rubs or gallops. ABDOMEN: Abdominal exam reveals normal bowel sounds. Non-tender and non- distended. No evidence of peritonitis. EXTREMITITES: No clubbing, cyanosis, or edema. Objective - Vital Signs Vital signs: Vital Signs Temp 97.6 F 12/07/18 08:04 Pulse 73 12/07/18 08:04 Resp 16 12/07/18 08:04 BP 131/58 12/07/18 08:04 Pulse Ox 96 12/07/18 08:04 Intake & Output 12/06/18 12/07/18 12/07/18 18:59 06:59 18:59 Intake Total 712 Output Total 1200 325 Balance -488 -325 Weight 60 kg 61 kg Intake: Oral 712 Output: Urine 1200 325 Other: Voiding Method Indwelling Catheter Indwelling Catheter Indwelling Catheter # Voids 0 # Bowel Movements 1 - Labs CBC & Chem 7: 12/07/18 05:56 12/07/18 05:56 Labs: Abnormal Lab Results - Last 24 Hours (Table) 12/06/18 12/06/18 12/07/18 Range/Units 05:49 11:41 05:56 RBC 2.51 L (3.80-5.40) m/uL Hgb 8.3 L (11.4-16.0) gm/dL Hct 26.3 L (34.0-46.0) % MCV 104.5 H (80.0-100.0) fL RDW 18.3 H (11.5-15.5) % Sodium 150 H (137-145) mmol/L Potassium 3.4 L (3.5-5.1) mmol/L Chloride 113 H (98-107) mmol/L BUN 76 H (7-17) mg/dL Creatinine 3.40 H (0.52-1.04) mg/dL Glucose 111 H (74-99) mg/dL POC Glucose (mg/dL) 134 H (75-99) mg/dL 12/07/18 Range/Units 05:56 RBC (3.80-5.40) m/uL Hgb (11.4-16.0) gm/dL Hct (34.0-46.0) % MCV (80.0-100.0) fL RDW (11.5-15.5) % Sodium 151 H (137-145) mmol/L Potassium (3.5-5.1) mmol/L Chloride 115 H (98-107) mmol/L BUN 79 H (7-17) mg/dL Creatinine 2.75 H (0.52-1.04) mg/dL Glucose 107 H (74-99) mg/dL POC Glucose (mg/dL) (75-99) mg/dL Microbiology - Last 24 Hours (Table) 12/01/18 05:37 Blood Culture - Final Blood No Growth after 144 hours 12/01/18 05:27 Blood Culture - Final Blood No Growth after 144 hours Assessment and Plan Plan: Assessment: 1. Acute kidney injury secondary to ATN secondary to diuresis. Creatinine peaked at 3.4 this admission and is 2.75 today. Baseline creatinine near 1. No hydronephrosis noted on ultrasound. 2. Hypernatremia secondary to free water deficit due to lack of oral water intake. 3. Hypokalemia secondary to diuresis and poor oral intake. Magnesium repleted. 4. Aspiration pneumonia maintained on antibiotics. 5. Systolic CHF with ejection fraction of 45-50% with severe mitral stenosis, tricuspid regurgitation and pulmonary hypertension; moderate mitral regurgitation. 6. Acute hypoxic respiratory failure secondary to pneumonia. Plan: I will change IV fluids to D5W to be run at 100 mL an hour. Hold diuretics. Replace potassium. 40 meq today. Avoid nephrotoxins. Encourage oral intake, including free water. Repeat electrolytes in the morning.
[2018-12-07] MEDS: DEXTROSE 5% IN WATER 1,000 ML IV SCH ×2 (11:03→21:35)
--- NOTE | 2018-12-07 12:15 | P.PN ---
Subjective Respiratory failure, probable aspiration A 8-year-old white female patient Dr[facility] Hull[facility], was readmitted to the hospital with possible aspiration pneumonia past medical history of CVA TIA despite. 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 Lalo Fields December 06, 2018: Patient was seen and examined today. She is awake alert oriented 2 to self and location. She appears to be at her baseline mentation. There is a noted wound but, most likely the BiPAP to her right Nare. She denies any chest pains, pressures, or shortness of breath this time. Labs showed a creatinine significantly elevated yesterday. She's been on diuretics for acute CHF and has had poor intake. Her baseline creatinine is around 1.0. Currently she is improved from her admission. She was seen at [facility] by myself on November 30 and was found at that point to be of much improved mentation and other normal functions. 12/07/2018: Remedios was found sleeping in her room today. Her kidney functions are improved. Nephrology is on consult. GFR is now 15. Creatinine note 2.75. She remains hyponatremic with a sodium of 151. Hemoglobin is 8.3. Nursing reports no significant complaints from the patient. Objective - Vital Signs Vital signs: Vital Signs Temp 97.8 F 12/07/18 11:39 Pulse 70 12/07/18 11:48 Resp 16 12/07/18 11:39 BP 145/67 12/07/18 11:39 Pulse Ox 98 12/07/18 11:39 Intake & Output 12/06/18 12/07/18 12/07/18 18:59 06:59 18:59 Intake Total 712 Output Total 1200 325 300 Balance -488 -325 -300 Weight 60 kg 61 kg Intake: Oral 712 Output: Urine 1200 325 300 Other: Voiding Method Indwelling Catheter Indwelling Catheter Indwelling Catheter # Voids 0 # Bowel Movements 1 1 - Exam General: The patient is sleeping comfortably. Neck: The neck is supple, there is no thyromegaly, lymphadenopathy, tenderness or JVD. Cardiovascular: S1S2 is normal, There is a regular rate and rhythm. 1/6 sysytolic murmur heard best at the LSB inferior, no rub or gallop is appreciated. Respiratory: Lungs are coarse to auscultation bilaterally, respirations are non-labored, breath sounds are equal. Gastrointestinal: Soft, non-distended, non-tender abdomen without masses or organomegaly noted. There is no rebound or guarding present. Bowel sounds are unremarkable. Musculoskeletal: Normal ROM, no tenderness, There is no pedal edema. There is no calf tenderness or swelling. No cords were appreciated. Neurological: CN II-XII intact, there are no obvious motor or sensory deficits. Coordination appears grossly intact. Speech is normal. Skin: Skin is warm and dry and no rashesHowever there is a wound to her Right Nare probably from a BiPAP - Labs CBC & Chem 7: 12/07/18 05:56 12/07/18 05:56 Labs: Abnormal Lab Results - Last 24 Hours (Table) 12/07/18 12/07/18 Range/Units 05:56 05:56 RBC 2.51 L (3.80-5.40) m/uL Hgb 8.3 L (11.4-16.0) gm/dL Hct 26.3 L (34.0-46.0) % MCV 104.5 H (80.0-100.0) fL RDW 18.3 H (11.5-15.5) % Sodium 151 H (137-145) mmol/L Chloride 115 H (98-107) mmol/L BUN 79 H (7-17) mg/dL Creatinine 2.75 H (0.52-1.04) mg/dL Glucose 107 H (74-99) mg/dL Microbiology - Last 24 Hours (Table) 12/01/18 05:37 Blood Culture - Final Blood No Growth after 144 hours 12/01/18 05:27 Blood Culture - Final Blood No Growth after 144 hours Assessment and Plan (1) Acute renal failure Current Visit: Yes Status: Acute Code(s): N17.9 - ACUTE KIDNEY FAILURE, UNSPECIFIED SNOMED Code(s): 76808050 (2) Acute on chronic systolic (congestive) heart failure Current Visit: Yes Status: Acute Code(s): I50.23 - ACUTE ON CHRONIC SYSTOLIC (CONGESTIVE) HEART FAILURE SNOMED Code(s): 710528177 (3) Hypernatremia Current Visit: Yes Status: Acute Code(s): E87.0 - HYPEROSMOLALITY AND HYPERNATREMIA SNOMED Code(s): 152482669 (4) Hypokalemia Current Visit: Yes Status: Acute Code(s): E87.6 - HYPOKALEMIA SNOMED Code(s): 24761755 (5) Aspiration pneumonia Current Visit: Yes Status: Acute Code(s): J69.0 - PNEUMONITIS DUE TO INHALATION OF FOOD AND VOMIT SNOMED Code(s): 758014956 (6) History of coronary artery disease Current Visit: Yes Status: Acute Code(s): Z86.79 - PERSONAL HISTORY OF OTHER DISEASES OF THE CIRCULATORY SYSTEM SNOMED Code(s): 360281652 (7) Dehydration Current Visit: No Status: Acute Code(s): E86.0 - DEHYDRATION SNOMED Code(s): 47862062 (8) Dementia Current Visit: No Status: Acute Code(s): F03.90 - UNSPECIFIED DEMENTIA WITHOUT BEHAVIORAL DISTURBANCE SNOMED Code(s): 95779749 (9) High risk for readmission Current Visit: No Status: Acute Code(s): Z91.89 - OTH PERSONAL RISK FACTORS, NOT ELSEWHERE CLASSIFIED SNOMED Code(s): 398644583 (10) Macrocytic anemia Current Visit: No Status: Acute Code(s): D53.9 - NUTRITIONAL ANEMIA, UNSPECIFIED SNOMED Code(s): 49993613 (11) Pneumonia Current Visit: No Status: Acute Code(s): J18.9 - PNEUMONIA, UNSPECIFIED ORGANISM SNOMED Code(s): 001440210 (12) Mitral stenosis Current Visit: Yes Status: Acute Code(s): I05.0 - RHEUMATIC MITRAL STENOSIS SNOMED Code(s): 92038732 (13) Mitral regurgitation Current Visit: Yes Status: Acute Code(s): I34.0 - NONRHEUMATIC MITRAL (VALVE) INSUFFICIENCY SNOMED Code(s): 70018296 Plan: Without further recommendations from nephrology regarding her acute renal failure. I'll await further recommendations from Cardiology and pulmonology. PT/OT to continue treating. We'll plan on her going to [facility] once she is more stable. Repeat labs in a.m. I will reevaluate her in the next 24 hours.
--- NOTE | 2018-12-07 13:01 | PN ---
PROGRESS NOTE Mrs Maya is a lady with pneumonia and sepsis-type picture of unclear etiology. Cardiac-arvizu, she has had episodes of atrial fib on and off, but she is now maintaining sinus rhythm. She is on Eliquis 2.5 mg b.i.d. Yesterday's issue was decreasing renal function with elevated creatinine. Creatinine has come down nicely from 3.4 to 2.7. She is being hydrated cautiously. From a cardiac standpoint, I would recommend that we continue the Eliquis and other medications. I will see her as needed from a cardiac standpoint and her renal failure issues are being addressed by Nephrology. Vitals are stable, blood pressure is 112/80, pulse rate 70 per minute, S1-S2 heard normally. Regular short systolic murmur. Lungs reveal fine rales over both bases. Abdomen and lower exam unchanged. Plan is to continue current medications and I will see her as needed from a cardiac standpoint. MMODL / IJN: [id number] /
[2018-12-07] MEDS: FERROUS SULFATE 325 MG TAB PO SCH (16:33)
[2018-12-07] MEDS: CYANOCOBALAMIN 500 MCG TAB PO SCH (16:33)
[2018-12-07] MEDS: MULTIVITAMINS, THERA 1 EACH TAB PO SCH (16:33)
[2018-12-07] MEDS: DONEPEZIL 5 MG TAB PO SCH (21:36)
[2018-12-08 07:23] LABS: Anisocytosis Slight; Basophils % (A) 1 %; Eosinophils # (A) 0.2 k/uL (0-0.7); Eosinophils % (A) 6 %; HCT 26.1 % (34.0-46.0); HGB 8.1 gm/dL (11.4-16.0); Hypochromasia Marked; Lymphocytes # (A) 1.4 k/uL (1.0-4.8); Lymphocytes % (A) 39 %; MCH 32.6 pg (25.0-35.0); MCHC 30.9 g/dL (31.0-37.0); MCV 105.3 fL (80.0-100.0); Macrocytosis Marked; Mean Platelet Volume 7.7; Monocytes # (A) 0.2 k/uL (0-1.0); Monocytes % (A) 6 %; Neutrophils # (A) 1.7 k/uL (1.3-7.7); Neutrophils % (A) 47 %; Platelet Count 193 k/uL (150-450); Poikilocytosis Slight; RBC 2.48 m/uL (3.80-5.40); RDW 18.4 % (11.5-15.5); WBC 3.7 k/uL (3.8-10.6)
[2018-12-08] MEDS: DEXTROSE 5% IN WATER 1,000 ML IV SCH ×2 (07:49→16:30)
[2018-12-08] MEDS: BISACODYL 5 MG TABLET.DR PO SCH (07:54)
[2018-12-08] MEDS: PANTOPRAZOLE 40 MG/10 ML VIAL IV SCH (07:58)
[2018-12-08] MEDS: HEPARIN SODIUM,PORCINE 5,000 UNIT/ML 1 ML VIAL SQ SCH ×2 (07:59→21:01)
[2018-12-08] MEDS: PIPERACILLIN-TAZOBACTAM 3.375 GM in SODIUM CHLORIDE 0.9% 100 ML IVPB SCH ×2 (07:59→21:01)
[2018-12-08] MEDS: SERTRALINE 25 MG TAB PO SCH (07:59)
[2018-12-08] MEDS: APIXABAN 2.5 MG TABLET PO SCH ×2 (07:59→21:01)
[2018-12-08] MEDS: METOPROLOL TARTRATE 25 MG TAB PO SCH ×3 (07:59→22:05)
[2018-12-08] MEDS: IPRATROPIUM-ALBUTEROL 3 ML NEB INHALATION SCH ×4 (08:19→20:23)
[2018-12-08 08:23] LABS: Calcium 8.9 mg/dL (8.4-10.2); Magnesium 1.9 mg/dL (1.6-2.3); Potassium 3.5 mmol/L (3.5-5.1)
[2018-12-08] MEDS ORDERED: POTASSIUM CHLORIDE ER 20 MEQ TAB.ER PO STA (09:59)
--- NOTE | 2018-12-08 09:59 | P.PN ---
Subjective Patient is seen in follow-up for acute kidney injury. Her baseline creatinine is near 1 and peaked at 3.4 this admission. Down to 2.02 today. Diuretics are held. Sodium level is improved to 146. She is currently maintained on D5W at 100 mL an hour. Denies chest pain or shortness of breath. Vital signs are stable. General: The patient appeared well nourished and normally developed. HEENT: Head exam is unremarkable. Neck is without jugular venous distension. LUNGS: Breath sounds decreased. HEART: Rate and Rhythm are regular. First and second heart sounds normal. No murmurs, rubs or gallops. ABDOMEN: Abdominal exam reveals normal bowel sounds. Non-tender and non- distended. No evidence of peritonitis. EXTREMITITES: No clubbing, cyanosis, or edema. Objective - Vital Signs Vital signs: Vital Signs Temp 98.7 F 12/08/18 06:27 Pulse 68 12/08/18 08:31 Resp 16 12/08/18 06:27 BP 149/65 12/08/18 06:27 Pulse Ox 95 12/08/18 08:20 Intake & Output 12/07/18 12/08/18 12/08/18 18:59 06:59 18:59 Intake Total 208 0 Output Total 600 Balance -392 0 Weight 63 kg Intake: Oral 208 0 Output: Urine 600 Other: Voiding Method Indwelling Catheter # Bowel Movements 1 1 - Labs CBC & Chem 7: 12/08/18 06:11 12/08/18 06:11 Labs: Abnormal Lab Results - Last 24 Hours (Table) 12/08/18 12/08/18 Range/Units 06:11 06:11 WBC 3.7 L (3.8-10.6) k/uL RBC 2.48 L (3.80-5.40) m/uL Hgb 8.1 L (11.4-16.0) gm/dL Hct 26.1 L (34.0-46.0) % MCV 105.3 H (80.0-100.0) fL MCHC 30.9 L (31.0-37.0) g/dL RDW 18.4 H (11.5-15.5) % Sodium 146 H (137-145) mmol/L Chloride 113 H (98-107) mmol/L BUN 62 H (7-17) mg/dL Creatinine 2.02 H (0.52-1.04) mg/dL Glucose 160 H (74-99) mg/dL Microbiology - Last 24 Hours (Table) 12/01/18 05:37 Blood Culture - Final Blood No Growth after 144 hours 12/01/18 05:27 Blood Culture - Final Blood No Growth after 144 hours Assessment and Plan Plan: Assessment: 1. Acute kidney injury secondary to ATN secondary to diuresis. Creatinine peaked at 3.4 this admission and is 2.02 today. Baseline creatinine near 1. No hydronephrosis noted on ultrasound. 2. Hypernatremia secondary to free water deficit due to lack of oral water intake. Improving with D5W. 3. Hypokalemia secondary to diuresis and poor oral intake. Magnesium replete. 4. Aspiration pneumonia maintained on antibiotics. 5. Systolic CHF with ejection fraction of 45-50% with severe mitral stenosis, tricuspid regurgitation and pulmonary hypertension; moderate mitral regurgitation. 6. Acute hypoxic respiratory failure secondary to pneumonia. Plan: Decrease D5W at 75 mL an hour. Hold diuretics. Replace potassium. 40 meq today. Avoid nephrotoxins. Encourage oral intake, including free water. Repeat electrolytes in the morning.
--- NOTE | 2018-12-08 12:06 | CDI ---
Documentation Clarification Form Date: 12/03/2018 3:02:00 PM From: Corinne Mayes Phone: Admit Date: 12/01/2018 7:00:00 AM Patient Name: Agata Maya Visit Number: [id number] Discharge Date: ATTENTION: The Clinical Documentation Specialists (CDI) and [facility] Coding Staff appreciate your assistance in clarifying documentation. Please respond to the clarification below the line at the bottom and electronically sign. The CDI & [facility] Coding staff will review the response and follow-up if needed. Please note: Queries are made part of the Legal Health Record. If you have any questions, please contact the author of this message via ITS. Dr. Hull 88 y/o female presents to the ED via EMS from [facility] for evaluation of fever vomiting and Hypoxia History/Risk Factors: Medical Hx CAD, Cancer; Dementia; Htn , Renal disease Clinical Indicators: Cardiology Impression Sepsis. ED report as Sepsis Work up WBC 10.9 Lactic acid: 1.0 Vitals signs on admission: 145/77 105 101.0 15 97% non rebreather Other Clinical Indicators: Stage 2 pressure ulcer Treatment: Antibiotics: Vancomycin and Zosyn IV Bolus: 2L 0.9ns ivfl In your professional opinion, please clarify if these findings signify one of the following conditions, whether the condition is POA, and cause, if known: Condition * ----------------------------------------------->Sepsis ruled out * Sepsis POA * Sepsis not POA * Other, please specify * Unable to determine Identify the (suspected) organism SIRS Criteria (2 or more of the following may indicate SIRS): -Temperature < 96.8F (36C) or > 101.0F (38.3C) -Heart Rate > 90 bpm -Respiratory Rate > 20 breaths/min or PaCO2 < 32 mmHg -White Blood Cell Count > 12,000 or < 4,000 cells/mm3 or > 10% bands -Lactate >2.0 mmol/L (>4.0 is equivalent to septic shock) (Last Revision: December 2017) LEANAD
--- NOTE | 2018-12-08 12:09 | CDI ---
Documentation Clarification Form Date: 12/03/2018 3:22:00 PM From: Corinne Mayes Phone: Admit Date: 12/01/2018 7:00:00 AM Patient Name: Agata Maya Visit Number: [id number] Discharge Date: ATTENTION: The Clinical Documentation Specialists (CDI) and [facility] Coding Staff appreciate your assistance in clarifying documentation. Please respond to the clarification below the line at the bottom and electronically sign. The CDI & [facility] Coding staff will review the response and follow-up if needed. Please note: Queries are made part of the Legal Health Record. If you have any questions, please contact the author of this message via ITS. Dr. Hull Altered Mental Status was documented in the ED Report, H & P and Progress Notes History/Risk Factors: 88 year old female presents to the ED via EMS from [facility] for Fever, vomiting and Hypoxia . Medical hx Dementia , CVA/ TIA , Htn , NH , Memory impairment Clinical Indicators: Per the ED note she is alert and oriented to self she denies pain but answers questions inappropriately Labs: Wbc 10.9 , hgb 9.4 Bun 25 CXR : Stable cardiomegaly and COPD #2 continued patchy infiltrate right mid and lower lung which may represent pneumonia. Infiltrate has slightly increased in the interval Treatment: Neurological Assessment per protocol In your professional opinion, please clarify the etiology of the Altered Mental Status, if known. * Metabolic Encephalopathy (specify Type and Underlying Medical Illness) * >>> Dementia (if know, specify Type and if with/without Behavioral Disturbance) * Other condition (please specify) * Unable to determine (Last Revision: December 2017) MTDD
--- NOTE | 2018-12-08 12:12 | CDI ---
Documentation Clarification Form Date: 12/06/2018 2:48:00 PM From: Corinne Mayes Phone: Admit Date: 12/01/2018 7:00:00 AM Patient Name: Agata Maya Visit Number: [id number] Discharge Date: ATTENTION: The Clinical Documentation Specialists (CDI) and [facility] Coding Staff appreciate your assistance in clarifying documentation. Please respond to the clarification below the line at the bottom and electronically sign. The CDI & [facility] Coding staff will review the response and follow-up if needed. Please note: Queries are made part of the Legal Health Record. If you have any questions, please contact the author of this message via ITS. Dr. Juan Hull A pressure ulcer was documented in the Nursing Notes. History/Risk Factors: 88 year old female presents to the ED via EMS [facility] for evaluation of a fever. Clinical Indicators: POA Location: Buttock Wound description: Stage II, Pressure Injury, Dry intact with Maceration Treatment: Hydrocolloid Consults: Elements for accurate and compliant documentation of an ulcer: *The location/laterality of the ulcer *Etiology (decubitus/pressure, diabetic, PVD) *Stage I-IV, Unstageable, Suspected Deep Tissue Injury (To the deepest stage) *If the ulcer was present at admission (POA) or occurred after admission In your professional opinion, can you please clarify the diagnosis, location, laterality and whether present on admission (POA): * -------------------------> Stage 2 Buttock Pressure Ulcer poa (Partial thickness, loss of dermis, pink wound bed) * Other condition, please specify * Unable to determine Please indicate etiology of pressure ulcer (if known). (Last Revision: June 2017) LEANAD
--- NOTE | 2018-12-08 13:15 | P.PN ---
Subjective Respiratory failure, probable aspiration A 8-year-old white female patient Dr. Hull's resides at [facility], was readmitted to the hospital with possible aspiration pneumonia past medical history of CVA TIA despite. 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 Lalo Fields December 06, 2018: Patient was seen and examined today. She is awake alert oriented 2 to self and location. She appears to be at her baseline mentation. There is a noted wound but, most likely the BiPAP to her right Nare. She denies any chest pains, pressures, or shortness of breath this time. Labs showed a creatinine significantly elevated yesterday. She's been on diuretics for acute CHF and has had poor intake. Her baseline creatinine is around 1.0. Currently she is improved from her admission. She was seen at [facility] by myself on November 30 and was found at that point to be of much improved mentation and other normal functions. 12/07/2018: Remedios was found sleeping in her room today. Her kidney functions are improved. Nephrology is on consult. GFR is now 15. Creatinine note 2.75. She remains hypernatremic with a sodium of 151. Hemoglobin is 8.3. Nursing reports no significant complaints from the patient. 12/08/2018: Patient is awake and alert today. Lunch is at bedside, which indicates she is not really hungry. Her kidney functions continue to improve. Her hypernatremia is resolved. She denies any chest pains, pressures, shortness of breath. She denies any nausea or vomiting today. Objective - Vital Signs Vital signs: Vital Signs Temp 97.3 F L 12/08/18 11:44 Pulse 68 12/08/18 11:46 Resp 16 12/08/18 11:44 BP 165/71 12/08/18 11:44 Pulse Ox 96 12/08/18 11:44 Intake & Output 12/07/18 12/08/18 12/08/18 18:59 06:59 18:59 Intake Total 208 0 Output Total 600 Balance -392 0 Weight 63 kg Intake: Oral 208 0 Output: Urine 600 Other: Voiding Method Indwelling Catheter Indwelling Catheter # Bowel Movements 1 1 1 - Exam General: The patient is sleeping comfortably. Neck: The neck is supple, there is no thyromegaly, lymphadenopathy, tenderness or JVD. Cardiovascular: S1S2 is normal, There is a regular rate and rhythm. 1/6 sysytolic murmur heard best at the LSB inferior, no rub or gallop is appreciated. Respiratory: Lungs are coarse to auscultation bilaterally, respirations are non-labored, breath sounds are equal. Gastrointestinal: Soft, non-distended, non-tender abdomen without masses or organomegaly noted. There is no rebound or guarding present. Bowel sounds are unremarkable. Musculoskeletal: Normal ROM, no tenderness, There is no pedal edema. There is no calf tenderness or swelling. No cords were appreciated. Neurological: CN II-XII intact, there are no obvious motor or sensory deficits. Coordination appears grossly intact. Speech is normal. Skin: Skin is warm and dry and no rashesHowever there is a wound to her Right Nare probably from a BiPAP - Labs CBC & Chem 7: 12/08/18 06:11 12/08/18 06:11 Labs: Abnormal Lab Results - Last 24 Hours (Table) 12/08/18 12/08/18 Range/Units 06:11 06:11 WBC 3.7 L (3.8-10.6) k/uL RBC 2.48 L (3.80-5.40) m/uL Hgb 8.1 L (11.4-16.0) gm/dL Hct 26.1 L (34.0-46.0) % MCV 105.3 H (80.0-100.0) fL MCHC 30.9 L (31.0-37.0) g/dL RDW 18.4 H (11.5-15.5) % Sodium 146 H (137-145) mmol/L Chloride 113 H (98-107) mmol/L BUN 62 H (7-17) mg/dL Creatinine 2.02 H (0.52-1.04) mg/dL Glucose 160 H (74-99) mg/dL Assessment and Plan (1) Acute renal failure Current Visit: Yes Status: Acute Code(s): N17.9 - ACUTE KIDNEY FAILURE, UNSPECIFIED SNOMED Code(s): 17482078 (2) Acute on chronic systolic (congestive) heart failure Current Visit: Yes Status: Acute Code(s): I50.23 - ACUTE ON CHRONIC SYSTOLIC (CONGESTIVE) HEART FAILURE SNOMED Code(s): 747892721 (3) Hypernatremia Current Visit: Yes Status: Acute Code(s): E87.0 - HYPEROSMOLALITY AND HYPERNATREMIA SNOMED Code(s): 148612708 (4) Hypokalemia Current Visit: Yes Status: Acute Code(s): E87.6 - HYPOKALEMIA SNOMED Code(s): 25728475 (5) Aspiration pneumonia Current Visit: Yes Status: Acute Code(s): J69.0 - PNEUMONITIS DUE TO INHALATION OF FOOD AND VOMIT SNOMED Code(s): 690694877 (6) History of coronary artery disease Current Visit: Yes Status: Acute Code(s): Z86.79 - PERSONAL HISTORY OF OTHER DISEASES OF THE CIRCULATORY SYSTEM SNOMED Code(s): 439200541 (7) Dehydration Current Visit: No Status: Acute Code(s): E86.0 - DEHYDRATION SNOMED Code(s): 96532704 (8) Dementia Current Visit: No Status: Acute Code(s): F03.90 - UNSPECIFIED DEMENTIA WITHOUT BEHAVIORAL DISTURBANCE SNOMED Code(s): 09496848 (9) High risk for readmission Current Visit: No Status: Acute Code(s): Z91.89 - OT PERSONAL RISK FACTORS, NOT ELSEWHERE CLASSIFIED SNOMED Code(s): 745759818 (10) Macrocytic anemia Current Visit: No Status: Acute Code(s): D53.9 - NUTRITIONAL ANEMIA, UNSPECIFIED SNOMED Code(s): 99742451 (11) Pneumonia Current Visit: No Status: Acute Code(s): J18.9 - PNEUMONIA, UNSPECIFIED ORGANISM SNOMED Code(s): 393477486 (12) Mitral stenosis Current Visit: Yes Status: Acute Code(s): I05.0 - RHEUMATIC MITRAL STENOSIS SNOMED Code(s): 52708969 (13) Mitral regurgitation Current Visit: Yes Status: Acute Code(s): I34.0 - NONRHEUMATIC MITRAL (VALVE) INSUFFICIENCY SNOMED Code(s): 79632308 Plan: Wait further recommendations from nephrology regarding her acute renal failure. I'll await further recommendations from Cardiology and pulmonology. PT/OT to continue treating. We'll plan on her going to [facility] once she is more stable. Hopefully tomorrow Repeat labs in a.m. I will reevaluate her in the next 24 hours.
[2018-12-08] MEDS: MULTIVITAMINS, THERA 1 EACH TAB PO SCH (16:34)
[2018-12-08] MEDS: FERROUS SULFATE 325 MG TAB PO SCH (16:34)
[2018-12-08] MEDS: CYANOCOBALAMIN 500 MCG TAB PO SCH (16:34)
[2018-12-08] MEDS: DONEPEZIL 5 MG TAB PO SCH (21:01)
[2018-12-09] MEDS: DEXTROSE 5% IN WATER 1,000 ML IV SCH ×2 (01:54→21:30)
[2018-12-09 06:45] LABS: Anisocytosis Slight; Basophils % (A) 0 %; Eosinophils # (A) 0.2 k/uL (0-0.7); Eosinophils % (A) 4 %; HCT 27.9 % (34.0-46.0); HGB 8.2 gm/dL (11.4-16.0); Hypochromasia Marked; Lymphocytes # (A) 1.5 k/uL (1.0-4.8); Lymphocytes % (A) 34 %; MCHC 29.4 g/dL (31.0-37.0); MCV 102.1 fL (80.0-100.0); Macrocytosis Moderate; Mean Platelet Volume 9.6; Monocytes # (A) 0.2 k/uL (0-1.0); Monocytes % (A) 5 %; Neutrophils # (A) 2.3 k/uL (1.3-7.7); Neutrophils % (A) 54 %; Platelet Count 196 k/uL (150-450); Poikilocytosis Slight; RBC 2.74 m/uL (3.80-5.40); RDW 18.3 % (11.5-15.5); WBC 4.3 k/uL (3.8-10.6)
[2018-12-09 07:04] LABS: Potassium 3.8 mmol/L (3.5-5.1)
[2018-12-09] MEDS: IPRATROPIUM-ALBUTEROL 3 ML NEB INHALATION SCH ×4 (07:28→20:43)
--- NOTE | 2018-12-09 10:06 | P.PN ---
Subjective Respiratory failure, probable aspiration A 8-year-old white female patient Dr. Hull's resides at [facility], was readmitted to the hospital with possible aspiration pneumonia past medical history of CVA TIA despite. 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 Lalo Fields December 06, 2018: Patient was seen and examined today. She is awake alert oriented 2 to self and location. She appears to be at her baseline mentation. There is a noted wound but, most likely the BiPAP to her right Nare. She denies any chest pains, pressures, or shortness of breath this time. Labs showed a creatinine significantly elevated yesterday. She's been on diuretics for acute CHF and has had poor intake. Her baseline creatinine is around 1.0. Currently she is improved from her admission. She was seen at [facility] by myself on November 30 and was found at that point to be of much improved mentation and other normal functions. 12/07/2018: Remedios was found sleeping in her room today. Her kidney functions are improved. Nephrology is on consult. GFR is now 15. Creatinine note 2.75. She remains hypernatremic with a sodium of 151. Hemoglobin is 8.3. Nursing reports no significant complaints from the patient. 12/08/2018: Patient is awake and alert today. Lunch is at bedside, which indicates she is not really hungry. Her kidney functions continue to improve. Her hypernatremia is resolved. She denies any chest pains, pressures, shortness of breath. She denies any nausea or vomiting today. 12/09/2018: Patient is awake and lying in bed. She has no complaints today. Nursing report she is doing well. Hypernatremia is resolved. BUN and creatinine of improved considerably. GFR is now 33. Macrocytic anemia stable with a hemoglobin of 8.2. Maintains on Zosyn for her pneumonia and Elequis for anticoagulation for her atrial fibrillation. [facility] for cough and shortness of breath. She remains on Aricept for dementia. This was started her last admission. She denies any current chest pains, or pressures at this time. She denies any active shortness of breath, nausea, or vomiting. Objective - Vital Signs Vital signs: Vital Signs Temp 97.8 F 12/09/18 08:00 Pulse 70 12/09/18 08:00 Resp 16 12/09/18 08:00 BP 127/68 12/09/18 08:00 Pulse Ox 98 12/09/18 08:00 Intake & Output 12/08/18 12/09/18 12/09/18 18:59 06:59 18:59 Intake Total 0 Output Total 800 440 Balance -800 -440 Intake: Oral 0 Output: Urine 800 440 Uretheral (Valentine) 440 Other: Voiding Method Indwelling Catheter Diaper # Voids 1 # Bowel Movements 1 1 - Exam General: The patient is sleeping comfortably. Neck: The neck is supple, there is no thyromegaly, lymphadenopathy, tenderness or JVD. Cardiovascular: S1S2 is normal, There is a regular rate and rhythm. 1/6 sysytolic murmur heard best at the LSB inferior, no rub or gallop is appreciated. Respiratory: Lungs are coarse to auscultation bilaterally, respirations are non-labored, breath sounds are equal. Gastrointestinal: Soft, non-distended, non-tender abdomen without masses or organomegaly noted. There is no rebound or guarding present. Bowel sounds are unremarkable. Musculoskeletal: Normal ROM, no tenderness, There is no pedal edema. There is no calf tenderness or swelling. No cords were appreciated. Neurological: CN II-XII intact, there are no obvious motor or sensory deficits. Coordination appears grossly intact. Speech is normal. Skin: Stage II pressure ulcer to the buttocks was evaluated today. It is approximately 5 x 3 cm - Labs CBC & Chem 7: 12/09/18 06:15 12/09/18 06:15 Labs: Abnormal Lab Results - Last 24 Hours (Table) 12/09/18 12/09/18 Range/Units 06:15 06:15 RBC 2.74 L (3.80-5.40) m/uL Hgb 8.2 L (11.4-16.0) gm/dL Hct 27.9 L (34.0-46.0) % MCV 102.1 H (80.0-100.0) fL MCHC 29.4 L (31.0-37.0) g/dL RDW 18.3 H (11.5-15.5) % Chloride 112 H (98-107) mmol/L BUN 41 H (7-17) mg/dL Creatinine 1.42 H (0.52-1.04) mg/dL Glucose 129 H (74-99) mg/dL Assessment and Plan (1) Acute renal failure Current Visit: Yes Status: Acute Code(s): N17.9 - ACUTE KIDNEY FAILURE, UNSPECIFIED SNOMED Code(s): 02601187 (2) Acute on chronic systolic (congestive) heart failure Current Visit: Yes Status: Acute Code(s): I50.23 - ACUTE ON CHRONIC SYSTOLIC (CONGESTIVE) HEART FAILURE SNOMED Code(s): 695804939 (3) Hypernatremia Current Visit: Yes Status: Acute Code(s): E87.0 - HYPEROSMOLALITY AND HYPERNATREMIA SNOMED Code(s): 702109441 (4) Hypokalemia Current Visit: Yes Status: Acute Code(s): E87.6 - HYPOKALEMIA SNOMED Code(s): 36190472 (5) Aspiration pneumonia Current Visit: Yes Status: Acute Code(s): J69.0 - PNEUMONITIS DUE TO INHALATION OF FOOD AND VOMIT SNOMED Code(s): 462899414 (6) History of coronary artery disease Current Visit: Yes Status: Acute Code(s): Z86.79 - PERSONAL HISTORY OF OTHER DISEASES OF THE CIRCULATORY SYSTEM SNOMED Code(s): 798679494 (7) Dehydration Current Visit: No Status: Acute Code(s): E86.0 - DEHYDRATION SNOMED Code(s): 77286589 (8) Dementia Current Visit: No Status: Acute Code(s): F03.90 - UNSPECIFIED DEMENTIA WITHOUT BEHAVIORAL DISTURBANCE SNOMED Code(s): 57750754 (9) High risk for readmission Current Visit: No Status: Acute Code(s): Z91.89 - OTH PERSONAL RISK FACTORS, NOT ELSEWHERE CLASSIFIED SNOMED Code(s): 247670777 (10) Macrocytic anemia Current Visit: No Status: Acute Code(s): D53.9 - NUTRITIONAL ANEMIA, UNSPECIFIED SNOMED Code(s): 39949415 (11) Pneumonia Current Visit: No Status: Acute Code(s): J18.9 - PNEUMONIA, UNSPECIFIED ORGANISM SNOMED Code(s): 307594102 (12) Mitral stenosis Current Visit: Yes Status: Acute Code(s): I05.0 - RHEUMATIC MITRAL STENOSIS SNOMED Code(s): 83203436 (13) Mitral regurgitation Current Visit: Yes Status: Acute Code(s): I34.0 - NONRHEUMATIC MITRAL (VALVE) INSUFFICIENCY SNOMED Code(s): 14812981 (14) Stage II pressure ulcer of buttock Current Visit: Yes Status: Acute Code(s): L89.302 - PRESSURE ULCER OF UNSPECIFIED BUTTOCK, STAGE 2 SNOMED Code(s): 88187373504898734 Plan: Wait further recommendations from nephrology regarding her acute renal failure. It is much improved. He may remain stable. I'll await further recommendations from Cardiology and pulmonology. PT/OT to continue treating. We'll plan on her going back to [facility] in the next 24 hours. Repeat labs in a.m. I will reevaluate her in the next 24 hours.
--- NOTE | 2018-12-09 10:55 | P.PN ---
Subjective Patient is seen in follow-up for acute kidney injury. Her baseline creatinine is near 1 and peaked at 3.4 this admission. Down to 1.42 today. Diuretics are held. Sodium level is improved to 145. She is currently maintained on D5W at 75 mL an hour. Denies chest pain or shortness of breath. Vital signs are stable. General: The patient appeared well nourished and normally developed. HEENT: Head exam is unremarkable. Neck is without jugular venous distension. LUNGS: Breath sounds decreased. HEART: Rate and Rhythm are regular. First and second heart sounds normal. No murmurs, rubs or gallops. ABDOMEN: Abdominal exam reveals normal bowel sounds. Non-tender and non- distended. No evidence of peritonitis. EXTREMITITES: No clubbing, cyanosis, or edema. Objective - Vital Signs Vital signs: Vital Signs Temp 97.8 F 12/09/18 08:00 Pulse 70 12/09/18 08:00 Resp 16 12/09/18 08:00 BP 127/68 12/09/18 08:00 Pulse Ox 98 12/09/18 08:00 Intake & Output 12/08/18 12/09/18 12/09/18 18:59 06:59 18:59 Intake Total 0 Output Total 800 440 Balance -800 -440 Intake: Oral 0 Output: Urine 800 440 Uretheral (Valentine) 440 Other: Voiding Method Indwelling Catheter Diaper # Voids 1 # Bowel Movements 1 1 - Labs CBC & Chem 7: 12/09/18 06:15 12/09/18 06:15 Labs: Abnormal Lab Results - Last 24 Hours (Table) 12/09/18 12/09/18 Range/Units 06:15 06:15 RBC 2.74 L (3.80-5.40) m/uL Hgb 8.2 L (11.4-16.0) gm/dL Hct 27.9 L (34.0-46.0) % MCV 102.1 H (80.0-100.0) fL MCHC 29.4 L (31.0-37.0) g/dL RDW 18.3 H (11.5-15.5) % Chloride 112 H (98-107) mmol/L BUN 41 H (7-17) mg/dL Creatinine 1.42 H (0.52-1.04) mg/dL Glucose 129 H (74-99) mg/dL Assessment and Plan Plan: Assessment: 1. Acute kidney injury secondary to ATN secondary to diuresis. Creatinine peaked at 3.4 this admission and is 1.42 today. Baseline creatinine near 1. No hydronephrosis noted on ultrasound. 2. Hypernatremia secondary to free water deficit due to lack of oral water intake. Improving with D5W. 3. Hypokalemia secondary to diuresis and poor oral intake. Magnesium replete. Better. 4. Aspiration pneumonia maintained on antibiotics. 5. Systolic CHF with ejection fraction of 45-50% with severe mitral stenosis, tricuspid regurgitation and pulmonary hypertension; moderate mitral regurgitation. 6. Acute hypoxic respiratory failure secondary to pneumonia. Plan: Maintain D5W at 75 mL an hour. Hold diuretics. Avoid nephrotoxins. Encourage oral intake, including free water. Repeat electrolytes in the morning.
[2018-12-09] MEDS: SERTRALINE 25 MG TAB PO SCH (11:29)
[2018-12-09] MEDS: APIXABAN 2.5 MG TABLET PO SCH ×2 (11:30→21:29)
[2018-12-09] MEDS: PANTOPRAZOLE 40 MG/10 ML VIAL IV SCH (11:30)
[2018-12-09] MEDS: METOPROLOL TARTRATE 25 MG TAB PO SCH ×3 (11:31→21:29)
[2018-12-09] MEDS: BISACODYL 5 MG TABLET.DR PO SCH (11:38)
[2018-12-09] MEDS: PIPERACILLIN-TAZOBACTAM 3.375 GM in SODIUM CHLORIDE 0.9% 100 ML IVPB SCH ×2 (12:53→17:33)
[2018-12-09 16:19] VITALS: BMI 23.1
[2018-12-09] MEDS: FERROUS SULFATE 325 MG TAB PO SCH (17:51)
[2018-12-09] MEDS: CYANOCOBALAMIN 500 MCG TAB PO SCH (17:51)
[2018-12-09] MEDS: MULTIVITAMINS, THERA 1 EACH TAB PO SCH (17:51)
[2018-12-09] MEDS: HEPARIN SODIUM,PORCINE 5,000 UNIT/ML 1 ML VIAL SQ SCH (17:52)
[2018-12-09] MEDS: DONEPEZIL 5 MG TAB PO SCH (21:29)
[2018-12-10] MEDS: PIPERACILLIN-TAZOBACTAM 3.375 GM in SODIUM CHLORIDE 0.9% 100 ML IVPB SCH ×4 (00:11→23:22)
[2018-12-10] MEDS: IPRATROPIUM-ALBUTEROL 3 ML NEB INHALATION SCH ×4 (08:00→20:52)
[2018-12-10 08:17] LABS: Anisocytosis Slight; Basophils % (A) 1 %; Eosinophils # (A) 0.2 k/uL (0-0.7); Eosinophils % (A) 6 %; HCT 27.4 % (34.0-46.0); HGB 8.4 gm/dL (11.4-16.0); Hypochromasia Marked; Lymphocytes # (A) 1.6 k/uL (1.0-4.8); Lymphocytes % (A) 35 %; MCH 31.4 pg (25.0-35.0); MCHC 30.7 g/dL (31.0-37.0); MCV 102.3 fL (80.0-100.0); Macrocytosis Moderate; Mean Platelet Volume 8.2; Monocytes # (A) 0.2 k/uL (0-1.0); Monocytes % (A) 5 %; Neutrophils # (A) 2.2 k/uL (1.3-7.7); Neutrophils % (A) 50 %; Platelet Count 205 k/uL (150-450); Poikilocytosis Slight; RBC 2.68 m/uL (3.80-5.40); RDW 18.4 % (11.5-15.5); WBC 4.4 k/uL (3.8-10.6)
[2018-12-10 08:28] LABS: Calcium 8.8 mg/dL (8.4-10.2); Magnesium 1.8 mg/dL (1.6-2.3); Potassium 3.9 mmol/L (3.5-5.1)
--- NOTE | 2018-12-10 08:57 | P.PN ---
Subjective Patient is seen in follow-up for acute kidney injury. Her baseline creatinine is near 1 and peaked at 3.4 this admission. Down to 1.37 today. Diuretics are held. Sodium level is stable at 145. She is currently maintained on D5W at 75 mL an hour. Denies chest pain or shortness of breath. Vital signs are stable. General: The patient appeared well nourished and normally developed. HEENT: Head exam is unremarkable. Neck is without jugular venous distension. LUNGS: Breath sounds decreased. HEART: Rate and Rhythm are regular. First and second heart sounds normal. No murmurs, rubs or gallops. ABDOMEN: Abdominal exam reveals normal bowel sounds. Non-tender and non- distended. No evidence of peritonitis. EXTREMITITES: No clubbing, cyanosis, or edema. Objective - Vital Signs Vital signs: Vital Signs Temp 97.6 F 12/10/18 07:02 Pulse 70 12/10/18 08:13 Resp 16 12/10/18 01:25 BP 149/87 12/10/18 07:02 Pulse Ox 94 L 12/10/18 07:02 Intake & Output 12/09/18 12/10/18 12/10/18 18:59 06:59 18:59 Intake Total 118 775 Output Total 520 400 Balance -402 375 Weight 63 kg Intake: Intake, IV Titration 775 Amount Dextrose 5% in Water 1, 675 000 ml @ 75 mls/hr IV . [id number] SARAH Rx#:[id number] Piperacillin-Tazobactam 3 100 .375 gm In Sodium Chloride 0.9% 100 ml @ 25 mls/hr IVPB Q8HR SARAH Rx# :[id number] Oral 118 Output: Urine 520 400 Straight 420 400 Other: Voiding Method Incontinent # Voids 1 - Labs CBC & Chem 7: 12/10/18 07:43 12/10/18 07:43 Labs: Abnormal Lab Results - Last 24 Hours (Table) 12/09/18 12/10/18 12/10/18 Range/Units 06:15 07:43 07:43 RBC 2.68 L (3.80-5.40) m/uL Hgb 8.4 L (11.4-16.0) gm/dL Hct 27.4 L (34.0-46.0) % MCV 102.3 H (80.0-100.0) fL MCHC 30.7 L (31.0-37.0) g/dL RDW 18.4 H (11.5-15.5) % Chloride 113 H (98-107) mmol/L BUN 36 H (7-17) mg/dL Creatinine 1.37 H (0.52-1.04) mg/dL Prealbumin 14.0 L (18.0-42.0) mg/dL Assessment and Plan Plan: Assessment: 1. Acute kidney injury secondary to ATN secondary to diuresis. Creatinine peaked at 3.4 this admission and is 1.37 today. Baseline creatinine near 1. No hydronephrosis noted on ultrasound. 2. Hypernatremia secondary to free water deficit due to lack of oral water intake. Improved. 3. Hypokalemia secondary to diuresis and poor oral intake. Magnesium replete. Better. 4. Aspiration pneumonia maintained on antibiotics. 5. Systolic CHF with ejection fraction of 45-50% with severe mitral stenosis, tricuspid regurgitation and pulmonary hypertension; moderate mitral regurgitation. 6. Acute hypoxic respiratory failure secondary to pneumonia. Plan: Maintain D5W at 75 mL an hour. Hold diuretics. Avoid nephrotoxins. Encourage oral intake, including free water. Repeat electrolytes in the morning. Anticipate discharge soon.
[2018-12-10] MEDS: SERTRALINE 25 MG TAB PO SCH (10:42)
[2018-12-10] MEDS: METOPROLOL TARTRATE 25 MG TAB PO SCH ×3 (10:42→22:41)
[2018-12-10] MEDS: BISACODYL 5 MG TABLET.DR PO SCH (10:42)
[2018-12-10] MEDS: APIXABAN 2.5 MG TABLET PO SCH ×2 (10:42→20:40)
[2018-12-10] MEDS: PANTOPRAZOLE 40 MG/10 ML VIAL IV SCH (10:42)
--- NOTE | 2018-12-10 14:11 | P.PN ---
Subjective Respiratory failure, probable aspiration A 8-year-old white female patient Dr. Hull's resides at [facility], was readmitted to the hospital with possible aspiration pneumonia past medical history of CVA TIA despite. 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 Lalo Fields December 06, 2018: Patient was seen and examined today. She is awake alert oriented 2 to self and location. She appears to be at her baseline mentation. There is a noted wound but, most likely the BiPAP to her right Nare. She denies any chest pains, pressures, or shortness of breath this time. Labs showed a creatinine significantly elevated yesterday. She's been on diuretics for acute CHF and has had poor intake. Her baseline creatinine is around 1.0. Currently she is improved from her admission. She was seen at [facility] by myself on November 30 and was found at that point to be of much improved mentation and other normal functions. 12/07/2018: Remedios was found sleeping in her room today. Her kidney functions are improved. Nephrology is on consult. GFR is now 15. Creatinine note 2.75. She remains hypernatremic with a sodium of 151. Hemoglobin is 8.3. Nursing reports no significant complaints from the patient. 12/08/2018: Patient is awake and alert today. Lunch is at bedside, which indicates she is not really hungry. Her kidney functions continue to improve. Her hypernatremia is resolved. She denies any chest pains, pressures, shortness of breath. She denies any nausea or vomiting today. 12/09/2018: Patient is awake and lying in bed. She has no complaints today. Nursing report she is doing well. Hypernatremia is resolved. BUN and creatinine of improved considerably. GFR is now 33. Macrocytic anemia stable with a hemoglobin of 8.2. Maintains on Zosyn for her pneumonia and Elequis for anticoagulation for her atrial fibrillation. [facility] and shortness of breath. She remains on Aricept for dementia. This was started her last admission. She denies any current chest pains, or pressures at this time. She denies any active shortness of breath, nausea, or vomiting. 12/10/2018: Nursing staff had contacted me about multiple straight caths for this patient. A Valentine catheter and Flomax was ordered for her at that time. Patient seems more confused today. She was found resting in her bed. 5. Fluid to D5 water had been at KVO. Her kidney functions is minimally improved with a GFR up from 33-35 today. She remains on her other medications. She denies any chest pains compression, shortness breath, nausea or vomiting. Staff indicated they have to prompt her to eat. Objective - Vital Signs Vital signs: Vital Signs Temp 97.6 F 12/10/18 07:02 Pulse 70 12/10/18 08:13 Resp 16 12/10/18 01:25 BP 149/87 12/10/18 07:02 Pulse Ox 94 L 12/10/18 07:02 Intake & Output 12/09/18 12/10/18 12/10/18 18:59 06:59 18:59 Intake Total 118 775 Output Total 520 400 Balance -402 375 Weight 63 kg Intake: Intake, IV Titration 775 Amount Dextrose 5% in Water 1, 675 000 ml @ 75 mls/hr IV . [id number] [facility] Rx#:[id number] Piperacillin-Tazobactam 3 100 .375 gm In Sodium Chloride 0.9% 100 ml @ 25 mls/hr IVPB Q8HR SARAH Rx# :[id number] Oral 118 Output: Urine 520 400 Straight 420 400 Other: Voiding Method Incontinent # Voids 1 - Exam General: The patient is sleeping comfortably. Neck: The neck is supple, there is no thyromegaly, lymphadenopathy, tenderness or JVD. Cardiovascular: S1S2 is normal, There is a regular rate and rhythm. 1/6 sysytolic murmur heard best at the LSB inferior, no rub or gallop is appreciated. Respiratory: Lungs are coarse to auscultation bilaterally, respirations are non-labored, breath sounds are equal. Gastrointestinal: Soft, non-distended, non-tender abdomen without masses or organomegaly noted. There is no rebound or guarding present. Bowel sounds are unremarkable. Musculoskeletal: Normal ROM, no tenderness, There is no pedal edema. There is no calf tenderness or swelling. No cords were appreciated. Neurological: CN II-XII intact, there are no obvious motor or sensory deficits. Coordination appears grossly intact. Speech is normal. Skin: Stage II pressure ulcer to the buttocks was evaluated today. It is approximately 5 x 3 cm - Labs CBC & Chem 7: 12/10/18 07:43 12/10/18 07:43 Labs: Abnormal Lab Results - Last 24 Hours (Table) 12/09/18 12/10/18 12/10/18 Range/Units 06:15 07:43 07:43 RBC 2.68 L (3.80-5.40) m/uL Hgb 8.4 L (11.4-16.0) gm/dL Hct 27.4 L (34.0-46.0) % MCV 102.3 H (80.0-100.0) fL MCHC 30.7 L (31.0-37.0) g/dL RDW 18.4 H (11.5-15.5) % Chloride 113 H (98-107) mmol/L BUN 36 H (7-17) mg/dL Creatinine 1.37 H (0.52-1.04) mg/dL Prealbumin 14.0 L (18.0-42.0) mg/dL Assessment and Plan (1) Acute renal failure Current Visit: Yes Status: Acute Code(s): N17.9 - ACUTE KIDNEY FAILURE, UNSPECIFIED SNOMED Code(s): 35245897 (2) Acute on chronic systolic (congestive) heart failure Current Visit: Yes Status: Acute Code(s): I50.23 - ACUTE ON CHRONIC SYSTOLIC (CONGESTIVE) HEART FAILURE SNOMED Code(s): 554603488 (3) Hypernatremia Current Visit: Yes Status: Resolved Code(s): E87.0 - HYPEROSMOLALITY AND HYPERNATREMIA SNOMED Code(s): 705324283 (4) Hypokalemia Current Visit: Yes Status: Resolved Code(s): E87.6 - HYPOKALEMIA SNOMED Code(s): 09981597 (5) Aspiration pneumonia Current Visit: Yes Status: Acute Code(s): J69.0 - PNEUMONITIS DUE TO INHALATION OF FOOD AND VOMIT SNOMED Code(s): 703186714 (6) History of coronary artery disease Current Visit: Yes Status: Acute Code(s): Z86.79 - PERSONAL HISTORY OF OTHER DISEASES OF THE CIRCULATORY SYSTEM SNOMED Code(s): 072392013 (7) Dehydration Current Visit: No Status: Acute Code(s): E86.0 - DEHYDRATION SNOMED Code(s): 75946104 (8) Dementia Current Visit: No Status: Acute Code(s): F03.90 - UNSPECIFIED DEMENTIA WITHOUT BEHAVIORAL DISTURBANCE SNOMED Code(s): 00563038 (9) High risk for readmission Current Visit: No Status: Acute Code(s): Z91.89 - [facility] PERSONAL RISK FACTORS, NOT ELSEWHERE CLASSIFIED SNOMED Code(s): 929833743 (10) Macrocytic anemia Current Visit: No Status: Acute Code(s): D53.9 - NUTRITIONAL ANEMIA, UNSPECIFIED SNOMED Code(s): 05126254 (11) Pneumonia Current Visit: No Status: Acute Code(s): J18.9 - PNEUMONIA, UNSPECIFIED ORGANISM SNOMED Code(s): 109196835 (12) Mitral stenosis Current Visit: Yes Status: Acute Code(s): I05.0 - RHEUMATIC MITRAL STENOSIS SNOMED Code(s): 41542006 (13) Mitral regurgitation Current Visit: Yes Status: Acute Code(s): I34.0 - NONRHEUMATIC MITRAL (VALVE) INSUFFICIENCY SNOMED Code(s): 88926398 (14) Stage II pressure ulcer of buttock Current Visit: Yes Status: Acute Code(s): L89.302 - PRESSURE ULCER OF UNSPECIFIED BUTTOCK, STAGE 2 SNOMED Code(s): 29040952240018649 Plan: Wait further recommendations from nephrology regarding her acute renal failure. It is much improved. PT/OT to continue treating. We'll plan on her going back to [facility] tomorrow. Resume IV fluids at 75 mL an hour. Continue Valentine catheter. Repeat labs in a.m. I will reevaluate her in the next 24 hours.
[2018-12-10] MEDS: MULTIVITAMINS, THERA 1 EACH TAB PO SCH (16:28)
[2018-12-10] MEDS: FERROUS SULFATE 325 MG TAB PO SCH (16:28)
[2018-12-10] MEDS: CYANOCOBALAMIN 500 MCG TAB PO SCH (16:29)
[2018-12-10] MEDS: TAMSULOSIN 0.4 MG CAP.ER.24H PO SCH (16:32)
[2018-12-10] MEDS: DEXTROSE 5% IN WATER 1,000 ML IV SCH ×2 (18:17→22:55)
[2018-12-10] MEDS: DONEPEZIL 5 MG TAB PO SCH (20:41)
[2018-12-11 07:48] LABS: Potassium 3.6 mmol/L (3.5-5.1)
[2018-12-11 07:51] LABS: Anisocytosis Slight; HCT 27.9 % (34.0-46.0); HGB 8.5 gm/dL (11.4-16.0); Hypochromasia Marked; MCH 31.3 pg (25.0-35.0); MCHC 30.5 g/dL (31.0-37.0); MCV 102.9 fL (80.0-100.0); Macrocytosis Moderate; Mean Platelet Volume 7.8; Platelet Count 234 k/uL (150-450); Poikilocytosis Slight; RBC 2.71 m/uL (3.80-5.40); RDW 18.6 % (11.5-15.5)
[2018-12-11] MEDS: IPRATROPIUM-ALBUTEROL 3 ML NEB INHALATION SCH ×2 (08:26→11:52)
[2018-12-11] MEDS: BISACODYL 5 MG TABLET.DR PO SCH (08:52)
[2018-12-11] MEDS: APIXABAN 2.5 MG TABLET PO SCH (08:54)
[2018-12-11] MEDS: SERTRALINE 25 MG TAB PO SCH (08:54)
[2018-12-11] MEDS: PIPERACILLIN-TAZOBACTAM 3.375 GM in SODIUM CHLORIDE 0.9% 100 ML IVPB SCH (08:54)
[2018-12-11] MEDS: METOPROLOL TARTRATE 25 MG TAB PO SCH (08:55)
[2018-12-11] MEDS: PANTOPRAZOLE 40 MG/10 ML VIAL IV SCH (08:55)
[2018-12-11] MEDS: TAMSULOSIN 0.4 MG CAP.ER.24H PO SCH (08:55)
--- NOTE | 2018-12-11 09:41 | P.PN ---
Subjective Progress Note Date: 12/11/18 Principal diagnosis: This is a 88-year-old female seen in consultation for hyponatremia and acute kidney injury from diuresis and decreased intake. Her creatinine peaked at 3.4 and has improved with hydration. Initially she was admitted with possible pneumonia. She is known with systolic heart failure ejection fraction 45-50% with severe mitral stenosis and tricuspid regurg as well as moderate mitral regurg. Other than this she is known with coronary artery disease and dementia Objective - Vital Signs Vital signs: Vital Signs Temp 98.2 F 12/11/18 01:30 Pulse 68 12/11/18 08:36 Resp 16 12/11/18 01:30 BP 133/76 12/11/18 01:30 Pulse Ox 90 L 12/11/18 01:30 Intake & Output 12/10/18 12/11/18 12/11/18 18:59 06:59 18:59 Intake Total 278 750 Output Total 200 600 Balance 78 150 Intake: IV 160 KVO 160 Intake, IV Titration 750 Amount Dextrose 5% in Water 1, 750 000 ml @ 75 mls/hr IV . [id number] [facility] Rx#:[id number] Oral 118 Output: Urine 200 600 Other: Voiding Method Indwelling Catheter Indwelling Catheter # Voids 1 # Bowel Movements 1 1 On examination currently she is awake alert oriented comfortable HEENT exam no JVP neck is supple no facial asymmetry Lungs are clear to auscultation fairly good air entry bilaterally Heart sounds are for any murmur rub gallop in spite of the findings of multiple valvular lesions. Abdomen is soft nontender no masses felt Extremity exam was no edema Neurologically awake alert oriented. No asterixis - Labs CBC & Chem 7: 12/11/18 07:03 12/11/18 07:03 Labs: Abnormal Lab Results - Last 24 Hours (Table) 12/11/18 12/11/18 Range/Units 07:03 07:03 RBC 2.71 L (3.80-5.40) m/uL Hgb 8.5 L (11.4-16.0) gm/dL Hct 27.9 L (34.0-46.0) % MCV 102.9 H (80.0-100.0) fL MCHC 30.5 L (31.0-37.0) g/dL RDW 18.6 H (11.5-15.5) % Sodium 148 H (137-145) mmol/L Chloride 117 H (98-107) mmol/L BUN 28 H (7-17) mg/dL Creatinine 1.22 H (0.52-1.04) mg/dL Glucose 110 H (74-99) mg/dL Assessment and Plan Assessment: Impression 1. Acute kidney injury secondary to diuresis and decreased intake, improved with IV fluids and nearly resolved with creatinine down to 1.2 from a peak of 3.4. 2. Hypertremia improved, sodium peaked at 151, and down to 148. Currently on IV D5W 75 an hour. 3. Severe mitral stenosis tricuspid regurg and moderate mitral regurg. Curren tly compensated 4. Aspiration pneumonia resolving. Recommendation. 1. Because of ongoing hypernatremia will maintain the IV D5W at 75 mL an hour. 2. Encourage oral intake. 3. Repeat labs in the morning 4. Consider discontinuation of Valentine catheter.
[2018-12-11 10:05] LABS: Eosinophils # (M) 0.28 k/uL (0-0.7); Lymphocytes # (M) 0.84 k/uL (1.0-4.8); Monocytes # (M) 0.52 k/uL (0-1.0); Neutrophils # (M) 2.36 k/uL (1.3-7.7); Neutrophils % (M) 59 %; Nucleated Red Blood Cells 0 /100 WBC (0-0); Total Cells Counted 100
[2018-12-11 10:06] LABS: Target Cells Present
[2018-12-11 11:05] VITALS: BP 127/57; RESP 18; TEMP 98.6
--- NOTE | 2018-12-11 11:40 | P.DS ---
Providers Date of admission: 12/01/18 07:00 Expected date of discharge: 12/11/18 Attending physician: Lalo Fields Consults: 12/01/18 07:02 Consult Physician Urgent Consulting Provider: [facility] Consult Reason/Comments: elevated trop, hx CAD, sepsis/Pneumonia Do you want consulting provider notified?: Yes, Notify in am 12/02/18 12:05 Consult Physician Urgent Consulting Provider: David Tijerina Consult Reason/Comments: pneumonia Do you want consulting provider notified?: Yes 12/06/18 09:41 Consult Physician Routine Consulting Provider: Lon Quintero Consult Reason/Comments: acute renal failure Do you want consulting provider notified?: Yes Primary care physician: Juan Hull - Discharge Diagnosis(es) (1) Acute renal failure Current Visit: Yes Status: Acute (2) Acute on chronic systolic (congestive) heart failure Current Visit: Yes Status: Acute (3) Hypernatremia Current Visit: Yes Status: Resolved (4) Hypokalemia Current Visit: Yes Status: Resolved (5) Aspiration pneumonia Current Visit: Yes Status: Acute (6) History of coronary artery disease Current Visit: Yes Status: Acute (7) Dehydration Current Visit: No Status: Acute (8) Dementia Current Visit: No Status: Acute (9) High risk for readmission Current Visit: No Status: Acute (10) Macrocytic anemia Current Visit: No Status: Acute (11) Pneumonia Current Visit: No Status: Acute (12) Mitral stenosis Current Visit: Yes Status: Acute (13) Mitral regurgitation Current Visit: Yes Status: Acute (14) Stage II pressure ulcer of buttock Current Visit: Yes Status: Acute (15) Urinary retention Current Visit: Yes Status: Acute Hospital Course: Respiratory failure, probable aspiration A 8-year-old white female patient Dr[facility], was readmitted to the hospital with possible aspiration pneumonia past medical history of CVA TIA despite. 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 Lalo Fields December 06, 2018: Patient was seen and examined today. She is awake alert oriented 2 to self and location. She appears to be at her baseline mentation. There is a noted wound but, most likely the BiPAP to her right Nare. She denies any chest pains, pressures, or shortness of breath this time. Labs showed a creatinine significantly elevated yesterday. She's been on diuretics for acute CHF and has had poor intake. Her baseline creatinine is around 1.0. Currently she is improved from her admission. She was seen at [facility] by myself on November 30 and was found at that point to be of much improved mentation and other normal functions. 12/07/2018: Remedios was found sleeping in her room today. Her kidney functions are improved. Nephrology is on consult. GFR is now 15. Creatinine note 2.75. She remains hypernatremic with a sodium of 151. Hemoglobin is 8.3. Nursing reports no significant complaints from the patient. 12/08/2018: Patient is awake and alert today. Lunch is at bedside, which indicates she is not really hungry. Her kidney functions continue to improve. Her hypernatremia is resolved. She denies any chest pains, pressures, shortness of breath. She denies any nausea or vomiting today. 12/09/2018: Patient is awake and lying in bed. She has no complaints today. Nursing report she is doing well. Hypernatremia is resolved. BUN and creatinine of improved considerably. GFR is now 33. Macrocytic anemia stable with a hemoglobin of 8.2. Maintains on Zosyn for her pneumonia and Elequis for anticoagulation for her atrial fibrillation. [facility] for cough and shortness of breath. She remains on Aricept for dementia. This was started her last admission. She denies any current chest pains, or pressures at this time. She denies any active shortness of breath, nausea, or vomiting. 12/10/2018: Nursing staff had contacted me about multiple straight caths for this patient. A Valentine catheter and Flomax was ordered for her at that time. Patient seems more confused today. She was found resting in her bed. 5. Fluid to D5 water had been at KVO. Her kidney functions is minimally improved with a GFR up from 33-35 today. She remains on her other medications. She denies any chest pains compression, shortness breath, nausea or vomiting. Staff indicated they have to prompt her to eat. 12/11/2018: Patient continues to have the Valentine cath gravity. She is on Flomax this time. She denies any complaints. She is awake alert and oriented 2 in bed. I discussed her case with nephrology, and they believe she has plenty of by mouth fluids she should be okay and monitor her sodium. Her GFR is now improved to an episode of acute renal failure. She was originally admitted for pneumonia and CHF. She is doing much improved. We'll plan on her having Valentine catheter until Thursday 6 AM, staff can discontinu e at that time. I will be there is C her at [facility] approximately 9 AM. Due to her new onset atrial fibrillation, she'll continue on Elequis at 2.5 mg twice a day We'll plan for a basic metabolic panel on Thursday a.m. Patient Condition at Discharge: Serious Plan - Discharge Summary Discharge Rx Participant: No New Discharge Prescriptions: New Ipratropium-Albuterol Nebulize [Duoneb 0.5 mg-3 mg/3 ml Soln] 3 ml INHALATION RT-QID ampul.neb Apixaban [Eliquis] 2.5 mg PO BID tablet Tamsulosin [Flomax] 0.4 mg PO PC-BRKFST cap.er.24h Famotidine [Pepcid] 20 mg PO DAILY #30 tablet Continue Multivit-Min/FA/Lycopen/Lutein [Centrum Silver Tablet] 1 tab PO DAILY@1700 Lisinopril-Hctz 10-12.5 mg [Zestoretic 10-12.5] 1 tab PO BID@0800,1700 Aspirin 81 mg PO DAILY@1700 Super B Complex 1 cap PO DAILY@1700 Bisacodyl [Dulcolax] 10 mg RECTAL DAILY PRN PRN Reason: Constipation Cyanocobalamin [Vitamin B-12] 1,000 mcg PO DAILY@1700 Ferrous Sulfate [Iron (65 MG Elemental)] 325 mg PO DAILY@1700 Magnesium Hydroxide [Milk of Magnesia] 2,400 mg PO DAILY PRN PRN Reason: Constipation Metoprolol Tartrate [Lopressor] 25 mg PO BID@0800,1700 Na Phos,M-B/Na Phos,Di-Ba [Fleet Adult] 133 ml RECTAL DAILY PRN PRN Reason: Constipation Sertraline [Zoloft] 25 mg PO DAILY@0800 Donepezil [Aricept] 5 mg PO HS@2100 Discontinued Bisacodyl 5 mg PO DAILY@0800 Discharge Medication List Aspirin 81 mg PO DAILY@169910/26/17 [History] Lisinopril-Hctz 10-12.5 mg [Zestoretic 10-12.5] 1 tab PO BID@0800,1700 10/26/17 [History] Multivit-Min/FA/Lycopen/Lutein [Centrum Silver Tablet] 1 tab PO DAILY@169910/26/17 [History] Super B Complex 1 cap PO DAILY@169910/26/17 [History] Bisacodyl [Dulcolax] 10 mg RECTAL DAILY PRN 12/01/18 [History] Cyanocobalamin [Vitamin B-12] 1,000 mcg PO DAILY@169912/01/18 [History] Donepezil [Aricept] 5 mg PO HS@2100 12/01/18 [History] Ferrous Sulfate [Iron (65 MG Elemental)] 325 mg PO DAILY@169912/01/18 [History] Magnesium Hydroxide [Milk of Magnesia] 2,400 mg PO DAILY PRN 12/01/18 [History] Metoprolol Tartrate [Lopressor] 25 mg PO BID@0800,1700 12/01/18 [History] Na Phos,M-B/Na Phos,Di-Ba [Fleet Adult] 133 ml RECTAL DAILY PRN 12/01/18 [History] Sertraline [Zoloft] 25 mg PO DAILY@0800 12/01/18 [History] Apixaban [Eliquis] 2.5 mg PO BID tablet 12/11/18 [Rx] Famotidine [Pepcid] 20 mg PO DAILY #30 tablet 12/11/18 [Rx] Ipratropium-Albuterol Nebulize [Duoneb 0.5 mg-3 mg/3 ml Soln] 3 ml INHALATION RT-QID ampul.neb 12/11/18 [Rx] Tamsulosin [Flomax] 0.4 mg PO PC-BRKFST cap.er.24h 12/11/18 [Rx] Follow up Appointment(s)/Referral(s): Belén López, [NON-STAFF] - 1 Week Juan Hull MD [Primary Care Provider] - 1-2 days Ambulatory/Diagnostic Orders: Basic Metabolic Panel [LAB.AMB] Location: None Selected Complete Blood Count w/diff [LAB.AMB] Location: None Selected Activity/Diet/Wound Care/Special Instructions: cardiology cleared Care Plan Goals (MU): Continue Valentine catheter till 6 AM Thursday morning. Then discontinue Discharge Disposition: HOME WITH HOME HEALTH SERVICES
[2018-12-11 12:06] VITALS: PULSE 68
[2018-12-11] MEDS: DEXTROSE 5% IN WATER 1,000 ML IV SCH (13:08)
== END 2018-12-11 14:39 | DRG 177 ==
LOC: EC 05:17 → 3SCARD 07:00 → 2SICU 12-02 15:19 → 3SCARD 12-04 16:06 → 4SSUR 12-09 07:53
PROVIDERS: ADMIT Family Medicine; ATTEND Family Medicine
PROC: 5A09357 Assistance with Respiratory Ventilation, Less than 24 Consecutive Hours, Continuous Positive Airway Pressure (ICD-10-PCS; principal; 2018-12-02)
DX: J69.0 Pneumonitis due to inhalation of food and vomit (principal); J96.01 Acute respiratory failure with hypoxia; N17.0 Acute kidney failure with tubular necrosis; I50.23 Acute on chronic systolic (congestive) heart failure; E87.0 Hyperosmolality and hypernatremia; I13.0 Hypertensive heart and chronic kidney disease with heart failure and stage 1 through stage 4 chronic kidney disease, or unspecified chronic kidney disease; L89.302 Pressure ulcer of unspecified buttock, stage 2; D53.9 Nutritional anemia, unspecified; E78.5 Hyperlipidemia, unspecified; E86.0 Dehydration; E87.6 Hypokalemia; F03.90 Unspecified dementia, unspecified severity, without behavioral disturbance, psychotic disturbance, mood disturbance, and anxiety; H91.90 Unspecified hearing loss, unspecified ear; I08.1 Rheumatic disorders of both mitral and tricuspid valves; R74.8 Abnormal levels of other serum enzymes; I25.10 Atherosclerotic heart disease of native coronary artery without angina pectoris; I25.2 Old myocardial infarction; I27.20 Pulmonary hypertension, unspecified; I48.0 Paroxysmal atrial fibrillation; J44.9 Chronic obstructive pulmonary disease, unspecified; N18.3 Chronic kidney disease, stage 3 (moderate); R13.10 Dysphagia, unspecified; T50.2X5A Adverse effect of carbonic-anhydrase inhibitors, benzothiadiazides and other diuretics, initial encounter; T17.918A Gastric contents in respiratory tract, part unspecified causing other injury, initial encounter; Y95 Nosocomial condition; Z66 Do not resuscitate; Z79.82 Long term (current) use of aspirin; Z79.899 Other long term (current) drug therapy; Z83.3 Family history of diabetes mellitus; Z85.828 Personal history of other malignant neoplasm of skin; Z86.14 Personal history of Methicillin resistant Staphylococcus aureus infection; Z86.61 Personal history of infections of the central nervous system; Z86.73 Personal history of transient ischemic attack (TIA), and cerebral infarction without residual deficits; Z87.01 Personal history of pneumonia (recurrent); Z87.891 Personal history of nicotine dependence; Z90.710 Acquired absence of both cervix and uterus; Z95.1 Presence of aortocoronary bypass graft; Z87.440 Personal history of urinary (tract) infections; Z98.42 Cataract extraction status, left eye; Z98.41 Cataract extraction status, right eye; Z80.41 Family history of malignant neoplasm of ovary; I49.1 Atrial premature depolarization; H54.61 Unqualified visual loss, right eye, normal vision left eye
CPT/HCPCS: 36415; 71045; 71046; 74230; 76770; 80048; 80053; 81001; 82272; 83605; 83735; 83880; 84100; 84132; 84134; 84484; 85025; 85610; 85730; 87040; 87086; 87502; 93005; 93306; 94640; 94660; 94760; 96361; 96365; 96375; 99285